=== PATIENT | female | born 1945 | race African-American/Black ===

== ENCOUNTER 2016-09-25 15:58 | Emergency (ER) | payer MEDICARE ==
[2016-09-25 16:13] VITALS: BP 133/66; PULSE 78; RESP 20; TEMP 98.1
[2016-09-25] MEDS: HYDROcodone/APAP 5-325MG 1 EACH TAB PO STA (16:22)
--- NOTE | 2016-09-25 16:22 | ED ---
Extremity Problem HPI - General Chief complaint: Extremity Problem,Nontraumatic Stated complaint: L Hip pain Time Seen by Provider: 09/25/16 16:15 Source: patient, RN notes reviewed Mode of arrival: wheelchair Limitations: no limitations - History of Present Illness Initial comments: 71-year-old female presents to the emergency 5 chief complaint of left hip pain. She has a history of seizures he had a typical normal seizure about 3 weeks ago. Patient states after that she does feel little bit of pain in the left hip. Patient states that since then she's noticed some increased tenderness along the lateral aspect worse to touch in certain movements. Patient states just keeps throbbing and aching. Patient states that nothing she seems to take seems to help the pain. Vision vision doesn't have any fever chills nausea vomiting this. Patient states that she is not currently having any other symptoms at this time. Patient states she was concerned due to the continued pain so she thought that she should be evaluated.Patient denies any recent fever, chills, shortness of breath, chest pain, back pain, abdominal pain , nausea vomiting, numbness or tingling, dysuria or hematuria, constipation or diarrhea, headaches or visual changes, or any other current symptoms. - Related Data Home Medications Medication Instructions Recorded Confirmed Phenytoin Sodium Extended 100 mg PO BID 02/04/14 02/01/15 [Dilantin] Atorvastatin Calcium [Lipitor] 10 mg PO DAILY 08/31/14 02/01/15 Citalopram Hydrobromide [CeleXA] 40 mg PO DAILY 08/31/14 02/01/15 Aspirin 81 mg PO DAILY 12/23/14 02/01/15 Phenytoin Sodium Extended 100 mg PO TID 01/27/15 02/01/15 [Dilantin] levETIRAcetam [Keppra Xr] 1,000 mg PO TID 01/27/15 02/01/15 Eye Lubricant Combination No.1 1 applic BOTH EYES 01/31/15 02/01/15 [Freshkote] Previous Rx's Medication Instructions Recorded Ibuprofen [Motrin] 600 mg PO Q6HR PRN #20 tab 09/25/16 Allergies Allergy/AdvReac Type Severity Reaction Status Date / Time Penicillins Allergy fever,rash Verified 09/25/16 16:13 Review of Systems ROS Statement: Those systems with pertinent positive or pertinent negative responses have been documented in the HPI. ROS Other: All systems not noted in ROS Statement are negative. Past Medical History Past Medical History: Hypertension, Seizure Disorder, Thyroid Disorder Additional Past Medical History / Comment(s): SEE DR JOLLEY'S H&P,CONSTIPATION, SENSITIVE SKIN,THYROID PROBLEMS A CHILD, LAST SEIZURE 7--15 History of Any Multi-Drug Resistant Organisms: None Reported Past Surgical History: Bariatric Surgery, Section, Joint Replacement Additional Past Surgical History / Comment(s): removed part of the stomach "years ago", jn knee replacement Past Anesthesia/Blood Transfusion Reactions: Motion Sickness Past Psychological History: Anxiety Additional Psychological History / Comment(s): nervous breakdown 5 yrs ago with hospitalization Smoking Status: Former smoker Past Alcohol Use History: None Reported Additional Past Alcohol Use History / Comment(s): QUIT SMOKING ,SMOKED APPROX 14 YRS Past Drug Use History: None Reported - Past Family History Father Family Medical History: Myocardial Infarction ([place]) Mother Family Medical History: Osteoarthritis (OA) General Exam - General Exam Comments Initial Comments: General: The patient is awake and alert, in no distress, and does not appear acutely ill. Neck: The neck is supple, there is no tenderness. Cardiovascular: There is a regular rate and rhythm. No murmur, rub or gallop is appreciated. Respiratory: Lungs are clear to auscultation, respirations are non-labored, breath sounds are equal. No wheezes, stridor, rales, or rhonchi. Musculoskeletal: Sensation intact with 2+ pulses. Left foot x-ray. Findings motion of left hip and left knee. Patient has some tenderness of his along the lateral aspect of the left hip. Patient has pain to abduction. No pain on adduction. Pelvic rock test is negative. Low-grade as well as does create pain. Neurological: CN II-XII intact, There are no obvious motor or sensory deficits. Coordination appears grossly intact. Speech is normal. Skin: Skin is warm and dry and no rashes or lesions are noted. Psychiatric: Normal mood and affect. Limitations: no limitations Course Vital Signs 09/25/16 16:11 Temperature 98.1 F Pulse Rate 78 Respiratory 20 Rate Blood Pressure 133/66 O2 Sat by Pulse 98 Oximetry Medical Decision Making - Medical Decision Making Patient presents for left hip pain. At this time patient's x-ray does not show any acute process. At this time with likely greater trochanter bursitis due to the point tenderness over the trochanter on exam. We discussed anti- inflammatories and we will set the patient was short course of NSAIDs. We discussed temporary hours and follow-up. Patient stated that he understood all questions were answered. They will be discharged home. - Radiology Data Radiology results: report reviewed, image reviewed Disposition Clinical Impression: Greater trochanteric bursitis of left hip Disposition: HOME SELF-CARE Condition: Stable Instructions: Hip Bursitis (ED) Additional Instructions: Please use medication as discussed. Please follow up with family doctor if symptoms have not improved over the next two days. Please return to the emergency room if your symptoms increase or worsen or for any other concerns. Prescriptions: Ibuprofen [Motrin] 600 mg PO Q6HR PRN #20 tab PRN Reason: Pain Referrals: Baljit Edmonds MD [Primary Care Provider] - 1-2 days Jonathan Pittman DO [Doctor of Osteopathic Medicine] - 1-2 days Time of Disposition: 16:49
--- NOTE | 2016-09-25 16:41 | XR ---
EXAMINATION TYPE: XR Hip Complete LT DATE OF EXAM: 09/25/2016 4:29 PM COMPARISON: NONE HISTORY: Pain x3 weeks TECHNIQUE: 2 view left hip FINDINGS: Femoral head articulates with the acetabulum. No acute fractures evident. IMPRESSION: 1. Normal left hip
== END 2016-09-25 16:55 | disposition home or self-care (01) ==
LOC: EC 15:58
DX: M70.62 Trochanteric bursitis, left hip (principal); G40.909 Epilepsy, unspecified, not intractable, without status epilepticus; F41.9 Anxiety disorder, unspecified; Z79.82 Long term (current) use of aspirin; Z79.899 Other long term (current) drug therapy; Z88.0 Allergy status to penicillin; Z87.891 Personal history of nicotine dependence
CPT/HCPCS: 73502; 99283

== ENCOUNTER → 2016-10-04 | Outpatient (CLI) | payer MEDICARE ==
--- NOTE | 2016-10-04 15:29 | MR ---
EXAMINATION TYPE: MR hip LT wo con DATE OF EXAM: 10/04/2016 2:09 PM COMPARISON: Radiographs 09/25/2016 HISTORY: 71-year-old female Left hip pain TECHNIQUE: Multiplanar, multisequence images of the left hip were obtained without IV contrast. FINDINGS: Extensive disc/endplate degenerative change seen within the visualized lower lumbar spine with some e dematous Modic type I endplate change at L4-L5. The sacrum appears intact as do the SI joints. Mild bilateral hip joint space narrowing. Small left hip joint effusion, slightly asymmetric to the c ontralateral side. No evidence for hip fracture or AVN. Some heterogeneous marrow signal without suspicious bone marrow replacement. The rectus femoris and hamstrings origins as well as the iliopsoas and gluteal insertions appear inta ct. There is loss of fat saturation in areas of the axial sequence. There is a semilunar cystic space that extends from posterior to the the ureteral orifice closer to t he lower vagina off to the left of the perineum measuring up to 3 cm long and 1 cm thick. No abnormal fluid collection otherwise seen within the pelvis. IMPRESSION: 1. Mild bilateral hip osteoporosis. No hip fracture or AVN. 2. Severe multilevel disc/endplate degenerative change within the visualized lower lumbar spine. Ther e is some edematous Modic type I endplate change noted at L4-L5. 3. Findings most suggestive of a 3 x 1 cm semilunar Bartholin gland cyst on the left. Clinically to elate.
== END | disposition home or self-care (01) ==
LOC: RADMRIMAIN 09:54
PROVIDERS: ATTEND Orthopaedic Surgery
DX: M81.0 Age-related osteoporosis without current pathological fracture (principal); M25.852 Other specified joint disorders, left hip; S76.012A Strain of muscle, fascia and tendon of left hip, initial encounter

== ENCOUNTER → 2016-10-10 | Outpatient (CLI) | payer MEDICARE | END | disposition home or self-care (01) | LOC: LABWHC1 12:36 | PROVIDERS: ATTEND Psychiatry & Neurology Neurology | DX: G40.909 Epilepsy, unspecified, not intractable, without status epilepticus (principal) | CPT/HCPCS: 36415; 80177; 80185 ==

== ENCOUNTER 2016-10-29 11:14 | Day surgery (SDC) | payer MEDICARE ==
[2016-10-24 12:22] VITALS: BMI 37.8
[~2016-10-29 11:14] MED LIST: CLINDAMYCIN 900 MG in DEXTROSE 5% IN WATER 50 ML IVPB ONE; SODIUM CHLORIDE 0.9% 1,000 ML IV SCH
[2016-10-29 11:31] VITALS: RESP 18
[2016-10-29] MEDS ORDERED: LIDOCAINE 2% INJ 20 MG/ML SQ ONE (13:31)
--- NOTE | 2016-10-29 13:46 | P.PCN ---
Preoperative Diagnosis: Loop explant under local anesthesia and monitoring Patient was brought to the EP lab in a fasting state. Written informed consent was obtained prior to the procedure. The subcutaneous device was successfully explanted under local anesthesia. Preoperative antibiotics were administered. The wound was closed in layers and dressed per protocol. Result: Successful loop monitor explantation. Patient was monitored for heart rate and blood pressure and pulse ox from 1330 to 1339 Anesthesia: local Disposition: same day
[2016-10-29 15:22] VITALS: BP 140/86; PULSE 86; TEMP 98
== END 2016-10-29 14:30 | disposition home or self-care (01) ==
LOC: CATHEP 11:14
PROVIDERS: ATTEND Internal Medicine Clinical Cardiac Electrophysiology
DX: R55 Syncope and collapse (principal); I25.10 Atherosclerotic heart disease of native coronary artery without angina pectoris; I44.30 Unspecified atrioventricular block; E66.01 Morbid (severe) obesity due to excess calories; Z68.38 Body mass index [BMI] 38.0-38.9, adult; G40.909 Epilepsy, unspecified, not intractable, without status epilepticus; Z79.82 Long term (current) use of aspirin; Z79.899 Other long term (current) drug therapy; Z88.0 Allergy status to penicillin; Z87.891 Personal history of nicotine dependence
CPT/HCPCS: 33284; J2001

== ENCOUNTER → 2017-01-15 | Outpatient (CLI) | payer MEDICARE ==
--- NOTE | 2017-01-15 11:20 | MM ---
Reason for exam: screening (asymptomatic). Last mammogram was performed 1 year and 5 months ago. History: Patient is postmenopausal. Excisional biopsy of the right breast, 1974. Physical Findings: A clinical breast exam by your physician is recommended on an annual basis and results should be correlated with mammographic findings. MG Screening Mammo w CAD Bilateral CC and MLO view(s) were taken. Prior study comparison: August 31, 2015, bilateral MG screening mammo w CAD. April 23, 2013, bilateral digital screening mammo w/CAD. The breast tissue is almost entirely fat. Previous ultrasound biopsy in the right breast. No significant changes when compared with prior studies. ASSESSMENT: Benign, BI-RAD 2 RECOMMENDATION: Routine screening mammogram of both breasts in 1 year.
== END | disposition home or self-care (01) ==
LOC: RADMAMWWP 08:09
PROVIDERS: ATTEND Family Medicine
DX: Z12.31 Encounter for screening mammogram for malignant neoplasm of breast (principal)

== ENCOUNTER 2017-03-14 15:46 | Emergency (ER) | payer MEDICARE ==
[2017-03-14] MEDS ORDERED: SODIUM CHLORIDE 0.9% 1,000 ML IV STA (15:53)
[2017-03-14] MEDS ORDERED: levETIRAcetam IV 1,000 MG in SALINE 1 100ML.BAG IVPB STA (15:54)
[2017-03-14 16:13] VITALS: TEMP 97.9
[2017-03-14 16:23] LABS: Basophils % (A) 1 %; CH 32.2; CHCM 33.2; Eosinophils # (A) 0.1 k/uL (0-0.7); Eosinophils % (A) 2 %; HCT 42.1 % (34.0-46.0); HDW 2.18; HGB 13.6 gm/dL (11.4-16.0); Luc # (Auto) 0.16; Luc % (Auto) 3; Lymphocytes # (A) 1.3 k/uL (1.0-4.8); Lymphocytes % (A) 22 %; MCH 31.3 pg (25.0-35.0); MCHC 32.2 g/dL (31.0-37.0); MCV 97.3 fL (80.0-100.0); Mean Platelet Volume 7.5; Monocytes # (A) 0.2 k/uL (0-1.0); Monocytes % (A) 4 %; Neutrophils # (A) 3.8 k/uL (1.3-7.7); Neutrophils % (A) 68 %; RBC 4.33 m/uL (3.80-5.40); RDW 13.7 % (11.5-15.5); WBC 5.6 k/uL (3.8-10.6)
[2017-03-14 16:36] LABS: ALT 34 U/L (9-52); AST 25 U/L (14-36); Alkaline Phosphatase 170 U/L (38-126); Anion Gap 6 mmol/L; Blood Urea Nitrogen 14 mg/dL (7-17); Calcium 8.4 mg/dL (8.4-10.2); Carbon Dioxide 23 mmol/L (22-30); Chloride 108 mmol/L (98-107); Glucose 120 mg/dL (74-99); Non-African American GFR(MDRD) >60 (>60 ml/min/1.73 sqM); Potassium 3.8 mmol/L (3.5-5.1); Sodium 137 mmol/L (137-145); Total Bilirubin 0.2 mg/dL (0.2-1.3); Total Protein 6.3 g/dL (6.3-8.2)
--- NOTE | 2017-03-14 16:45 | CT ---
EXAMINATION TYPE: CT brain cspine wo con DATE OF EXAM: 03/14/2017 COMPARISON: 02/04/2014 HISTORY: seizure today with posterior head injury CT DLP: 1738.9 mGycm. Automated Exposure Control for Dose Reduction was Utilized. TECHNIQUE: CT scan of the head and cervical spine are performed without contrast. FINDINGS: There is no acute intracranial hemorrhage or midline shift. There is subtle blurring of the quintanilla-white junction involving the right posterior temporal lobes and parietal lobes in the distri bution of the right middle cerebral artery. No hyperdense MCA is seen. The ventricles and sulci are w ithin normal limits in size. The globes are intact and the visualized sinuses are clear. Cervical spine is visualized in its entirety from C1 through upper thoracic levels and demonstrates s atisfactory alignment without evidence of acute fracture or dislocation. Prevertebral soft tissue ap pears within normal limits. Multilevel degenerative disc disease is seen of the cervical spine. Find ings are most pronounced at C3-C4 and C6-C7. The C1-C2 articulation is unremarkable. IMPRESSION: 1. Subtle blurring of the quintanilla-white junction in the distribution of the right MCA which could relate to early infarct or artifact. Correlation with MRI could be performed to exclude territorial infarct . Correlation with neurologic exam is recommended. 2. There is no acute fracture or dislocation evident in the cervical spine. 3. No acute intracranial hemorrhage. Findings were communicated to the ordering ER physician by Dr. Kidd at 1642 on 03/14/2017.
--- NOTE | 2017-03-14 17:10 | ED ---
General Adult HPI - General Chief complaint: Seizure Stated complaint: Seizure Time Seen by Provider: 03/14/17 15:51 Source: patient, EMS, RN notes reviewed, old records reviewed Mode of arrival: EMS - History of Present Illness Initial comments: This is a 72-year-old female the ER for evaluation. This patient is a for evaluation regarding seizure. Patient's postictal soluble give history and status post seizure at this time, but I patient has been taken off seizure medications as prescribed O shopping, had a seizure while standing fell to ground hit had with no loss of consciousness. She does have mild bleeding from the posterior occiput. No other injuries from seizure. - Related Data Home Medications Medication Instructions Recorded Confirmed Phenytoin Sodium Extended 100 mg PO TID 02/04/14 03/14/17 [Dilantin] Atorvastatin Calcium [Lipitor] 10 mg PO HS 08/31/14 03/14/17 Citalopram Hydrobromide [CeleXA] 40 mg PO DAILY 08/31/14 03/14/17 Phenytoin Sodium Extended 100 mg PO BID 01/27/15 03/14/17 [Dilantin] levETIRAcetam [Keppra Xr] 1,000 mg PO TID 01/27/15 03/14/17 Aspirin EC [Ecotrin Low Dose] 81 mg PO BID 03/14/17 03/14/17 Ergocalciferol (Vitamin D2) 50,000 unit PO Q28D 03/14/17 03/14/17 [Vitamin D2] Perampanel (Fycompa) 4 mg PO HS 03/14/17 03/14/17 Allergies Allergy/AdvReac Type Severity Reaction Status Date / Time TESS Inhibitors Allergy Itching Verified 03/14/17 15:56 Penicillins Allergy fever,rash Verified 03/14/17 15:56 Review of Systems ROS Statement: Those systems with pertinent positive or pertinent negative responses have been documented in the HPI. ROS Other: All systems not noted in ROS Statement are negative. Past Medical History Past Medical History: Hypertension, Seizure Disorder, Skin Disorder, Thyroid Disorder Additional Past Medical History / Comment(s): SEE DR JOLLEY'S H&P,EXCEMA, THYROID PROBLEMS A CHILD, LAST SEIZURE 10/20/16 History of Any Multi-Drug Resistant Organisms: None Reported Past Surgical History: Bariatric Surgery, Section, Joint Replacement Additional Past Surgical History / Comment(s): LOOP MONITOR IMPLANT, removed part of the stomach "years ago", jn knee replacement, LEFT CATARACT Past Anesthesia/Blood Transfusion Reactions: Motion Sickness Past Psychological History: Anxiety Smoking Status: Former smoker Past Alcohol Use History: None Reported Past Drug Use History: None Reported - Past Family History Father Family Medical History: Myocardial Infarction ([place]) Mother Family Medical History: Osteoarthritis (OA) General Exam Limitations: altered mental status (Postictal) General appearance: alert, in no apparent distress Head exam: Present: atraumatic, normocephalic, normal inspection Eye exam: Present: normal appearance, PERRL, EOMI. Absent: scleral icterus, conjunctival injection, periorbital swelling ENT exam: Present: normal exam, mucous membranes moist Neck exam: Present: normal inspection. Absent: tenderness, meningismus, lymphadenopathy Respiratory exam: Present: normal lung sounds bilaterally. Absent: respiratory distress, wheezes, rales, rhonchi, stridor Cardiovascular Exam: Present: regular rate, normal rhythm, normal heart sounds. Absent: systolic murmur, diastolic murmur, rubs, gallop, clicks GI/Abdominal exam: Present: soft, normal bowel sounds. Absent: distended, tenderness, guarding, rebound, rigid Extremities exam: Present: normal inspection, full ROM, normal capillary refill. Absent: tenderness, pedal edema, joint swelling, calf tenderness Back exam: Present: normal inspection Neurological exam: Present: alert, oriented X3, CN II-XII intact Psychiatric exam: Present: normal affect, normal mood Skin exam: Present: warm, dry, intact, normal color. Absent: rash Course Vital Signs 03/14/17 15:56 Temperature 97.9 F Pulse Rate 89 Respiratory 16 Rate Blood Pressure 197/102 - Reevaluation(s) Reevaluation #1: 03/14/17 17:08 Patient is completely back to baseline mental status, no seizure-like activity here in emergency room, patient states she's been taking all medications as prescribed Reevaluation #2: 03/14/17 17:08 Patient has no focal neurological deficit, able to ambulate without difficulty Procedures - Laceration Laceration #1 Consent Obtained: verbal consent Time Out Performed: Yes Indication: laceration Site: scalp Size (cm): 3 Description: linear Pre-repair: wound explored, irrigated extensively Size of Sutures: other (Sander) Technique: simple, interrupted Medical Decision Making - Medical Decision Making 72 female in the ER status post epileptic seizure, therapeutic Dilantin level, given Her here in ER, no seizure-like activity, CT brain and C-spine are negative. No focal neurological deficit, scalp laceration is repaired is repaired with sander and patient can be discharged - Lab Data Result diagrams: 03/14/17 16:05 03/14/17 16:10 Lab Results 03/14/17 03/14/17 Range/Units 16:05 16:10 WBC 5.6 (3.8-10.6) k/uL RBC 4.33 (3.80-5.40) m/uL Hgb 13.6 (11.4-16.0) gm/dL Hct 42.1 (34.0-46.0) % MCV 97.3 (80.0-100.0) fL MCH 31.3 (25.0-35.0) pg MCHC 32.2 (31.0-37.0) g/dL RDW 13.7 (11.5-15.5) % Plt Count 252 (150-450) k/uL Neutrophils % 68 % Lymphocytes % 22 % Monocytes % 4 % Eosinophils % 2 % Basophils % 1 % Neutrophils # 3.8 (1.3-7.7) k/uL Lymphocytes # 1.3 (1.0-4.8) k/uL Monocytes # 0.2 (0-1.0) k/uL Eosinophils # 0.1 (0-0.7) k/uL Basophils # 0.0 (0-0.2) k/uL Sodium 137 (137-145) mmol/L Potassium 3.8 (3.5-5.1) mmol/L Chloride 108 H (98-107) mmol/L Carbon Dioxide 23 (22-30) mmol/L Anion Gap 6 mmol/L BUN 14 (7-17) mg/dL Creatinine 0.50 L (0.52-1.04) mg/dL Est GFR (MDRD) Af Amer >60 (>60 ml/min/1.73 sqM) Est GFR (MDRD) Non-Af >60 (>60 ml/min/1.73 sqM) Glucose 120 H (74-99) mg/dL Calcium 8.4 (8.4-10.2) mg/dL Total Bilirubin 0.2 (0.2-1.3) mg/dL AST 25 (14-36) U/L ALT 34 (9-52) U/L Alkaline Phosphatase 170 H (38-126) U/L Total Protein 6.3 (6.3-8.2) g/dL Albumin 3.6 (3.5-5.0) g/dL Phenytoin 16.2 ug/mL - Radiology Data Radiology results: report reviewed (CT brain and C-spine negative for acute injury), image reviewed Disposition Clinical Impression: Epileptic seizure, Scalp laceration, Fall Disposition: HOME SELF-CARE Condition: Good Instructions: Recurrent Seizures in Adults (ED), Staple Care (ED) Referrals: Baljit Edmonds MD [Primary Care Provider] - 1-2 days
[2017-03-14 17:30] VITALS: BP 150/95; PULSE 90; RESP 20
== END 2017-03-14 17:30 | disposition home or self-care (01) ==
LOC: EC 15:46
DX: S01.01XA Laceration without foreign body of scalp, initial encounter (principal); R56.9 Unspecified convulsions; I10 Essential (primary) hypertension; E07.9 Disorder of thyroid, unspecified; F41.9 Anxiety disorder, unspecified; Z87.891 Personal history of nicotine dependence; Z79.82 Long term (current) use of aspirin; Z79.899 Other long term (current) drug therapy; Z88.0 Allergy status to penicillin; Z88.8 Allergy status to other drugs, medicaments and biological substances; W18.00XA Striking against unspecified object with subsequent fall, initial encounter
CPT/HCPCS: 36415; 80053; 80185; 85025; 72125; 70450; 99285; 96374; 96361; 12002; J1953

== ENCOUNTER → 2017-11-27 | Outpatient (CLI) | payer MEDICARE ==
--- NOTE | 2017-11-28 06:23 | MR ---
EXAMINATION TYPE: MR brain wo/w con DATE OF EXAM: 11/27/2017 COMPARISON: CT brain March 14, 2017. HISTORY: Generalized epilepsy, epileptic syndromes per order. Seizures per patient. TECHNIQUE: Multiplanar, multisequence images of the brain and brainstem is performed without and with IV contras t, utilizing 10 mL intravenous Gadavist . FINDINGS: Diffusion weighted images demonstrate no evidence of a recent infarct or other diffusion ab normality. There is no worrisome extra-axial fluid collection. The ventricular system and cisternal spaces are normal in size and appearance. The brain volume is age appropriate. There are few scatte red foci of T2 hyperintensity seen throughout the white matter bilaterally. Approximately 10 scattere d lesions are present. Lesions are nonspecific in appearance and distribution but most likely on basi s of product of chronic small vessel ischemic change in patient of this age. Midline structures demonstrate normal morphology. The craniocervical junction appears within normal limits. Post contrast images demonstrate no abnormal enhancement. The dural venous sinuses appear pa tent. The visualized sinuses are clear and the globes are intact. Artifact distortion at level of max illary sinuses and nasal bones is noted. Hyperostosis frontalis is redemonstrated. IMPRESSION: Mild chronic small vessel ischemic change. No suspicious enhancement is noted.
== END | disposition home or self-care (01) ==
LOC: RADMRIMAIN 19:13
PROVIDERS: ATTEND Psychiatry & Neurology Neurology
DX: I67.82 Cerebral ischemia (principal); Z13.89 Encounter for screening for other disorder
CPT/HCPCS: 82565; 70553; 36415; A9581

== ENCOUNTER → 2017-11-29 | Outpatient (CLI) | payer MEDICARE ==
[2017-11-29 11:16] LABS: Phenytoin (Dilantin) 9.3 ug/mL
== END | disposition home or self-care (01) ==
LOC: LABWHC1 10:27
PROVIDERS: ATTEND Psychiatry & Neurology Neurology
DX: G40.419 Other generalized epilepsy and epileptic syndromes, intractable, without status epilepticus (principal); Z13.89 Encounter for screening for other disorder
CPT/HCPCS: 36415; 80177; 80185; 82565

== ENCOUNTER → 2019-04-29 | Outpatient (CLI) | payer MEDICARE | END | disposition home or self-care (01) | LOC: LABWHC1 12:50 | PROVIDERS: ATTEND Psychiatry & Neurology Neurology | DX: G47.19 Other hypersomnia (principal) | CPT/HCPCS: 36415 ==

== ENCOUNTER → 2019-08-17 | Outpatient (CLI) | payer MEDICARE | END | disposition home or self-care (01) | LOC: LABWHC1 10:29 | PROVIDERS: ATTEND Psychiatry & Neurology Neurology | DX: G40.419 Other generalized epilepsy and epileptic syndromes, intractable, without status epilepticus (principal) | CPT/HCPCS: 36415; 80177; 80185 ==

== ENCOUNTER → 2020-01-13 | Outpatient (CLI) | payer MEDICARE | END | disposition home or self-care (01) | LOC: LABWHC1 08:27 | PROVIDERS: ATTEND Psychiatry & Neurology Neurology | DX: G40.419 Other generalized epilepsy and epileptic syndromes, intractable, without status epilepticus (principal) | CPT/HCPCS: 36415; 80177; 80185 ==

== ENCOUNTER 2020-01-29 03:43 | Emergency (ER) | payer MEDICARE ==
[2020-01-29] MEDS ORDERED: LORazepam 2 MG/ML INJ IV STA (04:11)
[2020-01-29] MEDS ORDERED: SODIUM CHLORIDE 0.9% 1,000 ML IV SCH (04:15)
[2020-01-29 04:37] LABS: Basophils % (A) 1 %; Eosinophils # (A) 0.2 k/uL (0-0.7); Eosinophils % (A) 2 %; HCT 44.1 % (34.0-46.0); HGB 14.8 gm/dL (11.4-16.0); Lymphocytes # (A) 2.3 k/uL (1.0-4.8); Lymphocytes % (A) 32 %; MCH 31.9 pg (25.0-35.0); MCHC 33.6 g/dL (31.0-37.0); Mean Platelet Volume 7.5; Monocytes # (A) 0.4 k/uL (0-1.0); Monocytes % (A) 6 %; Neutrophils % (A) 55 %; Platelet Count 247 k/uL (150-450); RBC 4.65 m/uL (3.80-5.40); RDW 12.8 % (11.5-15.5); WBC 7.3 k/uL (3.8-10.6)
[2020-01-29 04:38] LABS: ALT 21 U/L (4-34); AST 26 U/L (14-36); African American GFR (CKD) >90 (>60 ml/min/1.73 sqM); Albumin 4.1 g/dL (3.5-5.0); Alkaline Phosphatase 175 U/L (38-126); Anion Gap 13 mmol/L; Blood Urea Nitrogen 12 mg/dL (7-17); Carbon Dioxide 19 mmol/L (22-30); Chloride 101 mmol/L (98-107); Glucose 192 mg/dL (74-99); Non-African American GFR(CKD) >90 (>60 ml/min/1.73 sqM); Potassium 3.6 mmol/L (3.5-5.1); Sodium 133 mmol/L (137-145); Total Bilirubin 0.5 mg/dL (0.2-1.3)
[2020-01-29 05:07] LABS: MCV 94.9 fL (80.0-100.0)
--- NOTE | 2020-01-29 05:13 | ED ---
General Adult HPI - General Chief complaint: Shortness of Breath Stated complaint: SOB Time Seen by Provider: 01/29/20 04:10 Source: patient Mode of arrival: ambulatory Limitations: no limitations - History of Present Illness Initial comments: Patient is a 74-year-old female presents to the ER today for evaluation of shortness of breath. Patient reports she was in her usual state of health when she went about, approximately one hour prior to arrival she began feeling panicky like her heart was racing and she can catch her breath. She denies any wheezing cough recent fevers or chills. She states she has a history of anxiety and has had anxiety attacks that present like this. Patient also notes that she had a seizure yesterday, she does have chronic seizure disorder does have frequent seizures seizure yesterday lasted under 10 minutes. states sometimes they last longer than that. Patient does report that she recently started taking Fycompa she has taken previously and had discontinued due to having episodes of lightheadedness and syncope while taking it. Patient reports that despite not taking it she did have some syncope over a week ago she seen her primary care neurologist since then but hadn't discussed it with them. She hasn't had any recent chest pain. She states that her sink while episodes occur without provocation. She states she just falls out. This is been a chronic problem for her. - Related Data Home Medications Medication Instructions Recorded Confirmed Phenytoin Sodium Extended 100 mg PO TID 02/04/14 03/14/17 [Dilantin] Atorvastatin Calcium [Lipitor] 10 mg PO HS 08/31/14 03/14/17 Citalopram Hydrobromide [CeleXA] 40 mg PO DAILY 08/31/14 03/14/17 Phenytoin Sodium Extended 100 mg PO BID 01/27/15 03/14/17 [Dilantin] levETIRAcetam [Keppra Xr] 1,000 mg PO TID 01/27/15 03/14/17 Aspirin EC [Ecotrin Low Dose] 81 mg PO BID 03/14/17 03/14/17 Ergocalciferol (Vitamin D2) 50,000 unit PO Q28D 03/14/17 03/14/17 [Vitamin D2] Perampanel (Fycompa) 4 mg PO HS 03/14/17 03/14/17 Aspirin EC [Ecotrin Low Dose] 81 mg PO BID 08/08/18 08/08/18 Atorvastatin [Lipitor] 10 mg PO HS 08/08/18 08/08/18 Citalopram Hydrobromide 40 mg PO DAILY 08/08/18 08/08/18 [Citalopram HBr] Multivitamins, Thera [Multivitamin 1 tab PO DAILY 08/08/18 08/08/18 (formulary)] Perampanel [Fycompa] 10 mg PO HS 08/08/18 08/08/18 Phenytoin Sodium Extended 100 mg PO BID 08/08/18 08/08/18 [Dilantin] levETIRAcetam [levETIRAcetam ER] 1,000 mg PO BID 08/08/18 08/08/18 Allergies Allergy/AdvReac Type Severity Reaction Status Date / Time TESS Inhibitors Allergy Itching Verified 01/29/20 03:51 Penicillins Allergy fever,rash Verified 01/29/20 03:51 Review of Systems ROS Statement: Those systems with pertinent positive or pertinent negative responses have been documented in the HPI. ROS Other: All systems not noted in ROS Statement are negative. Past Medical History Past Medical History: Hypertension, Seizure Disorder, Skin Disorder, Thyroid Disorder Additional Past Medical History / Comment(s): SEE DR JOLLEY'S H&P,EXCEMA, THYROID PROBLEMS A CHILD, LAST SEIZURE 10/20/16 History of Any Multi-Drug Resistant Organisms: None Reported Past Surgical History: Bariatric Surgery, Section, Joint Replacement, No Surgical Hx Reported Additional Past Surgical History / Comment(s): LOOP MONITOR IMPLANT, removed part of the stomach "years ago", jn knee replacement, LEFT CATARACT Past Anesthesia/Blood Transfusion Reactions: Motion Sickness Past Psychological History: Anxiety, No Psychological Hx Reported Smoking Status: Never smoker Past Alcohol Use History: None Reported Past Drug Use History: None Reported - Past Family History Father Family Medical History: Myocardial Infarction ([place]) Mother Family Medical History: Osteoarthritis ([place]) General Exam - General Exam Comments Initial Comments: Physical Exam GENERAL: Patient is well-developed and well-nourished. Patient is nontoxic and well-hydrated and is in no distress. HENT: Normocephalic, Atraumatic. EYES: PERRL, EOMI PULMONARY: Unlabored respirations. CARDIOVASCULAR: RRR Warm and well perfused extremities ABDOMEN: Non-distended SKIN: No rashes or bruising : Deferred NEUROLOGIC: Alert and oriented Normal speech Normal gait MUSCULOSKELETAL: Moving all extremities with no apparent injury PSYCHIATRIC: No SI/HI Limitations: no limitations Course Vital Signs 01/29/20 01/29/20 01/29/20 03:44 04:40 06:40 Temperature 98.2 F Pulse Rate 123 H 108 H 90 Respiratory 18 22 18 Rate Blood Pressure 171/94 159/98 O2 Sat by Pulse 100 100 97 Oximetry EKG Findings - EKG Comments: EKG Findings:: EKG is obtained due to tachycardia and shortness of breath, EKG was obtained for us exam, rate is 110 rhythm sinus tachycardia normal axis, normal intervals, WA 156, QRS 78, QTC 479 there are no acute ST elevations or depressions no acute ischemia or infarction Medical Decision Making - Medical Decision Making Patient presented short of breath, no wheezing, tachycardic Labs and ativan ordered Patient HR improved with ativan, upon re-evaluation patient is feeling much better Labs with elevated D-dimer, CT scan with no evidence of PE, small nodule noted and discussed with patient, gallbladder sludge noted however patient with no symptoms therefore further imaging not acutely indicated Patient no longer tachycardic, resting comfortably, comfortable with plan for discharge home - Lab Data Result diagrams: 01/29/20 04:13 01/29/20 04:13 Lab Results 01/29/20 01/29/20 01/29/20 Range/Units 04:13 04:13 04:13 WBC 7.3 (3.8-10.6) k/uL RBC 4.65 (3.80-5.40) m/uL Hgb 14.8 (11.4-16.0) gm/dL Hct 44.1 (34.0-46.0) % MCV 94.9 D (80.0-100.0) fL MCH 31.9 (25.0-35.0) pg MCHC 33.6 (31.0-37.0) g/dL RDW 12.8 (11.5-15.5) % Plt Count 247 (150-450) k/uL Neutrophils % 55 % Lymphocytes % 32 % Monocytes % 6 % Eosinophils % 2 % Basophils % 1 % Neutrophils # 4.0 (1.3-7.7) k/uL Lymphocytes # 2.3 (1.0-4.8) k/uL Monocytes # 0.4 (0-1.0) k/uL Eosinophils # 0.2 (0-0.7) k/uL Basophils # 0.0 (0-0.2) k/uL D-Dimer 0.66 H (<0.60) mg/L FEU Sodium 133 L (137-145) mmol/L Potassium 3.6 (3.5-5.1) mmol/L Chloride 101 (98-107) mmol/L Carbon Dioxide 19 L (22-30) mmol/L Anion Gap 13 mmol/L BUN 12 (7-17) mg/dL Creatinine 0.53 (0.52-1.04) mg/dL Est GFR (CKD-EPI)AfAm >90 (>60 ml/min/1.73 sqM) Est GFR (CKD-EPI)NonAf >90 (>60 ml/min/1.73 sqM) Glucose 192 H (74-99) mg/dL Calcium 9.0 (8.4-10.2) mg/dL Magnesium 2.0 (1.6-2.3) mg/dL Total Bilirubin 0.5 (0.2-1.3) mg/dL AST 26 (14-36) U/L ALT 21 (4-34) U/L Alkaline Phosphatase 175 H (38-126) U/L Total Protein 7.0 (6.3-8.2) g/dL Albumin 4.1 (3.5-5.0) g/dL Disposition Clinical Impression: Palpitations, Abnormal CT lung screening Disposition: HOME SELF-CARE Condition: Stable Additional Instructions: Your CT showed a 3mm lesion in your left lung, follow up with your PCP for repeat imaging Is patient prescribed a controlled substance at d/c from ED?: No Referrals: Baljit Edmonds MD [Primary Care Provider] - 1-2 days
--- NOTE | 2020-01-29 06:59 | CT ---
EXAM: CT Angiography Chest With Intravenous Contrast CLINICAL HISTORY: ITS.REASON CT Reason: hypoxia TECHNIQUE: Axial computed tomographic angiography images of the chest with intravenous contrast. CTDI is 14 mGy and DLP is 545 mGy-cm. This CT exam was performed using one or more of the following dose reduction techniques: automated exposure control, adjustment of the mA and/or kV according to patient size, and/or use of iterative reconstruction technique. MIP reconstructed images were created and reviewed. COMPARISON: 08/31/2014 FINDINGS: Pulmonary arteries: Due to contrast timing, the distal pulmonary arteries are not well evaluated. Only the proximal/central pulmonary arteries are visualized, which is patent. Aorta: No thoracic aortic aneurysm. Lungs: No mass. No consolidation. 3 mm micronodule in the left lower lobe (series 401 image 76). Pleural space: No pneumothorax. No effusion. Heart: No cardiomegaly. No pericardial effusion. Bones/joints: No acute fracture or dislocation. Severe L1-2 degenerative discogenic changes. Soft tissues: 9 mm nodule in the right thyroid gland. Distended gallbladder with sludge layering near the neck. Lymph nodes: No enlarged lymph nodes. IMPRESSION: 1. Due to contrast timing, the distal pulmonary arteries are not well evaluated. Only the proximal/central pulmonary arteries are visualized, which is patent. No pulmonary infarct or right heart strain. 2. Distended gallbladder with sludge layering near the gallbladder neck. Recommend right upper quadrant ultrasound. 3. Subcentimeter right thyroid gland nodule. 4. 3 mm micronodule in the left lower lobe. Fleishner Society Guideline 2017: Solitary nodule size: <6 mm -low-risk patients: no follow-up needed -high-risk patients: optional CT at 12 months EXCLUSIONS: 1. Patients aged 35 years or younger 2. Patients with known malignancy 3. Immunocompromised patients 4. Lung cancer screening population Low-risk patients: a minimal or absent history of smoking and or other known risk factors High-risk patients: a history of smoking or of other known risk factors (e.g. first degree relative with lung cancer, or exposure to asbestos, radon, uranium).
[2020-01-29 10:36] VITALS: BP 150/96; PULSE 88; RESP 16; TEMP 98.2
== END 2020-01-29 07:55 | disposition home or self-care (01) ==
LOC: EC 03:43
DX: R00.2 Palpitations (principal); R06.02 Shortness of breath; R79.89 Other specified abnormal findings of blood chemistry; R91.8 Other nonspecific abnormal finding of lung field; K82.8 Other specified diseases of gallbladder; G40.909 Epilepsy, unspecified, not intractable, without status epilepticus; F41.9 Anxiety disorder, unspecified; Z79.899 Other long term (current) drug therapy; Z79.82 Long term (current) use of aspirin; Z88.8 Allergy status to other drugs, medicaments and biological substances; Z88.0 Allergy status to penicillin; Z96.653 Presence of artificial knee joint, bilateral
CPT/HCPCS: 36415; 85379; 80053; 83735; 85025; 71275; 99285; 96374; 96361 ×3; J2060; Q9967

== ENCOUNTER 2020-02-24 07:17 | Emergency (ER) | payer MEDICARE ==
[2020-02-24 07:22] VITALS: RESP 18
[2020-02-24] MEDS ORDERED: SODIUM CHLORIDE 0.9% 1,000 ML IV ONE ×2 (07:33→08:58)
[2020-02-24] MEDS ORDERED: ACETAMINOPHEN TAB 500 MG TAB PO STA (07:33)
--- NOTE | 2020-02-24 07:36 | ED ---
Recheck HPI - General Chief Complaint: Recheck/Abnormal Lab/Rx Stated Complaint: wants covid test, SOB Time Seen by Provider: 02/24/20 07:23 Source: patient, RN notes reviewed, old records reviewed Mode of arrival: ambulatory Limitations: no limitations - History of Present Illness Initial Comments: Patient's is 75-year-old female who presents emergency department today for evaluation for concerns for general fatigue, decreased appetite, leg cramping as well as low-grade fevers for the past 3 days. She is concerned that she may possible Covid 19 infection. She states that she has not had any recent Tylenol senna that temperature 99.6. Patient denies any significant chest pain or shortness of breath. Patient states that she's also had a history of seizure disorders and is had a seizure 2 days ago. She maintains her seizure disorder with Keppra and phenytoin. She states that she's been applying with her medications. Patient denies any significant headache at this time. She reports that her seizure was witnessed and she did not hit her head. - Related Data Home Medications Medication Instructions Recorded Confirmed Phenytoin Sodium Extended 100 mg PO TID 02/04/14 03/14/17 [Dilantin] Atorvastatin Calcium [Lipitor] 10 mg PO HS 08/31/14 03/14/17 Citalopram Hydrobromide [CeleXA] 40 mg PO DAILY 08/31/14 03/14/17 Phenytoin Sodium Extended 100 mg PO BID 01/27/15 03/14/17 [Dilantin] levETIRAcetam [Keppra Xr] 1,000 mg PO TID 01/27/15 03/14/17 Aspirin EC [Ecotrin Low Dose] 81 mg PO BID 03/14/17 03/14/17 Ergocalciferol (Vitamin D2) 50,000 unit PO Q28D 03/14/17 03/14/17 [Vitamin D2] Perampanel (Fycompa) 4 mg PO HS 03/14/17 03/14/17 Aspirin EC [Ecotrin Low Dose] 81 mg PO BID 08/08/18 08/08/18 Atorvastatin [Lipitor] 10 mg PO HS 08/08/18 08/08/18 Citalopram Hydrobromide 40 mg PO DAILY 08/08/18 08/08/18 [Citalopram HBr] Multivitamins, Thera [Multivitamin 1 tab PO DAILY 08/08/18 08/08/18 (formulary)] Perampanel [Fycompa] 10 mg PO HS 08/08/18 08/08/18 Phenytoin Sodium Extended 100 mg PO BID 08/08/18 08/08/18 [Dilantin] levETIRAcetam [levETIRAcetam ER] 1,000 mg PO BID 08/08/18 08/08/18 Allergies Allergy/AdvReac Type Severity Reaction Status Date / Time TESS Inhibitors Allergy Itching Verified 02/24/20 07:22 Penicillins Allergy fever,rash Verified 02/24/20 07:22 Review of Systems ROS Statement: Those systems with pertinent positive or pertinent negative responses have been documented in the HPI. ROS Other: All systems not noted in ROS Statement are negative. Past Medical History Past Medical History: Hypertension, Seizure Disorder, Skin Disorder, Thyroid Disorder Additional Past Medical History / Comment(s): EXCEMA, History of Any Multi-Drug Resistant Organisms: None Reported Past Surgical History: Bariatric Surgery, Section, Joint Replacement, No Surgical Hx Reported Additional Past Surgical History / Comment(s): LOOP MONITOR IMPLANT, removed part of the stomach "years ago", jn knee replacement, LEFT CATARACT Past Anesthesia/Blood Transfusion Reactions: Motion Sickness Past Psychological History: Anxiety, No Psychological Hx Reported Smoking Status: Never smoker Past Alcohol Use History: None Reported Past Drug Use History: None Reported - Past Family History Father Family Medical History: Myocardial Infarction ([place]) Mother Family Medical History: Osteoarthritis ([place]) General Exam - General Exam Comments Initial Comments: 75 -year-old female. Alert and oriented. No significant distress. Limitations: no limitations General appearance: alert, in no apparent distress Head exam: Present: atraumatic, normocephalic, normal inspection Eye exam: Present: normal appearance, PERRL, EOMI. Absent: scleral icterus, conjunctival injection, periorbital swelling ENT exam: Present: normal exam, mucous membranes moist Neck exam: Present: normal inspection. Absent: tenderness, meningismus, lymphadenopathy Respiratory exam: Present: normal lung sounds bilaterally. Absent: respiratory distress, wheezes, rales, rhonchi, stridor Cardiovascular Exam: Present: regular rate, normal rhythm, normal heart sounds. Absent: systolic murmur, diastolic murmur, rubs, gallop, clicks GI/Abdominal exam: Present: soft, normal bowel sounds. Absent: distended, tenderness, guarding, rebound, rigid Extremities exam: Present: normal inspection, full ROM, normal capillary refill. Absent: tenderness, pedal edema, joint swelling, calf tenderness Course Vital Signs 02/24/20 02/24/20 02/24/20 07:20 07:28 08:40 Temperature 99.6 F Pulse Rate 109 H 90 Respiratory 18 18 18 Rate Blood Pressure 170/94 157/100 O2 Sat by Pulse 98 96 Oximetry 02/24/20 02/24/20 09:03 09:21 Temperature 98 F Pulse Rate 91 82 Respiratory 18 18 Rate Blood Pressure 154/90 O2 Sat by Pulse 99 100 Oximetry Medical Decision Making - Medical Decision Making 75-year-old female who presents return to general fatigue, but states she is unable to sleep well, complains of leg cramps and low-grade temperatures for the past 3 days. She is concerned for possible Covid 19 infection. This time she has no chest pain or shortness of breath. Lungs are clear to auscultation. Abdomen stable and she developed a low-grade temperature 99.6. Is given Tylenol and IV fluids. Labs show elevated lactic acid was can be residual from pat ient's straight seizure. Her white blood cell count is normal. CRP is unremarkable. With a leg cramp she does have normal pulses in all extremities abdomen is soft and nontender. Patient has urinalysis is negative for significant infection as well. Discussed at this time Patient could likely a viral illness with general malaise and symptoms and advised her to await for follow-up for the Covid 19 test. I discussed Patient can take Tylenol or Motrin for fever and pain. She is mainly concerned with on ability to sleep at night. She does have underlying history of anxiety. Discussed using [id number] sleep aids such as melatonin or Benadryl if necessary. - Lab Data Result diagrams: 02/24/20 07:49 02/24/20 07:49 Lab Results 02/24/20 02/24/20 02/24/20 Range/Units 07:49 07:49 07:49 WBC 5.0 (3.8-10.6) k/uL RBC 4.87 (3.80-5.40) m/uL Hgb 14.6 (11.4-16.0) gm/dL Hct 46.1 H (34.0-46.0) % MCV 94.7 (80.0-100.0) fL MCH 30.0 (25.0-35.0) pg MCHC 31.7 (31.0-37.0) g/dL RDW 12.7 (11.5-15.5) % Plt Count 247 (150-450) k/uL Neutrophils % 58 % Lymphocytes % 25 % Monocytes % 9 % Eosinophils % 5 % Basophils % 1 % Neutrophils # 2.9 (1.3-7.7) k/uL Lymphocytes # 1.3 (1.0-4.8) k/uL Monocytes # 0.4 (0-1.0) k/uL Eosinophils # 0.2 (0-0.7) k/uL Basophils # 0.1 (0-0.2) k/uL PT 10.9 (9.0-12.0) sec INR 1.1 (<1.2) APTT 24.6 (22.0-30.0) sec Sodium 139 (137-145) mmol/L Potassium 3.8 (3.5-5.1) mmol/L Chloride 103 (98-107) mmol/L Carbon Dioxide 26 (22-30) mmol/L Anion Gap 10 mmol/L BUN 9 (7-17) mg/dL Creatinine 0.60 (0.52-1.04) mg/dL Est GFR (CKD-EPI)AfAm >90 (>60 ml/min/1.73 sqM) Est GFR (CKD-EPI)NonAf >90 (>60 ml/min/1.73 sqM) Glucose 152 H (74-99) mg/dL Plasma Lactic Acid Juan (0.7-2.0) mmol/L Calcium 9.1 (8.4-10.2) mg/dL Magnesium 2.0 (1.6-2.3) mg/dL Total Bilirubin 0.6 (0.2-1.3) mg/dL AST 28 (14-36) U/L ALT 19 (4-34) U/L Alkaline Phosphatase 129 H (38-126) U/L Lactate Dehydrogenase 454 (313-618) U/L Total Protein 7.0 (6.3-8.2) g/dL Albumin 4.2 (3.5-5.0) g/dL Urine Color Urine Appearance (Clear) Urine pH (5.0-8.0) Ur Specific [place] (1.001-1.035) Urine Protein (Negative) Urine Glucose (UA) (Negative) Urine Ketones (Negative) Urine Blood (Negative) Urine Nitrite (Negative) Urine Bilirubin (Negative) Urine Urobilinogen (<2.0) mg/dL Ur Leukocyte Esterase (Negative) Urine RBC (0-5) /hpf Urine WBC (0-5) /hpf Ur Squamous Epith Cells (0-4) /hpf Urine Bacteria (None) /hpf Urine Mucus (None) /hpf 02/24/20 02/24/20 Range/Units 07:49 09:05 WBC (3.8-10.6) k/uL RBC (3.80-5.40) m/uL Hgb (11.4-16.0) gm/dL Hct (34.0-46.0) % MCV (80.0-100.0) fL MCH (25.0-35.0) pg MCHC (31.0-37.0) g/dL RDW (11.5-15.5) % Plt Count (150-450) k/uL Neutrophils % % Lymphocytes % % Monocytes % % Eosinophils % % Basophils % % Neutrophils # (1.3-7.7) k/uL Lymphocytes # (1.0-4.8) k/uL Monocytes # (0-1.0) k/uL Eosinophils # (0-0.7) k/uL Basophils # (0-0.2) k/uL PT (9.0-12.0) sec INR (<1.2) APTT (22.0-30.0) sec Sodium (137-145) mmol/L Potassium (3.5-5.1) mmol/L Chloride (98-107) mmol/L Carbon Dioxide (22-30) mmol/L Anion Gap mmol/L BUN (7-17) mg/dL Creatinine (0.52-1.04) mg/dL Est GFR (CKD-EPI)AfAm (>60 ml/min/1.73 sqM) Est GFR (CKD-EPI)NonAf (>60 ml/min/1.73 sqM) Glucose (74-99) mg/dL Plasma Lactic Acid Juan 4.1 H* (0.7-2.0) mmol/L Calcium (8.4-10.2) mg/dL Magnesium (1.6-2.3) mg/dL Total Bilirubin (0.2-1.3) mg/dL AST (14-36) U/L ALT (4-34) U/L Alkaline Phosphatase (38-126) U/L Lactate Dehydrogenase (313-618) U/L Total Protein (6.3-8.2) g/dL Albumin (3.5-5.0) g/dL Urine Color Light Yellow Urine Appearance Cloudy H (Clear) Urine pH 6.5 (5.0-8.0) Ur Specific [place] 1.009 (1.001-1.035) Urine Protein Negative (Negative) Urine Glucose (UA) Negative (Negative) Urine Ketones Negative (Negative) Urine Blood Negative (Negative) Urine Nitrite Negative (Negative) Urine Bilirubin Negative (Negative) Urine Urobilinogen <2.0 (<2.0) mg/dL Ur Leukocyte Esterase Negative (Negative) Urine RBC <1 (0-5) /hpf Urine WBC 2 (0-5) /hpf Ur Squamous Epith Cells 18 H (0-4) /hpf Urine Bacteria Many H (None) /hpf Urine Mucus Occasional H (None) /hpf 02/24/20 08:07 EKG shows normal sinus rhythm inferior infarct age indeterminate. Abnormal EKG. Ventricular rate is 96 bpm. Normal 150 ms. QRS duration 74 ms. QT QTc is 352/444 ms. - Radiology Data Radiology results: report reviewed Chest x-ray shows chronic changes without new focal acute airspace opacity. Disposition Clinical Impression: Insomnia, Myalgia, Hx of seizure disorder, Lactic acidosis Disposition: HOME SELF-CARE Condition: Good Instructions (If sedation given, give patient instructions): Musculoskeletal Pain (ED), Insomnia (ED) Additional Instructions: Patient take [id number] melatonin or Benadryl to help with sleep at home. Increase fluid intake and take Tylenol or Motrin for pain. Patient should 14 until negative coated test within the next 1-2 days. Patient advised to close follow-up with primary care doctor symptoms continue persist or any other alarming signs or symptoms occur. Is patient prescribed a controlled substance at d/c from ED?: No Referrals: Baljit Edmonds MD [Primary Care Provider] - 1-2 days Time of Disposition: 09:37
[2020-02-24 08:13] LABS: Basophils # (A) 0.1 k/uL (0-0.2); Basophils % (A) 1 %; Eosinophils # (A) 0.2 k/uL (0-0.7); Eosinophils % (A) 5 %; HCT 46.1 % (34.0-46.0); HGB 14.6 gm/dL (11.4-16.0); Lymphocytes # (A) 1.3 k/uL (1.0-4.8); Lymphocytes % (A) 25 %; MCHC 31.7 g/dL (31.0-37.0); MCV 94.7 fL (80.0-100.0); Mean Platelet Volume 7.4; Monocytes # (A) 0.4 k/uL (0-1.0); Monocytes % (A) 9 %; Neutrophils # (A) 2.9 k/uL (1.3-7.7); Neutrophils % (A) 58 %; Platelet Count 247 k/uL (150-450); RBC 4.87 m/uL (3.80-5.40); RDW 12.7 % (11.5-15.5)
[2020-02-24 08:25] LABS: ALT 19 U/L (4-34); AST 28 U/L (14-36); African American GFR (CKD) >90 (>60 ml/min/1.73 sqM); Albumin 4.2 g/dL (3.5-5.0); Alkaline Phosphatase 129 U/L (38-126); Anion Gap 10 mmol/L; Blood Urea Nitrogen 9 mg/dL (7-17); Calcium 9.1 mg/dL (8.4-10.2); Carbon Dioxide 26 mmol/L (22-30); Chloride 103 mmol/L (98-107); Glucose 152 mg/dL (74-99); LDH 454 U/L (313-618); Non-African American GFR(CKD) >90 (>60 ml/min/1.73 sqM); Potassium 3.8 mmol/L (3.5-5.1); Sodium 139 mmol/L (137-145); Total Bilirubin 0.6 mg/dL (0.2-1.3)
--- NOTE | 2020-02-24 08:27 | XR ---
EXAMINATION TYPE: XR chest 1V portable DATE OF EXAM: 02/24/2020 COMPARISON: CTA chest January 29, 2020. Chest x-ray August 31, 2014. HISTORY: Fatigue and fever.Suspected COVID-19 pneumonia. TECHNIQUE: Single AP portable frontal upright view of the chest is obtained. FINDINGS: Redemonstration of eventrated right hemidiaphragm. Redemonstration of elevated left hemidi aphragm. Redemonstration of low lung volumes. There is no new suspicious focal air space opacity, ple ural effusion, or pneumothorax seen. The cardiac silhouette size remains within normal limits. The osseous structures are somewhat demineralized. IMPRESSION: Chronic changes without new focal acute airspace opacity.
[2020-02-24 08:31] LABS: INR 1.1 (<1.2); Partial Thromboplastin Time 24.6 sec (22.0-30.0); Prothrombin Time 10.9 sec (9.0-12.0)
[2020-02-24 09:27] LABS: Appearance,Urine Cloudy (Clear); Bacteria,Urine Many /hpf; Bilirubin,Urine Negative (Negative); Blood,Urine Negative (Negative); Color,Urine Light Yellow; Glucose,Urine (UA) Negative (Negative); Ketones,Urine Negative (Negative); Leukocyte Esterase,Urine Negative (Negative); Mucus,Urine Occasional /hpf; Nitrite,Urine Negative (Negative); PH, Urine 6.5 (5.0-8.0); Protein,Urine Negative (Negative); RBC,Urine <1 /hpf (0-5); Specific Gravity,Urine 1.009 (1.001-1.035); Squamous Epithelial Cell,Urine 18 /hpf (0-4); Urobilinogen,Urine <2.0 mg/dL (<2.0); WBC,Urine 2 /hpf (0-5)
[2020-02-24 09:47] LABS: C Reactive Protein 14.1 mg/L (<10.0)
[2020-02-24 10:27] VITALS: BP 140/87; PULSE 88; TEMP 98.1
[2020-02-24 16:20] LABS: Ferritin 48.3 ng/mL (10.0-291.0)
== END 2020-02-24 10:27 | disposition home or self-care (01) ==
LOC: EC 07:17
DX: E87.2 Acidosis (principal); M79.10 Myalgia, unspecified site; G47.00 Insomnia, unspecified; G40.909 Epilepsy, unspecified, not intractable, without status epilepticus; R53.83 Other fatigue; R25.2 Cramp and spasm; I10 Essential (primary) hypertension; E07.9 Disorder of thyroid, unspecified; F41.9 Anxiety disorder, unspecified; Z79.890 Hormone replacement therapy; Z79.82 Long term (current) use of aspirin; Z79.899 Other long term (current) drug therapy; Z20.828 Contact with and (suspected) exposure to other viral communicable diseases; Z88.8 Allergy status to other drugs, medicaments and biological substances; Z88.0 Allergy status to penicillin; Z96.653 Presence of artificial knee joint, bilateral
CPT/HCPCS: 99285; 96360; 96361; 36415; 93005; 80053; 80177; 82728; 80185; 83605; 83615; 83735; 85025; 85610; 85730; 86140; 81001; 87040; 84145; 71045; U0003

== ENCOUNTER 2020-11-05 09:25 | Emergency (ER) | payer MEDICARE ==
[2020-11-05 09:35] VITALS: RESP 18
[2020-11-05] MEDS ORDERED: SODIUM CHLORIDE 0.9% 500 ML 500 ML IV STA (09:49)
--- NOTE | 2020-11-05 09:58 | ED ---
General Adult HPI - General Chief complaint: Seizure Stated complaint: Seizures yesterday, R Foot injury Time Seen by Provider: 11/05/20 09:36 Source: patient, RN notes reviewed, old records reviewed Mode of arrival: ambulatory Limitations: no limitations - History of Present Illness Initial comments: 75-year-old female presenting with fall, right foot, right knee pain. And suspected head injury with seizure which occurred yesterday. Patient has elieser quent seizures, she is on multiple antiepileptic medications for which she has been compliant. She's had seizures since the age of 24 years old. She is accompanied by her who states that yesterday she had a seizure and fell striking her face. Patient denies facial pain or headache. No neck pain. No chest pain or abdominal pain. No nausea vomiting or diarrhea. - Related Data Home Medications Medication Instructions Recorded Confirmed Ergocalciferol (Vitamin D2) 50,000 unit PO Q30D 03/14/17 11/05/20 [Vitamin D2] Phenytoin Sodium Extended 100 mg PO BID 08/08/18 11/05/20 [Dilantin] Aspirin 81 mg PO DAILY 11/05/20 11/05/20 levETIRAcetam [Keppra Xr] 750 mg PO TID 11/05/20 11/05/20 Allergies Allergy/AdvReac Type Severity Reaction Status Date / Time TESS Inhibitors Allergy Itching/Sei Verified 11/05/20 11:49 zures Penicillins Allergy fever,rash Verified 11/05/20 11:49 Review of Systems ROS Statement: Those systems with pertinent positive or pertinent negative responses have been documented in the HPI. ROS Other: All systems not noted in ROS Statement are negative. Past Medical History Past Medical History: Hypertension, Seizure Disorder, Skin Disorder, Thyroid Disorder Additional Past Medical History / Comment(s): EXCEMA, History of Any Multi-Drug Resistant Organisms: None Reported Past Surgical History: Bariatric Surgery, Section, Joint Replacement Additional Past Surgical History / Comment(s): LOOP MONITOR IMPLANT, removed part of the stomach "years ago", jn knee replacement, LEFT CATARACT Past Anesthesia/Blood Transfusion Reactions: Motion Sickness Past Psychological History: Anxiety Smoking Status: Never smoker Past Alcohol Use History: None Reported Past Drug Use History: None Reported - Past Family History Father Family Medical History: Myocardial Infarction ([place]) Mother Family Medical History: Osteoarthritis (OA) General Exam Limitations: no limitations General appearance: alert, in no apparent distress Head exam: Present: atraumatic, normocephalic Eye exam: Present: normal appearance, PERRL ENT exam: Present: mucous membranes dry Neck exam: Present: normal inspection. Absent: tenderness, meningismus Respiratory exam: Present: normal lung sounds bilaterally. Absent: respiratory distress, wheezes Cardiovascular Exam: Present: regular rate, normal rhythm GI/Abdominal exam: Present: soft. Absent: distended, tenderness, guarding, rebound Extremities exam: Present: normal inspection, normal capillary refill, other (Minimal tenderness on the fourth and fifth digit right foot no external signs of trauma). Absent: pedal edema Neurological exam: Present: alert, oriented X3, CN II-XII intact. Absent: motor sensory deficit Psychiatric exam: Present: flat affect. Absent: suicidal ideation Skin exam: Present: warm, dry, intact. Absent: cyanosis, diaphoretic Course Vital Signs 11/05/20 11/05/20 11/05/20 09:31 11:55 12:53 Temperature 98.3 F 100.2 F H 99.9 F H Pulse Rate 109 H 105 H 106 H Respiratory 18 18 18 Rate Blood Pressure 173/102 189/103 173/102 O2 Sat by Pulse 98 98 97 Oximetry EKG Findings - EKG Comments: EKG Findings:: EKG: Sinus tachycardia, LVH, rate of 107, MI interval 164, QRS duration 68, QTC 429, no ST segment elevation. Medical Decision Making - Medical Decision Making 75 YO FEMALE presented for recurrent seizure and right lower extremity injury, and head injury. Patient had a head CT which is negative for intracranial hemorrhage, x-rays of the foot and knee negative for acute bony abnormality. I did perform additional workup on this patient she was somewhat tachycardic upon arrival. She has normal CBC, normal CMP. She had a CT angiography performed for mild dyspnea and tachycardia which was negative. Patient will continue to monitor symptoms at home. Return with worsening or changing symptoms. - Lab Data Result diagrams: 11/05/20 10:01 11/05/20 10:01 Lab Results 11/05/20 11/05/20 11/05/20 Range/Units 10:01 10:01 10:01 WBC 6.8 (3.8-10.6) k/uL RBC 5.00 (3.80-5.40) m/uL Hgb 15.2 (11.4-16.0) gm/dL Hct 47.8 H (34.0-46.0) % MCV 95.5 (80.0-100.0) fL MCH 30.5 (25.0-35.0) pg MCHC 31.9 (31.0-37.0) g/dL RDW 13.0 (11.5-15.5) % Plt Count 282 (150-450) k/uL MPV 7.1 Neutrophils % 72 % Lymphocytes % 19 % Monocytes % 5 % Eosinophils % 2 % Basophils % 0 % Neutrophils # 4.9 (1.3-7.7) k/uL Lymphocytes # 1.3 (1.0-4.8) k/uL Monocytes # 0.4 (0-1.0) k/uL Eosinophils # 0.1 (0-0.7) k/uL Basophils # 0.0 (0-0.2) k/uL Sodium 137 (137-145) mmol/L Potassium 3.9 (3.5-5.1) mmol/L Chloride 102 (98-107) mmol/L Carbon Dioxide 25 (22-30) mmol/L Anion Gap 10 mmol/L BUN 11 (7-17) mg/dL Creatinine 0.66 (0.52-1.04) mg/dL Est GFR (CKD-EPI)AfAm >90 (>60 ml/min/1.73 sqM) Est GFR (CKD-EPI)NonAf 88 (>60 ml/min/1.73 sqM) Glucose 136 H (74-99) mg/dL Calcium 9.5 (8.4-10.2) mg/dL Total Bilirubin 0.5 (0.2-1.3) mg/dL AST 27 (14-36) U/L ALT 17 (4-34) U/L Alkaline Phosphatase 146 H (38-126) U/L Troponin I <0.012 (0.000-0.034) ng/mL Total Protein 7.3 (6.3-8.2) g/dL Albumin 4.4 (3.5-5.0) g/dL Urine Color Urine Appearance (Clear) Urine pH (5.0-8.0) Ur Specific [place] (1.001-1.035) Urine Protein (Negative) Urine Glucose (UA) (Negative) Urine Ketones (Negative) Urine Blood (Negative) Urine Nitrite (Negative) Urine Bilirubin (Negative) Urine Urobilinogen (<2.0) mg/dL Ur Leukocyte Esterase (Negative) Coronavirus (PCR) (Not Detectd) 11/05/20 11/05/20 Range/Units 11:49 12:22 WBC (3.8-10.6) k/uL RBC (3.80-5.40) m/uL Hgb (11.4-16.0) gm/dL Hct (34.0-46.0) % MCV (80.0-100.0) fL MCH (25.0-35.0) pg MCHC (31.0-37.0) g/dL RDW (11.5-15.5) % Plt Count (150-450) k/uL MPV Neutrophils % % Lymphocytes % % Monocytes % % Eosinophils % % Basophils % % Neutrophils # (1.3-7.7) k/uL Lymphocytes # (1.0-4.8) k/uL Monocytes # (0-1.0) k/uL Eosinophils # (0-0.7) k/uL Basophils # (0-0.2) k/uL Sodium (137-145) mmol/L Potassium (3.5-5.1) mmol/L Chloride (98-107) mmol/L Carbon Dioxide (22-30) mmol/L Anion Gap mmol/L BUN (7-17) mg/dL Creatinine (0.52-1.04) mg/dL Est GFR (CKD-EPI)AfAm (>60 ml/min/1.73 sqM) Est GFR (CKD-EPI)NonAf (>60 ml/min/1.73 sqM) Glucose (74-99) mg/dL Calcium (8.4-10.2) mg/dL Total Bilirubin (0.2-1.3) mg/dL AST (14-36) U/L ALT (4-34) U/L Alkaline Phosphatase (38-126) U/L Troponin I (0.000-0.034) ng/mL Total Protein (6.3-8.2) g/dL Albumin (3.5-5.0) g/dL Urine Color Yellow Urine Appearance Clear (Clear) Urine pH 6.0 (5.0-8.0) Ur Specific [place] 1.008 (1.001-1.035) Urine Protein Negative (Negative) Urine Glucose (UA) Negative (Negative) Urine Ketones Negative (Negative) Urine Blood Negative (Negative) Urine Nitrite Negative (Negative) Urine Bilirubin Negative (Negative) Urine Urobilinogen <2.0 (<2.0) mg/dL Ur Leukocyte Esterase Negative (Negative) Coronavirus (PCR) Not Detected (Not Detectd) Disposition Clinical Impression: Generalized seizure Disposition: HOME SELF-CARE Condition: Fair Instructions (If sedation given, give patient instructions): Recurrent Seizures in Adults (ED) Is patient prescribed a controlled substance at d/c from ED?: No Referrals: Baljit Edmonds MD [Primary Care Provider] - 1-2 days Time of Disposition: 14:10
[2020-11-05 10:13] LABS: Basophils % (A) 0 %; Eosinophils # (A) 0.1 k/uL (0-0.7); Eosinophils % (A) 2 %; HCT 47.8 % (34.0-46.0); HGB 15.2 gm/dL (11.4-16.0); Lymphocytes # (A) 1.3 k/uL (1.0-4.8); Lymphocytes % (A) 19 %; MCH 30.5 pg (25.0-35.0); MCHC 31.9 g/dL (31.0-37.0); MCV 95.5 fL (80.0-100.0); Mean Platelet Volume 7.1; Monocytes # (A) 0.4 k/uL (0-1.0); Monocytes % (A) 5 %; Neutrophils # (A) 4.9 k/uL (1.3-7.7); Neutrophils % (A) 72 %; Platelet Count 282 k/uL (150-450); WBC 6.8 k/uL (3.8-10.6)
[2020-11-05 10:23] LABS: ALT 17 U/L (4-34); AST 27 U/L (14-36); African American GFR (CKD) >90 (>60 ml/min/1.73 sqM); Albumin 4.4 g/dL (3.5-5.0); Alkaline Phosphatase 146 U/L (38-126); Anion Gap 10 mmol/L; Blood Urea Nitrogen 11 mg/dL (7-17); Calcium 9.5 mg/dL (8.4-10.2); Carbon Dioxide 25 mmol/L (22-30); Chloride 102 mmol/L (98-107); Glucose 136 mg/dL (74-99); Non-African American GFR(CKD) 88 (>60 ml/min/1.73 sqM); Potassium 3.9 mmol/L (3.5-5.1); Sodium 137 mmol/L (137-145); Total Bilirubin 0.5 mg/dL (0.2-1.3); Total Protein 7.3 g/dL (6.3-8.2)
--- NOTE | 2020-11-05 10:46 | CT ---
EXAMINATION TYPE: CT brain wo con DATE OF EXAM: 11/05/2020 HISTORY: Seizures CT DLP: 1068.4 mGycm. Automated Exposure Control for Dose Reduction was Utilized. TECHNIQUE: CT scan of the head is performed without contrast. COMPARISON: CT brain March 14, 2017. FINDINGS: There is no acute intracranial hemorrhage or midline shift identified. There is mild diff use ventricular and sulcal prominence consistent with diffuse age-related cerebral atrophy. There is mild low-attenuation in the periventricular white matter consistent with chronic small vessel ischem ic change. The globes are intact and the visualized sinuses are clear. IMPRESSION: No acute intracranial hemorrhage or midline shift. There is mild diffuse age-related ce rebral atrophy and chronic small vessel ischemic change redemonstrated.
--- NOTE | 2020-11-05 10:58 | XR ---
EXAMINATION TYPE: XR foot limited RT DATE OF EXAM: 11/05/2020 CLINICAL HISTORY: Pain and swelling after falling injury today TECHNIQUE: Frontal and lateral images of the right foot are obtained. COMPARISON: None FINDINGS: Marked flexion in the toes makes evaluation at this level suboptimal There is no acute dis placed fracture evident in the right foot. Hallux valgus positioning first metatarsophalangeal joint. Small inferior calcaneal spur. Ayta-cp-kzrahtav subcutaneous edema. IMPRESSION: As above.
--- NOTE | 2020-11-05 10:59 | XR ---
EXAMINATION TYPE: XR knee complete bilateral DATE OF EXAM: 11/05/2020 CLINICAL HISTORY: Bilateral knee pain after fall injury. TECHNIQUE: Three views of the bilateral knees are obtained. COMPARISON: None. FINDINGS: Negative osseous structures are somewhat demineralized. No acute fracture or dislocation in either knee. Metallic artifact from bilateral arthroplasty is satisfactory in position. The overlyi ng soft tissue appears unremarkable bilaterally. IMPRESSION: There is no acute fracture or dislocation in either knee.
[2020-11-05 12:10] LABS: Appearance,Urine Clear (Clear); Bilirubin,Urine Negative (Negative); Blood,Urine Negative (Negative); Color,Urine Yellow; Glucose,Urine (UA) Negative (Negative); Ketones,Urine Negative (Negative); Leukocyte Esterase,Urine Negative (Negative); Nitrite,Urine Negative (Negative); Protein,Urine Negative (Negative); Specific Gravity,Urine 1.008 (1.001-1.035); Urobilinogen,Urine <2.0 mg/dL (<2.0)
[2020-11-05] MEDS ORDERED: SODIUM CHLORIDE 0.9% 500 ML 500 ML IV ONE (12:14)
[2020-11-05] MEDS ORDERED: ACETAMINOPHEN TAB 500 MG TAB PO STA (12:15)
[2020-11-05 12:54] VITALS: TEMP 99.9
--- NOTE | 2020-11-05 14:02 | CT ---
EXAMINATION TYPE: CT angio chest DATE OF EXAM: 11/05/2020 1:44 PM COMPARISON: CTA chest August 31, 2014. HISTORY: HOLLI/Tachy CT DLP: 384.6 mGycm Automated exposure control for dose reduction was used. CONTRAST: CTA scan of the thorax is performed with IV Contrast, patient injected with 100 ml mL of Isovue 370, pulmonary embolism protocol. MIP images are created and reviewed. FINDINGS: LUNGS: There are mild underlying chronic parenchymal changes without suspicious focal consolidation o r groundglass opacity. There is no concerning new parenchymal mass or nodule identified. There is n o pleural effusion or pneumothorax seen. The tracheobronchial tree is patent. Slightly elevated left hemidiaphragm redemonstrated. MEDIASTINUM: There is satisfactory enhancement of the pulmonary artery and its branches, there is no CT evidence for pulmonary embolism. Satisfactory enhancement of the thoracic aorta without aneurysm or dissection. There are no greater than 1 cm hilar or mediastinal lymph nodes. No cardiomegaly or pericardial effusion is seen. Coronary artery calcifications are redemonstrated. OTHER: Surgical changes epigastric region redemonstrated. Vdyu-km-bgsjxuje multilevel spurring and d isc space narrowing in the spine. IMPRESSION: No CT evidence for acute pulmonary embolism. No suspicious new acute pulmonary process.
[2020-11-05 14:25] VITALS: BP 173/104; PULSE 102
== END 2020-11-05 14:20 | disposition home or self-care (01) ==
LOC: EC 09:25
DX: G40.909 Epilepsy, unspecified, not intractable, without status epilepticus (principal); I10 Essential (primary) hypertension; E07.9 Disorder of thyroid, unspecified; Z96.653 Presence of artificial knee joint, bilateral; M79.631 Pain in right forearm; W18.00XA Striking against unspecified object with subsequent fall, initial encounter
CPT/HCPCS: 36415; 93005; 80053; 84484; 85025; 81003; 87635; 73562; 73620; 70450; 71275; 99284; 96360; 96361; Q9967

== ENCOUNTER → 2020-11-09 | Outpatient (CLI) | payer MEDICARE | END | disposition home or self-care (01) | LOC: LABWHC1 09:47 | PROVIDERS: ATTEND Psychiatry & Neurology Neurology | DX: G40.419 Other generalized epilepsy and epileptic syndromes, intractable, without status epilepticus (principal) | CPT/HCPCS: 36415; 80177; 80185; 80339 ==

== ENCOUNTER 2021-05-10 19:39 | Emergency (ER) | payer MEDICARE ==
[2021-05-10 20:20] VITALS: TEMP 99.5
[2021-05-10] MEDS ORDERED: SODIUM CHLORIDE 0.9% 1,000 ML IV STA (21:22)
[2021-05-10] MEDS ORDERED: LORazepam 2 MG/ML INJ IV STA (21:22)
[2021-05-10] MEDS ORDERED: levETIRAcetam IV 1,000 MG in SALINE 1 100ML.BAG IVPB STA (21:22)
--- NOTE | 2021-05-10 21:54 | ED ---
Seizure HPI - General Chief Complaint: Seizure Stated Complaint: Weakness Time Seen by Provider: 05/10/21 21:18 Source: patient, family, RN notes reviewed, old records reviewed Mode of arrival: wheelchair Limitations: no limitations - History of Present Illness Initial Comments: This is a 76-year-old female to the ER today. She presents today for evaluation regarding recurrent seizures with a number multiple seizures tonight. Patient has recently been switched to a new generic form of all medications that she's been on for years she states she's had seizures since age 4. Has had seizures every time she switches from a generic medication. At this time has no other complaints aside from weakness struck the day. No headaches fevers or nausea v omiting and diarrhea MD Complaint: seizure, other -: hour(s) Description of Episode: loss of consciousness, tonic-clonic movement -: second(s) Witnessed: yes - by bystander Trauma: No Seizure History: known seizure disorder Place: home Possible Precipitating Event: none Associated Symptoms: denies other symptoms Treatments Prior to Arrival: none - Related Data Home Medications Medication Instructions Recorded Confirmed Ergocalciferol (Vitamin D2) 50,000 unit PO Q30D 03/14/17 11/05/20 [Vitamin D2] Phenytoin Sodium Extended 100 mg PO BID 08/08/18 11/05/20 [Dilantin] Aspirin 81 mg PO DAILY 11/05/20 11/05/20 levETIRAcetam [Keppra Xr] 750 mg PO TID 11/05/20 11/05/20 Allergies Allergy/AdvReac Type Severity Reaction Status Date / Time TESS Inhibitors Allergy Itching/Sei Verified 11/05/20 11:49 zures Penicillins Allergy fever,rash Verified 11/05/20 11:49 Review of Systems ROS Statement: Those systems with pertinent positive or pertinent negative responses have been documented in the HPI. ROS Other: All systems not noted in ROS Statement are negative. Past Medical History Past Medical History: Hypertension, Seizure Disorder, Skin Disorder, Thyroid Disorder Additional Past Medical History / Comment(s): EXCEMA, History of Any Multi-Drug Resistant Organisms: None Reported Past Surgical History: Bariatric Surgery, Section, Joint Replacement Additional Past Surgical History / Comment(s): LOOP MONITOR IMPLANT, removed part of the stomach "years ago", jn knee replacement, LEFT CATARACT Past Anesthesia/Blood Transfusion Reactions: Motion Sickness Past Psychological History: Anxiety Smoking Status: Never smoker Past Alcohol Use History: None Reported Past Drug Use History: None Reported - Past Family History Father Family Medical History: Myocardial Infarction ([place]) Mother Family Medical History: Osteoarthritis (OA) General Exam Limitations: no limitations General appearance: alert, in no apparent distress, anxious Head exam: Present: atraumatic, normocephalic, normal inspection Eye exam: Present: normal appearance, PERRL, EOMI. Absent: scleral icterus, conjunctival injection, periorbital swelling ENT exam: Present: normal exam, mucous membranes dry Neck exam: Present: normal inspection. Absent: tenderness, meningismus, lymphadenopathy Respiratory exam: Present: normal lung sounds bilaterally. Absent: respiratory distress, wheezes, rales, rhonchi, stridor Cardiovascular Exam: Present: normal rhythm, tachycardia, normal heart sounds. Absent: systolic murmur, diastolic murmur, rubs, gallop, clicks GI/Abdominal exam: Present: soft, normal bowel sounds. Absent: distended, tenderness, guarding, rebound, rigid Extremities exam: Present: normal inspection, full ROM, normal capillary refill. Absent: tenderness, pedal edema, joint swelling, calf tenderness Back exam: Present: normal inspection Neurological exam: Present: alert, oriented X3, CN II-XII intact Psychiatric exam: Present: normal affect, normal mood Skin exam: Present: warm, dry, intact, normal color. Absent: rash Course Vital Signs 05/10/21 20:15 Temperature 99.5 F Pulse Rate 124 H Respiratory 19 Rate Blood Pressure 163/90 O2 Sat by Pulse 99 Oximetry - Reevaluation(s) Reevaluation #1: 05/10/21 22:54 Medical records reviewed Reevaluation #2: 05/10/21 22:54 No recurrent seizures here in the ER Reevaluation #3: 05/10/21 22:54 Spoke patient's family who feel comfortable with discharge home Medical Decision Making - Medical Decision Making 76 female to the emergency room with recurrent seizures multiple seizures today with weakness since this morning. Patient this point states she feels well without complaint. No recurrent seizure while in the ER for greater than 3 hours the patient can be discharged home - Lab Data Result diagrams: 05/10/21 21:39 05/10/21 21:39 Lab Results 05/10/21 05/10/21 05/10/21 Range/Units 21:39 21:39 21:39 WBC 8.1 (3.8-10.6) k/uL RBC 4.63 (3.80-5.40) m/uL Hgb 14.8 (11.4-16.0) gm/dL Hct 44.0 (34.0-46.0) % MCV 95.0 (80.0-100.0) fL MCH 31.9 (25.0-35.0) pg MCHC 33.6 (31.0-37.0) g/dL RDW 12.2 (11.5-15.5) % Plt Count 283 (150-450) k/uL MPV 7.5 Neutrophils % 72 % Lymphocytes % 18 % Monocytes % 7 % Eosinophils % 1 % Basophils % 1 % Neutrophils # 5.8 (1.3-7.7) k/uL Lymphocytes # 1.4 (1.0-4.8) k/uL Monocytes # 0.6 (0-1.0) k/uL Eosinophils # 0.1 (0-0.7) k/uL Basophils # 0.1 (0-0.2) k/uL Sodium 130 L (137-145) mmol/L Potassium 3.7 (3.5-5.1) mmol/L Chloride 94 L (98-107) mmol/L Carbon Dioxide 23 (22-30) mmol/L Anion Gap 13 mmol/L BUN 14 (7-17) mg/dL Creatinine 0.51 L (0.52-1.04) mg/dL Est GFR (CKD-EPI)AfAm >90 (>60 ml/min/1.73 sqM) Est GFR (CKD-EPI)NonAf >90 (>60 ml/min/1.73 sqM) Glucose 155 H (74-99) mg/dL Calcium 9.6 (8.4-10.2) mg/dL Total Bilirubin 0.5 (0.2-1.3) mg/dL AST 34 (14-36) U/L ALT 30 (4-34) U/L Alkaline Phosphatase 140 H (38-126) U/L Total Protein 7.3 (6.3-8.2) g/dL Albumin 4.3 (3.5-5.0) g/dL Urine Color Yellow Urine Appearance Clear (Clear) Urine pH 7.0 (5.0-8.0) Ur Specific [place] 1.010 (1.001-1.035) Urine Protein Negative (Negative) Urine Glucose (UA) Negative (Negative) Urine Ketones Negative (Negative) Urine Blood Negative (Negative) Urine Nitrite Negative (Negative) Urine Bilirubin Negative (Negative) Urine Urobilinogen <2.0 (<2.0) mg/dL Ur Leukocyte Esterase Negative (Negative) Salicylates <1.0 mg/dL Acetaminophen <10.0 ug/mL Phenytoin 3.2 ug/mL Valproic Acid <10.0 ug/mL Serum Alcohol <10 mg/dL - EKG Data -: EKG Interpreted by Me (EKG shows sinus tachycardia 118. 160 QRS 64 QTC 465) Disposition Clinical Impression: Epileptic seizure, generalized, Weakness Disposition: HOME SELF-CARE Instructions (If sedation given, give patient instructions): Seizure/Epilepsy Discharge Instructions & Follow-Up, Recurrent Seizures in Adults (ED) Is patient prescribed a controlled substance at d/c from ED?: No Referrals: Baljit Edmonds MD [Primary Care Provider] - 1-2 days
[2021-05-10 21:59] LABS: Basophils # (A) 0.1 k/uL (0-0.2); Basophils % (A) 1 %; Eosinophils # (A) 0.1 k/uL (0-0.7); Eosinophils % (A) 1 %; HGB 14.8 gm/dL (11.4-16.0); Lymphocytes # (A) 1.4 k/uL (1.0-4.8); Lymphocytes % (A) 18 %; MCH 31.9 pg (25.0-35.0); MCHC 33.6 g/dL (31.0-37.0); Mean Platelet Volume 7.5; Monocytes # (A) 0.6 k/uL (0-1.0); Monocytes % (A) 7 %; Neutrophils # (A) 5.8 k/uL (1.3-7.7); Neutrophils % (A) 72 %; Platelet Count 283 k/uL (150-450); RBC 4.63 m/uL (3.80-5.40); RDW 12.2 % (11.5-15.5); WBC 8.1 k/uL (3.8-10.6)
[2021-05-10 22:18] LABS: AST 34 U/L (14-36); Acetaminophen <10.0 ug/mL; African American GFR (CKD) >90 (>60 ml/min/1.73 sqM); Albumin 4.3 g/dL (3.5-5.0); Alcohol <10 mg/dL; Alkaline Phosphatase 140 U/L (38-126); Anion Gap 13 mmol/L; Blood Urea Nitrogen 14 mg/dL (7-17); Calcium 9.6 mg/dL (8.4-10.2); Carbon Dioxide 23 mmol/L (22-30); Chloride 94 mmol/L (98-107); Glucose 155 mg/dL (74-99); Non-African American GFR(CKD) >90 (>60 ml/min/1.73 sqM); Phenytoin (Dilantin) 3.2 ug/mL; Potassium 3.7 mmol/L (3.5-5.1); Salicylate <1.0 mg/dL; Sodium 130 mmol/L (137-145); Total Bilirubin 0.5 mg/dL (0.2-1.3); Total Protein 7.3 g/dL (6.3-8.2)
[2021-05-10 22:22] LABS: Valproic Acid (Depakene) <10.0 ug/mL
[2021-05-10 22:24] LABS: ALT 30 U/L (4-34)
[2021-05-10 22:27] LABS: Appearance,Urine Clear (Clear); Bilirubin,Urine Negative (Negative); Blood,Urine Negative (Negative); Color,Urine Yellow; Glucose,Urine (UA) Negative (Negative); Ketones,Urine Negative (Negative); Leukocyte Esterase,Urine Negative (Negative); Nitrite,Urine Negative (Negative); Protein,Urine Negative (Negative); Urobilinogen,Urine <2.0 mg/dL (<2.0)
[2021-05-10 22:46] LABS: Amphetamine Screen,Urine Not Detected (NotDetected); Barbiturate Screen,Urine Detected (NotDetected); Benzodiazepines Screen,Urine Not Detected (NotDetected); Cocaine Screen,Urine Not Detected (NotDetected); Methadone Screen, Urine Not Detected (NotDetected); Opiate Screen,Urine Not Detected (NotDetected); Oxycodone Screen, Urine Not Detected (NotDetected); Phencyclidine Screen,Urine Not Detected (NotDetected); Tricyclic Antidepressant,Urine Not Detected (NotDetected); Urn Cannabinoid Scrn Not Detected (NotDetected)
[2021-05-10 22:55] VITALS: BP 142/90; PULSE 94; RESP 18
== END 2021-05-10 23:08 | disposition home or self-care (01) ==
LOC: EC 19:39
DX: G40.909 Epilepsy, unspecified, not intractable, without status epilepticus (principal); I10 Essential (primary) hypertension; Z88.0 Allergy status to penicillin; Z88.8 Allergy status to other drugs, medicaments and biological substances; Z79.82 Long term (current) use of aspirin; Z79.899 Other long term (current) drug therapy
CPT/HCPCS: 36415; 93005; 80164; 80053; 80177; 80185; 85025; 81003; 80306; 80143; 80179; 99285; 96374; 96361; G0480; J2060; 80320

== ENCOUNTER → 2021-05-16 | Outpatient (CLI) | payer MEDICARE ==
[2021-05-16 16:06] LABS: Calcium 9.2 mg/dL (8.7-10.3); Magnesium 2.3 mg/dL (1.5-2.4)
[2021-05-16 22:48] LABS: Phenytoin (Dilantin) 9.1 ug/mL (10.0-20.0)
== END | disposition home or self-care (01) ==
LOC: LABWHC1 08:22
PROVIDERS: ATTEND Psychiatry & Neurology Neurology
DX: G40.419 Other generalized epilepsy and epileptic syndromes, intractable, without status epilepticus (principal); Z79.899 Other long term (current) drug therapy
CPT/HCPCS: 36415; 80177; 80185; 82306; 82310; 83735

== ENCOUNTER 2021-09-18 10:50 | Emergency (ER) | payer MEDICARE ==
[2021-09-18] MEDS ORDERED: HYDROmorphone 1 MG/ML 1 ML SYRINGE IM STA (11:14)
--- NOTE | 2021-09-18 11:45 | XR ---
EXAMINATION TYPE: XR tibia fibula RT DATE OF EXAM: 09/18/2021 COMPARISON: None HISTORY: Pain TECHNIQUE: Tibia and fibula are examined in 2 projections. FINDINGS: Vascular calcification noted. A knee prosthesis is present. There is a tiny cortical defect in the medial metaphyseal femur. Please see right knee dictation same date. IMPRESSION: 1. The tibia and fibula within the [id number] are intact. 2. Fracture of the distal metaphyseal femur.
--- NOTE | 2021-09-18 11:47 | XR ---
EXAMINATION TYPE: XR knee complete RT DATE OF EXAM: 09/18/2021 COMPARISON: Tibia and fibula same date HISTORY: Pain in the TECHNIQUE: Right knee is examined in 3 projections. FINDINGS: There is a comminuted fracture the distal metaphyseal femur adjacent to the prosthesis. Gildardo e angulation of the fracture fragments is evident. Small joint effusion is present. IMPRESSION: 1. Comminuted fracture distal metaphyseal femur.
--- NOTE | 2021-09-18 12:11 | ED ---
Lower Extremity Injury HPI - General Chief Complaint: Extremity Injury, Lower Stated Complaint: Fall/Rt Knee Pain Time Seen by Provider: 09/18/21 10:56 Source: patient, EMS, RN notes reviewed Mode of arrival: EMS Limitations: physical limitation - History of Present Illness Initial Comments: This a 76-year-old female presents emergency Department chief complaint of right knee, right leg pain. Patient states she has pain at the knee and below the knee. Patient states that she stepped on some ice and fell. She denies any significant head injury, neck or back pain. She states the pain is her right leg. Patient had prior knee replacement by Dr. Gonzalez years ago. - Related Data Home Medications Medication Instructions Recorded Confirmed Ergocalciferol (Vitamin D2) 50,000 unit PO Q30D 03/14/17 11/05/20 [Vitamin D2] Phenytoin Sodium Extended 100 mg PO BID 08/08/18 11/05/20 [Dilantin] Aspirin 81 mg PO DAILY 11/05/20 11/05/20 levETIRAcetam [Keppra Xr] 750 mg PO TID 11/05/20 11/05/20 Allergies Allergy/AdvReac Type Severity Reaction Status Date / Time TESS Inhibitors Allergy Itching/Sei Verified 09/18/21 10:55 zures Penicillins Allergy fever,rash Verified 09/18/21 10:55 Review of Systems ROS Statement: Those systems with pertinent positive or pertinent negative responses have been documented in the HPI. ROS Other: All systems not noted in ROS Statement are negative. Past Medical History Past Medical History: Hypertension, Seizure Disorder, Skin Disorder, Thyroid Disorder Additional Past Medical History / Comment(s): EXCEMA, History of Any Multi-Drug Resistant Organisms: None Reported Past Surgical History: Bariatric Surgery, Section, Joint Replacement Additional Past Surgical History / Comment(s): LOOP MONITOR IMPLANT, removed part of the stomach "years ago", jn knee replacement, LEFT CATARACT Past Anesthesia/Blood Transfusion Reactions: Motion Sickness Past Psychological History: Anxiety Smoking Status: Former smoker Past Alcohol Use History: None Reported Past Drug Use History: None Reported - Past Family History Father Family Medical History: Myocardial Infarction ([place]) Mother Family Medical History: Osteoarthritis ([place]) General Exam Limitations: physical limitation General appearance: alert, in no apparent distress Head exam: Present: atraumatic, normocephalic, normal inspection Neck exam: Present: normal inspection, full ROM. Absent: tenderness, meningismus, lymphadenopathy Respiratory exam: Present: normal lung sounds bilaterally. Absent: respiratory distress, wheezes, rales, rhonchi, stridor Cardiovascular Exam: Present: regular rate, normal rhythm, normal heart sounds. Absent: systolic murmur, diastolic murmur, rubs, gallop, clicks Extremities exam: Present: other (Right knee there is swelling, deformity at knee, times palpation, tenderness the proximal tib-fib region neurovascular inta ct with pedal pulses.) Neurological exam: Present: alert, oriented X3, CN II-XII intact, reflexes normal. Absent: motor sensory deficit Skin exam: Present: warm, dry, intact, normal color. Absent: rash Course Vital Signs 09/18/21 10:55 Temperature 98 F Pulse Rate 70 Respiratory 18 Rate Blood Pressure 185/99 O2 Sat by Pulse 99 Oximetry Medical Decision Making - Medical Decision Making X-ray shows evidence of distal femur fracture above prosthesis. Patient's case discussed with on-call physician Dr. Hooker recommends patient be transferred to trauma orthopedics at [facility]. I did discuss the case with on-call orthopedics [facility] who accepts transfer. Disposition Clinical Impression: Closed fracture of right distal femur Disposition: OTHER INSTITUTION NOT DEFINED Condition: Stable Referrals: Baljit Edmonds MD [Primary Care Provider] - 1-2 days Time of Disposition: 12:11 - Out of Hospital Transfer - Req. Specs Out of Hospital Transfer - Requested Specifics: Other Emergency Center ([facility])
[2021-09-18] MEDS ORDERED: HYDROmorphone 0.5 MG/0.5 ML SYRINGE IVP STA (12:25)
[2021-09-18] MEDS ORDERED: ONDANSETRON 4 MG/2 ML VIAL IVP STA (12:25)
[2021-09-18 13:56] VITALS: BP 168/78; PULSE 72; RESP 16; TEMP 98
== END 2021-09-18 13:40 | disposition other institution (70) ==
LOC: EC 10:50
DX: S72.401A Unspecified fracture of lower end of right femur, initial encounter for closed fracture (principal); I10 Essential (primary) hypertension; E07.9 Disorder of thyroid, unspecified; Z79.890 Hormone replacement therapy; Z87.891 Personal history of nicotine dependence; Z88.8 Allergy status to other drugs, medicaments and biological substances; Z88.0 Allergy status to penicillin; W19.XXXA Unspecified fall, initial encounter
CPT/HCPCS: 73590; 73562; 99283; 96374; 96375; 96372; L1830; J2405; J1170 ×2

== ENCOUNTER → 2023-04-18 | Outpatient (CLI) | payer MEDICARE ==
--- NOTE | 2023-04-25 08:11 | HM ---
HOLTER MONITOR REPORT STUDY PERFORMED: A 24-hour Holter. INDICATION: Syncope. FINDINGS: This 24-hour Holter showed sinus rhythm with episodes of paroxysmal SVT with a maximum heart rate of 200 beats per minute. CONCLUSION: This 24-hour Holter reveals sinus rhythm with episodes of paroxysmal SVT with a maximum heart rate of 200 beats per minute. It lasted for almost 6 minutes at 1 time. MMNIEVES / JACQUELIN: [id number] /
== END | disposition home or self-care (01) ==
LOC: RADECHMAIN 11:51
PROVIDERS: ATTEND Family Medicine
DX: R55 Syncope and collapse (principal); I47.9 Paroxysmal tachycardia, unspecified
CPT/HCPCS: 93225; 93226

== ENCOUNTER 2023-04-29 13:23 | Observation (INO) | payer MEDICARE ==
--- NOTE | 2023-04-29 14:15 | ED ---
Seizure HPI - General Source: patient, family, RN notes reviewed Mode of arrival: wheelchair Limitations: no limitations - History of Present Illness MD Complaint: seizure <Esme Farooq - Last Filed: 04/29/23 14:11> - General Source: patient, family, RN notes reviewed Mode of arrival: wheelchair Limitations: no limitations <Jez Roy - Last Filed: 04/29/23 20:24> - General Chief Complaint: Seizure Stated Complaint: seizure Time Seen by Provider: 04/29/23 14:11 - History of Present Illness Initial Comments: This is a 78 year old female who presents to the emergency department for a seizure and frequent falls. States that she fell 2 weeks ago in the parking lot and again last night. She hit her head last night and had loss of consciousness. She does not take blood thinners. Today while at her PCP's office, she had a seizure. She has a history of seizures. States that her PCP instructed her to come here for admission related to the seizures. Additionally, she did wear a Holter monitor a couple of weeks ago and was told that she had a weak heart. She was also told that her heart was beating too fast, however she was not diagnosed with a-fib. (Esme Farooq) Patient is a pleasant 78-year-old female presenting to the emergency department with seizure. Patient normally has seizures around once a month. Patient has had 3 seizures this past week. One of them lasted a half an hour. Patient did have seizure at time care physician office today the last around 15 minutes. Patient was instructed to come to the emergency department. Patient states she feels fine at this point other than a little bit of fatigue. Patient did fall and strike her head today. (Jez Roy) - Related Data Home Medications Medication Instructions Recorded Confirmed Ergocalciferol (Vitamin D2) 50,000 unit PO Q30D 03/14/17 11/05/20 [Vitamin D2] Phenytoin Sodium Extended 100 mg PO BID 08/08/18 11/05/20 [Dilantin] Aspirin 81 mg PO DAILY 11/05/20 11/05/20 levETIRAcetam [Keppra Xr] 750 mg PO TID 11/05/20 11/05/20 Previous Rx's Medication Instructions Recorded Nitrofurantoin Monohyd/M-Cryst 100 mg PO Q12HR #20 cap 03/26/23 [Macrobid] Allergies Allergy/AdvReac Type Severity Reaction Status Date / Time TESS Inhibitors Allergy Itching/Sei Verified 04/29/23 14:15 zures Penicillins Allergy fever,rash Verified 04/29/23 14:15 Review of Systems ROS Other: All systems not noted in ROS Statement are negative. <Esme Farooq - Last Filed: 04/29/23 14:11> ROS Other: All systems not noted in ROS Statement are negative. Constitutional: Denies: fever Eyes: Denies: eye pain ENT: Denies: ear pain Respiratory: Denies: cough Cardiovascular: Denies: chest pain Endocrine: Reports: fatigue Gastrointestinal: Denies: abdominal pain Genitourinary: Denies: dysuria Neurological: Reports: as per HPI <Jez Roy - Last Filed: 04/29/23 20:24> ROS Statement: Those systems with pertinent positive or pertinent negative responses have been documented in the HPI. Past Medical History Past Medical History: Hypertension, Seizure Disorder, Skin Disorder, Thyroid Disorder Additional Past Medical History / Comment(s): EXCEMA, History of Any Multi-Drug Resistant Organisms: None Reported Past Surgical History: Bariatric Surgery, Section, Joint Replacement Additional Past Surgical History / Comment(s): LOOP MONITOR IMPLANT, removed part of the stomach "years ago", jn knee replacement, LEFT CATARACT Past Anesthesia/Blood Transfusion Reactions: Motion Sickness Past Psychological History: Anxiety Smoking Status: Former smoker Past Alcohol Use History: None Reported Past Drug Use History: None Reported - Past Family History Father Family Medical History: Myocardial Infarction (SC) Mother Family Medical History: Osteoarthritis (OA) <Esme Farooq - Last Filed: 04/29/23 14:11> General Exam <Esme Farooq - Last Filed: 04/29/23 14:11> Limitations: no limitations General appearance: alert, in no apparent distress Head exam: Present: normocephalic Eye exam: Present: normal appearance, PERRL, EOMI ENT exam: Present: normal oropharynx Neck exam: Present: normal inspection. Absent: tenderness, meningismus Respiratory exam: Present: normal lung sounds bilaterally Cardiovascular Exam: Present: regular rate, normal rhythm GI/Abdominal exam: Present: soft. Absent: tenderness Extremities exam: Present: normal inspection. Absent: pedal edema, calf tenderness Neurological exam: Present: alert, oriented X3, CN II-XII intact. Absent: motor sensory deficit Expanded Neurological exam: Present: protecting the airway Speech: Present: fluid speech Motor strength exam: RUE: 5, LUE: 5, RLE: 5, LLE: 5 Eye Response: (4) open spontaneously Motor Response: (6) obeys commands Verbal Response: (5) oriented Psychiatric exam: Present: normal affect, normal mood Skin exam: Present: normal color <Jez Roy - Last Filed: 04/29/23 20:24> - General Exam Comments Initial Comments: Visual Physical Exam Vital signs reviewed General: Well-appearing, nontoxic, no acute distress. Head: Normocephalic, atraumatic Eyes: PERRLA, EOMI ENT: Airway patent Chest: Nonlabored breathing Skin: No visual rash, normal skin tone Neuro: Alert and oriented 3 Musculoskeletal: No gross abnormalities I performed the QuickNote portion of this chart. Signed Esme Farooq PA-C. (Esme Farooq) Course Vital Signs 04/29/23 14:10 Temperature 98.4 F Pulse Rate 81 Respiratory 18 Rate Blood Pressure 161/91 O2 Sat by Pulse 98 Oximetry Medical Decision Making - Lab Data Result diagrams: 04/29/23 14:36 04/29/23 14:36 <Jez Roy - Last Filed: 04/29/23 20:24> - Medical Decision Making EKG interpreted by myself shows sinus rhythm rate of 76. SC 178. QRS 74. QT 37. QTC 418. Normal axis. Normal QRS. No acute ST change Was pt. sent in by a medical professional or institution (LISA Rodriguez, SLITTER CUT OFF OPERATOR, urgent care, hospital, or long term...) When possible be specific @ -Patient was sent by Dr. Edmonds Did you speak to anyone other than the patient for history (EMS, parent, family, police, friend...)? What history was obtained from this source @ -Family helps provide history including details in length of seizures Did you review nursing and triage notes (agree or disagree)? Why? @ -I reviewed and agree with nursing and triage notes Were old charts reviewed (outside hosp., previous admission, EMS record, old EKG, old radiological studies, urgent care reports/EKG's, long term records)? Report findings @ -No old charts were reviewed Differential Diagnosis (chest pain, altered mental status, abdominal pain women, abdominal pain men, vaginal bleeding, weakness, fever, dyspnea, syncope, headache, dizziness, GI bleed, back pain, seizure, CVA, palpatations, mental health, musculoskeletal)? @ -Differential Seizure: Recurrent seizure disorder, febrile seizure, alcohol withdrawal, stimulants, meningitis, encephalitis, intercranial hemorrhage, intracranial tumor, stroke, eclampsia, thyrotoxicosis, hypocalcemia, hyponatremia, hypernatremia, hypomagnesemia, psychogenic, this is not meant to be an all-inclusive list. EKG interpreted by me (3pts min.). @ -As above X-rays interpreted by me (1pt min.). @ -None done CT interpreted by me (1pt min.). @ -CT brain without large mass or hemorrhage visualized. Computed tomography scan of cervical spine without obvious fracture. Mild degenerative changes. U/S interpreted by me (1pt. min.). @ -None done What testing was considered but not performed or refused? (CT, X-rays, U/S, labs)? Why? @ -None What meds were considered but not given or refused? Why? @ -None Did you discuss the management of the patient with other professionals (professionals i.e. , PA, SLITTER CUT OFF OPERATOR, lab, RT, psych nurse, social media campaign manager, photography instructor, teacher, chief science officer, outpatient case manager)? Give summary @ -Case was discussed with Dr. Edmonds who would like to admit his patient Was smoking cessation discussed for >3mins.? @ -No Was critical care preformed (if so, how long)? @ -No Were there social determinants of health that impacted care today? How? (Homelessness, low income, unemployed, alcoholism, drug addiction, transportation, low edu. Level, literacy, decrease access to med. care, long term, rehab)? @ -No Was there de-escalation of care discussed even if they declined (Discuss DNR or withdrawal of care, Hospice)? DNR status @ -No What co-morbidities impacted this encounter? (DM, HTN, Smoking, COPD, CAD, Cancer, CVA, ARF, Chemo, Hep., AIDS, mental health diagnosis, sleep apnea, morbid obesity)? @ -None Was patient admitted / discharged? Hospital course, mention meds given and route, prescriptions, significant lab abnormalities, going to OR and other pertinent info. @ -Patient and family are aware of plan. Patient will be admitted with neurology consult. Orders. Undiagnosed new problem with uncertain prognosis? @ -No Drug Therapy requiring intensive monitoring for toxicity (Heparin, Nitro, Insulin, Cardizem)? @ -No Were any procedures done? @ -No Diagnosis/symptom? @ -Status epilepticus Acute, or Chronic, or Acute on Chronic? @ -Acute on chronic Uncomplicated (without systemic symptoms) or Complicated (systemic symptoms)? @ -default Side effects of treatment? @ -No Exacerbation, Progression, or Severe Exacerbation? @ -No Poses a threat to life or bodily function? How? (Chest pain, USA, SC, pneumonia, PE, COPD, DKA, ARF, appy, cholecystitis, CVA, Diverticulitis, Homicidal, Suicidal, threat to staff... and all critical care pts) @ -No (Jez Roy) - Lab Data Lab Results 04/29/23 04/29/23 Range/Units 14:36 14:36 WBC 6.0 (3.8-10.6) k/uL RBC 4.74 (3.80-5.40) m/uL Hgb 15.0 (11.4-16.0) gm/dL Hct 45.0 (34.0-46.0) % MCV 94.9 (80.0-100.0) fL MCH 31.6 (25.0-35.0) pg MCHC 33.3 (31.0-37.0) g/dL RDW 12.8 (11.5-15.5) % Plt Count 266 (150-450) k/uL MPV 8.2 Neutrophils % 68 % Lymphocytes % 21 % Monocytes % 6 % Eosinophils % 1 % Basophils % 1 % Neutrophils # 4.1 (1.3-7.7) k/uL Lymphocytes # 1.3 (1.0-4.8) k/uL Monocytes # 0.4 (0-1.0) k/uL Eosinophils # 0.1 (0-0.7) k/uL Basophils # 0.0 (0-0.2) k/uL Sodium 136 L (137-145) mmol/L Potassium 4.3 (3.5-5.1) mmol/L Chloride 104 (98-107) mmol/L Carbon Dioxide 24 (22-30) mmol/L Anion Gap 8 mmol/L BUN 14 (7-17) mg/dL Creatinine 0.38 L (0.52-1.04) mg/dL Est GFR (CKD-EPI)AfAm >90 (>60 ml/min/1.73 sqM) Est GFR (CKD-EPI)NonAf >90 (>60 ml/min/1.73 sqM) Glucose 123 H (74-99) mg/dL Calcium 9.0 (8.4-10.2) mg/dL Magnesium 2.2 (1.6-2.3) mg/dL Total Bilirubin 0.4 (0.2-1.3) mg/dL AST 28 (14-36) U/L ALT 17 (4-34) U/L Alkaline Phosphatase 144 H (38-126) U/L Total Protein 6.9 (6.3-8.2) g/dL Albumin 3.9 (3.5-5.0) g/dL Disposition <Esme Farooq - Last Filed: 04/29/23 14:11> Is patient prescribed a controlled substance at d/c from ED?: No Time of Disposition: 20:24 <Jez Roy - Last Filed: 04/29/23 20:24> Clinical Impression: Status epilepticus, Generalized seizure Disposition: ADMITTED IP TO THIS [facility] Instructions (If sedation given, give patient instructions): Seizure/Epilepsy Discharge Instructions & Follow-Up Referrals: Baljit Edmonds MD [Primary Care Provider] - 1-2 days
[2023-04-29 14:55] LABS: Basophils % (A) 1 %; Eosinophils # (A) 0.1 k/uL (0-0.7); Eosinophils % (A) 1 %; Lymphocytes # (A) 1.3 k/uL (1.0-4.8); Lymphocytes % (A) 21 %; MCH 31.6 pg (25.0-35.0); MCHC 33.3 g/dL (31.0-37.0); MCV 94.9 fL (80.0-100.0); Mean Platelet Volume 8.2; Monocytes # (A) 0.4 k/uL (0-1.0); Monocytes % (A) 6 %; Neutrophils # (A) 4.1 k/uL (1.3-7.7); Neutrophils % (A) 68 %; Platelet Count 266 k/uL (150-450); RBC 4.74 m/uL (3.80-5.40); RDW 12.8 % (11.5-15.5)
--- NOTE | 2023-04-29 15:02 | CT ---
EXAMINATION TYPE: CT brain jemmaine wo con DATE OF EXAM: 04/29/2023 COMPARISON: 03/26/2023 HISTORY: seizure and fall CT DLP: 1424.7 mGycm Automated exposure control for dose reduction was used. TECHNIQUE: CT scan of the head and cervical spine are performed without contrast. FINDINGS: There is no acute intracranial hemorrhage, mass effect, or midline shift identified. The mild degenerative change. Hyperostosis of the calvarium.. The globes are intact and the visualized sinuses are clear. Calcifications in the basal ganglia. Multilevel degenerative disc disease with severe changes at C3-4 and C4-C5. Retrolisthesis at C4-C5. Multilevel mild facet arthropathy. Heterogeneous appearance of the right lobe thyroid suggest thyroid nodules. A posterior spondylosis with uncovertebral joint hypertrophy appears to result in canal dave nosis C4-C5. Multilevel foraminal IMPRESSION: 1. There is no acute fracture or dislocation evident in the cervical spine. Multilevel severe degener ative disc disease. 2. No acute intracranial hemorrhage, mass effect, or midline shift is seen. 3. Enlarged right thyroid lobe with thyroid nodules.
[2023-04-29 15:08] LABS: ALT 17 U/L (4-34); AST 28 U/L (14-36); African American GFR (CKD) >90 (>60 ml/min/1.73 sqM); Albumin 3.9 g/dL (3.5-5.0); Alkaline Phosphatase 144 U/L (38-126); Anion Gap 8 mmol/L; Blood Urea Nitrogen 14 mg/dL (7-17); Carbon Dioxide 24 mmol/L (22-30); Chloride 104 mmol/L (98-107); Glucose 123 mg/dL (74-99); Magnesium 2.2 mg/dL (1.6-2.3); Non-African American GFR(CKD) >90 (>60 ml/min/1.73 sqM); Potassium 4.3 mmol/L (3.5-5.1); Sodium 136 mmol/L (137-145); Total Bilirubin 0.4 mg/dL (0.2-1.3); Total Protein 6.9 g/dL (6.3-8.2)
[2023-04-29] MEDS ORDERED: levETIRAcetam IV 500 MG/5 ML VIAL IVP STA (20:21)
[2023-04-29] MEDS ORDERED: ACETAMINOPHEN TAB 325 MG TAB PO PRN (20:25)
[2023-04-29] MEDS ORDERED: NALOXONE 0.4 MG/ML 1 ML VIAL IV PRN (20:25)
[2023-04-29] MEDS ORDERED: LORazepam 2 MG/ML INJ IV PRN (20:26)
[2023-04-29] MEDS: SODIUM CHLORIDE 0.9% 1,000 ML IV SCH (21:07)
[2023-04-29] MEDS: PHENYTOIN SODIUM EXTENDED 100 MG CAP PO SCH (22:09)
--- NOTE | 2023-04-29 23:02 | HP ---
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 HISTORY OF PRESENT ILLNESS: This is another admission for this female, who has had uncontrolled seizure disorder for years. She has seen various neurologists and is currently being evaluated at [facility]. She came into the office having had several seizures during the day and had one in the office. Her is on dialysis and cannot manage her at home. Because of her seizure in the office and inability to ambulate with postictal depression, she is referred to the emergency room. REVIEW OF SYSTEMS: Cannot be obtained because she is slightly lethargic and confused. Past medical history, family history, and personal and social histories are all otherwise unremarkable and unchanged from her previous admissions in the hospital. PHYSICAL EXAMINATION: VITAL SIGNS: Blood pressure is 135/90 with a pulse of 93, respirations of 40, and she is afebrile. GENERAL: She appeared to be slightly lethargic and confused. HEAD, EARS, EYES, NOSE, MOUTH, AND THROAT: Normal. The gaze is conjugate. Pupils are equally round and reactive. NECK: Supple. CHEST: Clear. CARDIAC: Normal sinus rhythm. ABDOMEN: Protuberant, soft, and nontender. EXTREMITIES: Normal. NEUROLOGIC: She was somewhat lethargic and confused. DIAGNOSES: She is admitted to the hospital with diagnoses: 1. Postictal depression. 2. Uncontrolled seizure disorder. PLAN: 1. Bed rest. 2. IV fluids. 3. Seizure precautions. 4. Resume her usual medications. 5. Neurology consult. MMODL / IJN: [id number] /
[2023-04-30 00:41] LABS: Amorphous Sediment,Urine Occasional /hpf; Appearance,Urine Cloudy (Clear); Bacteria,Urine Many /hpf; Bilirubin,Urine Negative (Negative); Blood,Urine Negative (Negative); Color,Urine Colorless; Glucose,Urine (UA) Negative (Negative); Ketones,Urine Negative (Negative); Leukocyte Esterase,Urine Large (Negative); Mucus,Urine Occasional /hpf; Nitrite,Urine Negative (Negative); PH, Urine 6.5 (5.0-8.0); Protein,Urine Negative (Negative); RBC,Urine 3 /hpf (0-5); Specific Gravity,Urine 1.007 (1.001-1.035); Squamous Epithelial Cell,Urine 2 /hpf (0-4); Urobilinogen,Urine <2.0 mg/dL (<2.0); WBC,Urine 126 /hpf (0-5)
[2023-04-30] MEDS: LEVOTHYROXINE 25 MCG TAB PO SCH (05:51)
[2023-04-30] MEDS: ASPIRIN 81 MG PO SCH (07:37)
[2023-04-30] MEDS: FUROSEMIDE 20 MG TAB PO SCH (07:37)
[2023-04-30] MEDS: METOPROLOL SUCCINATE (ER) 25 MG TAB.ER.24H PO SCH (07:38)
[2023-04-30] MEDS: PHENYTOIN SODIUM EXTENDED 100 MG CAP PO SCH ×4 (07:38→20:08)
[2023-04-30] MEDS ORDERED: PHENYTOIN SODIUM INJ 1,000 MG in SODIUM CHLORIDE 0.9% 100 ML IVPB STA (11:39)
--- NOTE | 2023-04-30 12:32 | P.CNNES ---
History of Present Illness Consult date: 04/30/23 Requesting physician: Jez Roy Reason for Consult: seizures History of Present Illness: This is a 78-year-old woman with history of seizures since 4 years old who presented to the emergency department because of breakthrough seizure. Patient states that she's been having seizures since 4 years old and the she continues to have seizures and she is on Keppra and Dilantin. She stated that she is on Dilantin since 4 years old. While Keppra she's been on it the right month. Patient states that her seizures are frequent and happens 2-3 times a week and she feels her medication is causing her to have seizures. She stated that she follows up with Dr. Hammond for her seizures. She had also extensive workup at [facility] in the past for seizures in the past according to the patient. She states that the she was told that she needs to be on Keppra 750 mg 1 tablet 3 times a day by her neurologist but she is only taken twice a day and feels her medications cause her to have seizure is stated that earlier and even with a 3 times a day she did not feel her seizures were controlled. While Dilantin per the EMR and it states that she's 100 mg tablet 4 times a day but according to the patient's she is only taking it 3 times a day. She stated that she tried different medication for seizures and she tried the Vimpat, Depakote and were not effective. Also she does not remember other medication that she tried for seizures at. She stated that prior to the seizures she just passes out all of a sudden and falls and can pass out for a few hours and in the past she had tongue bites but no further tongue bites denies any urinary or bowel incontinence. Denies any auras prior to these episodes. Again she stated that she had EEGs in the past and was told that it did reveal seizures according to the patient's poor the ED notes mention the patient had a fall 2 weeks ago and the parking lots and again last night prior to presenting to the hospital and she her head last night loss consciousness according to the ED note. Some of the workup during his hospital visit consisted of: CBC with differential is unremarkable Chemistry panel sodium is 136, glucose is 123, calcium is 9.0, magnesium is 2.2, AST is 28 and ALT 17. Phenytoin level is less than 3.0. Urinalysis is a leukocyte esterase was large, cloudy, urine white blood cells 126, urine white blood cell clumps is few and urine bacteria is many. CT of the head is reported as no acute intracranial hemorrhage, mass effect or midline shift is seen. I personally reviewed the CT and agree with the report. CT cervical spine is reported as there is no acute fracture or dislocation evident in the cervical spine. Multilevel severe degenerative disc disease. Large right thyroid lobe thyroid nodules. Review of Systems The positive and negative as per HPI. Past Medical History Past Medical History: Hypertension, Seizure Disorder, Skin Disorder, Thyroid Disorder Additional Past Medical History / Comment(s): EXCEMA, History of Any Multi-Drug Resistant Organisms: None Reported Past Surgical History: Bariatric Surgery, Section, Joint Replacement Additional Past Surgical History / Comment(s): LOOP MONITOR IMPLANT, removed part of the stomach "years ago", jn knee replacement, LEFT CATARACT Past Anesthesia/Blood Transfusion Reactions: Motion Sickness Past Psychological History: Anxiety Additional Psychological History / Comment(s): . Smoking Status: Former smoker Past Alcohol Use History: None Reported Additional Past Alcohol Use History / Comment(s): QUIT SMOKING , SMOKED APPROX 14 YRS, 1/2 PPD Past Drug Use History: None Reported - Past Family History Father Family Medical History: Myocardial Infarction ([place]) Mother Family Medical History: Osteoarthritis (OA) Medications and Allergies Home Medications Medication Instructions Recorded Confirmed Type Phenytoin Sodium Extended 100 mg PO QID 08/08/18 04/29/23 History [Dilantin] Aspirin 81 mg PO DAILY 11/05/20 04/29/23 History Ergocalciferol (Vitamin D2) 1,250 mcg PO Q30D 04/29/23 04/29/23 History [Drisdol (50,000 Iu)] Furosemide [Lasix] 20 mg PO DAILY 04/29/23 04/29/23 History Levothyroxine Sodium [Synthroid] 25 mcg PO DAILY 04/29/23 04/29/23 History Metoprolol Succinate (ER) [Toprol 25 mg PO DAILY 04/29/23 04/29/23 History Xl] levETIRAcetam [Keppra] 750 mg PO TID 04/29/23 04/29/23 History Allergies Allergy/AdvReac Type Severity Reaction Status Date / Time TESS Inhibitors Allergy Itching/Sei Verified 04/29/23 20:59 zures Penicillins Allergy fever,rash Verified 04/29/23 20:59 Physical Examination - Vital Signs Vital Signs: Vital Signs Temp Pulse Pulse Resp BP BP BP 04/30/23 07:00 98.8 F 86 16 159/91 04/30/23 02:00 98.8 F 89 16 170/90 04/29/23 22:20 98.3 F 66 18 176/96 04/29/23 21:26 81 19 170/98 04/29/23 14:10 98.4 F 81 18 161/91 Pulse Ox 04/30/23 07:00 98 04/30/23 02:00 100 04/29/23 22:20 99 04/29/23 21:26 99 04/29/23 14:10 98 Intake and Output 04/29/23 04/30/23 04/30/23 22:59 06:59 14:59 Other: Voiding Method Toilet Toilet # Voids 1 1 Weight 86.636 kg GENERAL: The patient is lying in bed and is not in acute distress. NEUROLOGICAL: Higher mental function: The patient is awake, alert, oriented to self, place and time. Patient is following commands. No aphasia and no neglect. Cranial nerves: The pupils are round, equal and reactive to light and accommodation. Visual curtis are full to confrontation throughout. Extraocular movement is intact no nystagmus is noted. Facial sensation is normal to touch throughout. The facial strength is normal throughout. Hearing is moderately decreased bilaterally to hand rub. Tongue is midline and moved [id number] without any difficulty. No dysarthria is noted. Shoulder shrug is normal bilaterally. Motor: The strength is 5 over 5 throughout. Normal tone and bulk. Cerebellum: Normal finger to nose bilaterally. Sensation: Sensation is normal to touch throughout. Reflexes (right/left): 2+ throughout. Plantars are downgoing bilaterally. Results - Laboratory Findings CBC and BMP: 04/29/23 14:36 04/29/23 14:36 Abnormal Lab Findings: Abnormal Labs 04/29/23 04/29/23 14:36 19:49 Sodium 136 L Creatinine 0.38 L Glucose 123 H Alkaline Phosphatase 144 H Urine Appearance Cloudy H Ur Leukocyte Esterase Large H Urine WBC 126 H Urine WBC Clumps Few H Amorphous Sediment Occasional H Urine Bacteria Many H Urine Mucus Occasional H Assessment and Plan Assessment: This is a 78-year-old woman with history of seizures since 4 years old was having the continue seizure. She is on Keppra and Dilantin and is seems the patient is noncompliant with her medication. Her Dilantin level was less than 3 and she's supposed to be on 100 mg one tablet 4 times a day but according to her she's taken the 3 times a day and Keppra she is supposed to be on 750 mg 1 tablet 3 times a day but states she is only taking twice a day. He tried different antiepileptic drugs and she feels her past or current medication are provoking her seizures. Breakthrough seizures and seems due to noncompliance Dilantin was less than 3.0. Pending Keppra level. Probable acute UTI History of seizures since 4 years old Medication noncompliance Plan: In the ED the patient was given Keppra 500 mg once. I loaded the patient with Dilantin 1000 mg once I increased her regimen that she takes of Keppra from 750 in the twice a day to 1250 twice a day. She was supposed to be on 750 mg 3 times a day by a neurologist. She is on Dilantin 100 mg 1 tablet 4 times a day but it seems that she's only taken 3 times a day according to patient and I'll not even sure she is taken 3 times a day since the levels are less than 10. Ordered a routine EEG. Seizure precautions seizure pads Pending Keppra level We'll defer the rest of the medical management to primary team Per the [facility] because of her seizures, to avoid driving for 6 month until seizure-free, avoid heights, avoids swimming unassisted or using heavy mach inery. I highly recommend the patient to follow-up with her neurologist as an outpatient within 2 weeks. She follows up with Dr. Cheng. The plan discussed with the patient and her nurse Thank you for the consultation. Time with Patient: Greater than 30
--- NOTE | 2023-04-30 18:41 | EEG ---
ELECTROENCEPHALOGRAM REPORT CLINICAL HISTORY: This is a 78-year-old woman with history of seizures who presents because of breakthrough seizures. The video EEG is obtained to evaluate for seizure epileptiform activity. RELEVANT MEDICATIONS: Dilantin and Keppra. EEG TYPE: This is a routine 21-channel EEG with video using the 10/20 electrode placement system. DESCRIPTION: Wakefulness is only obtained. During awake state, the posterior-dominant rhythm consists of [id number] voltage of 9 to 9.5 hertz activity that is well modulated, well sustained. There is no physiological sleep architecture. There is no focal slowing. Interictal and ictal, there is sharply contoured activity over the left temporal. The patient has spike and slow waves over the left temporal region. No seizures noted. ACTIVATION PROCEDURE: Photic stimulation did not evoke a posterior driving response. There is no abnormality during the photic stimulation. Hyperventilation is not performed. CLINICAL INTERPRETATION: This is an abnormal routine EEG. Epileptiform discharges as stated above increases risk for focal seizure as well as the status epilepticus. Otherwise, the background is normal, no focal slowing or seizure noted during this study. Clinical correlation is recommended. MMODL / IJN: [id number] / HEENA
[2023-04-30] MEDS: levETIRAcetam 500 MG TAB PO SCH (20:08)
[2023-04-30] MEDS: levETIRAcetam 250 MG TAB PO SCH (20:08)
[2023-04-30] MEDS: SODIUM CHLORIDE 0.9% 1,000 ML IV SCH (20:09)
[2023-05-01] MEDS: LEVOTHYROXINE 25 MCG TAB PO SCH (05:30)
[2023-05-01] MEDS: FUROSEMIDE 20 MG TAB PO SCH (08:49)
[2023-05-01] MEDS: METOPROLOL SUCCINATE (ER) 25 MG TAB.ER.24H PO SCH (08:49)
[2023-05-01] MEDS: ASPIRIN 81 MG PO SCH (08:49)
[2023-05-01] MEDS: levETIRAcetam 500 MG TAB PO SCH ×2 (08:49→21:32)
[2023-05-01] MEDS: PHENYTOIN SODIUM EXTENDED 100 MG CAP PO SCH ×4 (08:49→21:33)
[2023-05-01] MEDS: levETIRAcetam 250 MG TAB PO SCH ×2 (08:49→21:32)
--- NOTE | 2023-05-01 14:05 | P.PN ---
Subjective Progress Note Date: 05/01/23 I followed up with the patient and no further seizure overnight. The patient feels she is doing well. No new neurological issues. Objective - Vital Signs Vital signs: Vital Signs Temp 98.2 F 05/01/23 13:43 Pulse 65 05/01/23 13:43 Resp 16 05/01/23 13:43 BP 108/70 05/01/23 13:43 Pulse Ox 98 05/01/23 13:43 FiO2 Intake & Output 04/30/23 05/01/23 05/01/23 18:59 06:59 18:59 Intake Total 118 Balance 118 Intake: Oral 118 Other: Voiding Method Toilet Toilet Toilet # Voids 2 1 - Exam GENERAL: The patient is lying in bed and is not in acute distress. NEUROLOGICAL: Higher mental function: The patient is awake, alert, oriented to self, place and time. Patient is following commands. No aphasia and no neglect. Cranial nerves: The pupils are round, equal and reactive to light. Visual curtis are full to confrontation throughout. Extraocular movement is intact no nystagmus is noted. Facial sensation is normal to touch throughout. The facial strength is normal throughout. Hearing is moderately decreased bilaterally to hand rub. Tongue is midline and moved ibli-ef-aniv without any difficulty. No dysarthria is noted. Shoulder shrug is normal bilaterally. Motor: The strength is 5 over 5 throughout. Normal tone and bulk. Some of the workup during his hospital visit consisted of: CBC with differential is unremarkable Chemistry panel sodium is 136, glucose is 123, calcium is 9.0, magnesium is 2.2, AST is 28 and ALT 17. Phenytoin level is less than 3.0. Keppra level is 10.1 which is therapeutic the range is supposed to be between 3- 60 Urinalysis is a leukocyte esterase was large, cloudy, urine white blood cells 126, urine white blood cell clumps is few and urine bacteria is many. CT of the head is reported as no acute intracranial hemorrhage, mass effect or midline shift is seen. I personally reviewed the CT and agree with the report. CT cervical spine is reported as there is no acute fracture or dislocation evident in the cervical spine. Multilevel severe degenerative disc disease. Large right thyroid lobe thyroid nodules. Routine EEG is abnormal. Epileptiform discharges as stated above increases risk for focal seizure and status epilepticus. Otherwise the background is normal an d there is no seizure noted during the study and there is no focal slowing. - Labs CBC & Chem 7: 04/29/23 14:36 04/29/23 14:36 Assessment and Plan Assessment: This is a 78-year-old woman with history of seizures since 4 years old was having the continue seizure. She is on Keppra and Dilantin and is seems the pat ient is noncompliant with her medication. Her Dilantin level was less than 3 and she's supposed to be on 100 mg one tablet 4 times a day but according to her she's taken the 3 times a day and Keppra she is supposed to be on 750 mg 1 tablet 3 times a day but states she is only taking twice a day. He tried different antiepileptic drugs and she feels her past or current medication are provoking her seizures. Breakthrough seizures and seems due to noncompliance Dilantin was less than 3.0. No further seizures during this hospital visit. Probable acute UTI History of seizures since 4 years old Medication noncompliance Plan: I increased her regimen that she takes of Keppra from 750 in the twice a day to 1250 twice a day. She was supposed to be on 750 mg 3 times a day by a neurologist. She is on Dilantin 100 mg 1 tablet 4 times a day but it seems that she's only taken 3 times a day according to patient and I'll not even sure she is taken 3 times a day since the levels are less than 10. Seizure precautions seizure pads We'll defer the rest of the medical management to primary team Per the [facility] because of her seizures, to avoid driving for 6 month until seizure-free, avoid heights, avoids swimming unassisted or using heavy machinery. I highly recommend the patient to follow-up with her neurologist as an outpatient within 2 weeks. She follows up with Dr. Cheng. The plan discussed with the patient and her nurse There is no further neurological workup. We'll sign off. Please reconsult as needed. Time with Patient: Less than 30
[2023-05-01] MEDS: SODIUM CHLORIDE 0.9% 1,000 ML IV SCH (21:33)
[2023-05-02] MEDS: LEVOTHYROXINE 25 MCG TAB PO SCH (06:27)
[2023-05-02 08:01] VITALS: BP 116/79; PULSE 60; RESP 16; TEMP 97.9
[2023-05-02] MEDS: levETIRAcetam 250 MG TAB PO SCH (08:53)
[2023-05-02] MEDS: PHENYTOIN SODIUM EXTENDED 100 MG CAP PO SCH (08:53)
[2023-05-02] MEDS: ASPIRIN 81 MG PO SCH (08:53)
[2023-05-02] MEDS: METOPROLOL SUCCINATE (ER) 25 MG TAB.ER.24H PO SCH (08:53)
[2023-05-02] MEDS: levETIRAcetam 500 MG TAB PO SCH (08:53)
[2023-05-02] MEDS: FUROSEMIDE 20 MG TAB PO SCH (08:53)
--- NOTE | 2023-05-03 03:11 | DS ---
DISCHARGE SUMMARY CHIEF COMPLAINT: Grand mal seizure and uncontrolled seizure disorder. HISTORY OF PRESENT ILLNESS AND PHYSICAL EXAMINATION: Details of this lady's history and physical can be found in the initial workup. LABORATORY STUDIES: While she is in the hospital, she had laboratory studies, details of which can be found in the laboratory section of her chart. COURSE IN THE HOSPITAL: After admission, she was placed on bedrest, started on intravenous fluids and seizure precautions. She was seen by Neurology. Dilantin level was quite low. It was felt that this may have been part of the reason that she had seizure. She is doing well and was stable and it was felt that she could go home. She will be seen in the office in several days. She will go home with a commitment to take her medicines appropriately. FINAL DIAGNOSIS: Grand mal seizure disorder. OPERATIONS: None. CONSULTATION: Neurology, she is improved. MMODL / YAON: [id number] /
--- NOTE | 2023-05-03 03:25 | PN ---
PROGRESS NOTE DATE OF SERVICE: 05/01/2023 CHIEF COMPLAINT: Seizure disorder. HISTORY OF PRESENT ILLNESS: This lady is now awake and alert. She has been seen by Neurology. Dilantin level is low and this will be corrected. PHYSICAL EXAMINATION: VITAL SIGNS: Normal. CHEST: Clear. HEENT: Head, ears, eyes, nose, mouth and throat are normal. NEUROLOGICAL: She is intact. IMPRESSION: Uncontrolled grand mal seizure disorder. PLAN: Increase activity and possibly home in the next day or 2. She is slightly nauseated at this time. MMODL / IJN: [id number] /
--- NOTE | 2023-05-03 03:43 | PN ---
PROGRESS NOTE DATE OF SERVICE: 04/30/2023 CHIEF COMPLAINT: Seizure disorder. HISTORY OF PRESENT ILLNESS: This lady is doing better. She is awake, alert, oriented. She has not had any seizures. PHYSICAL EXAMINATION: CHEST: Clear. CARDIAC: Normal. NEUROLOGICAL: She is intact. She is being seen by Neurology. IMPRESSION: Uncontrolled grand mal seizure disorder. PLAN: Seizure precautions and increase activity. We await for further recommendations from Neurology. MMODL / IJN: [id number] /
== END 2023-05-02 11:43 | disposition home health service (06) ==
LOC: EC 13:23 → 6NMEDSUR 20:25
PROVIDERS: ADMIT Family Medicine; ATTEND Family Medicine
DX: G40.401 Other generalized epilepsy and epileptic syndromes, not intractable, with status epilepticus (principal); I10 Essential (primary) hypertension; F41.9 Anxiety disorder, unspecified; F32.A Depression, unspecified; Z91.148 Patient's other noncompliance with medication regimen for other reason; Z87.891 Personal history of nicotine dependence; Z79.82 Long term (current) use of aspirin; Z79.890 Hormone replacement therapy; Z79.899 Other long term (current) drug therapy; Z88.0 Allergy status to penicillin
CPT/HCPCS: 96365; 96366; 96375; 99285; 36415; 95816; 93005; 80053; 80177; 80185; 83735; 85025; 81001; 72125; 70450; G0378 ×4; J1165; J1953

== ENCOUNTER 2023-05-11 11:48 | Observation (INO) | payer MEDICARE ==
[2023-05-11] MEDS ORDERED: SODIUM CHLORIDE 0.9% 1,000 ML IV STA (12:44)
--- NOTE | 2023-05-11 12:45 | ED ---
Seizure HPI - General Chief Complaint: Seizure Stated Complaint: Seizures Time Seen by Provider: 05/11/23 12:22 Source: patient, RN notes reviewed, old records reviewed Mode of arrival: ambulatory Limitations: no limitations - History of Present Illness Initial Comments: This is a 78-year-old female DF for evaluation. She is presented today for evaluation of seizure with recurrent seizure activity. Multiple recent hospital admissions for status epilepticus and seizure issues. Patient is on Dilantin Keppra for seizures but is having issue with Keppra at home. Patient was at her primary care's office today and sent ER for seizure-like activity both in the car as well as in the office MD Complaint: seizure, feel seizure coming on -: hour(s) Description of Episode: loss of consciousness, post-event confusion -: second(s) Witnessed: yes - by bystander Trauma: Yes Seizure History: known seizure disorder, history of non-compliance with treatment Place: home Possible Precipitating Event: none Associated Symptoms: denies other symptoms Treatments Prior to Arrival: none - Related Data Home Medications Medication Instructions Recorded Confirmed Phenytoin Sodium Extended 100 mg PO QID 08/08/18 05/11/23 [Dilantin] Aspirin 81 mg PO DAILY 11/05/20 05/11/23 Ergocalciferol (Vitamin D2) 1,250 mcg PO Q30D 04/29/23 05/11/23 [Drisdol (50,000 Iu)] Furosemide [Lasix] 20 mg PO DAILY 04/29/23 05/11/23 Levothyroxine Sodium [Synthroid] 25 mcg PO DAILY 04/29/23 05/11/23 Previous Rx's Medication Instructions Recorded levETIRAcetam [Keppra] 1,000 mg PO Q12HR #60 tab 05/02/23 levETIRAcetam [Keppra] 250 mg PO Q12HR #60 tab 05/02/23 Bisoprolol [Zebeta] 5 mg PO BID #20 tab 05/14/23 levETIRAcetam [Keppra] 500 mg PO Q12HR #20 tab 05/14/23 Allergies Allergy/AdvReac Type Severity Reaction Status Date / Time TESS Inhibitors Allergy Itching/Sei Verified 05/11/23 15:20 zures Penicillins Allergy fever,rash Verified 05/11/23 15:20 Review of Systems ROS Statement: Those systems with pertinent positive or pertinent negative responses have been documented in the HPI. ROS Other: All systems not noted in ROS Statement are negative. Past Medical History Past Medical History: Hypertension, Seizure Disorder, Skin Disorder, Thyroid Disorder Additional Past Medical History / Comment(s): EXCEMA, History of Any Multi-Drug Resistant Organisms: None Reported Past Surgical History: Bariatric Surgery, Section, Joint Replacement Additional Past Surgical History / Comment(s): LOOP MONITOR IMPLANT, removed part of the stomach "years ago", jn knee replacement, LEFT CATARACT Past Anesthesia/Blood Transfusion Reactions: Motion Sickness Past Psychological History: Anxiety Smoking Status: Former smoker Past Alcohol Use History: None Reported Past Drug Use History: None Reported - Past Family History Father Family Medical History: Myocardial Infarction (VT) Mother Family Medical History: Osteoarthritis (OA) General Exam Limitations: no limitations General appearance: alert, in no apparent distress Head exam: Present: atraumatic, normocephalic, normal inspection Eye exam: Present: normal appearance, PERRL, EOMI. Absent: scleral icterus, conjunctival injection, periorbital swelling ENT exam: Present: normal exam, mucous membranes moist Neck exam: Present: normal inspection. Absent: tenderness, meningismus, lymphadenopathy Respiratory exam: Present: normal lung sounds bilaterally. Absent: respiratory distress, wheezes, rales, rhonchi, stridor Cardiovascular Exam: Present: regular rate, normal rhythm, normal heart sounds. Absent: systolic murmur, diastolic murmur, rubs, gallop, clicks GI/Abdominal exam: Present: soft, normal bowel sounds. Absent: distended, tenderness, guarding, rebound, rigid Extremities exam: Present: normal inspection, full ROM, normal capillary refill. Absent: tenderness, pedal edema, joint swelling, calf tenderness Back exam: Present: normal inspection Neurological exam: Present: alert, oriented X3, CN II-XII intact Psychiatric exam: Present: normal affect, normal mood Skin exam: Present: warm, dry, intact, normal color. Absent: rash Course Vital Signs 05/11/23 05/11/23 05/11/23 11:49 13:00 15:08 Temperature 97.6 F Pulse Rate 89 78 78 Respiratory 18 18 16 Rate Blood Pressure 145/82 168/88 130/80 O2 Sat by Pulse 100 96 98 Oximetry - Reevaluation(s) Reevaluation #1: 05/11/23 13:14 Medical record is reviewed Reevaluation #2: 05/11/23 13:14 Patient has no recurrent seizure here in the ER Reevaluation #3: 05/11/23 13:14 Patient informed results questions answered Reevaluation #4: 05/11/23 13:03 Was pt. sent in by a medical professional or institution (, [employer], [employer]CHO[employer] ENGLISH TEACHER, urgent care, hospital, or senior care...) When possible be specific @ -no Did you speak to anyone other than the patient for history (EMS, parent, family, police, friend...)? What history was obtained from this source @ -no Did you review nursing and triage notes (agree or disagree)? Why? @ -agree Are old charts reviewed (outside hosp., previous admission, EMS record, old EKG, old radiological studies, urgent care reports/EKG's, senior care records)? Report findings @ -yes Differential Diagnosis (chest pain, altered mental status, abdominal pain women, abdominal pain men, vaginal bleeding, weakness, fever, dyspnea, syncope, hea dache, dizziness, GI bleed, back pain, seizure, CVA, palpatations, mental health, musculoskeletal)? @ -prior EKG interpreted by me (3pts min.). @ -yes X-rays interpreted by me (1pt min.). @ -no CT interpreted by me (1pt min.). @ -no U/S interpreted by me (1pt. min.). @ -no What testing was considered but not performed or refused? (CT, X-rays, U/S, labs)? Why? @ -none What meds were considered but not given or refused? Why? @ -none Did you discuss the management of the patient with other professionals (professionals i.e. , [facility], [employer] EN[employer]ISH TEACHER, lab, RT, psych nurse, high school social studies teacher, automatic lump making machine tender, teacher, guest services officer, hospice case manager)? Give summary @ -no Was smoking cessation discussed for >3mins.? @ -no Was critical care preformed (if so, how long)? @ -no Were there social determinants of health that impacted care today? How? (Homelessness, low income, unemployed, alcoholism, drug addiction, tra nsportation, low edu. Level, literacy, decrease access to med. care, senior care, rehab)? @ -none Was there de-escalation of care discussed even if they declined (Discuss DNR or withdrawal of care, Hospice)? DNR status @ -no What co-morbidities impacted this encounter? (DM, HTN, Smoking, COPD, CAD, Cance r, CVA, ARF, Chemo, Hep., AIDS, mental health diagnosis, sleep apnea, morbid obesity)? @ -none Was patient admitted / discharged? Hospital course, mention meds given and route, prescriptions, significant lab abnormalities, going to OR and other pertinent info. @ - 78 female to the emergency department with recurrent seizure. Patient is struggling with seizure medications at home, patient has history of recurrent seizures and thinks that she may be having issue with Her medication, family states at that the medication she Is Not Working working she is also on Dilantin. Patient be admitted for seizure evaluation and treatment Admitted Undiagnosed new problem with uncertain prognosis? @ -no Drug Therapy requiring intensive monitoring for toxicity (Heparin, Nitro, Insulin, Cardizem)? @ -no Were any procedures done? @ -no Diagnosis/symptom? @ -Recurrent seizure, noncompliant Acute, or Chronic, or Acute on Chronic? @ -Acute Uncomplicated (without systemic symptoms) or Complicated (systemic symptoms)? @ -Complicated Side effects of treatment? @ -no Exacerbation, Progression, or Severe Exacerbation? @ -exacerbation Poses a threat to life or bodily function? How? (Chest pain, USA, VT, pneumonia, PE, COPD, DKA, ARF, appy, cholecystitis, CVA, Diverticulitis, Homicidal, Suicidal, threat to staff... and all critical care pts) @ -yes recurrent seizures possible status epilepticus Reevaluation #5: 05/11/23 13:14 Differential Seizure: Recurrent seizure disorder, febrile seizure, alcohol withdrawal, stimulants, meningitis, encephalitis, intercranial hemorrhage, intracranial tumor, stroke, eclampsia, thyrotoxicosis, hypocalcemia, hyponatremia, hypernatremia, hypomagnesemia, psychogenic, this is not meant to be an all-inclusive list. - Consultations Consultation #1: Spoke with Dr. Edmonds who will admit this patient Medical Decision Making - Medical Decision Making 78 female to the emergency department with recurrent seizure. Patient is struggling with seizure medications at home, patient has history of recurrent se izures and thinks that she may be having issue with Her medication, family states at that the medication she Is Not Working working she is also on Dilantin. Patient be admitted for seizure evaluation and treatment - Lab Data Result diagrams: 05/12/23 07:07 05/12/23 07:07 Lab Results 05/11/23 05/11/23 05/11/23 Range/Units 12:44 12:44 12:44 WBC 7.3 (3.8-10.6) k/uL RBC 4.43 (3.80-5.40) m/uL Hgb 13.9 (11.4-16.0) gm/dL Hct 42.8 (34.0-46.0) % MCV 96.6 (80.0-100.0) fL MCH 31.5 (25.0-35.0) pg MCHC 32.6 (31.0-37.0) g/dL RDW 12.6 (11.5-15.5) % Plt Count 255 (150-450) k/uL MPV 7.7 Neutrophils % 80 % Lymphocytes % 12 % Monocytes % 5 % Eosinophils % 2 % Basophils % 0 % Neutrophils # 5.9 (1.3-7.7) k/uL Lymphocytes # 0.8 L (1.0-4.8) k/uL Monocytes # 0.4 (0-1.0) k/uL Eosinophils # 0.1 (0-0.7) k/uL Basophils # 0.0 (0-0.2) k/uL Sodium 138 (137-145) mmol/L Potassium 4.5 (3.5-5.1) mmol/L Chloride 106 (98-107) mmol/L Carbon Dioxide 22 (22-30) mmol/L Anion Gap 10 mmol/L BUN 17 (7-17) mg/dL Creatinine 0.49 L (0.52-1.04) mg/dL Est GFR (CKD-EPI)AfAm >90 (>60 ml/min/1.73 sqM) Est GFR (CKD-EPI)NonAf >90 (>60 ml/min/1.73 sqM) Glucose 138 H (74-99) mg/dL Calcium 8.7 (8.4-10.2) mg/dL Magnesium 1.9 (1.6-2.3) mg/dL Total Bilirubin 0.6 (0.2-1.3) mg/dL AST 32 (14-36) U/L ALT 20 (4-34) U/L Alkaline Phosphatase 119 (38-126) U/L Total Protein 6.8 (6.3-8.2) g/dL Albumin 3.7 (3.5-5.0) g/dL Urine Color Colorless Urine Appearance Cloudy H (Clear) Urine pH 5.0 (5.0-8.0) Ur Specific Baker 1.014 (1.001-1.035) Urine Protein Negative (Negative) Urine Glucose (UA) Negative (Negative) Urine Ketones Negative (Negative) Urine Blood Negative (Negative) Urine Nitrite Negative (Negative) Urine Bilirubin Negative (Negative) Urine Urobilinogen <2.0 (<2.0) mg/dL Ur Leukocyte Esterase Large H (Negative) Urine RBC 2 (0-5) /hpf Urine WBC 169 H (0-5) /hpf Ur Squamous Epith Cells 3 (0-4) /hpf Urine Bacteria Occasional H (None) /hpf Urine Mucus Rare H (None) /hpf Salicylates <1.0 mg/dL Urine Opiates Screen Not Detected (NotDetected) Ur Oxycodone Screen Not Detected (NotDetected) Urine Methadone Screen Not Detected (NotDetected) Ur Propoxyphene Screen Not Detected (NotDetected) Acetaminophen <10.0 ug/mL Ur Barbiturates Screen Detected H (NotDetected) Phenytoin 20.7 ug/mL Valproic Acid <10.0 ug/mL Carbamazepine <3.0 ug/mL U Tricyclic Antidepress Not Detected (NotDetected) Levetiracetam (3.0-60.0) ug/mL Ur Phencyclidine Scrn Not Detected (NotDetected) Ur Amphetamines Screen Not Detected (NotDetected) U Methamphetamines Scrn Not Detected (NotDetected) U Benzodiazepines Scrn Not Detected (NotDetected) Urine Cocaine Screen Not Detected (NotDetected) U Marijuana (THC) Screen Not Detected (NotDetected) Serum Alcohol <10 mg/dL 05/11/23 Range/Units 12:44 WBC (3.8-10.6) k/uL RBC (3.80-5.40) m/uL Hgb (11.4-16.0) gm/dL Hct (34.0-46.0) % MCV (80.0-100.0) fL MCH (25.0-35.0) pg MCHC (31.0-37.0) g/dL RDW (11.5-15.5) % Plt Count (150-450) k/uL MPV Neutrophils % % Lymphocytes % % Monocytes % % Eosinophils % % Basophils % % Neutrophils # (1.3-7.7) k/uL Lymphocytes # (1.0-4.8) k/uL Monocytes # (0-1.0) k/uL Eosinophils # (0-0.7) k/uL Basophils # (0-0.2) k/uL Sodium (137-145) mmol/L Potassium (3.5-5.1) mmol/L Chloride (98-107) mmol/L Carbon Dioxide (22-30) mmol/L Anion Gap mmol/L BUN (7-17) mg/dL Creatinine (0.52-1.04) mg/dL Est GFR (CKD-EPI)AfAm (>60 ml/min/1.73 sqM) Est GFR (CKD-EPI)NonAf (>60 ml/min/1.73 sqM) Glucose (74-99) mg/dL Calcium (8.4-10.2) mg/dL Magnesium (1.6-2.3) mg/dL Total Bilirubin (0.2-1.3) mg/dL AST (14-36) U/L ALT (4-34) U/L Alkaline Phosphatase (38-126) U/L Total Protein (6.3-8.2) g/dL Albumin (3.5-5.0) g/dL Urine Color Urine Appearance (Clear) Urine pH (5.0-8.0) Ur Specific Baker (1.001-1.035) Urine Protein (Negative) Urine Glucose (UA) (Negative) Urine Ketones (Negative) Urine Blood (Negative) Urine Nitrite (Negative) Urine Bilirubin (Negative) Urine Urobilinogen (<2.0) mg/dL Ur Leukocyte Esterase (Negative) Urine RBC (0-5) /hpf Urine WBC (0-5) /hpf Ur Squamous Epith Cells (0-4) /hpf Urine Bacteria (None) /hpf Urine Mucus (None) /hpf Salicylates mg/dL Urine Opiates Screen (NotDetected) Ur Oxycodone Screen (NotDetected) Urine Methadone Screen (NotDetected) Ur Propoxyphene Screen (NotDetected) Acetaminophen ug/mL Ur Barbiturates Screen (NotDetected) Phenytoin ug/mL Valproic Acid ug/mL Carbamazepine ug/mL U Tricyclic Antidepress (NotDetected) Levetiracetam 14.6 (3.0-60.0) ug/mL Ur Phencyclidine Scrn (NotDetected) Ur Amphetamines Screen (NotDetected) U Methamphetamines Scrn (NotDetected) U Benzodiazepines Scrn (NotDetected) Urine Cocaine Screen (NotDetected) U Marijuana (THC) Screen (NotDetected) Serum Alcohol mg/dL - EKG Data -: EKG Interpreted by Me (EKG sinus a 78 [place] 160 QRS 82 QTC 399) - Radiology Data Radiology results: report reviewed (CT brain is negative for acute disease), image reviewed Disposition Clinical Impression: Generalized seizure, Epileptic seizure, generalized Disposition: HOME SELF-CARE Condition: Good Is patient prescribed a controlled substance at d/c from ED?: No Time of Disposition: 13:40
[2023-05-11] MEDS ORDERED: NALOXONE 0.4 MG/ML 1 ML VIAL IV PRN (13:20)
[2023-05-11] MEDS ORDERED: ONDANSETRON 4 MG/2 ML VIAL IVP PRN (13:27)
[2023-05-11 13:34] LABS: Basophils % (A) 0 %; Eosinophils # (A) 0.1 k/uL (0-0.7); Eosinophils % (A) 2 %; HCT 42.8 % (34.0-46.0); HGB 13.9 gm/dL (11.4-16.0); Lymphocytes # (A) 0.8 k/uL (1.0-4.8); Lymphocytes % (A) 12 %; MCH 31.5 pg (25.0-35.0); MCHC 32.6 g/dL (31.0-37.0); MCV 96.6 fL (80.0-100.0); Mean Platelet Volume 7.7; Monocytes # (A) 0.4 k/uL (0-1.0); Monocytes % (A) 5 %; Neutrophils # (A) 5.9 k/uL (1.3-7.7); Neutrophils % (A) 80 %; Platelet Count 255 k/uL (150-450); RBC 4.43 m/uL (3.80-5.40); RDW 12.6 % (11.5-15.5); WBC 7.3 k/uL (3.8-10.6)
[2023-05-11] MEDS: SODIUM CHLORIDE 0.9% 1,000 ML IV SCH (13:39)
[2023-05-11 13:54] LABS: ALT 20 U/L (4-34); AST 32 U/L (14-36); Acetaminophen <10.0 ug/mL; African American GFR (CKD) >90 (>60 ml/min/1.73 sqM); Albumin 3.7 g/dL (3.5-5.0); Alcohol <10 mg/dL; Alkaline Phosphatase 119 U/L (38-126); Anion Gap 10 mmol/L; Blood Urea Nitrogen 17 mg/dL (7-17); Calcium 8.7 mg/dL (8.4-10.2); Carbon Dioxide 22 mmol/L (22-30); Chloride 106 mmol/L (98-107); Glucose 138 mg/dL (74-99); Magnesium 1.9 mg/dL (1.6-2.3); Non-African American GFR(CKD) >90 (>60 ml/min/1.73 sqM); Salicylate <1.0 mg/dL; Sodium 138 mmol/L (137-145); Total Bilirubin 0.6 mg/dL (0.2-1.3); Total Protein 6.8 g/dL (6.3-8.2)
[2023-05-11 14:01] LABS: Appearance,Urine Cloudy (Clear); Bacteria,Urine Occasional /hpf; Bilirubin,Urine Negative (Negative); Blood,Urine Negative (Negative); Color,Urine Colorless; Glucose,Urine (UA) Negative (Negative); Ketones,Urine Negative (Negative); Leukocyte Esterase,Urine Large (Negative); Mucus,Urine Rare /hpf; Nitrite,Urine Negative (Negative); Protein,Urine Negative (Negative); RBC,Urine 2 /hpf (0-5); Specific Gravity,Urine 1.014 (1.001-1.035); Squamous Epithelial Cell,Urine 3 /hpf (0-4); Urobilinogen,Urine <2.0 mg/dL (<2.0); WBC,Urine 169 /hpf (0-5)
[2023-05-11 14:02] LABS: Potassium 4.5 mmol/L (3.5-5.1)
[2023-05-11 14:06] LABS: Amphetamine Screen,Urine Not Detected (NotDetected); Barbiturate Screen,Urine Detected (NotDetected); Benzodiazepines Screen,Urine Not Detected (NotDetected); Cocaine Screen,Urine Not Detected (NotDetected); Methadone Screen, Urine Not Detected (NotDetected); Opiate Screen,Urine Not Detected (NotDetected); Oxycodone Screen, Urine Not Detected (NotDetected); Phencyclidine Screen,Urine Not Detected (NotDetected); Tricyclic Antidepressant,Urine Not Detected (NotDetected); Urn Cannabinoid Scrn Not Detected (NotDetected)
[2023-05-11 14:48] LABS: Carbamazepine (Tegretol) <3.0 ug/mL; Phenytoin (Dilantin) 20.7 ug/mL
[2023-05-11 14:51] LABS: Valproic Acid (Depakene) <10.0 ug/mL
[2023-05-11] MEDS: PHENYTOIN SODIUM EXTENDED 100 MG CAP PO SCH (21:30)
[2023-05-11] MEDS: levETIRAcetam 250 MG TAB PO SCH (21:30)
[2023-05-11] MEDS: levETIRAcetam 500 MG TAB PO SCH (21:30)
[2023-05-12] MEDS: SODIUM CHLORIDE 0.9% 1,000 ML IV SCH ×2 (00:46→14:22)
[2023-05-12] MEDS: LEVOTHYROXINE 25 MCG TAB PO SCH (06:18)
[2023-05-12] MEDS: PHENYTOIN SODIUM EXTENDED 100 MG CAP PO SCH ×4 (09:18→20:42)
[2023-05-12] MEDS: levETIRAcetam 250 MG TAB PO SCH ×2 (09:18→20:42)
[2023-05-12] MEDS: ASPIRIN 81 MG PO SCH (09:18)
[2023-05-12] MEDS: FUROSEMIDE 20 MG TAB PO SCH (09:18)
[2023-05-12] MEDS: levETIRAcetam 500 MG TAB PO SCH ×2 (09:19→20:42)
[2023-05-12] MEDS: METOPROLOL SUCCINATE (ER) 25 MG TAB.ER.24H PO SCH (09:54)
--- NOTE | 2023-05-12 13:12 | P.CNNES ---
History of Present Illness Consult date: 05/12/23 Requesting physician: Regis Kumar Reason for Consult: Recurrent seizures History of Present Illness: Patient is a 78-year-old female with history of temporal lobe epilepsy since age 4. It happened after patient suffered from chickenpox, measles and pneumonia and could not break the fever for 3 days. Patient was at first placed on Dilantin, then phenobarbital was added. Patient used to have generalized tonic- clonic seizure, but not anymore. She used to get an aura consisting of strange feeling, and a funny smell and she would sit down. This brief aura would last for a few seconds. And she would pass out. She is usually postictal for about 15-45 minutes. When she would wake up, she would feel as if her head would explode. She is not having anymore generalized tonic-clonic activity. No tongue bite, no loss of control of urine. For years, she has stopped having aura and she just falls and is out for about 15-45 minutes. Patient was seen by Dr. Hernandez in-hospital consultation on 04/30/2023. Patient was on Dilantin 100 mg 4 times a day, and Keppra 750 minute and 3 times a day. He changed the schedule of Keppra to 1250 mg twice a day. Dose of Dilantin was maintained. Patient's seizure frequency is about twice a month. Patient states that since Saturday night, 2 days ago, she is noticing some rash itching or rash involving the right upper arm. It involves either the right upper arm, or sometimes the body. Yesterday she was going to her doctor's office to discuss about the rash, when she had a seizure in the car. Patient states that this seizure was unusual, as she had an aura, which she stopped having for several years. She felt like she is going to have a seizure and she did. Per , there was no convulsion, but she was just moving restless, but did not have any convulsive activity. Patient's took her to the primary physician's office, but she was referred to the ER. Patient states that the most recent medication added was metoprolol for SVT noted on Holter monitoring. Vital signs on arrival blood pressure 145/82, pulse rate 89, temperature 97.6. Blood test shows normal CBC, CMP, UA shows large amount of leukocyte Estrace and 169 wbc, occasional bacteria. Urine drug screen positive for barbiturate. Dilantin level is 20.7. Blood alcohol level negative. Keppra is 14.6 (3-60) Patient states she has been on Keppra almost for a year. Initially it was 500 mg twice a day, then in 750 mg 3 times a day. More recently it was changed to 1250 mg twice a day on 04/30/2023 as per recommendation from Dr. Hernandez. Patient says that she has previously tried Tegretol, Vimpat, Lamictal as well as Fycompa. Patient has previously tried phenobarbital as well. Patient does not remember why all those medications were discontinued. She is not sure if she ever tried Depakote or Trileptal. Patient has been to [facility] at epilepsy monitoring unit about 8 years ago. She was diagnosed with temporal lobe seizures with bilateral epileptiform activity. Not considered a Surgical candidate. Patient had an EEG on 04/30/2023, which was reported by Dr. Hernandez and showed spike and wave discharges over the left temporal region. Patient had an MRI of the brain with and without contrast on 11/27/2017, which showed mild chronic small vessel ischemic change. No suspicious enhancement. Her last CT head was on 05/09/2023, which revealed no acute intracranial findings. No indication to repeat CT head this admission. CT of the cervical spine showed no fracture or dislocation. Patient denies any tobacco or alcohol use. She does have hypertension but no diabetes. Patient says that she has an appointment with epilepsy monitoring unit at [facility] on 07/04/2023. Patient says that for last 2 months, she has been feeding weakness in the legs. She has started using a cane. Her legs also swell up. Patient states that just yesterday, she was able to walk without any assistive device and feels better. She denies any neck or low back pain. Review of Systems Constitutional: Denies chills, Denies fever Eyes: denies blurred vision, denies diplopia, denies pain Ears: deny: decreased hearing, ear discharge Ears, nose, mouth and throat: Reports headache, Denies sore throat Cardiovascular: Denies chest pain, Denies shortness of breath Respiratory: Reports excessive sputum, Denies cough Gastrointestinal: Denies abdominal pain, Denies diarrhea, Denies nausea, Denies vomiting Genitourinary: Denies dysuria, Denies hematuria, Denies urge incontinence, Denies urgency Musculoskeletal: Denies low back pain, Denies neck pain Integumentary: Reports rash, Denies pruritus Neurological: Reports as per HPI, Denies aphasia Psychiatric: Denies anxiety, Denies depression Endocrine: Reports fatigue, Denies weight change Past Medical History Past Medical History: Hypertension, Seizure Disorder, Skin Disorder, Thyroid Disorder Additional Past Medical History / Comment(s): ECZEMA, History of Any Multi-Drug Resistant Organisms: None Reported Past Surgical History: Bariatric Surgery, Section, Joint Replacement Additional Past Surgical History / Comment(s): LOOP MONITOR IMPLANT, removed part of the stomach "years ago", jn knee replacement, LEFT CATARACT Past Anesthesia/Blood Transfusion Reactions: Motion Sickness Past Psychological History: Anxiety Additional Psychological History / Comment(s): . Smoking Status: Former smoker Past Alcohol Use History: None Reported Additional Past Alcohol Use History / Comment(s): QUIT SMOKING , SMOKED APPROX 14 YRS, 1/2 PPD Past Drug Use History: None Reported - Past Family History Father Family Medical History: Myocardial Infarction ([place]) Mother Family Medical History: Osteoarthritis (OA) Medications and Allergies Home Medications Medication Instructions Recorded Confirmed Type Phenytoin Sodium Extended 100 mg PO QID 08/08/18 05/11/23 History [Dilantin] Aspirin 81 mg PO DAILY 11/05/20 05/11/23 History Ergocalciferol (Vitamin D2) 1,250 mcg PO Q30D 04/29/23 05/11/23 History [Drisdol (50,000 Iu)] Furosemide [Lasix] 20 mg PO DAILY 04/29/23 05/11/23 History Levothyroxine Sodium [Synthroid] 25 mcg PO DAILY 04/29/23 05/11/23 History Metoprolol Succinate (ER) [Toprol 25 mg PO DAILY 04/29/23 05/11/23 History XL] levETIRAcetam [Keppra] 1,000 mg PO Q12HR #60 tab 05/02/23 05/11/23 Rx levETIRAcetam [Keppra] 250 mg PO Q12HR #60 tab 05/02/23 05/11/23 Rx Allergies Allergy/AdvReac Type Severity Reaction Status Date / Time TESS Inhibitors Allergy Itching/Sei Verified 05/11/23 15:20 zures Penicillins Allergy fever,rash Verified 05/11/23 15:20 Physical Examination - Vital Signs Vital Signs: Vital Signs Temp Pulse Pulse Resp BP BP Pulse Ox 05/12/23 08:58 98 05/12/23 07:32 98.1 F 73 17 144/82 100 05/12/23 02:03 97.1 F L 88 19 152/73 100 05/11/23 21:38 97.4 F L 86 19 159/95 100 05/11/23 15:54 98.3 F 82 18 154/80 97 05/11/23 15:08 78 16 130/80 98 05/11/23 13:00 78 18 168/88 96 05/11/23 11:49 97.6 F 89 18 145/82 100 Intake and Output 05/11/23 05/12/23 05/12/23 22:59 06:59 14:59 Other: # Voids 2 7 Patient is an elderly female, very pleasant in no acute distress. Patient is alert awake oriented to time place and person. Speech and language functions are normal. Patient can name and repeat very well. No aphasia or dysarthria. Attention, concentration and fund of knowledge is adequate. On cranial nerve examination, pupils are equal, round and reacting to light, visual curtis are full on confrontation, with no neglect on double simultaneous stimulation. Extraocular muscles are intact with no nystagmus. Face is symmetric, tongue protrudes to the midline. Palatal elevation and sensation normal, hearing and shoulder shrug normal, facial sensation normal. On muscle strength testing, there is no pronator drift and the strength is normal in arms and legs distally and proximally including hip flexion, knees and ankles. Deep tendon reflexes are symmetric 2 at the biceps, 1 brachioradialis, trace at the knees and plantars downgoing bilaterally. Sensory to touch is equal with no neglect on double simultaneous stimulation. Cerebellar function showed no ataxia for calcll-hj-qfxk testing. No dysdiadochokinesia. No ataxia for ceah-zs-tqpo testing on either side. Tone and bulk of muscles normal. Gait deferred.. On general examination, there is no carotid bruit or murmur, S1-S2 audible. Chest is clear on consultation. Abdomen is soft nontender. No organomegaly, bowel sounds present. Peripheral pulses are present. No peripheral edema. Patient does have some maculopapular rash only noticeable in the right upper arm laterally. It does not hurt, only itches. Results - Laboratory Findings CBC and BMP: 05/12/23 07:07 05/12/23 07:07 Abnormal Lab Findings: Abnormal Labs 05/11/23 05/11/23 05/11/23 12:44 12:44 12:44 Lymphocytes # 0.8 L Creatinine 0.49 L Glucose 138 H Urine Appearance Cloudy H Ur Leukocyte Esterase Large H Urine WBC 169 H Urine Bacteria Occasional H Urine Mucus Rare H Ur Barbiturates Screen Detected H Assessment and Plan Assessment: * Breakthrough seizure. Patient has medically intractable temporal lobe epilepsy. * Rash proximal right upper arm for last 2 days, unclear cause. The last medication added was metoprolol about 2 weeks ago. Patient has been on Keppra for a year, and Dilantin for 74 years, therefore doubt we will be related to these medications. * History of SVT noted on Holter 04/18/2023. * Subjective lower extremity weakness, unclear cause. Examination is normal, with very normal strength in the lower limbs. * Hypertension * Thyroid disorder Plan: * We will consult cardiology because of the rash that started after taking metoprolol. Consider taking another medication if possible. * Patient is currently on Dilantin 100 mg 4 times a day, and her levels are therapeutic 20.7. She is on Keppra 1250 mg twice a day. Patient's states that when she previously took Keppra 750 mg 4 times a day, she was sleeping all the time. I think now that she is gradually increase the dose, she may be able to tolerate Keppra 1500 mg twice a day. * Patient does have an appointment with epilepsy department at [facility] on 07/04/2023. * Patient complains of subjective weakness in the legs. Her examination is normal. Muscle strength is normal in the lower limbs. Patient's B12 was > 3600 on 02/12/2023. Hemoglobin A1c normal 5.4. Patient does have abnormal thyroid functions, with TSH normal 0.446, but free T4 is decreased 0.66 (from 02/12/2023). IM to address. Patient states that her balance is much improved since yesterday. We will observe. If continues to have issue, may need MRI. * PT OT. * Dr. Dio Hernandez Will resume neurology service the morning. Thank you for the consult. Time with Patient: Greater than 30
[2023-05-12 13:28] LABS: Basophils # (A) 0.04 X 10*3/uL (0.00-0.10); Basophils % (A) 0.7 %; Eosinophils # (A) 0.36 X 10*3/uL (0.04-0.35); Eosinophils % (A) 5.9 %; HCT 41.7 % (37.2-46.3); HGB 13.4 d/dL (12.0-15.0); Lymphocytes # (A) 2.16 X 10*3/uL (0.90-5.00); Lymphocytes % (A) 35.5 %; MCH 30.9 pg (27.0-32.0); MCHC 32.1 d/dL (32.0-37.0); MCV 96.3 FL (80.0-97.0); Mean Platelet Volume 9.9 FL (9.5-12.2); Monocytes % (A) 8.2 %; NRBC Per 100 WBC 0 X 10*3/uL (0.00-0.01); Neutrophils % (A) 49.4 %; Platelet Count 262 X 10*3/uL (140-440); RBC 4.33 X 10*6/uL (4.10-5.20); RDW 12.9 % (11.5-14.5); WBC 6.08 X 10*3/uL (4.50-10.00)
[2023-05-12 13:30] LABS: ALT 12 U/L (8-44); AST 16 U/L (13-35); Albumin 3.6 d/dL (3.8-4.9); Albumin/Globulin Ratio 1.64 Ratio (1.60-3.17); Alkaline Phosphatase 137 U/L (41-126); BUN/Creat Ratio 16.17 Ratio (12.00-20.00); Blood Urea Nitrogen 9.7 mg/dL (9.0-27.0); Calcium 8.7 mg/dL (8.7-10.3); Carbon Dioxide 25.9 mmol/L (21.6-31.8); Chloride 105 mmol/L (96-109); Globulin 2.2 d/dL (1.6-3.3); Glucose 95 mg/dL (70-110); Magnesium 2.1 mg/dL (1.5-2.4); Phosphorus 3.6 mg/dL (2.4-5.1); Potassium 4.3 mmol/L (3.5-5.5); Sodium 142 mmol/L (135-145); Total Bilirubin 0.3 mg/dL (0.3-1.2); Total Protein 5.8 d/dL (6.2-8.2)
[2023-05-12] MEDS: LORATADINE 10 MG TAB PO SCH (14:20)
--- NOTE | 2023-05-13 01:41 | PN ---
PROGRESS NOTE DATE OF SERVICE: 05/12/2023 CHIEF COMPLAINT: Uncontrolled seizure disorder. HISTORY OF PRESENT ILLNESS: This lady is doing well and stable. She has had no seizures in the last 24 hours. Neurology has plan to change her medications. PHYSICAL EXAMINATION: CHEST: Clear. CARDIAC: Normal. NEUROLOGIC: She is intact. She is awake and alert. IMPRESSION: Uncontrolled seizure disorder. PLAN: Await for further recommendations regarding medication changes from Neurology. MMODL / IJN: [id number] /
--- NOTE | 2023-05-13 01:50 | PN ---
PROGRESS NOTE DATE OF SERVICE: 05/11/2023 CHIEF COMPLAINT: Uncontrolled grand mal seizure disorder. HISTORY OF PRESENT ILLNESS: This 78-year-old -[place] female, who has had lifelong seizures. She has had a lot of trouble with control management over the last several years and has seen numerous neurologist. She has been on just about every medication for seizures. She has been on Dilantin for life. She was recently in the hospital. Her Dilantin level is still low. She has been home on adequate course of Keppra and Dilantin, but apparently had another seizure and came back to the emergency room. She is also complaining of new onset of generalized pruritus without a rash. She does have a complicated home life with a certain amount of stress and anxiety. REVIEW OF SYSTEMS: At the present time, she is awake and alert without any focal neurologic deficits, incontinence, etc. Past medical history, family history, personal and social histories are all otherwise unchanged from her recent admitting discharge summaries. PHYSICAL EXAMINATION: VITAL SIGNS: Normal. HEAD, EARS, EYES, NOSE, MOUTH AND THROAT: Normal. CHEST: Clear. CARDIAC: Normal. ABDOMEN: Soft, nontender. EXTREMITIES: Normal. NEUROLOGICAL: She is alert. Cranial nerves were intact from II through XII. Sensorimotor exam is normal. Toes are downgoing. IMPRESSION: 1. Uncontrolled seizure disorder. 2. Generalized pruritus, etiology unknown. PLAN: 1. Bed rest. 2. Seizure precautions. 3. Neurology consult. MMNIEVES / JACQUELIN: [id number] /
[2023-05-13] MEDS: LEVOTHYROXINE 25 MCG TAB PO SCH (05:48)
[2023-05-13] MEDS: SODIUM CHLORIDE 0.9% 1,000 ML IV SCH ×2 (05:49→20:20)
[2023-05-13] MEDS: levETIRAcetam 250 MG TAB PO SCH (10:15)
[2023-05-13] MEDS: levETIRAcetam 500 MG TAB PO SCH ×3 (10:15→20:22)
[2023-05-13] MEDS: FUROSEMIDE 20 MG TAB PO SCH (10:15)
[2023-05-13] MEDS: ASPIRIN 81 MG PO SCH (10:15)
[2023-05-13] MEDS: LORATADINE 10 MG TAB PO SCH (10:15)
[2023-05-13] MEDS: METOPROLOL SUCCINATE (ER) 25 MG TAB.ER.24H PO SCH (10:16)
[2023-05-13] MEDS: PHENYTOIN SODIUM EXTENDED 100 MG CAP PO SCH ×4 (10:16→20:22)
--- NOTE | 2023-05-13 12:14 | P.CRDCN ---
History of Present Illness History of present illness: HISTORY OF PRESENT ILLNESS: This is a 78-year-old female with a past medical history significant for SVT, seizure disorder, and hypothyroidism. Patient follows in the office with Dr. Saldana. We have been asked to see the patient in consultation for rash with recent addition of metoprolol. Patient examined at the bedside. Patient reports she noticed a rash to her right arm on Saturday that then spread throughout her body. She was prescribed Metoprolol on April 25, 2023 in the office. Patient states she started taking Metoprolol about a week ago. The patient does report improvement in her rash at this time. She denies any chest pain or pressure. Denies any shortness of breath. Vital signs are stable. * EKG reveals sinus mechanism with no signs of acute ischemia * Laboratory data: WBC 6.08. Hemoglobin 13.4. Platelet count 262. Sodium 142. Potassium 4.3. BUN 9.7. Creatinine 0.6. * Current home cardiac medications include Lasix 20 mg daily, aspirin 81 mg daily, metoprolol succinate 25 mg daily * Patient underwent 24 hour Holter monitor in March 2023 revealing episodes of paroxysmal SVT with a maximum heart rate of 200 bpm. The longest episode lasting for 6 minutes. * Most recent echocardiogram obtained in December 2014 revealing ejection fraction 55%, mild MR, mild TR * Patient underwent Lexiscan stress test in December 2014 which was negative for i schemia * Cardiac catheterization history: February 2010 revealing 40% stenosis mid LAD, normal EF, no gradient across the aortic valve REVIEW OF SYSTEMS: At the time of my exam: CONSTITUTIONAL: Denies fever or chills. HEENT: Denies blurred vision, vision changes, or eye pain. Denies hemoptysis CARDIOVASCULAR: Denies chest pain. Denies orthopnea. Denies PND. Denies palpitations RESPIRATORY: Denies shortness of breath. GASTROINTESTINAL: Denies abdominal pain. Denies nausea or vomiting. HEMATOLOGIC: Denies bleeding disorders. GENITOURINARY: Denies any blood in urine. SKIN: Reports pruitis. Reports rash. PHYSICAL EXAM: VITAL SIGNS: Reviewed. GENERAL: Well-developed in no acute distress. HEENT: Head is normocephalic. Pupils are equal, round. Sclerae anicteric. Mucous membranes of the mouth are moist. Neck supple. No JVD or thyromegaly LUNGS: Respirations even and unlabored. Lungs essentially clear to auscultation bilaterally. HEART: Regular rate and rhythm. S1 and S2 heard. ABDOMEN: Soft. Nondistended. Nontender. EXTREMITIES: Normal range of motion. No clubbing or cyanosis. Peripheral pulses intact. No lower extremity edema. Mild rash noted to right upper extremity. NEUROLOGIC: Awake and alert. Oriented x 3. ASSESSMENT: Seizure Rash, unclear if due to metoprolol Paroxysmal SVT History of seizure disorder, since the age of 4 per patient Hypothyroidism PLAN: Will discontinue metoprolol and begin Bisoprolol Monitor for worsening rash and notify cardiology of any changes Further recommendations pending patient course Nurse practitioner note has been reviewed by physician. Signing provider agrees with the documented findings, assessment, and plan of care. Past Medical History Past Medical History: Hypertension, Seizure Disorder, Skin Disorder, Thyroid Disorder Additional Past Medical History / Comment(s): ECZEMA, History of Any Multi-Drug Resistant Organisms: None Reported Past Surgical History: Bariatric Surgery, Section, Joint Replacement Additional Past Surgical History / Comment(s): LOOP MONITOR IMPLANT, removed part of the stomach "years ago", jn knee replacement, LEFT CATARACT Past Anesthesia/Blood Transfusion Reactions: Motion Sickness Past Psychological History: Anxiety Additional Psychological History / Comment(s): . Smoking Status: Former smoker Past Alcohol Use History: None Reported Additional Past Alcohol Use History / Comment(s): QUIT SMOKING , SMOKED APPROX 14 YRS, 1/2 PPD Past Drug Use History: None Reported - Past Family History Father Family Medical History: Myocardial Infarction ([place]) Mother Family Medical History: Osteoarthritis (OA) Medications and Allergies Home Medications Medication Instructions Recorded Confirmed Type Phenytoin Sodium Extended 100 mg PO QID 08/08/18 05/11/23 History [Dilantin] Aspirin 81 mg PO DAILY 11/05/20 05/11/23 History Ergocalciferol (Vitamin D2) 1,250 mcg PO Q30D 04/29/23 05/11/23 History [Drisdol (50,000 Iu)] Furosemide [Lasix] 20 mg PO DAILY 04/29/23 05/11/23 History Levothyroxine Sodium [Synthroid] 25 mcg PO DAILY 04/29/23 05/11/23 History Metoprolol Succinate (ER) [Toprol 25 mg PO DAILY 04/29/23 05/11/23 History XL] levETIRAcetam [Keppra] 1,000 mg PO Q12HR #60 tab 05/02/23 05/11/23 Rx levETIRAcetam [Keppra] 250 mg PO Q12HR #60 tab 05/02/23 05/11/23 Rx Allergies Allergy/AdvReac Type Severity Reaction Status Date / Time TESS Inhibitors Allergy Itching/Sei Verified 05/11/23 15:20 zures Penicillins Allergy fever,rash Verified 05/11/23 15:20 Physical Exam Vitals: Vital Signs Temp Pulse Resp BP Pulse Ox 05/13/23 01:02 97.7 F 75 14 132/84 100 05/12/23 20:30 98.3 F 71 16 168/83 100 05/12/23 14:00 98.0 F 64 19 148/64 96 05/12/23 08:58 98 05/12/23 07:32 98.1 F 73 17 144/82 100 Intake and Output 05/12/23 05/13/23 05/13/23 22:59 06:59 14:59 Other: # Voids 2 2 Results 05/12/23 07:07 05/12/23 07:07 Cardiac Enzymes 05/12/23 Range/Units 07:07 AST 16 (13-35) U/L CBC 05/12/23 Range/Units 07:07 WBC 6.08 (4.50-10.00) X 10*3/uL RBC 4.33 (4.10-5.20) X 10*6/uL Hgb 13.4 (12.0-15.0) d/dL Hct 41.7 (37.2-46.3) % Plt Count 262 (140-440) X 10*3/uL Comprehensive Metabolic Panel 05/12/23 Range/Units 07:07 Sodium 142 (135-145) mmol/L Potassium 4.3 (3.5-5.5) mmol/L Chloride 105 (96-109) mmol/L Carbon Dioxide 25.9 (21.6-31.8) mmol/L BUN 9.7 (9.0-27.0) mg/dL Creatinine 0.6 (0.6-1.5) mg/dL Glucose 95 (70-110) mg/dL Calcium 8.7 (8.7-10.3) mg/dL AST 16 (13-35) U/L ALT 12 (8-44) U/L Alkaline Phosphatase 137 H (41-126) U/L Total Protein 5.8 L (6.2-8.2) d/dL Albumin 3.6 L (3.8-4.9) d/dL Current Medications Generic Name Dose Route Start Last Admin Trade Name Freq PRN Reason Stop Dose Admin Aspirin 81 mg 05/12/23 09:00 05/12/23 09:18 Aspirin 81 Mg PO 81 mg DAILY OLAYINKA Administration Furosemide 20 mg 05/12/23 09:00 05/12/23 09:18 Furosemide 20 Mg Tab PO 20 mg DAILY OLAYINKA Administration Sodium Chloride 1,000 mls @ 75 mls/hr 05/11/23 13:30 05/13/23 05:49 Saline 0.9% IV Not Given .[id number] OLAYINKA Levetiracetam 250 mg 05/11/23 21:00 05/12/23 20:42 Levetiracetam 250 Mg Tab PO 250 mg Q12HR OLAYINKA Administration Levetiracetam 1,000 mg 05/11/23 21:00 05/12/23 20:42 Levetiracetam 500 Mg Tab PO 1,000 mg Q12HR OLAYINKA Administration Levothyroxine Sodium 25 mcg 05/12/23 06:30 05/13/23 05:48 Levothyroxine 25 Mcg Tab PO 25 mcg 0630 OLAYINKA Administration Loratadine 5 mg 05/12/23 13:00 05/12/23 14:20 Loratadine 10 Mg Tab PO 5 mg DAILY OLAYINKA Administration Metoprolol Succinate 25 mg 05/12/23 09:00 05/12/23 09:54 Metoprolol Succinate (Er) 25 Mg Tab.Er.24h PO Not Given DAILY OLAYINKA Naloxone HCl 0.2 mg 05/11/23 13:20 Naloxone 0.4 Mg/Ml 1 Ml Vial IV Q2M PRN Opioid Reversal Ondansetron HCl 4 mg 05/11/23 13:27 Ondansetron 4 Mg/2 Ml Vial IVP Q8HR PRN Nausea And Vomiting Phenytoin Sodium 100 mg 05/11/23 22:00 05/12/23 20:42 Phenytoin Sodium Extended 100 Mg Cap PO 100 mg QID OLAYINKA Administration Intake and Output 05/12/23 05/13/23 05/13/23 22:59 06:59 14:59 Other: # Voids 2 2 05/12/23 07:07 05/12/23 07:07
[2023-05-13] MEDS: BISOPROLOL 5 MG TAB PO SCH ×2 (14:31→20:22)
--- NOTE | 2023-05-13 16:42 | P.PN ---
Subjective Progress Note Date: 05/13/23 On seeing the patient for the first time during this admission. Was referred to Dr. Acosta's note for further details. It seems the patient presented with breakthrough seizure and she has medically intractable temporal lobe epilepsy. Today the patient feels she is doing well and no further seizures. Objective - Vital Signs Vital signs: Vital Signs Temp 98.3 F 05/13/23 14:00 Pulse 71 05/13/23 14:00 Resp 15 05/13/23 14:00 BP 128/79 05/13/23 14:00 Pulse Ox 96 05/13/23 14:00 FiO2 Intake & Output 05/12/23 05/13/23 05/13/23 18:59 06:59 18:59 Other: # Voids 2 2 - Exam GENERAL: The patient is lying in bed and is not in acute distress. NEUROLOGICAL: Higher mental function: The patient is awake, alert, oriented to self, place and time. Patient is following commands. No aphasia and no neglect. Cranial nerves: The pupils are round, equal and reactive to light. Visual curtis are full to confrontation throughout. Extraocular movement is intact no nystagmus is noted. The facial strength is normal throughout. Tongue is midline and moved [id number] without any difficulty. No dysarthria is noted. Motor: The strength is 5 over 5 throughout uppers. While lower she's able to move above gravity symmetrically.. Cerebellum: Normal finger to nose bilaterally. Sensation: Sensation is normal to touch throughout. - Labs CBC & Chem 7: 05/12/23 07:07 05/12/23 07:07 Assessment and Plan Assessment: * Breakthrough seizure. Patient has medically intractable temporal lobe epilepsy. * Rash proximal right upper arm for last 2 days, unclear cause. The last medication added was metoprolol about 2 weeks ago. Patient has been on Keppra for a year, and Dilantin for 74 years, therefore doubt we will be related to these medications. * History of SVT noted on Holter 04/18/2023. * Subjective lower extremity weakness, unclear cause. Examination is normal, with very normal strength in the lower limbs. * Hypertension * Thyroid disorder Plan: * Cardiology because of the rash that started after taking metoprolol. They discontinued the medication and started the patient on Bisoprolol. * Patient is currently on Dilantin 100 mg 4 times a day, and her levels are therapeutic 20.7. She is on Keppra 1250 mg twice a day. Her level is 14.6 which is considered therapeutic Patient's states that when she previously took Keppra 750 mg 4 times a day, she was sleeping all the time. She is currently taking Keppra 1250 mg twice a day. I agree with Dr. Acosta to gradually increase the dose to 1500 mg twice a day of Keppra. So will start increase to 1500mg bid starting night dose. * Patient does have an appointment with epilepsy department at [facility] on 07/04/2023. * Patient complains of subjective weakness in the legs. Her examination is normal. Muscle strength is normal in the lower limbs. Patient's B12 was > 3600 on 02/12/2023. Hemoglobin A1c normal 5.4. Patient does have abnormal thyroid functions, with TSH normal 0.446, but free T4 is decreased 0.66 (from 02/12/2023). IM to address. Patient states that her balance is much improved since yesterday. * PT OT. Currently the patient is stable. Will continue to follow. Time with Patient: Less than 30
[2023-05-13] MEDS ORDERED: DIPHENOX-ATROP 2.5-0.025 MG 1 EACH TAB PO PRN (21:11)
[2023-05-13 21:27] VITALS: RESP 17
[2023-05-14] MEDS: LEVOTHYROXINE 25 MCG TAB PO SCH (06:15)
[2023-05-14 08:17] VITALS: BP 124/76; PULSE 66; TEMP 98.2
[2023-05-14] MEDS: BISOPROLOL 5 MG TAB PO SCH (08:23)
[2023-05-14] MEDS: LORATADINE 10 MG TAB PO SCH (08:23)
[2023-05-14] MEDS: levETIRAcetam 500 MG TAB PO SCH ×2 (08:23)
[2023-05-14] MEDS: FUROSEMIDE 20 MG TAB PO SCH (08:23)
[2023-05-14] MEDS: ASPIRIN 81 MG PO SCH (08:23)
[2023-05-14] MEDS: PHENYTOIN SODIUM EXTENDED 100 MG CAP PO SCH (08:24)
[2023-05-14] MEDS: SODIUM CHLORIDE 0.9% 1,000 ML IV SCH (09:58)
--- NOTE | 2023-05-16 06:35 | PN ---
PROGRESS NOTE DATE OF SERVICE: 05/13/2023 CHIEF COMPLAINT: Seizure disorder. HISTORY OF PRESENT ILLNESS: This lady is doing fairly well. She is not in any seizures. PHYSICAL EXAMINATION: CHEST: Clear. CARDIAC: Normal. ABDOMEN: Soft, nontender. VITAL SIGNS: Normal. NEUROLOGIC: She seemed to be intact. She is IMPRESSION: Lifelong uncontrolled grand mal seizure disorder. PLAN: Neurology is still working on different approaches to her medication in hopes of achieving better control. MMODL / IJN: [id number] /
--- NOTE | 2023-05-16 08:35 | DS ---
DISCHARGE SUMMARY CHIEF COMPLAINT: Uncontrolled seizure disorder. HISTORY OF PRESENT ILLNESS AND PHYSICAL EXAMINATION: Details of this lady's history and physical can be found in the initial workup. LABORATORY STUDIES: While she is in the hospital, she had laboratory studies, details of which can be found in the laboratory section of her chart. COURSE IN THE HOSPITAL: After admission, she was placed on bedrest, started on intravenous fluids and seizure precautions. She was seen and followed by Neurology. She had no seizures in the hospital. She was stable and it was felt she could be discharged on the , and will follow up in the office. FINAL DIAGNOSES: 1. 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 2. Postictal depression. OPERATIONS: None. CONSULTATION: Neurology, she is improved. MMODL / IJN: [id number] /
== END 2023-05-14 12:10 | disposition home or self-care (01) ==
LOC: EC 11:48 → 4SSUR 13:20
PROVIDERS: ADMIT Family Medicine; ATTEND Family Medicine
DX: G40.409 Other generalized epilepsy and epileptic syndromes, not intractable, without status epilepticus (principal); L29.9 Pruritus, unspecified; R53.1 Weakness; I10 Essential (primary) hypertension; F41.9 Anxiety disorder, unspecified; E03.9 Hypothyroidism, unspecified; I47.19 Other supraventricular tachycardia; F32.A Depression, unspecified; Z87.891 Personal history of nicotine dependence; Z79.82 Long term (current) use of aspirin; Z79.899 Other long term (current) drug therapy; Z79.890 Hormone replacement therapy; Z88.0 Allergy status to penicillin
CPT/HCPCS: 96361 ×3; 96360; 99285; 36415; 94760; 93005; 80156; 80164; 80053 ×2; 80177; 80185; 83735 ×2; 84100; 85025 ×2; 81001; 80306; 80143; 80179; G0378 ×4; G0480; 80320

== ENCOUNTER 2023-07-06 10:18 | Emergency (ER) | payer MEDICARE ==
[2023-07-06 10:54] VITALS: TEMP 98.2
--- NOTE | 2023-07-06 12:10 | ED ---
GI Bleed HPI - General Chief complaint: GI Bleed Stated complaint: Black stool Time Seen by Provider: 07/06/23 11:50 Source: patient, RN notes reviewed Mode of arrival: ambulatory Limitations: no limitations - History of Present Illness Initial comments: Patient is a 78 old female presented ER with chief complaint of black stool and dizziness. Patient states this has been going on for about a month. Patient reports that she has noticed black stool for the last month. Patient is not on a blood thinner. Patient does report GERD for which she takes Pepto-Bismol with relief. Patient does report mild epigastric and suprapubic pain. Patient had a colonoscopy many years ago and states that it was normal. Patient also reports recent dizziness. Patient does have a past medical history of epilepsy but believes when she feels dizzy like she is about to black out it is due to her heart. She has seen a investigations manager who is working up the dizziness. Patient denies any fevers, chills, night sweats, headaches, double or blurry vision, chest pain, shortness of breath, dysuria or increase in frequency. - Related Data Home Medications Medication Instructions Recorded Confirmed Phenytoin Sodium Extended 100 mg PO QID 08/08/18 05/11/23 [Dilantin] Aspirin 81 mg PO DAILY 11/05/20 05/11/23 Ergocalciferol (Vitamin D2) 1,250 mcg PO Q30D 04/29/23 05/11/23 [Drisdol (50,000 Iu)] Furosemide [Lasix] 20 mg PO DAILY 04/29/23 05/11/23 Levothyroxine Sodium [Synthroid] 25 mcg PO DAILY 04/29/23 05/11/23 Previous Rx's Medication Instructions Recorded levETIRAcetam [Keppra] 1,000 mg PO Q12HR #60 tab 05/02/23 levETIRAcetam [Keppra] 250 mg PO Q12HR #60 tab 05/02/23 Bisoprolol [Zebeta] 5 mg PO BID #20 tab 05/14/23 levETIRAcetam [Keppra] 500 mg PO Q12HR #20 tab 05/14/23 Nitrofurantoin Monohyd/M-Cryst 100 mg PO Q12HR #14 cap 07/06/23 [Macrobid] Allergies Allergy/AdvReac Type Severity Reaction Status Date / Time TESS Inhibitors Allergy Itching/Sei Verified 07/06/23 10:34 zures Penicillins Allergy fever,rash Verified 07/06/23 10:34 Review of Systems ROS Statement: Those systems with pertinent positive or pertinent negative responses have been documented in the HPI. ROS Other: All systems not noted in ROS Statement are negative. Past Medical History Past Medical History: Hypertension, Seizure Disorder, Skin Disorder, Thyroid Disorder Additional Past Medical History / Comment(s): EXCEMA, History of Any Multi-Drug Resistant Organisms: None Reported Past Surgical History: Bariatric Surgery, Section, Joint Replacement Additional Past Surgical History / Comment(s): LOOP MONITOR IMPLANT, removed part of the stomach "years ago", jn knee replacement, LEFT CATARACT Past Anesthesia/Blood Transfusion Reactions: Motion Sickness Past Psychological History: Anxiety Smoking Status: Former smoker Past Alcohol Use History: None Reported Past Drug Use History: None Reported - Past Family History Father Family Medical History: Myocardial Infarction ([place]) Mother Family Medical History: Osteoarthritis (OA) General Exam Limitations: no limitations General appearance: alert, in no apparent distress Head exam: Present: atraumatic, normocephalic, normal inspection Eye exam: Present: normal appearance, PERRL, EOMI. Absent: scleral icterus, conjunctival injection, periorbital swelling Pupils: Present: normal accommodation ENT exam: Present: normal exam, normal oropharynx, TM's normal bilaterally Neck exam: Present: normal inspection. Absent: tenderness, meningismus, lymphadenopathy Respiratory exam: Present: normal lung sounds bilaterally. Absent: respiratory distress, wheezes, rales, rhonchi, stridor Cardiovascular Exam: Present: regular rate, normal rhythm, normal heart sounds. Absent: systolic murmur, diastolic murmur, rubs, gallop, clicks GI/Abdominal exam: Present: soft, tenderness (mild suprapubic), normal bowel sounds. Absent: distended, guarding, rebound, rigid Rectal exam: Present: normal inspection, normal rectal tone Extremities exam: Present: normal inspection, full ROM, normal capillary refill. Absent: tenderness, pedal edema, joint swelling, calf tenderness Neurological exam: Present: alert, oriented X3, CN II-XII intact Psychiatric exam: Present: normal affect, normal mood Skin exam: Present: warm, dry, intact, normal color. Absent: rash Course Vital Signs 07/06/23 10:32 Temperature 98.2 F Pulse Rate 103 H Respiratory 20 Rate Blood Pressure 129/86 O2 Sat by Pulse 99 Oximetry Medical Decision Making - Medical Decision Making Was pt. sent in by a medical professional or institution (, PA, SALES PROJECT COORDINATOR, urgent care, hospital, or senior care...) When possible be specific @ -No Did you speak to anyone other than the patient for history (EMS, parent, family, police, friend...)? What history was obtained from this source @ -No Did you review nursing and triage notes (agree or disagree)? Why? @ -I reviewed and agree with nursing and triage notes Were old charts reviewed (outside hosp., previous admission, EMS record, old EKG, old radiological studies, urgent care reports/EKG's, senior care records)? Report findings @ -No old charts were reviewed Differential Diagnosis (chest pain, altered mental status, abdominal pain women, abdominal pain men, vaginal bleeding, weakness, fever, dyspnea, syncope, headache, dizziness, GI bleed, back pain, seizure, CVA, palpatations, mental health, musculoskeletal)? @ -Differential GI Bleed:Esophageal varices, aortoenteric fistula, April- Dueñas, gastritis, peptic ulcer disease, diverticulosis, inflammatory bowel disease, hemorrhoids, fissure, colitis, malignancy, Meckels diverticulum, this is not meant to be an all-inclusive list. EKG interpreted by me (3pts min.). @ -As above X-rays interpreted by me (1pt min.). @ -None done CT interpreted by me (1pt min.). @ -None done U/S interpreted by me (1pt. min.). @ -None done What testing was considered but not performed or refused? (CT, X-rays, U/S, labs)? Why? @ -None What meds were considered but not given or refused? Why? @ -None Did you discuss the management of the patient with other professionals (professionals i.e. , LISA, SALES PROJECT COORDINATOR, lab, RT, psych nurse, drug abuse social worker, lead pourer, teacher, grants officer, case packer)? Give summary @ -No Was smoking cessation discussed for >3mins.? @ -No Was critical care preformed (if so, how long)? @ -No Were there social determinants of health that impacted care today? How? (Homelessness, low income, unemployed, alcoholism, drug addiction, transportation, low edu. Level, literacy, decrease access to med. care, half-way, rehab)? @ -No Was there de-escalation of care discussed even if they declined (Discuss DNR or withdrawal of care, Hospice)? DNR status @ -No What co-morbidities impacted this encounter? (DM, HTN, Smoking, COPD, CAD, Cancer, CVA, ARF, Chemo, Hep., AIDS, mental health diagnosis, sleep apnea, morbid obesity)? @ -None Was patient admitted / discharged? Hospital course, mention meds given and route, prescriptions, significant lab abnormalities, going to OR and other pertinent info. @ -Discharged. Patient is a 78-year-old female presenting to the ER with chief complaint of black stool. Upon examination, patient's vital signs are stable. Physical exam was significant for mild suprapubic tenderness. Rectal exam performed was within normal limits. Labs obtained in the ER were unremarkable. UA was significant for large leukocyte esterases and positive nitrites. Stool occult blood was negative. Hemoglobin was stable at 13.7. EKG showed sinus bradycardia with inverted T waves in lead III. There were no other acute ST segment or T-wave abnormalities present. I discussed with patient the laboratory findings. Patient will be prescribed Macrobid for UTI. I educated patient on importance of completing full antibiotic course. I advised patient that I believe Pepto-Bismol is causing her black stools. I suggested she follow up with a GI specialist, Dr. Saldana, if symptoms persist. I encouraged patient to continue following up with her PCP and investigations manager for dizziness. Patient will be discharged in stable condition with follow-up to PCP. Return parameters were discussed. Patient expressed understanding and agreement with care plan. Undiagnosed new problem with uncertain prognosis? @ -No Drug Therapy requiring intensive monitoring for toxicity (Heparin, Nitro, Insulin, Cardizem)? @ -No Were any procedures done? @ -No Diagnosis/symptom? @ -Cystitis Acute, or Chronic, or Acute on Chronic? @ -Acute Uncomplicated (without systemic symptoms) or Complicated (systemic symptoms)? @ -Uncomplicated Side effects of treatment? @ -No Exacerbation, Progression, or Severe Exacerbation? @ -No Poses a threat to life or bodily function? How? (Chest pain, [place], [place], pneumonia, PE, COPD, DKA, ARF, appy, cholecystitis, CVA, Diverticulitis, Homicidal, Carol cidal, threat to staff... and all critical care pts) @ -No - Lab Data Result diagrams: 07/06/23 12:20 07/06/23 12:20 Lab Results 07/06/23 07/06/23 07/06/23 Range/Units 12:20 12:20 12:20 WBC 4.4 (3.8-10.6) k/uL RBC 4.30 (3.80-5.40) m/uL Hgb 13.7 (11.4-16.0) gm/dL Hct 41.7 (34.0-46.0) % MCV 97.0 (80.0-100.0) fL MCH 31.8 (25.0-35.0) pg MCHC 32.7 (31.0-37.0) g/dL RDW 12.8 (11.5-15.5) % Plt Count 212 (150-450) k/uL MPV 8.1 Neutrophils % 49 % Lymphocytes % 35 % Monocytes % 5 % Eosinophils % 8 % Basophils % 1 % Neutrophils # 2.1 (1.3-7.7) k/uL Lymphocytes # 1.5 (1.0-4.8) k/uL Monocytes # 0.2 (0-1.0) k/uL Eosinophils # 0.4 (0-0.7) k/uL Basophils # 0.0 (0-0.2) k/uL PT 11.1 (10.0-12.5) sec INR 1.0 (<1.2) APTT 27.0 (22.0-30.0) sec Sodium 138 (137-145) mmol/L Potassium 4.8 (3.5-5.1) mmol/L Chloride 105 (98-107) mmol/L Carbon Dioxide 28 (22-30) mmol/L Anion Gap 5 mmol/L BUN 22 H (7-17) mg/dL Creatinine 0.56 (0.52-1.04) mg/dL Est GFR (CKD-EPI)AfAm >90 (>60 ml/min/1.73 sqM) Est GFR (CKD-EPI)NonAf >90 (>60 ml/min/1.73 sqM) Glucose 89 (74-99) mg/dL Plasma Lactic Acid Juan (0.7-2.0) mmol/L Calcium 8.6 (8.4-10.2) mg/dL Total Bilirubin 0.4 (0.2-1.3) mg/dL AST 26 (14-36) U/L ALT 19 (4-34) U/L Alkaline Phosphatase 118 (38-126) U/L Total Protein 6.5 (6.3-8.2) g/dL Albumin 3.6 (3.5-5.0) g/dL Amylase 91 (30-110) U/L Lipase 107 (23-300) U/L Urine Color Urine Appearance (Clear) Urine pH (5.0-8.0) Ur Specific [place] (1.001-1.035) Urine Protein (Negative) Urine Glucose (UA) (Negative) Urine Ketones (Negative) Urine Blood (Negative) Urine Nitrite (Negative) Urine Bilirubin (Negative) Urine Urobilinogen (<2.0) mg/dL Ur Leukocyte Esterase (Negative) Urine RBC (0-5) /hpf Urine WBC (0-5) /hpf Urine WBC Clumps (None) /hpf Ur Squamous Epith Cells (0-4) /hpf Urine Bacteria (None) /hpf Urine Mucus (None) /hpf Stool Occult Blood (Negative) Blood Type Blood Type Confirm Blood Type Recheck Bld Type Recheck Status Antibody Screen Spec Expiration Date 07/06/23 07/06/23 07/06/23 Range/Units 12:20 12:20 12:23 WBC (3.8-10.6) k/uL RBC (3.80-5.40) m/uL Hgb (11.4-16.0) gm/dL Hct (34.0-46.0) % MCV (80.0-100.0) fL MCH (25.0-35.0) pg MCHC (31.0-37.0) g/dL RDW (11.5-15.5) % Plt Count (150-450) k/uL MPV Neutrophils % % Lymphocytes % % Monocytes % % Eosinophils % % Basophils % % Neutrophils # (1.3-7.7) k/uL Lymphocytes # (1.0-4.8) k/uL Monocytes # (0-1.0) k/uL Eosinophils # (0-0.7) k/uL Basophils # (0-0.2) k/uL PT (10.0-12.5) sec INR (<1.2) APTT (22.0-30.0) sec Sodium (137-145) mmol/L Potassium (3.5-5.1) mmol/L Chloride (98-107) mmol/L Carbon Dioxide (22-30) mmol/L Anion Gap mmol/L BUN (7-17) mg/dL Creatinine (0.52-1.04) mg/dL Est GFR (CKD-EPI)AfAm (>60 ml/min/1.73 sqM) Est GFR (CKD-EPI)NonAf (>60 ml/min/1.73 sqM) Glucose (74-99) mg/dL Plasma Lactic Acid Juan 1.8 (0.7-2.0) mmol/L Calcium (8.4-10.2) mg/dL Total Bilirubin (0.2-1.3) mg/dL AST (14-36) U/L ALT (4-34) U/L Alkaline Phosphatase (38-126) U/L Total Protein (6.3-8.2) g/dL Albumin (3.5-5.0) g/dL Amylase (30-110) U/L Lipase (23-300) U/L Urine Color Yellow Urine Appearance Turbid H (Clear) Urine pH 6.0 (5.0-8.0) Ur Specific [place] 1.024 (1.001-1.035) Urine Protein Trace H (Negative) Urine Glucose (UA) Negative (Negative) Urine Ketones Negative (Negative) Urine Blood Trace H (Negative) Urine Nitrite Positive H (Negative) Urine Bilirubin Negative (Negative) Urine Urobilinogen 2.0 (<2.0) mg/dL Ur Leukocyte Esterase Large H (Negative) Urine RBC 12 H (0-5) /hpf Urine WBC >182 H (0-5) /hpf Urine WBC Clumps Many H (None) /hpf Ur Squamous Epith Cells 6 H (0-4) /hpf Urine Bacteria Many H (None) /hpf Urine Mucus Occasional H (None) /hpf Stool Occult Blood (Negative) Blood Type Blood Type Confirm O Positive Blood Type Recheck Bld Type Recheck Status Antibody Screen Spec Expiration Date 07/06/23 07/06/23 Range/Units 12:28 12:57 WBC (3.8-10.6) k/uL RBC (3.80-5.40) m/uL Hgb (11.4-16.0) gm/dL Hct (34.0-46.0) % MCV (80.0-100.0) fL MCH (25.0-35.0) pg MCHC (31.0-37.0) g/dL RDW (11.5-15.5) % Plt Count (150-450) k/uL MPV Neutrophils % % Lymphocytes % % Monocytes % % Eosinophils % % Basophils % % Neutrophils # (1.3-7.7) k/uL Lymphocytes # (1.0-4.8) k/uL Monocytes # (0-1.0) k/uL Eosinophils # (0-0.7) k/uL Basophils # (0-0.2) k/uL PT (10.0-12.5) sec INR (<1.2) APTT (22.0-30.0) sec Sodium (137-145) mmol/L Potassium (3.5-5.1) mmol/L Chloride (98-107) mmol/L Carbon Dioxide (22-30) mmol/L Anion Gap mmol/L BUN (7-17) mg/dL Creatinine (0.52-1.04) mg/dL Est GFR (CKD-EPI)AfAm (>60 ml/min/1.73 sqM) Est GFR (CKD-EPI)NonAf (>60 ml/min/1.73 sqM) Glucose (74-99) mg/dL Plasma Lactic Acid Juan (0.7-2.0) mmol/L Calcium (8.4-10.2) mg/dL Total Bilirubin (0.2-1.3) mg/dL AST (14-36) U/L ALT (4-34) U/L Alkaline Phosphatase (38-126) U/L Total Protein (6.3-8.2) g/dL Albumin (3.5-5.0) g/dL Amylase (30-110) U/L Lipase (23-300) U/L Urine Color Urine Appearance (Clear) Urine pH (5.0-8.0) Ur Specific [place] (1.001-1.035) Urine Protein (Negative) Urine Glucose (UA) (Negative) Urine Ketones (Negative) Urine Blood (Negative) Urine Nitrite (Negative) Urine Bilirubin (Negative) Urine Urobilinogen (<2.0) mg/dL Ur Leukocyte Esterase (Negative) Urine RBC (0-5) /hpf Urine WBC (0-5) /hpf Urine WBC Clumps (None) /hpf Ur Squamous Epith Cells (0-4) /hpf Urine Bacteria (None) /hpf Urine Mucus (None) /hpf Stool Occult Blood Negative (Negative) Blood Type O Positive Blood Type Confirm Blood Type Recheck No Previous Record Bld Type Recheck Status CABO Indicated Antibody Screen NEGATIVE Spec Expiration Date 07/09/20232327 - EKG Data -: EKG Interpreted by Me EKG Comments: EKG taken at 12:28 shows sinus bradycardia with inverted T waves in lead III, no other acute ST segment or T waves abnormalities present. Ventricular rate 55, VT interval 203, QRS duration 74, QT/QTC 426/415 Disposition Clinical Impression: UTI (urinary tract infection), Black stool Disposition: HOME SELF-CARE Condition: Stable Additional Instructions: Please return to the Emergency Department if symptoms worsen or any other concerns. Please follow-up with GI specialist if symptoms persist. Please complete full course of Macrobid. Prescriptions: Nitrofurantoin Monohyd/M-Cryst [Macrobid] 100 mg PO Q12HR #14 cap Is patient prescribed a controlled substance at d/c from ED?: No Referrals: Baljit Edmonds MD [Primary Care Provider] - 1-2 days Steph Saldana MD [STAFF PHYSICIAN] - 1-2 days Time of Disposition: 14:14
[2023-07-06 12:38] LABS: Basophils % (A) 1 %; Eosinophils # (A) 0.4 k/uL (0-0.7); Eosinophils % (A) 8 %; HCT 41.7 % (34.0-46.0); HGB 13.7 gm/dL (11.4-16.0); Lymphocytes # (A) 1.5 k/uL (1.0-4.8); Lymphocytes % (A) 35 %; MCH 31.8 pg (25.0-35.0); MCHC 32.7 g/dL (31.0-37.0); Mean Platelet Volume 8.1; Monocytes # (A) 0.2 k/uL (0-1.0); Monocytes % (A) 5 %; Neutrophils # (A) 2.1 k/uL (1.3-7.7); Neutrophils % (A) 49 %; Platelet Count 212 k/uL (150-450); RDW 12.8 % (11.5-15.5); WBC 4.4 k/uL (3.8-10.6)
[2023-07-06 12:48] LABS: ALT 19 U/L (4-34); AST 26 U/L (14-36); African American GFR (CKD) >90 (>60 ml/min/1.73 sqM); Albumin 3.6 g/dL (3.5-5.0); Alkaline Phosphatase 118 U/L (38-126); Amylase 91 U/L (30-110); Anion Gap 5 mmol/L; Blood Urea Nitrogen 22 mg/dL (7-17); Calcium 8.6 mg/dL (8.4-10.2); Carbon Dioxide 28 mmol/L (22-30); Chloride 105 mmol/L (98-107); Glucose 89 mg/dL (74-99); Lipase 107 U/L (23-300); Non-African American GFR(CKD) >90 (>60 ml/min/1.73 sqM); Potassium 4.8 mmol/L (3.5-5.1); Prothrombin Time 11.1 sec (10.0-12.5); Sodium 138 mmol/L (137-145); Total Bilirubin 0.4 mg/dL (0.2-1.3); Total Protein 6.5 g/dL (6.3-8.2)
[2023-07-06 13:20] LABS: Appearance,Urine Turbid (Clear); Bacteria,Urine Many /hpf; Bilirubin,Urine Negative (Negative); Blood,Urine Trace (Negative); Color,Urine Yellow; Glucose,Urine (UA) Negative (Negative); Ketones,Urine Negative (Negative); Leukocyte Esterase,Urine Large (Negative); Mucus,Urine Occasional /hpf; Nitrite,Urine Positive (Negative); Protein,Urine Trace (Negative); RBC,Urine 12 /hpf (0-5); Specific Gravity,Urine 1.024 (1.001-1.035); Squamous Epithelial Cell,Urine 6 /hpf (0-4); WBC,Urine >182 /hpf (0-5)
[2023-07-06 14:37] VITALS: BP 141/88; PULSE 72; RESP 14
== END 2023-07-06 14:35 | disposition home or self-care (01) ==
LOC: EC 10:18
DX: N39.0 Urinary tract infection, site not specified (principal); B97.0 Adenovirus as the cause of diseases classified elsewhere; K92.1 Melena; I10 Essential (primary) hypertension; E07.9 Disorder of thyroid, unspecified; F41.9 Anxiety disorder, unspecified; Z79.890 Hormone replacement therapy; Z79.899 Other long term (current) drug therapy; Z79.82 Long term (current) use of aspirin; Z87.891 Personal history of nicotine dependence; Z88.0 Allergy status to penicillin; Z88.8 Allergy status to other drugs, medicaments and biological substances
CPT/HCPCS: 36415; 80053; 81001; 82150; 82272; 83605; 83690; 85025; 85610; 85730; 86850; 86900; 86901; 87086; 93005; 99285

== ENCOUNTER 2023-07-19 17:15 | Emergency (ER) | payer MEDICARE ==
[2023-07-19 17:50] VITALS: RESP 16
--- NOTE | 2023-07-19 19:13 | ED ---
General Adult HPI - General Chief complaint: Upper Respiratory Infection Stated complaint: cough Time Seen by Provider: 07/19/23 18:56 Source: patient, family, RN notes reviewed Mode of arrival: wheelchair Limitations: no limitations - History of Present Illness Initial comments: 76 month female presents emergency department for evaluation of productive cough, congestion 2 days. Patient states that she has had some tightness in her chest with this. She reports that she has been taking Tylenol for the discomfort. She also admits to mild generalized headache. Denies fever, chills. - Related Data Home Medications Medication Instructions Recorded Confirmed Phenytoin Sodium Extended 100 mg PO QID 08/08/18 05/11/23 [Dilantin] Aspirin 81 mg PO DAILY 11/05/20 05/11/23 Ergocalciferol (Vitamin D2) 1,250 mcg PO Q30D 04/29/23 05/11/23 [Drisdol (50,000 Iu)] Furosemide [Lasix] 20 mg PO DAILY 04/29/23 05/11/23 Levothyroxine Sodium [Synthroid] 25 mcg PO DAILY 04/29/23 05/11/23 Previous Rx's Medication Instructions Recorded levETIRAcetam [Keppra] 1,000 mg PO Q12HR #60 tab 05/02/23 levETIRAcetam [Keppra] 250 mg PO Q12HR #60 tab 05/02/23 Bisoprolol [Zebeta] 5 mg PO BID #20 tab 05/14/23 levETIRAcetam [Keppra] 500 mg PO Q12HR #20 tab 05/14/23 Nitrofurantoin Monohyd/M-Cryst 100 mg PO Q12HR #14 cap 07/06/23 [Macrobid] Oseltamivir [Tamiflu] 75 mg PO Q12HR #10 cap 07/19/23 Allergies Allergy/AdvReac Type Severity Reaction Status Date / Time TESS Inhibitors Allergy Itching/Sei Verified 07/06/23 10:34 zures Penicillins Allergy fever,rash Verified 07/06/23 10:34 Review of Systems ROS Statement: Those systems with pertinent positive or pertinent negative responses have been documented in the HPI. ROS Other: All systems not noted in ROS Statement are negative. Past Medical History Past Medical History: Hypertension, Seizure Disorder, Skin Disorder, Thyroid Disorder Additional Past Medical History / Comment(s): EXCEMA, History of Any Multi-Drug Resistant Organisms: None Reported Past Surgical History: Bariatric Surgery, Section, Joint Replacement Additional Past Surgical History / Comment(s): LOOP MONITOR IMPLANT, removed part of the stomach "years ago", jn knee replacement, LEFT CATARACT Past Anesthesia/Blood Transfusion Reactions: Motion Sickness Past Psychological History: Anxiety Smoking Status: Former smoker Past Alcohol Use History: None Reported Past Drug Use History: None Reported - Past Family History Father Family Medical History: Myocardial Infarction ([place]) Mother Family Medical History: Osteoarthritis (OA) General Exam Limitations: no limitations General appearance: alert, in no apparent distress Head exam: Present: atraumatic, normocephalic, normal inspection Eye exam: Present: normal appearance, PERRL, EOMI. Absent: scleral icterus, conjunctival injection, periorbital swelling ENT exam: Present: normal exam, mucous membranes moist, TM's normal bilaterally, normal external ear exam Neck exam: Present: normal inspection. Absent: tenderness, meningismus, lymphadenopathy Respiratory exam: Present: normal lung sounds bilaterally. Absent: respiratory distress, wheezes, rales, rhonchi, stridor Cardiovascular Exam: Present: regular rate, normal rhythm, normal heart sounds. Absent: systolic murmur, diastolic murmur, rubs, gallop, clicks Extremities exam: Present: normal inspection Back exam: Present: normal inspection Neurological exam: Present: alert, oriented X3 Psychiatric exam: Present: normal affect, normal mood Skin exam: Present: warm, dry, intact, normal color. Absent: rash Course Vital Signs 07/19/23 07/19/23 07/19/23 17:29 19:24 19:25 Temperature 98 F Pulse Rate 61 67 Respiratory 16 22 16 Rate Blood Pressure 123/72 139/78 O2 Sat by Pulse 97 Oximetry 07/19/23 07/19/23 07/19/23 19:30 20:00 20:30 Temperature Pulse Rate 69 65 68 Respiratory 22 12 16 Rate Blood Pressure 139/78 139/78 154/81 O2 Sat by Pulse Oximetry 07/19/23 07/19/23 07/19/23 21:00 21:30 22:00 Temperature Pulse Rate 68 75 73 Respiratory 18 16 16 Rate Blood Pressure 154/81 147/82 147/82 O2 Sat by Pulse Oximetry 07/19/23 23:17 Temperature 100.5 F H Pulse Rate 70 Respiratory 16 Rate Blood Pressure 147/92 O2 Sat by Pulse 97 Oximetry Medical Decision Making - Medical Decision Making Was pt. sent in by a medical professional or institution (LISA Rodriguez, MISSILE FACILITIES REPAIRER, urgent care, hospital, or intermediate...) When possible be specific @ -No Did you speak to anyone other than the patient for history (EMS, parent, family, police, friend...)? What history was obtained from this source @ -No Did you review nursing and triage notes (agree or disagree)? Why? @ -I reviewed and agree with nursing and triage notes Were old charts reviewed (outside hosp., previous admission, EMS record, old EKG, old radiological studies, urgent care reports/EKG's, intermediate records)? Report findings @ -No old charts were reviewed Differential Diagnosis (chest pain, altered mental status, abdominal pain women, abdominal pain men, vaginal bleeding, weakness, fever, dyspnea, syncope, headache, dizziness, GI bleed, back pain, seizure, CVA, palpatations, mental health, musculoskeletal)? @ -Influenza, RSV, Covid, pneumonia, this list is not all-inclusive EKG interpreted by me (3pts min.). @ -EKG at 1959 shows sinus rhythm rate 67, UT 181, QRS 85, QTQTc [id number] X-rays interpreted by me (1pt min.). @ -XR chest shows low lung volumes possible atelectasis CT interpreted by me (1pt min.). @ -None done U/S interpreted by me (1pt. min.). @ -None done What testing was considered but not performed or refused? (CT, X-rays, U/S, labs)? Why? @ -None What meds were considered but not given or refused? Why? @ -None Did you discuss the management of the patient with other professionals (professionals i.e. LISA Rodriguez, MISSILE FACILITIES REPAIRER, lab, RT, psych nurse, criminal justice social worker, knife cutter, teacher, natural resource officer, onsite case manager)? Give summary @ -No Was smoking cessation discussed for >3mins.? @ -No Was critical care preformed (if so, how long)? @ -No Were there social determinants of health that impacted care today? How? (Homelessness, low income, unemployed, alcoholism, drug addiction, bello sportation, low edu. Level, literacy, decrease access to med. care, senior care, rehab)? @ -No Was there de-escalation of care discussed even if they declined (Discuss DNR or withdrawal of care, Hospice)? DNR status @ -No What co-morbidities impacted this encounter? (DM, HTN, Smoking, COPD, CAD, Cancer, CVA, ARF, Chemo, Hep., AIDS, mental health diagnosis, sleep apnea, morbid obesity)? @ -None Was patient admitted / discharged? Hospital course, mention meds given and route, prescriptions, significant lab abnormalities, going to OR and other pertinent info. @ -Starched. Patient presents emergency department for evaluation of cough, congestion, body aches, headache 1 day. EKG obtained shows sinus rhythm. Laboratory studies are essentially unremarkable. Patient has a positive for influenza A. Patient will be discharged home. Prescription sent to the patient 's pharmacy for Tamiflu. She was given a dose of Tylenol in the emergency department. Patient febrile at discharge and is going to take ibuprofen when she gets home. Patient understanding and agreeable with discharge plan. Patient stable at time of discharge. Case discussed with Dr. Bradshaw. Undiagnosed new problem with uncertain prognosis? @ -No Drug Therapy requiring intensive monitoring for toxicity (Heparin, Nitro, Insulin, Cardizem)? @ -No Were any procedures done? @ -No Diagnosis/symptom? @ -Influenza A Acute, or Chronic, or Acute on Chronic? @ -Acute Uncomplicated (without systemic symptoms) or Complicated (systemic symptoms)? @ -Complicated Side effects of treatment? @ -No Exacerbation, Progression, or Severe Exacerbation? @ -No Poses a threat to life or bodily function? How? (Chest pain, USA, [place], pneumonia, PE, COPD, DKA, ARF, appy, cholecystitis, CVA, Diverticulitis, Homicidal, Suicidal, threat to staff... and all critical care pts) @ -No - Lab Data Result diagrams: 07/19/23 19:24 07/19/23 22:00 Lab Results 07/19/23 07/19/23 07/19/23 Range/Units 19:17 19:24 19:24 WBC 4.5 (3.8-10.6) k/uL RBC 4.56 (3.80-5.40) m/uL Hgb 14.2 (11.4-16.0) gm/dL Hct 44.1 (34.0-46.0) % MCV 96.6 (80.0-100.0) fL MCH 31.2 (25.0-35.0) pg MCHC 32.3 (31.0-37.0) g/dL RDW 13.0 (11.5-15.5) % Plt Count 199 (150-450) k/uL MPV 8.2 Neutrophils % 60 % Lymphocytes % 21 % Monocytes % 12 % Eosinophils % 3 % Basophils % 1 % Neutrophils # 2.7 (1.3-7.7) k/uL Lymphocytes # 1.0 (1.0-4.8) k/uL Monocytes # 0.5 (0-1.0) k/uL Eosinophils # 0.1 (0-0.7) k/uL Basophils # 0.0 (0-0.2) k/uL PT 11.5 (10.0-12.5) sec INR 1.1 (<1.2) APTT 28.8 (22.0-30.0) sec Sodium (137-145) mmol/L Potassium (3.5-5.1) mmol/L Chloride (98-107) mmol/L Carbon Dioxide (22-30) mmol/L Anion Gap mmol/L BUN (7-17) mg/dL Creatinine (0.52-1.04) mg/dL Est GFR (CKD-EPI)AfAm (>60 ml/min/1.73 sqM) Est GFR (CKD-EPI)NonAf (>60 ml/min/1.73 sqM) Glucose (74-99) mg/dL Calcium (8.4-10.2) mg/dL Magnesium (1.6-2.3) mg/dL Total Bilirubin (0.2-1.3) mg/dL AST (14-36) U/L ALT (4-34) U/L Alkaline Phosphatase (38-126) U/L Troponin I (0.000-0.034) ng/mL Total Protein (6.3-8.2) g/dL Albumin (3.5-5.0) g/dL Influenza Type A (PCR) Detected A (Not Detectd) Influenza Type B (PCR) Not Detected (Not Detectd) RSV (PCR) Not Detected (Not Detectd) SARS-CoV-2 (PCR) Not Detected (Not Detectd) 07/19/23 07/19/23 Range/Units 19:24 22:00 WBC (3.8-10.6) k/uL RBC (3.80-5.40) m/uL Hgb (11.4-16.0) gm/dL Hct (34.0-46.0) % MCV (80.0-100.0) fL MCH (25.0-35.0) pg MCHC (31.0-37.0) g/dL RDW (11.5-15.5) % Plt Count (150-450) k/uL MPV Neutrophils % % Lymphocytes % % Monocytes % % Eosinophils % % Basophils % % Neutrophils # (1.3-7.7) k/uL Lymphocytes # (1.0-4.8) k/uL Monocytes # (0-1.0) k/uL Eosinophils # (0-0.7) k/uL Basophils # (0-0.2) k/uL PT (10.0-12.5) sec INR (<1.2) APTT (22.0-30.0) sec Sodium 136 L (137-145) mmol/L Potassium 4.1 (3.5-5.1) mmol/L Chloride 99 (98-107) mmol/L Carbon Dioxide 27 (22-30) mmol/L Anion Gap 10 mmol/L BUN 12 (7-17) mg/dL Creatinine 0.50 L (0.52-1.04) mg/dL Est GFR (CKD-EPI)AfAm >90 (>60 ml/min/1.73 sqM) Est GFR (CKD-EPI)NonAf >90 (>60 ml/min/1.73 sqM) Glucose 94 (74-99) mg/dL Calcium 8.6 (8.4-10.2) mg/dL Magnesium 2.0 (1.6-2.3) mg/dL Total Bilirubin 0.4 (0.2-1.3) mg/dL AST 29 (14-36) U/L ALT 21 (4-34) U/L Alkaline Phosphatase 160 H (38-126) U/L Troponin I <0.012 (0.000-0.034) ng/mL Total Protein 6.7 (6.3-8.2) g/dL Albumin 3.8 (3.5-5.0) g/dL Influenza Type A (PCR) (Not Detectd) Influenza Type B (PCR) (Not Detectd) RSV (PCR) (Not Detectd) SARS-CoV-2 (PCR) (Not Detectd) Disposition Clinical Impression: Influenza A Disposition: HOME SELF-CARE Condition: Stable Instructions (If sedation given, give patient instructions): Influenza (ED) Additional Instructions: Please follow up with your primary care provider. Return to the emergency dep artment for new or worsening symptoms. Prescriptions: Oseltamivir [Tamiflu] 75 mg PO Q12HR #10 cap Is patient prescribed a controlled substance at d/c from ED?: No Referrals: Baljit Edmonds MD [Primary Care Provider] - 1-2 days
--- NOTE | 2023-07-19 20:16 | XR ---
EXAMINATION TYPE: XR chest 2V DATE OF EXAM: 07/19/2023 7:51 PM CLINICAL INDICATION:Female, 78 years old with history of cough; [facility] COMPARISON: Chest radiographs from 03/26/2023. TECHNIQUE: XR chest 2V Frontal and lateral views of the chest. FINDINGS: Lungs/Pleura: There is no evidence of pleural effusion, focal consolidation, or pneumothorax. Pulmonary vascularity: Unremarkable. Heart/mediastinum: Cardiomediastinal silhouette is unremarkable. Musculoskeletal: No acute osseous pathology. Other findings: None IMPRESSION: Low lung volumes with a generalized hazy appearance which could represent atelectasis.
[2023-07-19 20:24] LABS: Basophils % (A) 1 %; Eosinophils # (A) 0.1 k/uL (0-0.7); Eosinophils % (A) 3 %; HCT 44.1 % (34.0-46.0); HGB 14.2 gm/dL (11.4-16.0); Lymphocytes % (A) 21 %; MCH 31.2 pg (25.0-35.0); MCHC 32.3 g/dL (31.0-37.0); MCV 96.6 fL (80.0-100.0); Mean Platelet Volume 8.2; Monocytes # (A) 0.5 k/uL (0-1.0); Monocytes % (A) 12 %; Neutrophils # (A) 2.7 k/uL (1.3-7.7); Neutrophils % (A) 60 %; Platelet Count 199 k/uL (150-450); RBC 4.56 m/uL (3.80-5.40); WBC 4.5 k/uL (3.8-10.6)
[2023-07-19] MEDS ORDERED: ACETAMINOPHEN TAB 500 MG TAB PO STA (20:53)
[2023-07-19 21:10] LABS: INR 1.1 (<1.2); Partial Thromboplastin Time 28.8 sec (22.0-30.0); Prothrombin Time 11.5 sec (10.0-12.5)
[2023-07-19 22:32] LABS: ALT 21 U/L (4-34); AST 29 U/L (14-36); African American GFR (CKD) >90 (>60 ml/min/1.73 sqM); Albumin 3.8 g/dL (3.5-5.0); Alkaline Phosphatase 160 U/L (38-126); Anion Gap 10 mmol/L; Blood Urea Nitrogen 12 mg/dL (7-17); Calcium 8.6 mg/dL (8.4-10.2); Carbon Dioxide 27 mmol/L (22-30); Chloride 99 mmol/L (98-107); Glucose 94 mg/dL (74-99); Non-African American GFR(CKD) >90 (>60 ml/min/1.73 sqM); Potassium 4.1 mmol/L (3.5-5.1); Sodium 136 mmol/L (137-145); Total Bilirubin 0.4 mg/dL (0.2-1.3); Total Protein 6.7 g/dL (6.3-8.2)
[2023-07-19 23:31] VITALS: BP 147/92; PULSE 70; TEMP 100.5
== END 2023-07-19 23:19 | disposition home or self-care (01) ==
LOC: EC 17:15
DX: J10.1 Influenza due to other identified influenza virus with other respiratory manifestations (principal); I10 Essential (primary) hypertension; G40.909 Epilepsy, unspecified, not intractable, without status epilepticus; E07.9 Disorder of thyroid, unspecified; Z20.822 Contact with and (suspected) exposure to COVID-19; Z79.82 Long term (current) use of aspirin; Z79.890 Hormone replacement therapy; Z79.899 Other long term (current) drug therapy; Z88.0 Allergy status to penicillin; Z88.8 Allergy status to other drugs, medicaments and biological substances; Z87.891 Personal history of nicotine dependence
CPT/HCPCS: 36415; 71046; 80053; 83735; 84484; 85025; 85610; 85730; 87636; 93005; 99284

== ENCOUNTER 2023-08-29 19:09 | Observation (INO) | payer MEDICARE ==
[2023-08-29 22:02] LABS: Basophils % (A) 1 %; Eosinophils # (A) 0.3 k/uL (0-0.7); Eosinophils % (A) 6 %; HCT 42.2 % (34.0-46.0); HGB 13.8 gm/dL (11.4-16.0); Lymphocytes # (A) 1.5 k/uL (1.0-4.8); Lymphocytes % (A) 37 %; MCH 31.3 pg (25.0-35.0); MCHC 32.8 g/dL (31.0-37.0); MCV 95.6 fL (80.0-100.0); Mean Platelet Volume 7.6; Monocytes # (A) 0.3 k/uL (0-1.0); Monocytes % (A) 8 %; Neutrophils # (A) 1.9 k/uL (1.3-7.7); Neutrophils % (A) 47 %; Platelet Count 255 k/uL (150-450); RBC 4.42 m/uL (3.80-5.40); RDW 12.8 % (11.5-15.5); WBC 4.2 k/uL (3.8-10.6)
[2023-08-29] MEDS: SODIUM CHLORIDE 0.9% 500 ML 500 ML IV STA (22:05)
[2023-08-29 22:15] LABS: ALT 19 U/L (4-34); AST 27 U/L (14-36); African American GFR (CKD) >90 (>60 ml/min/1.73 sqM); Albumin 3.7 g/dL (3.5-5.0); Alkaline Phosphatase 139 U/L (38-126); Anion Gap 4 mmol/L; Blood Urea Nitrogen 15 mg/dL (7-17); Calcium 8.7 mg/dL (8.4-10.2); Carbon Dioxide 25 mmol/L (22-30); Chloride 109 mmol/L (98-107); Glucose 123 mg/dL (74-99); Non-African American GFR(CKD) 89 (>60 ml/min/1.73 sqM); Potassium 4.2 mmol/L (3.5-5.1); Sodium 138 mmol/L (137-145); Total Bilirubin 0.4 mg/dL (0.2-1.3); Total Protein 6.5 g/dL (6.3-8.2)
[2023-08-29 22:20] LABS: Valproic Acid (Depakene) <10.0 ug/mL
--- NOTE | 2023-08-29 22:54 | ED ---
Dizziness HPI - General Chief Complaint: Dizziness Stated Complaint: loss of balance, multiple falls Time Seen by Provider: 08/29/23 21:13 Source: patient Mode of arrival: wheelchair Limitations: no limitations - History of Present Illness Initial Comments: 78-year-old female past medical history of seizure disorder presents emergency department reporting ataxia. States for the past 2 weeks she has been feeling off balance when she ambulates. The sensation is getting worse to the point where she had 2 falls today. She denies any injuries from the falls. No head injury. Denies any neck or back pain. Does admit to weakness bilaterally in her lower extremities. No upper extremity weakness. Denies headache. Does admit to some blurred vision. No hearing changes. She denies room spinning sensation. No chest pain or difficulty breathing. No history of stroke. Recently her dilantin was increased to 4 times a day. No other alleviating, precipitating or modifying factors - Related Data Home Medications Medication Instructions Recorded Confirmed Aspirin 81 mg PO DAILY 11/05/20 08/30/23 Ergocalciferol (Vitamin D2) 1,250 mcg PO Q28D 04/29/23 08/30/23 [Drisdol (50,000 Iu)] Furosemide [Lasix] 20 mg PO DAILY 04/29/23 08/30/23 Levothyroxine Sodium [Synthroid] 25 mcg PO DAILY 04/29/23 08/30/23 Metoprolol Succinate (ER) [Toprol 50 mg PO DAILY 08/30/23 08/30/23 XL] levETIRAcetam [Keppra] 750 mg PO BID 08/30/23 08/30/23 Previous Rx's Medication Instructions Recorded Bisoprolol [Zebeta] 5 mg PO BID #20 tab 05/14/23 Phenytoin Sodium Extended 100 mg PO TID #90 cap 09/02/23 [Dilantin] Allergies Allergy/AdvReac Type Severity Reaction Status Date / Time TESS Inhibitors Allergy Itching/Sei Verified 08/29/23 20:16 zures Penicillins Allergy fever,rash Verified 08/29/23 20:16 Review of Systems ROS Statement: Those systems with pertinent positive or pertinent negative responses have been documented in the HPI. ROS Other: All systems not noted in ROS Statement are negative. Past Medical History Past Medical History: Hypertension, Seizure Disorder, Skin Disorder, Thyroid Disorder Additional Past Medical History / Comment(s): EXCEMA, History of Any Multi-Drug Resistant Organisms: None Reported Past Surgical History: Bariatric Surgery, Section, Joint Replacement Additional Past Surgical History / Comment(s): LOOP MONITOR IMPLANT, removed part of the stomach "years ago", jn knee replacement, LEFT CATARACT Past Anesthesia/Blood Transfusion Reactions: Motion Sickness Past Psychological History: Anxiety Smoking Status: Former smoker Past Alcohol Use History: None Reported Past Drug Use History: None Reported - Past Family History Father Family Medical History: Myocardial Infarction ([place]) Mother Family Medical History: Osteoarthritis (OA) General Exam Limitations: no limitations General appearance: alert, in no apparent distress Head exam: Present: atraumatic, normocephalic, normal inspection Eye exam: Present: normal appearance, PERRL, EOMI. Absent: scleral icterus, conjunctival injection, periorbital swelling ENT exam: Present: normal exam, mucous membranes moist Neck exam: Present: normal inspection. Absent: tenderness, meningismus, lymphadenopathy Respiratory exam: Present: normal lung sounds bilaterally. Absent: respiratory distress, wheezes, rales, rhonchi, stridor Cardiovascular Exam: Present: regular rate, normal rhythm, normal heart sounds. Absent: systolic murmur, diastolic murmur, rubs, gallop, clicks GI/Abdominal exam: Present: soft, normal bowel sounds. Absent: distended, tenderness, guarding, rebound, rigid Extremities exam: Present: normal inspection, full ROM, normal capillary refill. Absent: tenderness, pedal edema, joint swelling, calf tenderness Back exam: Present: normal inspection Neurological exam: Present: alert, oriented X3, CN II-XII intact Psychiatric exam: Present: normal affect, normal mood Skin exam: Present: warm, dry, intact, normal color. Absent: rash Course Vital Signs 08/29/23 08/29/23 08/30/23 20:15 22:03 00:00 Temperature 97.9 F Pulse Rate 73 61 60 Respiratory 18 18 16 Rate Blood Pressure 146/81 150/74 150/83 O2 Sat by Pulse 100 100 100 Oximetry 08/30/23 08/30/23 08/30/23 02:00 04:00 06:00 Temperature Pulse Rate 67 64 66 Respiratory 18 16 16 Rate Blood Pressure 130/78 121/88 135/75 O2 Sat by Pulse 98 98 97 Oximetry Medical Decision Making - Medical Decision Making Was pt. sent in by a medical professional or institution (LISA Rodriguez, LASTING MACHINE OPERATOR, urgent care, hospital, or shelter...) When possible be specific @ -No Did you speak to anyone other than the patient for history (EMS, parent, family, police, friend...)? What history was obtained from this source @ -No Did you review nursing and triage notes (agree or disagree)? Why? @ -I reviewed and agree with nursing and triage notes Were old charts reviewed (outside hosp., previous admission, EMS record, old EKG, old radiological studies, urgent care reports/EKG's, shelter records)? Report findings @ -No old charts were reviewed Differential Diagnosis (chest pain, altered mental status, abdominal pain women, abdominal pain men, vaginal bleeding, weakness, fever, dyspnea, syncope, headache, dizziness, GI bleed, back pain, seizure, CVA, palpatations, mental health, musculoskeletal)? @ -Differential Dizziness: Benign paroxysmal positional Vertigo, Menieres disease, otitis media, acoustic neuroma, vertebrobasilar insufficiency, cerebellar stroke, encephalitis, hypovolemic, arrhythmia, coronary artery syndrome, anemia, this is not meant to be an all-inclusive list EKG interpreted by me (3pts min.). @ -Yes and demonstrates sinus rhythm with a rate of 72. CA interval 171. QRS 85. QTc of 409. No acute ST segment elevations or depressions X-rays interpreted by me (1pt min.). @ -None done CT interpreted by me (1pt min.). @ -Yes and demonstrates no acute process U/S interpreted by me (1pt. min.). @ -None done What testing was considered but not performed or refused? (CT, X-rays, U/S, labs)? Why? @ -None What meds were considered but not given or refused? Why? @ -None Did you discuss the management of the patient with other professionals (professionals i.e. LISA Rodriguez, LASTING MACHINE OPERATOR, lab, RT, psych nurse, social worker masters, cat swamper, teacher, correctional officer lieutenant, outpatient case manager)? Give summary @ -I spoke with poison control to discuss toxic level. They have no recommendations for management other than supportive care. I also spoke with Dr. Edmonds for the admission Was smoking cessation discussed for >3mins.? @ -No Was critical care preformed (if so, how long)? @ -No Were there social determinants of health that impacted care today? How? (Homelessness, low income, unemployed, alcoholism, drug addiction, transportation, low edu. Level, literacy, decrease access to med. care, skilled nursing, rehab)? @ -No Was there de-escalation of care discussed even if they declined (Discuss DNR or withdrawal of care, Hospice)? DNR status @ -No What co-morbidities impacted this encounter? (DM, HTN, Smoking, COPD, CAD, Cancer, CVA, ARF, Chemo, Hep., AIDS, mental health diagnosis, sleep apnea, morbid obesity)? @ -Seizure disorder Was patient admitted / discharged? Hospital course, mention meds given and route, prescriptions, significant lab abnormalities, going to OR and other pertinent info. @ -Admitted. Upon arrival patient was placed into room 8. Thorough history and physical exam was performed. Laboratory studies are conducted. CT of the brain was performed. Patient's Dilantin level does come back as a toxic level. Called and spoke with poison control. They have no recommendations in regards to management at this time. They just recommend supportive care. We will hold the patient's Dilantin at this time. I recommended admission. Called and spoke with Dr. Edmonds who agreed to admit the patient Undiagnosed new problem with uncertain prognosis? @ -No Drug Therapy requiring intensive monitoring for toxicity (Heparin, Nitro, Insulin, Cardizem)? @ -No Were any procedures done? @ -No Diagnosis/symptom? @ -Acute ataxia, supratherapeutic Dilantin level Acute, or Chronic, or Acute on Chronic? @ -Acute Uncomplicated (without systemic symptoms) or Complicated (systemic symptoms)? @ -Complicated Side effects of treatment? @ -No Exacerbation, Progression, or Severe Exacerbation? @ -No Poses a threat to life or bodily function? How? (Chest pain, [place], [place], pneumonia, PE, COPD, DKA, ARF, appy, cholecystitis, CVA, Diverticulitis, Homicidal, Suicidal, threat to staff... and all critical care pts) @ -No - Lab Data Result diagrams: 08/31/23 05:54 08/31/23 05:54 Lab Results 08/29/23 08/29/23 08/29/23 Range/Units 21:50 21:50 21:50 WBC 4.2 (3.8-10.6) k/uL RBC 4.42 (3.80-5.40) m/uL Hgb 13.8 (11.4-16.0) gm/dL Hct 42.2 (34.0-46.0) % MCV 95.6 (80.0-100.0) fL MCH 31.3 (25.0-35.0) pg MCHC 32.8 (31.0-37.0) g/dL RDW 12.8 (11.5-15.5) % Plt Count 255 (150-450) k/uL MPV 7.6 Neutrophils % 47 % Lymphocytes % 37 % Monocytes % 8 % Eosinophils % 6 % Basophils % 1 % Neutrophils # 1.9 (1.3-7.7) k/uL Lymphocytes # 1.5 (1.0-4.8) k/uL Monocytes # 0.3 (0-1.0) k/uL Eosinophils # 0.3 (0-0.7) k/uL Basophils # 0.0 (0-0.2) k/uL Sodium 138 (137-145) mmol/L Potassium 4.2 (3.5-5.1) mmol/L Chloride 109 H (98-107) mmol/L Carbon Dioxide 25 (22-30) mmol/L Anion Gap 4 mmol/L BUN 15 (7-17) mg/dL Creatinine 0.59 (0.52-1.04) mg/dL Est GFR (CKD-EPI)AfAm >90 (>60 ml/min/1.73 sqM) Est GFR (CKD-EPI)NonAf 89 (>60 ml/min/1.73 sqM) Glucose 123 H (74-99) mg/dL Calcium 8.7 (8.4-10.2) mg/dL Total Bilirubin 0.4 (0.2-1.3) mg/dL AST 27 (14-36) U/L ALT 19 (4-34) U/L Alkaline Phosphatase 139 H (38-126) U/L Troponin I (0.000-0.034) ng/mL Total Protein 6.5 (6.3-8.2) g/dL Albumin 3.7 (3.5-5.0) g/dL TSH 0.200 L (0.465-4.680) mIU/L Free T4 0.84 (0.78-2.19) ng/dL Urine Color Colorless Urine Appearance Clear (Clear) Urine pH 5.5 (5.0-8.0) Ur Specific Norris 1.013 (1.001-1.035) Urine Protein Negative (Negative) Urine Glucose (UA) 2+ H (Negative) Urine Ketones Negative (Negative) Urine Blood Negative (Negative) Urine Nitrite Negative (Negative) Urine Bilirubin Negative (Negative) Urine Urobilinogen <2.0 (<2.0) mg/dL Ur Leukocyte Esterase Negative (Negative) Phenytoin ug/mL Valproic Acid <10.0 ug/mL 08/29/23 08/29/23 Range/Units 21:50 23:26 WBC (3.8-10.6) k/uL RBC (3.80-5.40) m/uL Hgb (11.4-16.0) gm/dL Hct (34.0-46.0) % MCV (80.0-100.0) fL MCH (25.0-35.0) pg MCHC (31.0-37.0) g/dL RDW (11.5-15.5) % Plt Count (150-450) k/uL MPV Neutrophils % % Lymphocytes % % Monocytes % % Eosinophils % % Basophils % % Neutrophils # (1.3-7.7) k/uL Lymphocytes # (1.0-4.8) k/uL Monocytes # (0-1.0) k/uL Eosinophils # (0-0.7) k/uL Basophils # (0-0.2) k/uL Sodium (137-145) mmol/L Potassium (3.5-5.1) mmol/L Chloride (98-107) mmol/L Carbon Dioxide (22-30) mmol/L Anion Gap mmol/L BUN (7-17) mg/dL Creatinine (0.52-1.04) mg/dL Est GFR (CKD-EPI)AfAm (>60 ml/min/1.73 sqM) Est GFR (CKD-EPI)NonAf (>60 ml/min/1.73 sqM) Glucose (74-99) mg/dL Calcium (8.4-10.2) mg/dL Total Bilirubin (0.2-1.3) mg/dL AST (14-36) U/L ALT (4-34) U/L Alkaline Phosphatase (38-126) U/L Troponin I 0.013 (0.000-0.034) ng/mL Total Protein (6.3-8.2) g/dL Albumin (3.5-5.0) g/dL TSH (0.465-4.680) mIU/L Free T4 (0.78-2.19) ng/dL Urine Color Urine Appearance (Clear) Urine pH (5.0-8.0) Ur Specific Norris (1.001-1.035) Urine Protein (Negative) Urine Glucose (UA) (Negative) Urine Ketones (Negative) Urine Blood (Negative) Urine Nitrite (Negative) Urine Bilirubin (Negative) Urine Urobilinogen (<2.0) mg/dL Ur Leukocyte Esterase (Negative) Phenytoin 30.4 H* ug/mL Valproic Acid ug/mL Disposition Clinical Impression: Ataxia, Dilantin toxicity Disposition: ADMITTED IP TO THIS [facility] Condition: Stable Is patient prescribed a controlled substance at d/c from ED?: No Time of Disposition: 00:02 Decision to Admit Reason: Admit from EC Decision Date: 08/30/23 Decision Time: 00:02
[2023-08-29 22:55] LABS: Appearance,Urine Clear (Clear); Bilirubin,Urine Negative (Negative); Blood,Urine Negative (Negative); Color,Urine Colorless; Glucose,Urine (UA) 2+ (Negative); Ketones,Urine Negative (Negative); Leukocyte Esterase,Urine Negative (Negative); Nitrite,Urine Negative (Negative); PH, Urine 5.5 (5.0-8.0); Protein,Urine Negative (Negative); Specific Gravity,Urine 1.013 (1.001-1.035); Urobilinogen,Urine <2.0 mg/dL (<2.0)
--- NOTE | 2023-08-29 23:00 | CT ---
EXAM: CT Head Without Intravenous Contrast CLINICAL HISTORY: ITS.REASON CT Reason: ataxia TECHNIQUE: Axial computed tomography images of the head/brain without intravenous contrast. CTDI is 45.2 mGy and DLP is 1534.6 mGy-cm. This CT exam was performed using one or more of the following dose reduction techniques: automated exposure control, adjustment of the mA and/or kV according to patient size, and/or use of iterative reconstruction technique. COMPARISON: No relevant prior studies available. FINDINGS: Brain: Unremarkable. No hemorrhage. No significant white matter disease. No edema. Ventricles: Unremarkable. No ventriculomegaly. Bones/joints: Hyperostosis frontalis interna. 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 No acute fracture. Soft tissues: Bilateral lens replacements. Sinuses: Chronic left ethmoid sinusitis. No acute sinusitis. Mastoid air cells: Unremarkable as visualized. No mastoid effusion. IMPRESSION: No evidence of acute intracranial pathology. EXAM: CT Cervical Spine Without Intravenous Contrast CLINICAL HISTORY: ITS.REASON CT Reason: ataxia TECHNIQUE: Axial computed tomography images of the cervical spine without intravenous contrast. CTDI is 15.9 mGy and DLP is 1534.6 mGy-cm. This CT exam was performed using one or more of the following dose reduction techniques: automated exposure control, adjustment of the mA and/or kV according to patient size, and/or use of iterative reconstruction technique. COMPARISON: No relevant prior studies available. FINDINGS: Vertebrae: Unremarkable. No acute fracture. Discs/spinal canal/neural foramina: No acute findings. Severe spinal canal stenosis at C1, C3-4 and C4-5 Soft tissues: Multiple thyroid nodules. Bronchitis with pneumonitis, which may be of infectious or inflammatory etiologies. IMPRESSION: No evidence of acute cervical spine pathology.
[2023-08-29 23:18] LABS: T4, Free (Free Thyroxine) 0.84 ng/dL (0.78-2.19)
[2023-08-30] MEDS ORDERED: NALOXONE 0.4 MG/ML 1 ML VIAL IV PRN (00:02)
[2023-08-30] MEDS: diphenhydrAMINE 50 MG/ML 1 ML VIAL IVP STA (20:18)
[2023-08-30] MEDS: ONDANSETRON 4 MG/2 ML VIAL IVP PRN (20:18)
[2023-08-30] MEDS: BISOPROLOL 5 MG TAB PO SCH (20:19)
[2023-08-31] MEDS: LEVOTHYROXINE 25 MCG TAB PO SCH (05:39)
[2023-08-31 06:56] LABS: African American GFR (CKD) >90 (>60 ml/min/1.73 sqM); Anion Gap 5 mmol/L; Blood Urea Nitrogen 13 mg/dL (7-17); Calcium 8.7 mg/dL (8.4-10.2); Carbon Dioxide 26 mmol/L (22-30); Chloride 108 mmol/L (98-107); Glucose 79 mg/dL (74-99); Non-African American GFR(CKD) 87 (>60 ml/min/1.73 sqM); Potassium 4.5 mmol/L (3.5-5.1); Sodium 139 mmol/L (137-145)
[2023-08-31 07:52] LABS: Phenytoin (Dilantin) 27.3 ug/mL
[2023-08-31] MEDS: ASPIRIN 81 MG PO SCH (09:23)
[2023-08-31] MEDS: METOPROLOL SUCCINATE (ER) 50 MG TAB.ER.24H PO SCH (09:23)
[2023-08-31] MEDS: FUROSEMIDE 20 MG TAB PO SCH (09:23)
[2023-08-31 11:44] LABS: Basophils # (A) 0.05 X 10*3/uL (0.00-0.10); Basophils % (A) 1.2 %; Eosinophils # (A) 0.38 X 10*3/uL (0.04-0.35); Eosinophils % (A) 9.4 %; HCT 39.4 % (37.2-46.3); HGB 12.8 g/dL (12.0-15.0); Lymphocytes # (A) 1.67 X 10*3/uL (0.90-5.00); Lymphocytes % (A) 41.4 %; MCH 31.2 pg (27.0-32.0); MCHC 32.5 g/dL (32.0-37.0); MCV 96.1 FL (80.0-97.0); Mean Platelet Volume 9.6 FL (9.5-12.2); Monocytes # (A) 0.42 X 10*3/uL (0.20-1.00); Monocytes % (A) 10.4 %; NRBC Per 100 WBC 0 X 10*3/uL (0.00-0.01); Neutrophils % (A) 37.4 %; Platelet Count 251 X 10*3/uL (140-440); WBC 4.03 X 10*3/uL (4.50-10.00)
--- NOTE | 2023-09-02 01:01 | PN ---
PROGRESS NOTE DATE OF SERVICE: 08/31/2023 CHIEF COMPLAINT: Digitalis toxicity. HISTORY OF PRESENT ILLNESS: This lady is doing fairly well and she is not having any dizziness or nausea. Dilantin level is approaching 20. PHYSICAL EXAMINATION: VITAL SIGNS: Normal. CHEST: Clear. CARDIAC: Normal. ABDOMEN: Soft, nontender. IMPRESSION: Digitalis toxicity. PLAN: Home once level drops into the therapeutic range. MMODL / IJN: [id number] /
--- NOTE | 2023-09-02 01:40 | PN ---
PROGRESS NOTE DATE OF SERVICE: 09/01/2023 CHIEF COMPLAINT: Digitalis toxicity. HISTORY OF PRESENT ILLNESS: This lady is doing well and Dilantin level is coming down. She probably will be able to go home tomorrow. PHYSICAL EXAMINATION: CHEST: Clear. CARDIAC: Normal. ABDOMEN: Soft and nontender. IMPRESSION: 1. Digitalis toxicity. 2. Seizure disorder. PLAN: Repeat labs today and probably home tomorrow. MMODL / IJN: [id number] /
--- NOTE | 2023-09-02 01:45 | HP ---
HISTORY AND PHYSICAL CHIEF COMPLAINT: Ataxia. HISTORY OF PRESENT ILLNESS: Another admission for this 78-year-old female who has had a longstanding history of grand mal seizure disorder with poor control. She has been on numerous medications and has been treated by various neurologists locally and [facility]. She presented to the emergency room with dizziness and ataxia and was found to have a Dilantin level of 34.2. She denied any recent seizures, confusion, syncope, focal neurologic deficits, change in vision, hearing, etc. She is admitted for observation and management until her Dilantin comes down into the normal range. REVIEW OF SYSTEMS: She has had no other complaints other than the unsteadiness. She has had no diplopia, chest pain, abdominal pain, etc. PAST MEDICAL HISTORY: Otherwise unremarkable and unchanged from her admissions in the past. FAMILY HISTORY: Otherwise unremarkable and unchanged from her admissions in the past. PERSONAL AND SOCIAL HISTORIES: Otherwise unremarkable and unchanged from her admissions in the past. She does have hypertension. PHYSICAL EXAMINATION: VITAL SIGNS: Her vital signs are normal. HEAD, EARS, EYES, NOSE, MOUTH AND THROAT: Normal. There is no nystagmus. CHEST: Clear. CARDIAC: Demonstrated regular rate and rhythm and no murmurs or extra sounds. ABDOMEN: Slightly protuberant, soft and nontender. EXTREMITIES: Normal. NEUROLOGIC: She is intact. She is admitted to the hospital. DIAGNOSES: 1. Digitalis toxicity. 2. Seizure disorder. PLAN: 1. Bedrest. 2. Follow guidelines from Poison Control. MMODL / IJN: [id number] /
[2023-09-02 08:03] VITALS: BP 148/78; PULSE 61; RESP 18; TEMP 97.4
[2023-09-02] MEDS ORDERED: PHENYTOIN SODIUM EXTENDED 100 MG CAP PO SCH (16:00)
--- NOTE | 2023-09-02 20:10 | DS ---
DISCHARGE SUMMARY CHIEF COMPLAINT: Dizziness and ataxia. HISTORY OF PRESENT ILLNESS AND PHYSICAL EXAMINATION: Details of this lady's history and physical can be found in the initial workup. LABORATORY STUDIES: While she was in the hospital, she had laboratory studies, details of which can be found in the laboratory section of her chart. COURSE IN THE HOSPITAL: After admission, she was placed on bedrest, started on intravenous fluids and found to be digitoxic. This was withheld and she was given activated charcoal as recommended by Poison Control. Her level came down over the next several days and it was felt that she could be discharged on the . She will go home on 3 doses a day instead of 4. She will follow up in the office in several days. FINAL DIAGNOSES: 1. Digitalis toxicity. 2. Poorly controlled grand mal seizures. OPERATIONS: None. CONSULTATIONS: None. She is improved. TEE / YAON: [id number] /
== END 2023-09-02 10:55 | disposition home or self-care (01) ==
LOC: EC 19:09 → 6NMEDSUR 08-30 00:03
PROVIDERS: ADMIT Family Medicine; ATTEND Family Medicine
DX: R27.0 Ataxia, unspecified (principal); T46.0X5A Adverse effect of cardiac-stimulant glycosides and drugs of similar action, initial encounter; G40.409 Other generalized epilepsy and epileptic syndromes, not intractable, without status epilepticus; I10 Essential (primary) hypertension; F41.9 Anxiety disorder, unspecified; Z87.891 Personal history of nicotine dependence; Z79.82 Long term (current) use of aspirin; Z79.890 Hormone replacement therapy; Z79.899 Other long term (current) drug therapy; Z88.0 Allergy status to penicillin
CPT/HCPCS: 96374; 96375; 99285; 36415; 93005; 84439; 80164; 80053; 80048; 84443; 80185 ×4; 84484; 85025 ×2; 81003; 72125; 70450; G0378 ×4; J1200; J2405

== ENCOUNTER 2023-10-10 14:37 | Emergency (ER) | payer MEDICARE ==
--- NOTE | 2023-10-10 15:22 | ED ---
General Adult HPI - General Chief complaint: Extremity Injury, Upper Stated complaint: Fall/ R elbow pain Time Seen by Provider: 10/10/23 15:00 Source: patient, family, RN notes reviewed, old records reviewed Mode of arrival: ambulatory Limitations: no limitations - History of Present Illness Initial comments: This is a 78-year-old female who presents to the emergency department complaining of right elbow pain. Patient states she tripped on the carpet because her cane caught the carpet. Patient states she landed on her elbow and it is causing some pain in the posterior aspect. Patient has full range of motion of the elbow. Patient denies any shoulder pain or clavicle pain. Patient has any wrist or hand pain. There is no open wound - Related Data Home Medications Medication Instructions Recorded Confirmed Aspirin 81 mg PO DAILY 11/05/20 08/30/23 Ergocalciferol (Vitamin D2) 1,250 mcg PO Q28D 04/29/23 08/30/23 [Drisdol (50,000 Iu)] Furosemide [Lasix] 20 mg PO DAILY 04/29/23 08/30/23 Levothyroxine Sodium [Synthroid] 25 mcg PO DAILY 04/29/23 08/30/23 Metoprolol Succinate (ER) [Toprol 50 mg PO DAILY 08/30/23 08/30/23 XL] levETIRAcetam [Keppra] 750 mg PO BID 08/30/23 08/30/23 Previous Rx's Medication Instructions Recorded Bisoprolol [Zebeta] 5 mg PO BID #20 tab 05/14/23 Phenytoin Sodium Extended 100 mg PO TID #90 cap 09/02/23 [Dilantin] Allergies Allergy/AdvReac Type Severity Reaction Status Date / Time TESS Inhibitors Allergy Itching/Sei Verified 08/29/23 20:16 zures Penicillins Allergy fever,rash Verified 08/29/23 20:16 Review of Systems ROS Statement: Those systems with pertinent positive or pertinent negative responses have been documented in the HPI. ROS Other: All systems not noted in ROS Statement are negative. Past Medical History Past Medical History: Hypertension, Seizure Disorder, Skin Disorder, Thyroid Disorder Additional Past Medical History / Comment(s): EXCEMA, History of Any Multi-Drug Resistant Organisms: None Reported Past Surgical History: Bariatric Surgery, Section, Joint Replacement Additional Past Surgical History / Comment(s): LOOP MONITOR IMPLANT, removed part of the stomach "years ago", jn knee replacement, LEFT CATARACT Past Anesthesia/Blood Transfusion Reactions: Motion Sickness Past Psychological History: Anxiety Smoking Status: Former smoker Past Alcohol Use History: None Reported Past Drug Use History: None Reported - Past Family History Father Family Medical History: Myocardial Infarction (ND) Mother Family Medical History: Osteoarthritis (OA) General Exam - General Exam Comments Initial Comments: GENERAL Patient is well-developed and well-nourished. Patient is in mild distress. EYES Patient's pupils are equal and round. Extraocular motion is intact SKIN Unremarkable NEURO The patient is alert and oriented -3 PYSCH Patient has normal interpersonal interactions. MUSCULOSKELETAL Elbow has full range of motion there is no swelling it is tender in the posterior region. Limitations: no limitations Course Vital Signs 10/10/23 14:51 Temperature 98.5 F Pulse Rate 74 Respiratory 16 Rate Blood Pressure 122/79 O2 Sat by Pulse 98 Oximetry Medical Decision Making - Medical Decision Making Was pt. sent in by a medical professional or institution (, PA, [employer], urgent care, hospital, or [place] [facility] [place] facility...) When possible be specific @ -No Did you speak to anyone other than the patient for history (EMS, parent, family, police, friend...)? What history was obtained from this source @ -No Did you review nursing and triage notes (agree or disagree)? Why? @ -I reviewed and agree with nursing and triage notes Were old charts reviewed (outside hosp., previous admission, EMS record, old EKG, old radiological studies, urgent care reports/EKG's, [place] health care facility records)? Report findings @ -No old charts were reviewed Differential Diagnosis (chest pain, altered mental status, abdominal pain women, abdominal pain men, vaginal bleeding, weakness, fever, dyspnea, syncope, headache, dizziness, GI bleed, back pain, seizure, CVA, palpatations, mental health, musculoskeletal)? @ -Differential Musculoskeletal Muscular strain, contusion, ligament sprain, fracture, arthritis, septic arthritis, bursitis, cellulitis, muscle spasm, nerve compression, DVT, arterial occlusion, herpes zoster, electrolyte abnormality, tumor.... This is not meant to be in all inclusive list EKG interpreted by me (3pts min.). @ -As above X-rays interpreted by me (1pt min.). @ -X-ray of the elbow wrist and hand showed no acute abnormality CT interpreted by me (1pt min.). @ -None done U/S interpreted by me (1pt. min.). @ -None done What testing was considered but not performed or refused? (CT, X-rays, U/S, labs)? Why? @ -None What meds were considered but not given or refused? Why? @ -None Did you discuss the management of the patient with other professionals (professionals i.e. , PA, [employer], lab, RT, psych nurse, elementary school social worker, family lawyer, teacher, budget officer, case managers)? Give summary @ -No Was smoking cessation discussed for >3mins.? @ -No Was critical care preformed (if so, how long)? @ -No Were there social determinants of health that impacted care today? How? (Homelessness, low income, unemployed, alcoholism, drug addiction, transportation, low edu. Level, literacy, decrease access to med. care, [facility], rehab)? @ -No Was there de-escalation of care discussed even if they declined (Discuss DNR or withdrawal of care, Hospice)? DNR status @ -No What co-morbidities impacted this encounter? (DM, HTN, Smoking, COPD, CAD, Cancer, CVA, ARF, Chemo, Hep., AIDS, mental health diagnosis, sleep apnea, mo rbid obesity)? @ -None Was patient admitted / discharged? Hospital course, mention meds given and route, prescriptions, significant lab abnormalities, going to OR and other pertinent info. @ -Patient received shot of Toradol in the emergency department. Undiagnosed new problem with uncertain prognosis? @ -No Drug Therapy requiring intensive monitoring for toxicity (Heparin, Nitro, Insulin, Cardizem)? @ -No Were any procedures done? @ -No Diagnosis/symptom? @ -Elbow contusion Acute, or Chronic, or Acute on Chronic? @ -Acute Uncomplicated (without systemic symptoms) or Complicated (systemic symptoms)? @ -Uncomplicated Side effects of treatment? @ -No Exacerbation, Progression, or Severe Exacerbation? @ -No Poses a threat to life or bodily function? How? (Chest pain, [place], [place], pneumonia, PE, COPD, DKA, ARF, appy, cholecystitis, CVA, Diverticulitis, Homicidal, Suicidal, threat to staff... and all critical care pts) @ -No Disposition Clinical Impression: Elbow contusion Disposition: HOME SELF-CARE Condition: Good Instructions (If sedation given, give patient instructions): Contusion in Adults (ED) Additional Instructions: Patient should take Motrin and Tylenol as needed for pain. Patient should ice the elbow for the first 48 hours. Patient stated put ice on for 20 minutes and then remove and then repeat after another 20 minutes. Is patient prescribed a controlled substance at d/c from ED?: No Referrals: Baljit Edmonds MD [Primary Care Provider] - 1-2 days Time of Disposition: 16:20
[2023-10-10] MEDS: KETOROLAC 15 MG/ML 1 ML VIAL IVP STA (15:27)
--- NOTE | 2023-10-10 16:07 | XR ---
EXAMINATION TYPE: XR wrist complete RT, XR elbow complete RT DATE OF EXAM: 10/10/2023 3:54 PM CLINICAL INDICATION:Female, 78 years old with history of Trauma; [facility] COMPARISON: None TECHNIQUE: XR wrist complete RT, XR elbow complete RT; wrist examined in the Frontal, navicular, lat eral, and oblique. , Elbow evaluated in frontal lateral and oblique views, FINDINGS: No acute osseous pathology, joint dislocation, or joint effusion. No evidence of any soft tissue swelling is seen. Severe degeneration changes throughout the joints of the wrist worse at the first digit carpometacarpal joint. IMPRESSION: 1. No evidence for fracture of the wrist or elbow. 2. 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
--- NOTE | 2023-10-10 16:08 | XR ---
EXAMINATION TYPE: XR hand complete LT DATE OF EXAM: 10/10/2023 3:54 PM CLINICAL INDICATION:Female, 78 years old with history of Pain-fall; COMPARISON: None TECHNIQUE: XR hand complete LT Frontal, lateral and oblique views were obtained. FINDINGS: Normal alignment of the visualized joints. No acute osseous pathology is identified. No e vidence of soft tissue swelling. Multifocal degeneration changes throughout the joints of the hand wo rse at the second third metacarpophalangeal joints with and also at the carpometacarpal joint of the first digit. IMPRESSION: 1. No acute osseous pathology. 2. 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
[2023-10-10 16:52] VITALS: BP 118/76; PULSE 68; RESP 18; TEMP 98.4
== END 2023-10-10 16:30 | disposition home or self-care (01) ==
LOC: EC 14:37
DX: S50.01XA Contusion of right elbow, initial encounter (principal); Z87.891 Personal history of nicotine dependence; Z88.0 Allergy status to penicillin; Z88.8 Allergy status to other drugs, medicaments and biological substances; W19.XXXA Unspecified fall, initial encounter
CPT/HCPCS: 73080; 73110; 73130; 99283; 96374; J1885

== ENCOUNTER 2024-01-15 12:21 | Inpatient (IN) | payer MEDICARE ==
--- NOTE | 2024-01-15 13:02 | ED ---
General Adult HPI - General Chief complaint: Weakness Stated complaint: Weakness,AMS Time Seen by Provider: 01/15/24 12:41 Source: patient Mode of arrival: wheelchair Limitations: no limitations - History of Present Illness Initial comments: Dictation was produced using [employer] dictation software. please excuse any grammatical, word or spelling errors. Chief Complaint: 78-year-old female presents with syncope History of Present Illness: Patient 78-year-old female she has past medical history of seizure disorder since the age of 4. Patient takes Dilantin and Keppra as dual therapy to treat her seizures. states that she had 3 episodes of passing out today. States that she would become completely unresponsive for approximately 10 to 15 minutes. He did not notice any shaking during these unresponsive episodes. Patient states that "everybody looks weird." When asked specifically what she means she says "they just look weird." Patient denies any complaints at the bedside. The ROS documented in this emergency department record has been reviewed and confirmed by me. Those systems with pertinent positive or negative responses h ave been documented in the HPI. All other systems are other negative and/or noncontributory. - Related Data Home Medications Medication Instructions Recorded Confirmed Aspirin 81 mg PO DAILY 11/05/20 08/30/23 Ergocalciferol (Vitamin D2) 1,250 mcg PO Q28D 04/29/23 08/30/23 [Drisdol (50,000 Iu)] Furosemide [Lasix] 20 mg PO DAILY 04/29/23 08/30/23 Levothyroxine Sodium [Synthroid] 25 mcg PO DAILY 04/29/23 08/30/23 Metoprolol Succinate (ER) [Toprol 50 mg PO DAILY 08/30/23 08/30/23 XL] levETIRAcetam [Keppra] 750 mg PO BID 08/30/23 08/30/23 Previous Rx's Medication Instructions Recorded Bisoprolol [Zebeta] 5 mg PO BID #20 tab 05/14/23 Phenytoin Sodium Extended 100 mg PO TID #90 cap 09/02/23 [Dilantin] Allergies Allergy/AdvReac Type Severity Reaction Status Date / Time TESS Inhibitors Allergy Itching/Sei Verified 01/15/24 12:39 zures Penicillins Allergy fever,rash Verified 01/15/24 12:39 Review of Systems ROS Statement: Those systems with pertinent positive or pertinent negative responses have been documented in the HPI. ROS Other: All systems not noted in ROS Statement are negative. Past Medical History Past Medical History: Hypertension, Seizure Disorder, Skin Disorder, Thyroid Disorder Additional Past Medical History / Comment(s): EXCEMA, History of Any Multi-Drug Resistant Organisms: None Reported Past Surgical History: Bariatric Surgery, Section, Joint Replacement Additional Past Surgical History / Comment(s): LOOP MONITOR IMPLANT, removed part of the stomach "years ago", jn knee replacement, LEFT CATARACT Past Anesthesia/Blood Transfusion Reactions: Motion Sickness Past Psychological History: Anxiety Smoking Status: Former smoker Past Alcohol Use History: None Reported Past Drug Use History: None Reported - Past Family History Father Family Medical History: Myocardial Infarction ([place]) Mother Family Medical History: Osteoarthritis ([place]) General Exam - General Exam Comments Initial Comments: PHYSICAL EXAM: General Impression: Alert and oriented x3, not in acute distress HEENT: Normocephalic atraumatic, extra-ocular movements intact, pupils equal and reactive to light bilaterally, mucous membranes moist. Cardiovascular: Heart regular rate and rhythm Chest: Able to complete full sentences, no retractions, no tachypnea Abdomen: abdomen soft, non-tender, non-distended, no organomegaly Musculoskeletal: Pulses present and equal in all extremities, no peripheral edema Motor: no focal deficits noted Neurological: CN II-XII grossly intact, no focal motor or sensory deficits noted Skin: Intact with no visualized rashes Psych: Normal affect and mood Limitations: no limitations Course Vital Signs 01/15/24 12:37 Temperature 98.6 F Pulse Rate 87 Respiratory 18 Rate Blood Pressure 154/83 O2 Sat by Pulse 98 Oximetry EKG Findings - EKG Comments: EKG Findings:: My EKG interpretation: Ventricular rate 85, sinus rhythm,. 173, cures 77, QTc 410. No DC prolongation, no QTC prolongation, no ST or T-wave changes noted. Overall, this EKG is unremarkable Medical Decision Making - Medical Decision Making Was pt. sent in by a medical professional or institution (, PA, PLANNING AND ANALYSIS MANAGER, urgent care, hospital, or longterm...) When possible be specific @ -No Did you speak to anyone other than the patient for history (EMS, parent, family, police, friend...)? What history was obtained from this source @ -No Did you review nursing and triage notes (agree or disagree)? Why? @ -I reviewed and agree with nursing and triage notes Were old charts reviewed (outside hosp., previous admission, EMS record, old E KG, old radiological studies, urgent care reports/EKG's, longterm records)? Report findings @ -No old charts were reviewed Differential Diagnosis (chest pain, altered mental status, abdominal pain women, abdominal pain men, vaginal bleeding, musculoskeletal, weakness, fever, dyspnea, syncope, headache, dizziness, GI bleed, back pain, seizure, CVA, palpatations, mental health)? @ -Differential Syncope: Valvular disease, hypertrophic cardiomyopathy, pulmonary embolism, tamponade, tachycardia, bradycardia, PA, hypovolemia, hemorrhage, dissection, anemia, intracranial hemorrhage, seizure, hypoglycemia, carbon monoxide poisoning, this is not meant to be an all-inclusive list. EKG interpreted by me (3pts min.). @ -See above X-rays interpreted by me (1pt min.). @ -Chest x-ray is nonacute CT interpreted by me (1pt min.). @ -None done U/S interpreted by me (1pt. min.). @ -None done What testing was considered but not performed or refused? (CT, X-rays, U/S, labs)? Why? @ -None What meds were considered but not given or refused? Why? @ -None Was smoking cessation discussed for >3mins.? @ -No Were there social determinants of health that impacted care today? How? (Homelessness, low income, unemployed, alcoholism, drug addiction, transportation, low edu. Level, literacy, decrease access to med. care, usp, rehab)? @ -No Was there de-escalation of care discussed even if they declined (Discuss DNR or withdrawal of care, Hospice)? DNR status @ -No What co-morbidities impacted this encounter? (DM, HTN, Smoking, COPD, CAD, Cancer, CVA, ARF, Chemo, Hep., AIDS, mental health diagnosis, sleep apnea, morbid obesity)? @ -None Was patient admitted / discharged? Hospital course, mention meds given and route, prescriptions, significant lab abnormalities, going to OR and other pertinent info. @ -78-year-old female presents the emergency department for multiple syncopal episodes today. Patient has a history of seizure. Takes multiple seizure medications. Vital signs upon arrival are within acceptable limits. Patient does appear to be mildly confused however she is not having any focal neurologic deficits. states that this is her normal mentation. Patient states that everything looks weird. Pressure denies hallucinations. states that patient has not been having hallucinations or paranoia at home. Laboratory evaluation obtained. CBC, coag panel metabolic panel is unremarkable. Troponin is negative. Dilantin level is therapeutic at 15.2. Patient symptoms not classic for phenytoin toxicity. Nonetheless given patient's age and comorbidities she will be admitted for syncope. Case discussed with hospitalist for admission Did you discuss the management of the patient with other professionals (professionals i.e. , PA, PLANNING AND ANALYSIS MANAGER, lab, RT, psych nurse, psych social worker, director of acquisitions, teacher, digital marketing officer, medical case manager)? Give summary @ -See above Was critical care preformed (if so, how long)? @ -No Undiagnosed new problem with uncertain prognosis? @ -No Drug Therapy requiring intensive monitoring for toxicity (Heparin, Nitro, Insulin, Cardizem)? @ -No Were any procedures done? @ -No Diagnosis/symptom? Acute, or Chronic, or Acute on Chronic? Uncomplicated (without systemic symptoms) or Complicated (systemic symptoms)? @ -Syncope Side effects of treatment? @ -No Exacerbation, Progression, or Severe Exacerbation? @ -No Poses a threat to life or bodily function? How? (Chest pain, USA, PA, pneumonia, PE, COPD, DKA, ARF, appy, cholecystitis, CVA, Diverticulitis, Homicidal, Suicidal, threat to staff... and all critical care pts) @ yes - Lab Data Result diagrams: 01/15/24 13:06 01/15/24 13:06 Lab Results 01/15/24 01/15/24 01/15/24 Range/Units 13:06 13:06 13:06 WBC 6.3 (3.8-10.6) k/uL RBC 4.75 (3.80-5.40) m/uL Hgb 14.4 (11.4-16.0) gm/dL Hct 46.2 H (34.0-46.0) % MCV 97.3 (80.0-100.0) fL MCH 30.4 (25.0-35.0) pg MCHC 31.3 (31.0-37.0) g/dL RDW 12.9 (11.5-15.5) % Plt Count 236 (150-450) k/uL MPV 8.0 Neutrophils % 68 % Lymphocytes % 21 % Monocytes % 7 % Eosinophils % 1 % Basophils % 1 % Neutrophils # 4.3 (1.3-7.7) k/uL Lymphocytes # 1.3 (1.0-4.8) k/uL Monocytes # 0.4 (0-1.0) k/uL Eosinophils # 0.1 (0-0.7) k/uL Basophils # 0.0 (0-0.2) k/uL PT 11.4 (10.0-12.5) sec INR 1.1 (<1.2) APTT 25.2 (22.0-30.0) sec Sodium 135 L (137-145) mmol/L Potassium 3.9 (3.5-5.1) mmol/L Chloride 104 (98-107) mmol/L Carbon Dioxide 24 (22-30) mmol/L Anion Gap 7 mmol/L BUN 16 (7-17) mg/dL Creatinine 0.55 (0.52-1.04) mg/dL Est GFR (CKD-EPI)AfAm >90 (>60 ml/min/1.73 sqM) Est GFR (CKD-EPI)NonAf >90 (>60 ml/min/1.73 sqM) Glucose 138 H (74-99) mg/dL Calcium 9.0 (8.4-10.2) mg/dL Magnesium 2.1 (1.6-2.3) mg/dL Total Bilirubin 0.6 (0.2-1.3) mg/dL AST 25 (14-36) U/L ALT 17 (4-34) U/L Alkaline Phosphatase 160 H (38-126) U/L Troponin I (0.000-0.034) ng/mL Total Protein 7.1 (6.3-8.2) g/dL Albumin 4.4 (3.5-5.0) g/dL Phenytoin 15.2 ug/mL 01/15/24 Range/Units 13:06 WBC (3.8-10.6) k/uL RBC (3.80-5.40) m/uL Hgb (11.4-16.0) gm/dL Hct (34.0-46.0) % MCV (80.0-100.0) fL MCH (25.0-35.0) pg MCHC (31.0-37.0) g/dL RDW (11.5-15.5) % Plt Count (150-450) k/uL MPV Neutrophils % % Lymphocytes % % Monocytes % % Eosinophils % % Basophils % % Neutrophils # (1.3-7.7) k/uL Lymphocytes # (1.0-4.8) k/uL Monocytes # (0-1.0) k/uL Eosinophils # (0-0.7) k/uL Basophils # (0-0.2) k/uL PT (10.0-12.5) sec INR (<1.2) APTT (22.0-30.0) sec Sodium (137-145) mmol/L Potassium (3.5-5.1) mmol/L Chloride (98-107) mmol/L Carbon Dioxide (22-30) mmol/L Anion Gap mmol/L BUN (7-17) mg/dL Creatinine (0.52-1.04) mg/dL Est GFR (CKD-EPI)AfAm (>60 ml/min/1.73 sqM) Est GFR (CKD-EPI)NonAf (>60 ml/min/1.73 sqM) Glucose (74-99) mg/dL Calcium (8.4-10.2) mg/dL Magnesium (1.6-2.3) mg/dL Total Bilirubin (0.2-1.3) mg/dL AST (14-36) U/L ALT (4-34) U/L Alkaline Phosphatase (38-126) U/L Troponin I <0.012 (0.000-0.034) ng/mL Total Protein (6.3-8.2) g/dL Albumin (3.5-5.0) g/dL Phenytoin ug/mL Disposition Clinical Impression: Syncope Disposition: ADMITTED IP TO THIS HOSP Condition: Fair Referrals: Baljit Edmonds MD [Primary Care Provider] - 1-2 days Decision Time: 14:07
--- NOTE | 2024-01-15 13:17 | XR ---
EXAMINATION TYPE: XR chest 2V DATE OF EXAM: 01/15/2024 COMPARISON: 07/19/2023 HISTORY: Shortness of breath TECHNIQUE: Frontal and lateral views of the chest are obtained. FINDINGS: Scattered senescent parenchymal changes noted. Hyperinflation compatible with COPD. No evidence for infiltrate. No evidence for atelectasis. Heart size is stable. Mediastinal structures are stable and grossly unremarkable. No evidence for hilar prominence. Degenerative changes dorsal spine. IMPRESSION: 1. No evidence for acute pulmonary disease.
[2024-01-15 13:24] LABS: INR 1.1 (<1.2); Partial Thromboplastin Time 25.2 sec (22.0-30.0); Prothrombin Time 11.4 sec (10.0-12.5)
[2024-01-15 13:27] LABS: Basophils % (A) 1 %; Eosinophils # (A) 0.1 k/uL (0-0.7); Eosinophils % (A) 1 %; HCT 46.2 % (34.0-46.0); HGB 14.4 gm/dL (11.4-16.0); Lymphocytes # (A) 1.3 k/uL (1.0-4.8); Lymphocytes % (A) 21 %; MCH 30.4 pg (25.0-35.0); MCHC 31.3 g/dL (31.0-37.0); MCV 97.3 fL (80.0-100.0); Monocytes # (A) 0.4 k/uL (0-1.0); Monocytes % (A) 7 %; Neutrophils # (A) 4.3 k/uL (1.3-7.7); Neutrophils % (A) 68 %; Platelet Count 236 k/uL (150-450); RBC 4.75 m/uL (3.80-5.40); RDW 12.9 % (11.5-15.5); WBC 6.3 k/uL (3.8-10.6)
[2024-01-15 13:28] LABS: ALT 17 U/L (4-34); AST 25 U/L (14-36); African American GFR (CKD) >90 (>60 ml/min/1.73 sqM); Albumin 4.4 g/dL (3.5-5.0); Alkaline Phosphatase 160 U/L (38-126); Anion Gap 7 mmol/L; Blood Urea Nitrogen 16 mg/dL (7-17); Carbon Dioxide 24 mmol/L (22-30); Chloride 104 mmol/L (98-107); Glucose 138 mg/dL (74-99); Magnesium 2.1 mg/dL (1.6-2.3); Non-African American GFR(CKD) >90 (>60 ml/min/1.73 sqM); Phenytoin (Dilantin) 15.2 ug/mL; Potassium 3.9 mmol/L (3.5-5.1); Sodium 135 mmol/L (137-145); Total Bilirubin 0.6 mg/dL (0.2-1.3); Total Protein 7.1 g/dL (6.3-8.2)
[2024-01-15] MEDS ORDERED: NALOXONE 0.4 MG/ML 1 ML VIAL IV PRN (14:07)
[2024-01-15] MEDS: SODIUM CHLORIDE 0.9% 1,000 ML IV SCH (14:29)
--- NOTE | 2024-01-15 21:19 | HP ---
HISTORY AND PHYSICAL CHIEF COMPLAINT: Syncope. HISTORY OF PRESENT ILLNESS: This is another admission for this 78-year-old female with uncontrolled seizure disorder. She has been on numerous medications and various medications and combinations over the years, and has seen numerous neurologists including going to [facility]. She continues to have episodes where she occasionally passes out. It is not all clear that these were seizures. She came through the emergency room after she had an event. REVIEW OF SYSTEMS: She denies any headaches, focal neurologic deficits, change in the vision or hearing, chest pain, palpitations, etc. She did not have incontinence. Past medical history, family history, personal and social histories are otherwise unremarkable. PHYSICAL EXAMINATION: VITAL SIGNS: Normal. HEAD, EARS, EYES, NOSE, MOUTH, AND THROAT: Normal. CHEST: Clear. CARDIAC: Normal. No murmurs. Carotids are normal. ABDOMEN: Soft, nontender. EXTREMITIES: Normal. NEUROLOGIC: She is intact. DIAGNOSES: She is admitted to the hospital with diagnoses: 1. Episode of syncope. 2. Longstanding history of seizure disorder. PLAN: 1. Bedrest. 2. IV fluids. 3. Seizure precautions. 4. Frequent monitoring of her neurologic status and vital signs. 5. Blood levels. MMODL / IJN: [id number] /
[2024-01-16] MEDS: METOPROLOL SUCCINATE (ER) 50 MG TAB.ER.24H PO SCH (09:19)
[2024-01-16] MEDS: FUROSEMIDE 20 MG TAB PO SCH (09:19)
[2024-01-16] MEDS: ASPIRIN 81 MG PO SCH (09:20)
[2024-01-16] MEDS: PHENYTOIN SODIUM EXTENDED 100 MG CAP PO SCH ×2 (10:09→21:14)
[2024-01-16] MEDS: levETIRAcetam 500 MG TAB PO SCH (10:09)
[2024-01-16] MEDS: BISOPROLOL 5 MG TAB PO SCH (11:13)
[2024-01-16 12:46] VITALS: BMI 34.5
--- NOTE | 2024-01-16 13:39 | P.CRDCN ---
History of Present Illness Consult date: 01/16/24 Reason for Consult (text): Syncope History of present illness: This is a 78-year-old female patient of Dr. 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 We have been asked to evaluate the patient for syncope. Patient states that she 2 days ago she fell at home. She states she was sitting on the sofa and petting the dog and her found her. She seemed to think it was due to her epilepsy and absence seizures. Patient states she has drop attacks and her last 1 was on Saturday. Orthostatic vital signs have been negative. Blood pressure 149/90, heart rate 87, pulse ox 99% on room air. EKG: Sinus rhythm with no acute changes Chest x-ray: No acute process Laboratory studies: WBC 6.3, hemoglobin 14.4. Sodium 135, potassium 3.9, creatinine 0.55. Troponin negative x 1. Alkaline phosphatase 160. Phenytoin 15.2. Home cardiac medications: Aspirin 81 mg daily, bisoprolol 5 mg twice daily, Lasix 20 mg daily, metoprolol succinate 50 mg daily. Note that patient is on 2 beta-blockers. According to office records, patient should only be on Toprol-XL 50 mg daily as her only beta-lyly. Cardiac catheterization in 2009 revealed aortic pressure 130/90, LVEDP 16, no gradient across the aortic valve, 40% stenosis in the mid LAD, EF normal. Echocardiogram performed in the office on 07/02/2023 revealed EF of 55%, mild left ventricular hypertrophy. Aortic valve is calcified. Trace mitral regurgitation. Mild tricuspid regurgitation. PASP 36 mmHg. Estefania scan Cardiolite stress test performed in the office on 06/18/2023 was a negative stress test by EKG criteria. Normal myocardial perfusion and function. 24-hour Holter monitor 04/18/2023 revealed sinus rhythm with episodes of paroxysmal SVT with maximum heart rate of 200 bpm lasting 6 minutes at 1 time. Review Of Systems: At the time of my exam: CONSTITUTIONAL: Denies fever or chills. HEENT: Denies blurred vision, vision changes, or eye pain. Denies hemoptysis CARDIOVASCULAR: Denies chest pain. Denies orthopnea. Denies PND. Denies palpitations RESPIRATORY: Denies shortness of breath. GASTROINTESTINAL: Denies abdominal pain. Denies nausea or vomiting. HEMATOLOGIC: Denies bleeding disorders. GENITOURINARY: Denies any blood in urine. SKIN: Denies puritis. Denies rash. Physical examination: Gen: This is a 78-year-old female in no acute distress VS: reviewed HEENT: Head is atraumatic, normocephalic. Pupils equal, round. Sclerae is anict anastasiia. NECK: Supple. No JVD. LUNGS: Clear to auscultation. No wheezes or rhonchi. No intercostal r etractions. HEART: Regular rate and rhythm. No murmur. ABDOMEN: Soft No tenderness. EXTREMITIES: No pedal edema. No calf tenderness. NEUROLOGICAL: Patient is awake, alert and oriented x3. Assessment: Syncopal episode most likely related to absence seizure and less likely cardiac etiology including structural heart disease or arrhythmia. Patient had recent normal workup in the office. Paroxysmal SVT Mild coronary artery disease Plan: Resume patient's home cardiac medications Resume patient on only Toprol XL as this is patient's home beta-lyly. Patient should not be on 2 beta-blockers. Add consult for neurology Further recommendations to follow based upon clinical course Thank you kindly for this consultation. Nurse practitioner note has been reviewed, I agree with documented findings and plan of care. Patient was seen and examined. Past Medical History Past Medical History: Hypertension, Seizure Disorder, Skin Disorder, Thyroid Disorder Additional Past Medical History / Comment(s): EXCEMA, History of Any Multi-Drug Resistant Organisms: None Reported Past Surgical History: Bariatric Surgery, Section, Joint Replacement Additional Past Surgical History / Comment(s): LOOP MONITOR IMPLANT, removed part of the stomach "years ago", jn knee replacement, LEFT CATARACT Past Anesthesia/Blood Transfusion Reactions: Motion Sickness Past Psychological History: Anxiety Additional Psychological History / Comment(s): . Smoking Status: Former smoker Past Alcohol Use History: None Reported Additional Past Alcohol Use History / Comment(s): QUIT SMOKING , SMOKED APPROX 14 YRS, 1/2 PPD Past Drug Use History: None Reported - Past Family History Father Family Medical History: Myocardial Infarction ([place]) Mother Family Medical History: Osteoarthritis (OA) Medications and Allergies Home Medications Medication Instructions Recorded Confirmed Type Aspirin 81 mg PO DAILY 11/05/20 01/15/24 History Furosemide [Lasix] 20 mg PO DAILY 04/29/23 01/15/24 History Bisoprolol [Zebeta] 5 mg PO BID #20 tab 05/14/23 01/15/24 Rx Metoprolol Succinate (ER) [Toprol 50 mg PO DAILY 08/30/23 01/15/24 History XL] Fitspresso 1 cap PO DAILY 01/15/24 01/15/24 History Phenytoin Sodium Extended 100 mg PO QID 01/15/24 01/15/24 History [Dilantin] Allergies Allergy/AdvReac Type Severity Reaction Status Date / Time TESS Inhibitors Allergy Itching/Sei Verified 01/15/24 14:24 zures Penicillins Allergy fever,rash Verified 01/15/24 14:24 Physical Exam Vitals: Vital Signs Temp Pulse Pulse Resp BP BP BP 01/16/24 02:00 87 01/16/24 00:27 99.0 F 87 18 01/16/24 00:03 90 18 160/90 01/15/24 22:18 90 18 145/90 01/15/24 21:42 86 12 176/98 01/15/24 17:50 97 18 160/90 01/15/24 16:49 88 18 150/88 01/15/24 14:49 158/87 154/99 01/15/24 14:30 82 18 164/90 01/15/24 12:37 98.6 F 87 18 154/83 BP Pulse Ox 01/16/24 02:00 01/16/24 00:27 149/90 99 01/16/24 00:03 97 01/15/24 22:18 98 01/15/24 21:42 98 01/15/24 17:50 01/15/24 16:49 01/15/24 14:49 153/92 01/15/24 14:30 97 01/15/24 12:37 98 Intake and Output 01/15/24 01/16/24 01/16/24 22:59 06:59 14:59 Other: Voiding Method Toilet # Voids 1 Weight 85.729 kg Results 01/15/24 13:06 01/15/24 13:06 Cardiac Enzymes 01/15/24 01/15/24 Range/Units 13:06 13:06 AST 25 (14-36) U/L Troponin I <0.012 (0.000-0.034) ng/mL Coagulation 01/15/24 Range/Units 13:06 PT 11.4 (10.0-12.5) sec APTT 25.2 (22.0-30.0) sec CBC 01/15/24 Range/Units 13:06 WBC 6.3 (3.8-10.6) k/uL RBC 4.75 (3.80-5.40) m/uL Hgb 14.4 (11.4-16.0) gm/dL Hct 46.2 H (34.0-46.0) % Plt Count 236 (150-450) k/uL Comprehensive Metabolic Panel 01/15/24 Range/Units 13:06 Sodium 135 L (137-145) mmol/L Potassium 3.9 (3.5-5.1) mmol/L Chloride 104 (98-107) mmol/L Carbon Dioxide 24 (22-30) mmol/L BUN 16 (7-17) mg/dL Creatinine 0.55 (0.52-1.04) mg/dL Glucose 138 H (74-99) mg/dL Calcium 9.0 (8.4-10.2) mg/dL AST 25 (14-36) U/L ALT 17 (4-34) U/L Alkaline Phosphatase 160 H (38-126) U/L Total Protein 7.1 (6.3-8.2) g/dL Albumin 4.4 (3.5-5.0) g/dL Current Medications Generic Name Dose Route Start Last Admin Trade Name Freq PRN Reason Stop Dose Admin Sodium Chloride 1,000 mls @ 20 mls/hr 01/15/24 14:15 01/15/24 14:29 Saline 0.9% IV 20 mls/hr .Q24H [id number] Administration Naloxone HCl 0.2 mg 01/15/24 14:07 Naloxone 0.4 Mg/Ml 1 Ml Vial IV Q2M PRN Opioid Reversal Intake and Output 01/15/24 01/16/24 01/16/24 22:59 06:59 14:59 Other: Voiding Method Toilet # Voids 1 Weight 85.729 kg 01/15/24 13:06 01/15/24 13:06
--- NOTE | 2024-01-16 15:47 | P.CNNES ---
History of Present Illness Consult date: 01/16/24 Requesting physician: Avani Rod Reason for Consult: Seizure disorder History of Present Illness: Patient is a 78-year-old female with history of seizure disorder, came to the hospital yesterday at 12:21 PM for syncopal spells. Patient has history of temporal lobe epilepsy since age 4. It happened after patient suffered from chickenpox, measles and pneumonia and could not break the fever for 3 days. Patient was at first placed on Dilantin, then phenobarbital was added. Patient used to have generalized tonic-clonic seizure, but not anymore. She used to get an aura consisting of strange feeling, and a funny smell and she would sit down. This brief aura would last for a few seconds. And she would pass out. She is usually postictal for about 15-45 minutes. When she would wake up, she would feel as if her head would explode. She is not having anymore generalized tonic-clonic activity. No tongue bite, no loss of control of urine. For years, she has stopped having aura and she just falls and is out for about 15-45 minutes. Patient had Holter monitoring performed, which revealed SVT. Metoprolol was added. Patient is not a very good historian. She does not remember her seizures. I called patient's , who is also not a good historian. Patient's mentions that patient's seizures consist of patient shakes, is dazed but not passes out. The seizure lasted for 5 minutes and then she is back to normal. She gets her seizures sporadically, no fixed pattern. Her states that she may skip a month or 2 and then may have couple seizures. He also mentions that patient has different type of spells, in which she passes out without any convulsion. Usually her eyes rolled back and she drops, and passes out. With her seizures, she does not pass out but with these spells, she does. She is out for about "15 to 20 minutes. Patient's last seizure was about a month ago. She had passing out spell last night. She has been having these passing out spells for last over a year. These passing out spells also may occur once a month or she may miss a month. She had this "passing out spell" on Saturday, 2 days ago. Yesterday on Saturday her legs were feeling very weak, therefore he brought her to the hospital. Patient's home medications list about Dilantin 100 mg 4 times daily. Patient states she takes Dilantin 100 mg 3 times daily. Patient used to take Keppra 750 mg twice daily, but couple months ago her neurologist increased the dose of Keppra to 1000 mg twice daily. I spent extended amount of time to figure out her seizure medications, as information mentioned by the patient, her and the home medications were all conflicting. Patient says that she has previously tried Tegretol, Vimpat, Lamictal as well as Fycompa. Patient has previously tried phenobarbital as well. Patient does not remember why all those medications were discontinued. She is not sure if she ever tried Depakote or Trileptal. Patient has been to [facility] at epilepsy monitoring unit about 9 years ago. She was diagnosed with temporal lobe seizures with bilateral epileptiform activity. Not considered a Surgical candidate. Patient had an EEG on 04/30/2023, which was reported by Dr. Hernandez and showed spike and wave discharges over the left temporal region. Patient had an MRI of the brain with and without contrast on 11/27/2017, which showed mild chronic small vessel ischemic change. No suspicious enhancement. Patient denies any tobacco or alcohol use. She does have hypertension but no diabetes. Vital signs on arrival blood pressure 150/83, pulse 87 temperature 98.6. Orthostatics were checked, and were negative, with supine blood pressure 153/92, sitting was 158/87 and standing 154/99. Repeat orthostatics again negative. Blood test shows normal CBC PT PTT, normal electrolytes with sodium borderline 135. Renal functions are normal, hepatic panel normal. Troponin negative. Dilantin level 15.2. EKG showed sinus rhythm, chest x-ray showed no evidence for acute pulmonary disease. Patient has history of temporal lobe epilepsy since age 4. Patient had an EEG performed 04/30/2023, in which there was evidence of sharply contoured activity over the left temporal. The patient has spike and slow waves over the left temporal region. No seizures noted. Review of Systems Constitutional: Denies chills, Denies fever Eyes: denies blurred vision, denies diplopia, denies pain Ears: deny: decreased hearing, ear discharge Ears, nose, mouth and throat: Denies headache, Denies sore throat, Denies vertigo Cardiovascular: Reports lightheadedness (When stands up), Denies chest pain, Denies shortness of breath Respiratory: Denies cough, Denies excessive sputum Gastrointestinal: Denies abdominal pain, Denies diarrhea, Denies nausea, Denies vomiting Genitourinary: Denies dysuria, Denies mixed incontinence Musculoskeletal: Reports morning stiffness, Denies low back pain, Denies neck pain, Denies neck stiffness Integumentary: Denies pruritus, Denies rash Neurological: Reports as per HPI Psychiatric: Reports anxiety, Denies depression Past Medical History Past Medical History: Hypertension, Seizure Disorder, Skin Disorder, Thyroid Disorder Additional Past Medical History / Comment(s): EXCEMA, History of Any Multi-Drug Resistant Organisms: None Reported Past Surgical History: Bariatric Surgery, Section, Joint Replacement Additional Past Surgical History / Comment(s): LOOP MONITOR IMPLANT, removed part of the stomach "years ago", jn knee replacement, LEFT CATARACT Past Anesthesia/Blood Transfusion Reactions: Motion Sickness Past Psychological History: Anxiety Additional Psychological History / Comment(s): . Smoking Status: Former smoker Past Alcohol Use History: None Reported Additional Past Alcohol Use History / Comment(s): QUIT SMOKING , SMOKED APPROX 14 YRS, 1/2 PPD Past Drug Use History: None Reported - Past Family History Father Family Medical History: Myocardial Infarction (SD) Mother Family Medical History: Osteoarthritis (OA) Medications and Allergies Home Medications Medication Instructions Recorded Confirmed Type Aspirin 81 mg PO DAILY 11/05/20 01/15/24 History Furosemide [Lasix] 20 mg PO DAILY 04/29/23 01/15/24 History Bisoprolol [Zebeta] 5 mg PO BID #20 tab 05/14/23 01/15/24 Rx Metoprolol Succinate (ER) [Toprol 50 mg PO DAILY 08/30/23 01/15/24 History XL] Fitspresso 1 cap PO DAILY 01/15/24 01/15/24 History Phenytoin Sodium Extended 100 mg PO QID 01/15/24 01/15/24 History [Dilantin] Allergies Allergy/AdvReac Type Severity Reaction Status Date / Time TESS Inhibitors Allergy Itching/Sei Verified 01/15/24 14:24 zures Penicillins Allergy fever,rash Verified 01/15/24 14:24 Physical Examination - Vital Signs Vital Signs: Vital Signs Temp Pulse Pulse Resp BP BP BP 01/16/24 08:52 93 178/99 165/97 01/16/24 07:00 97.3 F L 81 16 01/16/24 02:00 87 01/16/24 00:27 99.0 F 87 18 01/16/24 00:03 90 18 160/90 01/15/24 22:18 90 18 145/90 01/15/24 21:42 86 12 176/98 01/15/24 17:50 97 18 160/90 01/15/24 16:49 88 18 150/88 01/15/24 14:49 158/87 154/99 01/15/24 14:30 82 18 164/90 01/15/24 12:37 98.6 F 87 18 154/83 BP Pulse Ox 01/16/24 08:52 171/85 98 01/16/24 07:00 96 01/16/24 02:00 01/16/24 00:27 149/90 99 01/16/24 00:03 97 01/15/24 22:18 98 01/15/24 21:42 98 01/15/24 17:50 01/15/24 16:49 01/15/24 14:49 153/92 01/15/24 14:30 97 01/15/24 12:37 98 Intake and Output 01/15/24 01/16/24 01/16/24 22:59 06:59 14:59 Intake Total 118 Balance 118 Intake: Oral 118 Other: Voiding Method Toilet # Voids 1 Weight 85.729 kg Patient is an elderly female, very pleasant in no acute distress. Patient is alert awake oriented to time place and person. Patient knows it is December and the year is 2023 and that she is in [facility] in [place] and name of the current president Mr. Chew. Speech and language functions are normal. Patient can name and repeat very well. No aphasia or dysarthria. Attention, concentration is intact and fund of knowledge is slightly limited. Detailed cognitive function testing deferred. On cranial nerve examination, pupils are equal, round and reacting to light, visual curtis are full on confrontation, with no neglect on double simultaneous stimulation. Extraocular muscles are intact with no nystagmus. Face is symmetric, tongue protrudes to the midline. Palatal elevation and sensation normal, hearing and shoulder shrug normal, facial sensation normal. On muscle strength testing, there is mild right pronation but no drift. Her muscle strength is normal in arms and legs distally and proximally including hip flexion, knees and ankles. Deep tendon reflexes are symmetric 2 at the biceps, 1 brachioradialis, trace at the knees and plantars downgoing bilaterally. Sensory to touch is equal with no neglect on double simultaneous stimulation. Cerebellar function showed no ataxia for [id number] testing. No dysdiadochokinesia. No ataxia for [id number] testing on either side. Tone and bulk of muscles normal. Gait deferred.. On general examination, there is no carotid bruit or murmur, S1-S2 audible. Chest is clear on consultation. Abdomen is soft nontender. No organomegaly, bowel sounds present. Peripheral pulses are present. No peripheral edema. Results - Laboratory Findings CBC and BMP: 01/15/24 13:06 01/15/24 13:06 Abnormal Lab Findings: Abnormal Labs 01/15/24 01/15/24 13:06 13:06 Hct 46.2 H Sodium 135 L Glucose 138 H Alkaline Phosphatase 160 H Assessment and Plan Assessment: * Breakthrough seizure versus syncope. Patient apparently has 2 type of events. She describes seizures as shaking, feeling dazed without passing out. Then she has other spells in which she passes out without warning, without any convulsive activity and she is out for about 15 to 20 minutes. Uncertain if both of these events are seizures, or only 1 and the other is syncope. * Medically intractable temporal lobe epilepsy. * History of SVT noted on Holter 04/18/2023. * Hypertension * Thyroid disorder Plan: * Repeat EEG, evaluate for significant epileptiform activity. * Cardiology on board. Patient had abnormal Holter monitoring in 2022. I would recommend 30-day event monitor to rule out arrhythmia. * I spent extensive amount of time to identify the dose of seizure medications. Patient has previous history of multiple admissions for Dilantin toxicity. Patient states that she is taking Dilantin 100 mg 3 times daily, although the medical record states she is on Dilantin 100 mg 4 times daily. Her Dilantin level is already therapeutic 15.2. Any increase in the dose can make her toxic very easily. Based upon patient's information, we will keep her on Dilantin 100 mg 3 times daily. We will keep her on higher dose of Keppra 1000 mg twice daily, as was recommended by her neurologist couple months ago. * Patient's B12 was > 3600 on 02/12/2023. Hemoglobin A1c normal 5.4. * Thank you for the consult. Time with Patient: Greater than 30
--- NOTE | 2024-01-16 23:28 | EEG ---
ELECTROENCEPHALOGRAM REPORT PREAMBLE: This is a 78-year-old female with longstanding history of epilepsy came with syncopal spell versus seizure. CURRENT MEDICATIONS: 1. Keppra. 2. Dilantin. EEG FINDINGS: This is a 21-channel digital EEG recorded with video component, utilizing 10/20 international system with referential and bipolar montages. Background consists of well developed, well regulated moderate voltage activity in 9 hertz alpha. Background is posterior dominant and is reactive to eye opening and closing. Photic driving response was not seen. There is near constant focal slowing in polymorphic delta and some theta range seen in the left anterior temporal region. Frequent left temporal sharp waves were seen sporadically during the study. No electrographic seizure was recorded. Different stages of sleep were not seen. EKG channel showed no obvious arrhythmia. IMPRESSION: 1. Abnormal EEG due to presence of near constant focal slowing in dysrhythmic delta and some theta range involving the left temporal lobe, suggestive of focal cortical neuronal dysfunction and may suggest underlying structural abnormality. 2. Frequent epileptiform discharges over the left temporal region, suggest underlying cortical irritability and tendency for focal onset seizures. No electrographic seizure was recorded. MMODL / IJN: [id number] / [facility] SYSTEMKathryn
[2024-01-17 01:55] LABS: Glucose,Whole Blood 116 mg/dL (70-110)
[2024-01-17] MEDS: LORazepam 2 MG/ML INJ IV STA (02:10)
[2024-01-17] MEDS ORDERED: [UNRECOGNIZED DRUG - OTHER] PO SCH (09:00)
[2024-01-17] MEDS: LORazepam 2 MG/ML INJ IV PRN (10:18)
[2024-01-17 10:20] LABS: Glucose,Whole Blood 123 mg/dL (70-110)
--- NOTE | 2024-01-17 21:41 | P.PN ---
Subjective This is a 78-year-old female patient of Dr. 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 We have been asked to evaluate the patient for syncope. Patient states that she 2 days ago she fell at home. She states she was sitting on the sofa and petting the dog and her found her. She seemed to think it was due to her epilepsy and absence seizures. Patient states she has drop attacks and her last 1 was on Saturday. Orthostatic vital signs have been negative. Blood pressure 149/90, heart rate 87, pulse ox 99% on room air. EKG: Sinus rhythm with no acute changes Chest x-ray: No acute process Laboratory studies: WBC 6.3, hemoglobin 14.4. Sodium 135, potassium 3.9, creatinine 0.55. Troponin negative x 1. Alkaline phosphatase 160. Phenytoin 15.2. Home cardiac medications: Aspirin 81 mg daily, bisoprolol 5 mg twice daily, Lasix 20 mg daily, metoprolol succinate 50 mg daily. Note that patient is on 2 beta-blockers. According to office records, patient should only be on Toprol-XL 50 mg daily as her only beta-lyly. Cardiac catheterization in 2009 revealed aortic pressure 130/90, LVEDP 16, no gradient across the aortic valve, 40% stenosis in the mid LAD, EF normal. Echocardiogram performed in the office on 07/02/2023 revealed EF of 55%, mild left ventricular hypertrophy. Aortic valve is calcified. Trace mitral regurgitation. Mild tricuspid regurgitation. PASP 36 mmHg. Estefania scan Cardiolite stress test performed in the office on 06/18/2023 was a negative stress test by EKG criteria. Normal myocardial perfusion and function. 24-hour Holter monitor 04/18/2023 revealed sinus rhythm with episodes of paroxysmal SVT with maximum heart rate of 200 bpm lasting 6 minutes at 1 time. 01/16 patient seen and examined. Patient states she feels back to her normal self. Neurology evaluated patient with possible 2 different etiologies of syncope one more concerning for seizures and one more concerning for possible cardiogenic source. Therefore recommending 30 day event monitor. Physical examination: Gen: This is a 78-year-old female in no acute distress VS: reviewed HEENT: Head is atraumatic, normocephalic. Pupils equal, round. Sclerae is anicteric. NECK: Supple. No JVD. LUNGS: Clear to auscultation. No wheezes or rhonchi. No intercostal retractions. HEART: Regular rate and rhythm. No murmur. ABDOMEN: Soft No tenderness. EXTREMITIES: No pedal edema. No calf tenderness. NEUROLOGICAL: Patient is awake, alert and oriented x3. Assessment: Syncopal episode most likely related to seizure and less likely cardiac etiology including structural heart disease or arrhythmia. Patient had recent normal workup in the office. Paroxysmal SVT Mild coronary artery disease Plan: neurology recommendations appreciated. 30 day event monitor and discuss possible loop recorder if continues to have episodes somewhat concerning for cardiac syncope. This may be placed as an outpatient however. Appears stable for discharge home from a cardiology standpoint. Further recommendations to follow based upon clinical course Objective - Vital Signs Vital signs: Vital Signs Temp 98.3 F 01/17/24 15:13 Pulse 84 01/17/24 15:13 Resp 16 01/17/24 15:13 BP 137/88 01/17/24 15:13 Pulse Ox 100 01/17/24 15:13 FiO2 Intake & Output 01/17/24 01/17/24 01/18/24 06:59 18:59 06:59 Intake Total 540 378 Output Total 100 Balance 440 378 Intake: IV 20 Invasive Line 1 20 Oral 540 358 Output: Urine 100 Other: Voiding Method Bedside Commode External Catheter # Voids 1 2 # Bowel Movements 1 - Labs CBC & Chem 7: 01/15/24 13:06 01/15/24 13:06 Labs: Abnormal Lab Results - Last 24 Hours (Table) 01/17/24 01/17/24 Range/Units 01:53 10:18 POC Glucose (mg/dL) 116 H 123 H (70-110) mg/dL
--- NOTE | 2024-01-18 10:41 | P.PN ---
Subjective Progress Note Date: 01/17/24 Patient was seen for a follow-up. Family members were not present today. Patient apparently had an event last night at 1:54 AM when A-team was called. As per nurse report: "Pt started having what appeared to be a seizure at 0149 right after she used her call light to get help in her room. Vitals and CBG were obtained. A-team was called. Dr Craft(Neuro) was contacted and order was obtained for Ativan IVP 1mg Q30 min from him. Sound physicians were paged, and Dr Nieves came and ordered Ativan 2mg to be given stat. Seizure was witnessed with minimal twitching to right thumb and eye movements. Pt's pupils were reactive to light. But pt was not verbally responsive. Seizure activity seemed to subside around 0220. listed in the pt chart was called at [phone] and the phone immediately went to voicemail and said that the mailbox was full. Dr Edmonds was messaged via [facility] at [phone] and no response has been obtained yet. Per protocol for the frequency of ordered ativan, pt is being transferred to [facility] at this time." Nurse reported that at 10:15 AM patient had a witnessed seizure. As per her report: "RN was getting pt up to the commode and pt got real weak and RN put pt back in chair. Pt started to star off and not responding, which is what her seizures consist of according to previous RN. A-team called for help to get pt back in the bed. RN was able to get pt back in bed and 2mg of ativan was given for seizure. Pt neuro checks were b/l weakness. Dr. Acosta notified and he ordered stat dilantin and keppra levels." Patient was confused, postictal after each of this event, but slowly regained awareness and was fairly well oriented. At present patient is somewhat somnolent. Objective - Vital Signs Vital signs: Vital Signs Temp 98.2 F 01/17/24 11:22 Pulse 100 01/17/24 11:22 Resp 16 01/17/24 11:22 BP 134/91 01/17/24 11:22 Pulse Ox 100 01/17/24 11:22 FiO2 Intake & Output 01/16/24 01/17/24 01/17/24 18:59 06:59 18:59 Intake Total 236 540 250 Output Total 100 Balance 236 440 250 Weight 85.729 kg Intake: IV 10 Invasive Line 1 10 Oral 236 540 240 Output: Urine 100 Other: Voiding Method Toilet Bedside Commode Bedside Commode # Voids 2 1 - Exam Patient is slightly somnolent. She does wake up, and answers appropriately. Examination is nonfocal. - Labs CBC & Chem 7: 01/15/24 13:06 01/15/24 13:06 Labs: Abnormal Lab Results - Last 24 Hours (Table) 01/17/24 01/17/24 Range/Units 01:53 10:18 POC Glucose (mg/dL) 116 H 123 H (70-110) mg/dL Assessment and Plan Assessment: * Breakthrough seizures in patient with medically intractable epilepsy. Patient apparently has 2 type of events. She describes seizures as shaking, feeling d azed without passing out. Then she has other spells in which she passes out without warning, without any convulsive activity and she is out for about 15 to 20 minutes. Suspect both of these events are seizures. * Medically intractable temporal lobe epilepsy. * History of SVT noted on Holter 04/18/2023. * Hypertension * Thyroid disorder Plan: * EEG was performed 01/16/2024. It was abnormal EEG due to presence of near constant focal slowing and dysrhythmic delta and some theta range involving the left temporal lobe, suggesting of focal cortical neuronal dysfunction and may suggest underlying structural abnormality. Frequent epileptiform discharges over the left temporal region suggesting underlying cortical irritability and tendency for focal onset seizures. No electrographic seizure was recorded. * Suspect her syncopal spells are also probable seizures. Patient had 2 seizures in the hospital. * Stat Dilantin level checked today was 13 which is therapeutic. Keppra level pending. * Patient will receive Ativan 1 mg every 30 minutes when necessary seizure. * Cardiology on board. Patient had abnormal Holter monitoring in 2022. Patient to undergo 30-day event monitor to rule out arrhythmia. This can be placed at the time of discharge. Cardiology on board. * I spent extensive amount of time to identify the dose of seizure medications. Patient has previous history of multiple admissions for Dilantin toxicity. Patient states that she is taking Dilantin 100 mg 3 times daily, although the medical record states she is on Dilantin 100 mg 4 times daily. Her Dilantin level is already therapeutic 15.2. Any increase in the dose can make her toxic very easily. Based upon patient's information, we will keep her on Dilantin 100 mg 3 times daily. We will keep her on higher dose of Keppra 1000 mg twice daily, as was recommended by her neurologist couple months ago. * Patient's B12 was > 3600 on 02/12/2023. Hemoglobin A1c normal 5.4. * We will discuss with family members about the medications that have been tried, and what we can add at this point. Patient probably should follow-up with epileptic neurologist at a tertiary care center. * With recurrent seizures, I will try to contact patient's family to discuss about further management of her seizure disorder. Family not present at this time.
--- NOTE | 2024-01-18 12:16 | P.PN ---
Progress Note - Text Progress Note Date: 01/18/24 I spoke to patient's on the phone. He mentions that patient is under a lot of stress because patient's mother recently suffered from a stroke, and was hospitalized at [facility], now in a rehab facility. Patient's grandson is also in the hospital in the some concern about child abuse and cps are involved in that case. Patient's believes that her seizures could be related to excessive stressors. Patient's Dilantin levels are therapeutic, therefore would not like to make any changes in the Dilantin. Patient is on Keppra 1000 mg twice a day. I recommended to go up on Keppra to 1250 minute twice a day, but patient's declined, as he states that whenever she takes her medication, she just sleeps all the time. He does not want to increase the dose of these medications. On talking to patient's , it appears patient has previously failed Tr ileptal, Topamax, Lamictal, Vimpat, Fycompa. Either the medications did not work or she has some drug ALLERGIES. Patient's does not remember as to which medication she was ALLERGIC to. Patient has never tried Onfi. Patient could also be a candidate for vagal nerve stimulator. I recommended patient's to have patient follow up with her neurologist within a week to discuss about these options Onfi and/or VNS. Unfortunately Onfi is not available in the hospital formulary, therefore I cannot start it.
--- NOTE | 2024-01-18 12:27 | P.PN ---
Subjective Progress Note Date: 01/18/24 This is a 78-year-old female patient of Dr. 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 We have been asked to evaluate the patient for syncope. Patient states that she 2 days ago she fell at home. She states she was sitting on the sofa and petting the dog and her found her. She seemed to think it was due to her epilepsy and absence seizures. Patient states she has drop attacks and her last 1 was on Saturday. Orthostatic vital signs have been negative. Blood pressure 149/90, heart rate 87, pulse ox 99% on room air. EKG: Sinus rhythm with no acute changes Chest x-ray: No acute process Laboratory studies: WBC 6.3, hemoglobin 14.4. Sodium 135, potassium 3.9, crea tinine 0.55. Troponin negative x 1. Alkaline phosphatase 160. Phenytoin 15.2. Home cardiac medications: Aspirin 81 mg daily, bisoprolol 5 mg twice daily, Lasix 20 mg daily, metoprolol succinate 50 mg daily. Note that patient is on 2 beta-blockers. According to office records, patient should only be on Toprol-XL 50 mg daily as her only beta-lyly. Cardiac catheterization in 2009 revealed aortic pressure 130/90, LVEDP 16, no gradient across the aortic valve, 40% stenosis in the mid LAD, EF normal. Echocardiogram performed in the office on 07/02/2023 revealed EF of 55%, mild left ventricular hypertrophy. Aortic valve is calcified. Trace mitral regurgitation. Mild tricuspid regurgitation. PASP 36 mmHg. Estefania scan Cardiolite stress test performed in the office on 06/18/2023 was a negative stress test by EKG criteria. Normal myocardial perfusion and function. 24-hour Holter monitor 04/18/2023 revealed sinus rhythm with episodes of paroxysmal SVT with maximum heart rate of 200 bpm lasting 6 minutes at 1 time. 01/16 patient seen and examined. Patient states she feels back to her normal self. Neurology evaluated patient with possible 2 different etiologies of syncope one more concerning for seizures and one more concerning for possible cardiogenic source. Therefore recommending 30 day event monitor. 01/17 Patient is seen and examined. She states she does not have any chest pain or pressure and no shortness of breath, no fever or chills. No abdominal pain. No pain in her jaw or arms. She states she does not have any appetite she feels fatigued. Reviewed medications and no new medications could be causing this. Lab work ordered. Blood pressure 126/81, heart rate 87, pulse ox 95% on room air. Physical examination: Gen: This is a 78-year-old female in no acute distress VS: reviewed HEENT: Head is atraumatic, normocephalic. Pupils equal, round. Sclerae is anict anastasiia. NECK: Supple. No JVD. LUNGS: Clear to auscultation. No wheezes or rhonchi. No intercostal r etractions. HEART: Regular rate and rhythm. No murmur. ABDOMEN: Soft No tenderness. EXTREMITIES: No pedal edema. No calf tenderness. NEUROLOGICAL: Patient is awake, alert and oriented x3. Assessment: Syncopal episode most likely related to seizure and less likely cardiac etiology including structural heart disease or arrhythmia. Patient had recent normal workup in the office. Paroxysmal SVT Mild coronary artery disease Generalized fatigue of unclear etiology Plan: neurology recommendations appreciated. 30 day event monitor and discuss possible loop recorder if continues to have episodes somewhat concerning for cardiac syncope. This may be placed as an outpatient however. Appears stable for discharge home from a cardiology standpoint. CBC CMP ordered Further recommendations to follow based upon clinical course Nurse practitioner note has been reviewed, I agree with documented findings and plan of care. Patient was seen and examined. Objective - Vital Signs Vital signs: Vital Signs Temp 98.2 F 01/18/24 08:41 Pulse 87 01/18/24 11:45 Resp 18 01/18/24 11:45 BP 126/81 01/18/24 11:45 Pulse Ox 95 01/18/24 11:45 FiO2 Intake & Output 01/17/24 01/18/24 01/18/24 18:59 06:59 18:59 Intake Total 378 20 10 Output Total 0 Balance 378 20 10 Intake: IV 20 20 10 Invasive Line 1 20 20 10 Oral 358 Output: Urine 0 Other: Voiding Method External Catheter External Catheter External Catheter # Voids 2 1 # Bowel Movements 1 0 - Labs CBC & Chem 7: 01/15/24 13:06 01/15/24 13:06
[2024-01-18 15:11] LABS: HCT 44.6 % (34.0-46.0); HGB 14.3 gm/dL (11.4-16.0); MCH 31.2 pg (25.0-35.0); MCHC 32.1 g/dL (31.0-37.0); MCV 97.1 fL (80.0-100.0); Mean Platelet Volume 7.8; Platelet Count 247 k/uL (150-450); RBC 4.59 m/uL (3.80-5.40); RDW 12.9 % (11.5-15.5); WBC 5.5 k/uL (3.8-10.6)
[2024-01-18 15:23] LABS: ALT 17 U/L (4-34); AST 24 U/L (14-36); African American GFR (CKD) 87 (>60 ml/min/1.73 sqM); Albumin 3.8 g/dL (3.5-5.0); Alkaline Phosphatase 133 U/L (38-126); Anion Gap 7 mmol/L; Blood Urea Nitrogen 15 mg/dL (7-17); Calcium 8.7 mg/dL (8.4-10.2); Carbon Dioxide 25 mmol/L (22-30); Chloride 106 mmol/L (98-107); Glucose 96 mg/dL (74-99); Non-African American GFR(CKD) 75 (>60 ml/min/1.73 sqM); Potassium 3.9 mmol/L (3.5-5.1); Sodium 138 mmol/L (137-145); Total Bilirubin 0.4 mg/dL (0.2-1.3); Total Protein 6.4 g/dL (6.3-8.2)
--- NOTE | 2024-01-19 02:33 | PN ---
PROGRESS NOTE DATE OF SERVICE: 01/16/2024 CHIEF COMPLAINT: Syncopal episode and probable seizure. HISTORY OF PRESENT ILLNESS: This lady is having some difficulty. She seems to be having trouble talking from time- to-time and they think she has had at least 2 seizures in the last 24 hours. EEG is compatible with a seizure disorder. She is being seen by Neurology. PHYSICAL EXAMINATION: CHEST: Clear. CARDIAC: Normal. ABDOMEN: Soft, nontender. VITAL SIGNS: Blood pressure is elevated at 178/99. NEUROLOGIC: She seems a little bit slow cognitively. IMPRESSION: 1. Uncontrolled seizure disorder. 2. Postictal depression. 3. Major depression. 4. Hypertension. 5. Encephalopathy? PLAN: Continue to monitor her vital signs and neurologic status and await any further recommendations from Neurology regarding seizures. MMODL / IJN: [id number] /
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
--- NOTE | 2024-01-19 02:52 | PN ---
PROGRESS NOTE DATE OF SERVICE: 01/17/2024 CHIEF COMPLAINT: 1. 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 2. Postictal depression. 3. Major depression. HISTORY OF PRESENT ILLNESS: This lady is a little bit more alert. Vital signs have been better. She has not had any further seizure activity. PHYSICAL EXAMINATION: NEUROLOGIC: Neurologically, she is intact. CHEST: Clear. CARDIAC: Normal. IMPRESSION: 1. Uncontrolled seizure disorder. 2. Depression. PLAN: Increase activity and await for psychiatric evaluation. MMODL / IJN: [id number] /
[2024-01-19] MEDS: ONDANSETRON 4 MG/2 ML VIAL IVP PRN (08:36)
--- NOTE | 2024-01-19 11:11 | P.PN ---
Subjective Progress Note Date: 01/19/24 This is a 78-year-old female patient of Dr. 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 We have been asked to evaluate the patient for syncope. Patient states that she 2 days ago she fell at home. She states she was sitting on the sofa and petting the dog and her found her. She seemed to think it was due to her epilepsy and absence seizures. Patient states she has drop attacks and her last 1 was on Saturday. Orthostatic vital signs have been negative. Blood pressure 149/90, heart rate 87, pulse ox 99% on room air. EKG: Sinus rhythm with no acute changes Chest x-ray: No acute process Laboratory studies: WBC 6.3, hemoglobin 14.4. Sodium 135, potassium 3.9, crea tinine 0.55. Troponin negative x 1. Alkaline phosphatase 160. Phenytoin 15.2. Home cardiac medications: Aspirin 81 mg daily, bisoprolol 5 mg twice daily, Lasix 20 mg daily, metoprolol succinate 50 mg daily. Note that patient is on 2 beta-blockers. According to office records, patient should only be on Toprol-XL 50 mg daily as her only beta-lyly. Cardiac catheterization in 2009 revealed aortic pressure 130/90, LVEDP 16, no gradient across the aortic valve, 40% stenosis in the mid LAD, EF normal. Echocardiogram performed in the office on 07/02/2023 revealed EF of 55%, mild left ventricular hypertrophy. Aortic valve is calcified. Trace mitral regurgitation. Mild tricuspid regurgitation. PASP 36 mmHg. Estefania scan Cardiolite stress test performed in the office on 06/18/2023 was a negative stress test by EKG criteria. Normal myocardial perfusion and function. 24-hour Holter monitor 04/18/2023 revealed sinus rhythm with episodes of paroxysmal SVT with maximum heart rate of 200 bpm lasting 6 minutes at 1 time. 01/16 patient seen and examined. Patient states she feels back to her normal self. Neurology evaluated patient with possible 2 different etiologies of syncope one more concerning for seizures and one more concerning for possible cardiogenic source. Therefore recommending 30 day event monitor. 01/17 Patient is seen and examined. She states she does not have any chest pain or pressure and no shortness of breath, no fever or chills. No abdominal pain. No pain in her jaw or arms. She states she does not have any appetite she feels fatigued. Reviewed medications and no new medications could be causing this. Lab work ordered. Blood pressure 126/81, heart rate 87, pulse ox 95% on room air. 01/18 Patient states she is not feeling well and now has vomiting. everything she eats comes back up. She denies feeling constipated. She denies any chest pain. Blood pressure 120/72. Physical examination: Gen: This is a 78-year-old female in no acute distress VS: reviewed HEENT: Head is atraumatic, normocephalic. Pupils equal, round. Sclerae is anicteric. NECK: Supple. No JVD. LUNGS: Clear to auscultation. No wheezes or rhonchi. No intercostal retractions. HEART: Regular rate and rhythm. No murmur. ABDOMEN: Soft No tenderness. EXTREMITIES: No pedal edema. No calf tenderness. NEUROLOGICAL: Patient is awake, alert and oriented x3. Assessment: Syncopal episode most likely related to seizure and less likely cardiac etiology including structural heart disease or arrhythmia. Patient had recent normal workup in the office. Paroxysmal SVT Mild coronary artery disease Generalized fatigue of unclear etiology Plan: neurology recommendations appreciated. 30 day event monitor and discuss possible loop recorder if continues to have episodes somewhat concerning for cardiac syncope. This may be placed as an outpatient however. Appears stable for discharge home from a cardiology standpoint. Cardiology will sign off this case and follow on an as-needed basis. Please reconsult for any new concerns. Patient may follow-up in the office in one to 2 weeks. Nurse practitioner note has been reviewed, I agree with documented findings and plan of care. Patient was seen and examined. Objective - Vital Signs Vital signs: Vital Signs Temp 97.8 F 01/19/24 04:00 Pulse 77 01/19/24 04:00 Resp 16 01/19/24 04:00 BP 120/72 01/19/24 04:00 Pulse Ox 96 01/19/24 04:00 FiO2 Intake & Output 01/18/24 01/19/24 01/19/24 18:59 06:59 18:59 Intake Total 1558 20 118 Output Total 1000 500 25 Balance 558 -480 93 Intake: IV 20 20 Invasive Line 1 20 20 Oral 1538 118 Output: Urine 1000 500 Emesis 25 Other: Voiding Method External Catheter External Catheter - Labs CBC & Chem 7: 01/18/24 14:57 01/18/24 14:57 Labs: Abnormal Lab Results - Last 24 Hours (Table) 01/18/24 Range/Units 14:57 Alkaline Phosphatase 133 H (38-126) U/L
[2024-01-19] MEDS ORDERED: PHENYTOIN SODIUM INJ 50 MG/ML 2 ML VIAL IVP STA (12:39)
[2024-01-19] MEDS: SODIUM CHLORIDE 0.9% IVPB STA (14:16)
[2024-01-19] MEDS: PHENYTOIN SODIUM IVPB STA (14:16)
--- NOTE | 2024-01-20 01:27 | P.PN ---
Subjective Progress Note Date: 01/19/24 01/19/2024: Patient was seen for a follow-up. Patient's was also present. Patient has not had any more seizures since night before the last. Please refer to my note from yesterday. 01/17/2024: Patient was seen for a follow-up. Family members were not present today. Patient apparently had an event last night at 1:54 AM when A-team was called. As per nurse report: "Pt started having what appeared to be a seizure at 0149 right after she used her call light to get help in her room. Vitals and CBG were obtained. A-team was called. Dr Craft(Neuro) was contacted and order was obtained for Ativan IVP 1mg Q30 min from him. [facility] physicians were paged, and Dr Nieves came and ordered Ativan 2mg to be given stat. Seizure was witnessed with minimal twitching to right thumb and eye movements. Pt's pupils were reactive to light. But pt was not verbally responsive. Seizure activity seemed to subside around 0220. listed in the pt chart was called at 0220 and the phone immediately went to voicemail and said that the mailbox was full. Dr Edmonds was messaged via [employer] at 0229 and no response has been obtained yet. Per protocol for the frequency of ordered ativan, pt is being transferred to [facility] at this time." Nurse reported that at 10:15 AM patient had a witnessed seizure. As per her report: "RN was getting pt up to the commode and pt got real weak and RN put pt back in chair. Pt started to star off and not responding, which is what her seizures consist of according to previous RN. A-team called for help to get pt back in the bed. RN was able to get pt back in bed and 2mg of ativan was given for seizure. Pt neuro checks were b/l weakness. Dr. Acosta notified and he ordered stat dilantin and keppra levels." Patient was confused, postictal after each of this event, but slowly regained awareness and was fairly well oriented. At present patient is somewhat somnolent. Objective - Vital Signs Vital signs: Vital Signs Temp 97.8 F 01/19/24 04:00 Pulse 77 01/19/24 04:00 Resp 16 01/19/24 04:00 BP 120/72 01/19/24 04:00 Pulse Ox 96 01/19/24 04:00 FiO2 Intake & Output 01/18/24 01/19/24 01/19/24 18:59 06:59 18:59 Intake Total 1558 20 118 Output Total 1000 500 725 Balance 126 -059 -527 Intake: IV 20 20 Invasive Line 1 20 20 Oral 1538 118 Output: Urine 1000 500 700 Emesis 25 Other: Voiding Method External Catheter External Catheter - Exam Patient is slightly somnolent. She does wake up, and answers appropriately. Examination is nonfocal. - Labs CBC & Chem 7: 01/18/24 14:57 01/18/24 14:57 Labs: Abnormal Lab Results - Last 24 Hours (Table) 01/18/24 Range/Units 14:57 Alkaline Phosphatase 133 H (38-126) U/L Assessment and Plan Assessment: * Breakthrough seizures in patient with medically intractable epilepsy. Patient apparently has 2 type of events. She describes seizures as shaking, feeling dazed without passing out. Then she has other spells in which she passes out without warning, without any convulsive activity and she is out for about 15 to 20 minutes. Suspect both of these events are seizures. * Medically intractable temporal lobe epilepsy. * History of SVT noted on Holter 04/18/2023. * Hypertension * Thyroid disorder Plan: * EEG was performed 01/16/2024. It was abnormal EEG due to presence of near constant focal slowing and dysrhythmic delta and some theta range involving the left temporal lobe, suggesting of focal cortical neuronal dysfunction and may suggest underlying structural abnormality. Frequent epileptiform discharges over the left temporal region suggesting underlying cortical irritability and tendency for focal onset seizures. No electrographic seizure was recorded. * Suspect her syncopal spells are also probable seizures. Patient had 2 seizures in the hospital. * Repeat Dilantin level this morning was subtherapeutic 9.6. Patient to receive an extra bolus of Dilantin 250 mg IV 1 dose. Patient will maintained on same dose of Dilantin 100 mg 3 times a day. Check Dilantin level in the morning. Keppra level is therapeutic 17.2 (3-60). Patient's does not want dose of Keppra to be increased because it makes her excessive somnolent. * Patient will receive Ativan 1 mg every 30 minutes when necessary seizure. * Cardiology on board. Patient had abnormal Holter monitoring in 2022. Patient to undergo 30-day event monitor to rule out arrhythmia. This can be placed at the time of discharge. Cardiology on board. * I spent extensive amount of time to identify the dose of seizure medications. Patient has previous history of multiple admissions for Dilantin toxicity. Patient states that she is taking Dilantin 100 mg 3 times daily, although the medical record states she is on Dilantin 100 mg 4 times daily. Her Dilantin level is already therapeutic 15.2. Any increase in the dose can make her toxic very easily. Based upon patient's information, we will keep her on Dilantin 100 mg 3 times daily. We will keep her on higher dose of Keppra 1000 mg twice daily, as was recommended by her neurologist couple months ago. * Patient's B12 was > 3600 on 02/12/2023. Hemoglobin A1c normal 5.4. * On talking to patient's , it appears patient has previously failed Trileptal, Topamax, Lamictal, Vimpat, Fycompa. Either the medications did not work or she has some drug ALLERGIES. Patient's does not remember as to which medication she was ALLERGIC to. Patient has never tried Onfi. Patient could also be a candidate for vagal nerve stimulator. * I recommended patient's to have patient follow up with her neurologist within a week to discuss about these options Onfi and/or VNS. Unfortunately Onfi is not available in the hospital formulary, therefore I cannot start it. * If she remains seizure free overnight, and clinically stable, then we will be clear for discharge in the morning. * Dr. Dio Hernandez Will resume neurology service in the morning.
[2024-01-20 09:36] VITALS: RESP 17
[2024-01-20 11:56] VITALS: TEMP 98.2
[2024-01-20 16:06] VITALS: BP 118/82; PULSE 83
--- NOTE | 2024-01-21 00:52 | DS ---
DISCHARGE SUMMARY CHIEF COMPLAINT: Syncopal episode and postictal depression with mental status changes. HISTORY OF PRESENT ILLNESS AND PHYSICAL EXAMINATION: Details of this lady's history and physical can be found in the initial workup. LABORATORY STUDIES: While she is in the hospital, she had laboratory studies, details of which can be found in the laboratory section of her chart. COURSE IN THE HOSPITAL: After admission, she was placed on bedrest, started on seizure precautions and she probably did have another 1 or 2 seizures. She remained more lethargic than usual, suggesting that she was postictal. It was also learned that she was under quite a bit of stress with some family issues and was very depressed. She was referred to Psychiatry. She was doing well and felt that she was stable enough to be discharged home on the , and she will go home on the new medication and will be seen in the office in several days. FINAL DIAGNOSES: 1. Syncopal episode. 2. Uncontrolled seizure disorder. 3. Postictal depression. 4. Mental status changes. 5. Depression. OPERATIONS: None. CONSULTATIONS: Neurology and psychiatry, she is improved. MMODL / IJN: [id number] /
--- NOTE | 2024-01-21 01:42 | PN ---
PROGRESS NOTE DATE OF SERVICE: 01/19/2024 CHIEF COMPLAINT: Syncope, seizure and postictal depression. HISTORY OF PRESENT ILLNESS: This lady is still somewhat lethargic and not her usual appropriate self. She has been nauseated and vomited once or twice. She has had no headache, chest pain, etc. PHYSICAL EXAMINATION: CHEST: Clear. CARDIAC: Normal. ABDOMEN: Soft, nontender. IMPRESSION: 1. Syncopal episode. 2. 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 3. Postictal depression. 4. Depression. PLAN: She is being evaluated by Psychiatry before she was discharged. MMODL / IJN: [id number] /
== END 2024-01-20 16:00 | disposition home or self-care (01) | DRG 101 ==
LOC: EC 12:21 → 6NMEDSUR 14:07 → 3SCARD 01-17 02:56 → OBSVTOIN 01-17 11:45
PROVIDERS: ADMIT Family Medicine; ATTEND Family Medicine
DX: G40.119 Localization-related (focal) (partial) symptomatic epilepsy and epileptic syndromes with simple partial seizures, intractable, without status epilepticus (principal); I47.19 Other supraventricular tachycardia; G40.A19 Absence epileptic syndrome, intractable, without status epilepticus; G40.419 Other generalized epilepsy and epileptic syndromes, intractable, without status epilepticus; F32.9 Major depressive disorder, single episode, unspecified; I10 Essential (primary) hypertension; Z66 Do not resuscitate; F41.9 Anxiety disorder, unspecified; E07.9 Disorder of thyroid, unspecified; I25.10 Atherosclerotic heart disease of native coronary artery without angina pectoris; Z79.82 Long term (current) use of aspirin; Z79.899 Other long term (current) drug therapy; Z96.653 Presence of artificial knee joint, bilateral; Z87.891 Personal history of nicotine dependence; Z98.84 Bariatric surgery status; W19.XXXA Unspecified fall, initial encounter; Y92.009 Unspecified place in unspecified non-institutional (private) residence as the place of occurrence of the external cause; Z88.0 Allergy status to penicillin; Z88.8 Allergy status to other drugs, medicaments and biological substances
CPT/HCPCS: 36415; 71046; 80053; 80177; 80185; 83735; 84484; 85025; 85027; 85610; 85730; 93005; 93270; 94760; 95816; 99285

== ENCOUNTER → 2024-03-03 | Outpatient (CLI) | payer MEDICARE ==
--- NOTE | 2024-03-31 12:08 | MR ---
Site ID [facility] Arnold Paul ID [id number] Order # Procedure MRI brain/iac wo/w con EXAMINATION TYPE: MR brain and iac w con DATE OF EXAM: 03/05/2024 9:42 AM CLINICAL INDICATION: H90.A21 Sensorineural Hearing loss unilateral right ear with restricted hearing on contralateral side Tech notes: Saw possible Enhancement COMPARISON: THIS EXAM WAS READ DURING PACS DOWNTIME, NO PRIORS AVAILABLE. TECHNIQUE: Multi planar, multi sequence imaging was performed through the brain. Specialized thin s equences were obtained through the internal auditory canals. Pre-and post gadolinium sequences were obtained. MR contrast: IV Contrast: 8.5 cc Gadavist FINDINGS: The quintanilla-white junctions, ventricular system, and cisterns appear unremarkable. Scattered foci of hi gh T2 signal intensity are seen within the periventricular white matter. Midline structures show no a bnormality. Diffusion-weighted imaging shows no evidence of restricted diffusion. The susceptibility weighted images do not reveal any evidence for micro-hemorrhage. The bone marrow signal is within normal limits. Paranasal sinuses and mastoid air cells: Mild scattered paranasal sinus disease. Visualized orbits: Orbital contents are intact. After administration of gadolinium, no abnormal enhancement is seen. The internal auditory canal sequences demonstrate no significant irregularity. The 7th cranial nerve s, 8 cranial nerves, and cerebellar pontine angles appear unremarkable. After the administration indira olinium, no abnormal enhancement is seen within the internal auditory canals. Vascular loop: None. Some enhancement within the osseous structures near the internal auditory canal ostium noted bilmelonie lllashon, best appreciated on small [id number] imaging and coronal imaging IMPRESSION: 1. No evidence of intracranial mass nor acute/subacute CVA. 2. No evidence of internal auditory canal abnormality. 3. Nonspecific white matter changes, likely secondary to small vessel ischemic disease.
== END | disposition home or self-care (01) ==
LOC: RADMRIMAIN 14:20
PROVIDERS: ATTEND Otolaryngology
DX: H90.A21 Sensorineural hearing loss, unilateral, right ear, with restricted hearing on the contralateral side (principal); I67.82 Cerebral ischemia
CPT/HCPCS: 70553; A9585

== ENCOUNTER 2024-05-23 14:09 | Emergency (ER) | payer MEDICARE ==
[2024-05-23 15:19] LABS: Basophils % (A) 1 %; Eosinophils # (A) 0.2 k/uL (0-0.7); Eosinophils % (A) 5 %; HCT 40.2 % (34.0-46.0); Lymphocytes # (A) 1.4 k/uL (1.0-4.8); Lymphocytes % (A) 33 %; MCH 30.7 pg (25.0-35.0); MCHC 32.3 g/dL (31.0-37.0); MCV 94.9 fL (80.0-100.0); Mean Platelet Volume 7.8; Monocytes # (A) 0.3 k/uL (0-1.0); Monocytes % (A) 7 %; Neutrophils # (A) 2.3 k/uL (1.3-7.7); Neutrophils % (A) 53 %; Platelet Count 279 k/uL (150-450); RBC 4.23 m/uL (3.80-5.40); RDW 13.4 % (11.5-15.5); WBC 4.4 k/uL (3.8-10.6)
[2024-05-23 15:29] LABS: ALT 19 U/L (4-34); African American GFR (CKD) >90 (>60 ml/min/1.73 sqM); Anion Gap 4 mmol/L; Blood Urea Nitrogen 15 mg/dL (7-17); Calcium 8.6 mg/dL (8.4-10.2); Carbon Dioxide 28 mmol/L (22-30); Chloride 106 mmol/L (98-107); Glucose 89 mg/dL (74-99); Non-African American GFR(CKD) >90 (>60 ml/min/1.73 sqM); Sodium 138 mmol/L (137-145); Total Bilirubin 0.5 mg/dL (0.2-1.3)
[2024-05-23 15:31] LABS: Potassium 4.7 mmol/L (3.5-5.1); Total Protein 6.5 g/dL (6.3-8.2)
[2024-05-23 15:32] LABS: AST 36 U/L (14-36); Albumin 3.7 g/dL (3.5-5.0); Alkaline Phosphatase 121 U/L (38-126); Magnesium 2.1 mg/dL (1.6-2.3)
[2024-05-23 15:50] LABS: Appearance,Urine Cloudy (Clear); Bacteria,Urine Many /hpf; Bilirubin,Urine Negative (Negative); Blood,Urine Negative (Negative); Color,Urine Colorless; Glucose,Urine (UA) Negative (Negative); Ketones,Urine Negative (Negative); Leukocyte Esterase,Urine Negative (Negative); Mucus,Urine Occasional /hpf; Nitrite,Urine Negative (Negative); PH, Urine 5.5 (5.0-8.0); Protein,Urine Negative (Negative); RBC,Urine <1 /hpf (0-5); Specific Gravity,Urine 1.014 (1.001-1.035); Squamous Epithelial Cell,Urine 9 /hpf (0-4); Urobilinogen,Urine <2.0 mg/dL (<2.0); WBC,Urine <1 /hpf (0-5)
[2024-05-23] MEDS: SODIUM CHLORIDE 0.9% 1,000 ML IV ONE (15:51)
--- NOTE | 2024-05-23 16:18 | ED ---
General Adult HPI - General Chief complaint: GI Bleed Stated complaint: Blood in stool Time Seen by Provider: 05/23/24 14:34 Source: patient, RN notes reviewed, old records reviewed Mode of arrival: wheelchair Limitations: no limitations - History of Present Illness Initial comments: 79-year-old female presenting for evaluation of diarrhea and concern for dark stool. Patient has had nausea and associated diarrhea over the past 1 week which her grandchild and had similar gastrointestinal illness. No anticoagulation. Patient does feel somewhat fatigued from this condition but overall well. Developed black stool today and was concerned this could be blood. She did admit to taking Pepto-Bismol yesterday. - Related Data Home Medications Medication Instructions Recorded Confirmed Aspirin 81 mg PO DAILY 11/05/20 01/15/24 Furosemide [Lasix] 20 mg PO DAILY 04/29/23 01/15/24 Metoprolol Succinate (ER) [Toprol 50 mg PO DAILY 08/30/23 01/15/24 XL] Fitspresso 1 cap PO DAILY 01/15/24 01/15/24 Phenytoin Sodium Extended 100 mg PO QID 01/15/24 01/15/24 [Dilantin] Previous Rx's Medication Instructions Recorded levETIRAcetam [Keppra] 1,000 mg PO Q12HR #60 tab 01/20/24 Allergies Allergy/AdvReac Type Severity Reaction Status Date / Time TESS Inhibitors Allergy Itching/Sei Verified 05/23/24 14:19 zures Penicillins Allergy fever,rash Verified 05/23/24 14:19 Review of Systems ROS Statement: Those systems with pertinent positive or pertinent negative responses have been documented in the HPI. ROS Other: All systems not noted in ROS Statement are negative. Past Medical History Past Medical History: Hypertension, Seizure Disorder, Skin Disorder, Thyroid Disorder Additional Past Medical History / Comment(s): EXCEMA, History of Any Multi-Drug Resistant Organisms: None Reported Past Surgical History: Bariatric Surgery, Section, Joint Replacement Additional Past Surgical History / Comment(s): LOOP MONITOR IMPLANT, removed part of the stomach "years ago", jn knee replacement, LEFT CATARACT Past Anesthesia/Blood Transfusion Reactions: Motion Sickness Past Psychological History: Anxiety Smoking Status: Former smoker Past Alcohol Use History: None Reported Past Drug Use History: None Reported - Past Family History Father Family Medical History: Myocardial Infarction ([place]) Mother Family Medical History: Osteoarthritis (OA) General Exam Limitations: no limitations General appearance: alert, in no apparent distress Head exam: Present: atraumatic, normocephalic Eye exam: Present: normal appearance, PERRL ENT exam: Present: normal exam, mucous membranes moist Neck exam: Present: normal inspection. Absent: tenderness Respiratory exam: Present: normal lung sounds bilaterally. Absent: respiratory distress, wheezes Cardiovascular Exam: Present: regular rate, normal rhythm GI/Abdominal exam: Present: soft. Absent: distended, tenderness, guarding, rebound Rectal exam: Present: heme (-) stool, black stool. Absent: bloody stool Extremities exam: Present: normal inspection, normal capillary refill Course Vital Signs 05/23/24 05/23/24 14:13 15:53 Temperature 98.5 F Pulse Rate 68 61 Respiratory 16 17 Rate Blood Pressure 136/76 144/91 O2 Sat by Pulse 99 97 Oximetry Medical Decision Making - Medical Decision Making Was pt. sent in by a medical professional or institution (, PA, CORE JAVA SOFTWARE ENGINEER, urgent care, hospital, or senior care...) When possible be specific @ -No Did you speak to anyone other than the patient for history (EMS, parent, family, police, friend...)? What history was obtained from this source @ -No Did you review nursing and triage notes (agree or disagree)? Why? @ -I reviewed and agree with nursing and triage notes Were old charts reviewed (outside hosp., previous admission, EMS record, old EKG, old radiological studies, urgent care reports/EKG's, senior care records)? Report findings @ -No old charts were reviewed Differential GI Bleed: Esophageal varices, aortoenteric fistula, April-Dueñas, gastritis, peptic ulcer disease, diverticulosis, inflammatory bowel disease, hemorrhoids, fissure, colitis, malignancy, Meckel's diverticulum, this is not meant to be an all- inclusive list. EKG interpreted by me (3pts min.). @ -As above X-rays interpreted by me (1pt min.). @ -None done CT interpreted by me (1pt min.). @ -None done U/S interpreted by me (1pt. min.). @ -None done What testing was considered but not performed or refused? (CT, X-rays, U/S, labs)? Why? @ -None What meds were considered but not given or refused? Why? @ -None Did you discuss the management of the patient with other professionals (professionals i.e. , PA, CORE JAVA SOFTWARE ENGINEER, lab, RT, psych nurse, social services specialist, guide plant, teacher, strike warfare/missile systems officer, case folder)? Give summary @ -No Was smoking cessation discussed for >3mins.? @ -No Was critical care preformed (if so, how long)? @ -No Were there social determinants of health that impacted care today? How? (Homelessness, low income, unemployed, alcoholism, drug addiction, transportation, low edu. Level, literacy, decrease access to med. care, group home, rehab)? @ -No Was there de-escalation of care discussed even if they declined (Discuss DNR or withdrawal of care, Hospice)? DNR status @ -No What co-morbidities impacted this encounter? (DM, HTN, Smoking, COPD, CAD, Cancer, CVA, ARF, Chemo, Hep., AIDS, mental health diagnosis, sleep apnea, morbid obesity)? @ -None Was patient admitted / discharged? Hospital course, mention meds given and route, prescriptions, significant lab abnormalities, going to OR and other pertinent info. @ -79-year-old female with gastrointestinal illness, diarrhea and concern for dark stool. Patient's laboratory testing is unremarkable including CBC, CMP, urinalysis and negative Hemoccult. I suspect the dark stool was from Pepto- Bismol. Patient will monitor symptoms and follow-up with her primary care provider. Return parameters discussed. Undiagnosed new problem with uncertain prognosis? @ -No Drug Therapy requiring intensive monitoring for toxicity (Heparin, Nitro, Insulin, Cardizem)? @ -No Were any procedures done? @ -No Diagnosis/symptom? @Diarrhea Acute, or Chronic, or Acute on Chronic? @Acute Uncomplicated (without systemic symptoms) or Complicated (systemic symptoms)? @ -Default Side effects of treatment? @ -No Exacerbation, Progression, or Severe Exacerbation? @ -No Poses a threat to life or bodily function? How? (Chest pain, [place], [place], pneumonia, PE, COPD, DKA, ARF, appy, cholecystitis, CVA, Diverticulitis, Homicidal, Carol cidal, threat to staff... and all critical care pts) @ -No - Lab Data Result diagrams: 05/23/24 14:56 05/23/24 14:56 Lab Results 05/23/24 05/23/24 05/23/24 Range/Units 14:56 14:56 14:56 WBC 4.4 (3.8-10.6) k/uL RBC 4.23 (3.80-5.40) m/uL Hgb 13.0 (11.4-16.0) gm/dL Hct 40.2 (34.0-46.0) % MCV 94.9 (80.0-100.0) fL MCH 30.7 (25.0-35.0) pg MCHC 32.3 (31.0-37.0) g/dL RDW 13.4 (11.5-15.5) % Plt Count 279 (150-450) k/uL MPV 7.8 Neutrophils % 53 % Lymphocytes % 33 % Monocytes % 7 % Eosinophils % 5 % Basophils % 1 % Neutrophils # 2.3 (1.3-7.7) k/uL Lymphocytes # 1.4 (1.0-4.8) k/uL Monocytes # 0.3 (0-1.0) k/uL Eosinophils # 0.2 (0-0.7) k/uL Basophils # 0.0 (0-0.2) k/uL Sodium 138 (137-145) mmol/L Potassium 4.7 (3.5-5.1) mmol/L Chloride 106 (98-107) mmol/L Carbon Dioxide 28 (22-30) mmol/L Anion Gap 4 mmol/L BUN 15 (7-17) mg/dL Creatinine 0.51 L (0.52-1.04) mg/dL Est GFR (CKD-EPI)AfAm >90 (>60 ml/min/1.73 sqM) Est GFR (CKD-EPI)NonAf >90 (>60 ml/min/1.73 sqM) Glucose 89 (74-99) mg/dL Plasma Lactic Acid Juan (0.7-2.0) mmol/L Calcium 8.6 (8.4-10.2) mg/dL Magnesium 2.1 (1.6-2.3) mg/dL Total Bilirubin 0.5 (0.2-1.3) mg/dL AST 36 (14-36) U/L ALT 19 (4-34) U/L Alkaline Phosphatase 121 (38-126) U/L Total Protein 6.5 (6.3-8.2) g/dL Albumin 3.7 (3.5-5.0) g/dL Urine Color Colorless Urine Appearance Cloudy H (Clear) Urine pH 5.5 (5.0-8.0) Ur Specific [place] 1.014 (1.001-1.035) Urine Protein Negative (Negative) Urine Glucose (UA) Negative (Negative) Urine Ketones Negative (Negative) Urine Blood Negative (Negative) Urine Nitrite Negative (Negative) Urine Bilirubin Negative (Negative) Urine Urobilinogen <2.0 (<2.0) mg/dL Ur Leukocyte Esterase Negative (Negative) Urine RBC <1 (0-5) /hpf Urine WBC <1 (0-5) /hpf Ur Squamous Epith Cells 9 H (0-4) /hpf Urine Bacteria Many H (None) /hpf Urine Mucus Occasional H (None) /hpf Stool Occult Blood (Negative) 05/23/24 05/23/24 Range/Units 14:56 15:50 WBC (3.8-10.6) k/uL RBC (3.80-5.40) m/uL Hgb (11.4-16.0) gm/dL Hct (34.0-46.0) % MCV (80.0-100.0) fL MCH (25.0-35.0) pg MCHC (31.0-37.0) g/dL RDW (11.5-15.5) % Plt Count (150-450) k/uL MPV Neutrophils % % Lymphocytes % % Monocytes % % Eosinophils % % Basophils % % Neutrophils # (1.3-7.7) k/uL Lymphocytes # (1.0-4.8) k/uL Monocytes # (0-1.0) k/uL Eosinophils # (0-0.7) k/uL Basophils # (0-0.2) k/uL Sodium (137-145) mmol/L Potassium (3.5-5.1) mmol/L Chloride (98-107) mmol/L Carbon Dioxide (22-30) mmol/L Anion Gap mmol/L BUN (7-17) mg/dL Creatinine (0.52-1.04) mg/dL Est GFR (CKD-EPI)AfAm (>60 ml/min/1.73 sqM) Est GFR (CKD-EPI)NonAf (>60 ml/min/1.73 sqM) Glucose (74-99) mg/dL Plasma Lactic Acid Juan 1.3 (0.7-2.0) mmol/L Calcium (8.4-10.2) mg/dL Magnesium (1.6-2.3) mg/dL Total Bilirubin (0.2-1.3) mg/dL AST (14-36) U/L ALT (4-34) U/L Alkaline Phosphatase (38-126) U/L Total Protein (6.3-8.2) g/dL Albumin (3.5-5.0) g/dL Urine Color Urine Appearance (Clear) Urine pH (5.0-8.0) Ur Specific [place] (1.001-1.035) Urine Protein (Negative) Urine Glucose (UA) (Negative) Urine Ketones (Negative) Urine Blood (Negative) Urine Nitrite (Negative) Urine Bilirubin (Negative) Urine Urobilinogen (<2.0) mg/dL Ur Leukocyte Esterase (Negative) Urine RBC (0-5) /hpf Urine WBC (0-5) /hpf Ur Squamous Epith Cells (0-4) /hpf Urine Bacteria (None) /hpf Urine Mucus (None) /hpf Stool Occult Blood Negative (Negative) Disposition Clinical Impression: Diarrhea Disposition: HOME SELF-CARE Condition: Fair Instructions (If sedation given, give patient instructions): Acute Diarrhea (ED) Is patient prescribed a controlled substance at d/c from ED?: No Referrals: Baljit Edmonds MD [Primary Care Provider] - 1-2 days Time of Disposition: 16:17
[2024-05-23 16:27] VITALS: BP 150/81; PULSE 68; RESP 146; TEMP 98.2
== END 2024-05-23 16:30 | disposition home or self-care (01) ==
LOC: EC 14:09
DX: R19.7 Diarrhea, unspecified (principal); Z87.891 Personal history of nicotine dependence; Z88.0 Allergy status to penicillin; Z91.048 Other nonmedicinal substance allergy status
CPT/HCPCS: 36415; 80053; 81001; 82272; 83605; 83735; 85025; 96360; 99284

== ENCOUNTER 2024-06-04 18:17 | Observation (INO) | payer MEDICARE ==
--- NOTE | 2024-06-04 19:03 | ED ---
General Adult HPI - General Chief complaint: Seizure Stated complaint: seizure Time Seen by Provider: 06/04/24 18:41 Source: patient, family, RN notes reviewed Mode of arrival: wheelchair Limitations: no limitations - History of Present Illness Initial comments: Patient is a 79-year-old female present to the emergency department with concerns with seizure. Patient does have history of chronic seizures. Patient was changed from Dilantin to Keppra around a month ago. is worried that seizures seem to have increased since that time. Patient had a seizure yesterday unwitnessed. Patient had another 1 upon arrival today. Patient seizures she just becomes less responsive. Episode today lasted less than 10 minutes. Yesterday patient did fall on her knees and her thumb however discomfort is only mild. - Related Data Home Medications Medication Instructions Recorded Confirmed Furosemide [Lasix] 20 mg PO DAILY 04/29/23 06/04/24 Metoprolol Succinate (ER) [Toprol 50 mg PO DAILY 08/30/23 06/04/24 XL] Diphenoxylate HCl/Atropine 1 - 2 tab PO QID PRN 06/04/24 06/04/24 [Lomotil 2.5-0.025 mg Tablet] Levothyroxine Sodium [Synthroid] 25 mcg PO DAILY 06/04/24 06/04/24 levETIRAcetam [Keppra] 1,000 mg PO Q12HR 06/04/24 06/04/24 Allergies Allergy/AdvReac Type Severity Reaction Status Date / Time TESS Inhibitors Allergy Itching/Sei Verified 06/04/24 20:26 zures Penicillins Allergy fever,rash Verified 06/04/24 20:26 Review of Systems ROS Statement: Those systems with pertinent positive or pertinent negative responses have been documented in the HPI. ROS Other: All systems not noted in ROS Statement are negative. Constitutional: Denies: fever Eyes: Denies: eye pain ENT: Denies: ear pain Respiratory: Denies: cough, dyspnea Cardiovascular: Denies: chest pain Gastrointestinal: Denies: abdominal pain Neurological: Reports: as per HPI, confusion. Denies: headache, weakness Past Medical History Past Medical History: Hypertension, Seizure Disorder, Skin Disorder, Thyroid Disorder Additional Past Medical History / Comment(s): EXCEMA, History of Any Multi-Drug Resistant Organisms: None Reported Past Surgical History: Bariatric Surgery, Section, Joint Replacement Additional Past Surgical History / Comment(s): LOOP MONITOR IMPLANT, removed part of the stomach "years ago", jn knee replacement, LEFT CATARACT Past Anesthesia/Blood Transfusion Reactions: Motion Sickness Past Psychological History: Anxiety Smoking Status: Former smoker Past Alcohol Use History: None Reported Past Drug Use History: None Reported - Past Family History Father Family Medical History: Myocardial Infarction ([place]) Mother Family Medical History: Osteoarthritis (OA) General Exam Limitations: no limitations General appearance: alert, in no apparent distress Head exam: Present: normocephalic Eye exam: Present: normal appearance, PERRL, EOMI, nystagmus (Horizontal) ENT exam: Present: normal oropharynx Neck exam: Present: normal inspection. Absent: tenderness, meningismus Respiratory exam: Present: normal lung sounds bilaterally Cardiovascular Exam: Present: regular rate, normal rhythm GI/Abdominal exam: Present: soft. Absent: distended, tenderness Extremities exam: Present: normal inspection, full ROM. Absent: tenderness Neurological exam: Present: alert, CN II-XII intact Expanded Neurological exam: Present: protecting the airway Patient oriented to: Present: person, place. Absent: time Cranial nerves: EOM's Intact: Normal Motor strength exam: RUE: 5, LUE: 5, RLE: 4, LLE: 4 Eye Response: (4) open spontaneously Motor Response: (6) obeys commands Verbal Response: (4) confused conversation Psychiatric exam: Present: normal affect, normal mood Skin exam: Present: normal color Course Vital Signs 06/04/24 06/04/24 18:46 20:15 Temperature 98.4 F Pulse Rate 90 82 Respiratory 18 18 Rate Blood Pressure 179/97 148/98 O2 Sat by Pulse 100 100 Oximetry EKG Findings - EKG Results: EKG: interpreted by ERMD, sinus rhythm, normal axis, normal QRS, normal ST/T Medical Decision Making - Medical Decision Making MDM back was pt. sent in by a medical professional or institution (, PA, WEIGHT TRAINING INSTRUCTOR, urgent care, hospital, or jail...) When possible be specific @ -No Did you speak to anyone other than the patient for history (EMS, parent, family, police, friend...)? What history was obtained from this source @ -Patient's is present helps provide majority of history as patient feels a little bit confused when she arrived Did you review nursing and triage notes (agree or disagree)? Why? @ -I reviewed and agree with nursing and triage notes Were old charts reviewed (outside hosp., previous admission, EMS record, old EKG, old radiological studies, urgent care reports/EKG's, jail records)? Report findings @ -No old charts were reviewed Differential Diagnosis (chest pain, altered mental status, abdominal pain women, abdominal pain men, vaginal bleeding, weakness, fever, dyspnea, syncope, headache, dizziness, GI bleed, back pain, seizure, CVA, palpatations, mental health, musculoskeletal)? @ -Differential seizure differential Seizure: Recurrent seizure disorder, febrile seizure, alcohol withdrawal, stimulants, meningitis, encephalitis, intercranial hemorrhage, intracranial tumor, stroke, eclampsia, thyrotoxicosis, hypocalcemia, hyponatremia, hypernatremia, hypomagnesemia, psychogenic, this is not meant to be an all-inclusive list. EKG interpreted by me (3pts min.). @ -As above X-rays interpreted by me (1pt min.). @ -Lateral knee x-rays do not reveal acute abnormality. Bilateral prosthesis CT interpreted by me (1pt min.). @ -None done U/S interpreted by me (1pt. min.). @ -None done What testing was considered but not performed or refused? (CT, X-rays, U/S, labs)? Why? @ -Considered imaging however patient has history of chronic seizures with previous imaging What meds were considered but not given or refused? Why? @ -None Did you discuss the management of the patient with other professionals (professionals i.e. , PA, WEIGHT TRAINING INSTRUCTOR, lab, RT, psych nurse, mental health social worker, customer account manager, teacher, air control/anti air warfare officer, pillowcase sewer)? Give summary @ -Dr. Edmonds pagekapil for admission Was smoking cessation discussed for >3mins.? @ -No Was critical care preformed (if so, how long)? @ -No Were there social determinants of health that impacted care today? How? (Homelessness, low income, unemployed, alcoholism, drug addiction, transportation, low edu. Level, literacy, decrease access to med. care, retirement, r ehab)? @ -No Was there de-escalation of care discussed even if they declined (Discuss DNR or withdrawal of care, Hospice)? DNR status @ -No What co-morbidities impacted this encounter? (DM, HTN, Smoking, COPD, CAD, Cancer, CVA, ARF, Chemo, Hep., AIDS, mental health diagnosis, sleep apnea, morbid obesity)? @ -History of seizure disorder with recent medication change Was patient admitted / discharged? Hospital course, mention meds given and route, prescriptions, significant lab abnormalities, going to OR and other pertinent info. @ -Patient presents with worsening seizures including today. Patient to be admitted with neuro consult. [place] orders written. Undiagnosed new problem with uncertain prognosis? @ -No Drug Therapy requiring intensive monitoring for toxicity (Heparin, Nitro, I nsulin, Cardizem)? @ -No Were any procedures done? @ -No Diagnosis/symptom? @ -Seizure Acute, or Chronic, or Acute on Chronic? @ -Acute on chronic Uncomplicated (without systemic symptoms) or Complicated (systemic symptoms)? @ -Default Side effects of treatment? @ -No Exacerbation, Progression, or Severe Exacerbation? @ -No Poses a threat to life or bodily function? How? (Chest pain, [place], [place], pneumonia, PE, COPD, DKA, ARF, appy, cholecystitis, CVA, Diverticulitis, Homicidal, Suicidal, threat to staff... and all critical care pts) @ -To neurological function - Lab Data Result diagrams: 06/04/24 19:46 06/04/24 19:46 Lab Results 06/04/24 06/04/24 Range/Units 19:46 19:46 WBC 6.3 (3.8-10.6) k/uL RBC 4.74 (3.80-5.40) m/uL Hgb 14.9 (11.4-16.0) gm/dL Hct 46.2 H (34.0-46.0) % MCV 97.4 (80.0-100.0) fL MCH 31.5 (25.0-35.0) pg MCHC 32.3 (31.0-37.0) g/dL RDW 13.2 (11.5-15.5) % Plt Count 205 (150-450) k/uL MPV 8.0 Neutrophils % 57 % Lymphocytes % 29 % Monocytes % 8 % Eosinophils % 2 % Basophils % 1 % Neutrophils # 3.6 (1.3-7.7) k/uL Lymphocytes # 1.8 (1.0-4.8) k/uL Monocytes # 0.5 (0-1.0) k/uL Eosinophils # 0.1 (0-0.7) k/uL Basophils # 0.0 (0-0.2) k/uL Sodium 137 (137-145) mmol/L Potassium 3.6 (3.5-5.1) mmol/L Chloride 103 (98-107) mmol/L Carbon Dioxide 20 L (22-30) mmol/L Anion Gap 14 mmol/L BUN 11 (7-17) mg/dL Creatinine 0.54 (0.52-1.04) mg/dL Est GFR (CKD-EPI)AfAm >90 (>60 ml/min/1.73 sqM) Est GFR (CKD-EPI)NonAf >90 (>60 ml/min/1.73 sqM) Glucose 122 H (74-99) mg/dL Calcium 9.1 (8.4-10.2) mg/dL Magnesium 2.0 (1.6-2.3) mg/dL Total Bilirubin 0.9 (0.2-1.3) mg/dL AST 41 H (14-36) U/L ALT 25 (4-34) U/L Alkaline Phosphatase 161 H (38-126) U/L Total Protein 7.1 (6.3-8.2) g/dL Albumin 4.4 (3.5-5.0) g/dL Disposition Clinical Impression: Recurrent seizures Disposition: ADMITTED IP TO THIS HOSP Is patient prescribed a controlled substance at d/c from ED?: No Referrals: Baljit Edmonds MD [Primary Care Provider] - 1-2 days Time of Disposition: 20:54
[2024-06-04] MEDS: LORazepam 2 MG/ML INJ IV STA (19:46)
[2024-06-04 20:29] LABS: ALT 25 U/L (4-34); AST 41 U/L (14-36); African American GFR (CKD) >90 (>60 ml/min/1.73 sqM); Albumin 4.4 g/dL (3.5-5.0); Alkaline Phosphatase 161 U/L (38-126); Anion Gap 14 mmol/L; Basophils % (A) 1 %; Blood Urea Nitrogen 11 mg/dL (7-17); Calcium 9.1 mg/dL (8.4-10.2); Carbon Dioxide 20 mmol/L (22-30); Chloride 103 mmol/L (98-107); Eosinophils # (A) 0.1 k/uL (0-0.7); Eosinophils % (A) 2 %; Glucose 122 mg/dL (74-99); HCT 46.2 % (34.0-46.0); HGB 14.9 gm/dL (11.4-16.0); Lymphocytes # (A) 1.8 k/uL (1.0-4.8); Lymphocytes % (A) 29 %; MCH 31.5 pg (25.0-35.0); MCHC 32.3 g/dL (31.0-37.0); MCV 97.4 fL (80.0-100.0); Monocytes # (A) 0.5 k/uL (0-1.0); Monocytes % (A) 8 %; Neutrophils # (A) 3.6 k/uL (1.3-7.7); Neutrophils % (A) 57 %; Non-African American GFR(CKD) >90 (>60 ml/min/1.73 sqM); Platelet Count 205 k/uL (150-450); Potassium 3.6 mmol/L (3.5-5.1); RBC 4.74 m/uL (3.80-5.40); RDW 13.2 % (11.5-15.5); Sodium 137 mmol/L (137-145); Total Bilirubin 0.9 mg/dL (0.2-1.3); Total Protein 7.1 g/dL (6.3-8.2); WBC 6.3 k/uL (3.8-10.6)
--- NOTE | 2024-06-04 20:39 | XR ---
EXAMINATION TYPE: XR knee complete bilateral DATE OF EXAM: 06/04/2024 8:22 PM COMPARISON: None. CLINICAL INDICATION: Female, 79 years old with history of fall, TECHNIQUE: 3 views bilateral knees each view(s) obtained. FINDINGS: Right knee: There is a right knee prosthesis. Plate and screws are within the distal femur. No joint effusion is evident. No acute fractures or dislocations evident. Vascular calcifications noted Left knee: There is a left knee prosthesis. No joint effusion evident. No acute fractures or dislocations evident. Vascular calcifications noted IMPRESSION: 1. Bilateral knee prostheses. 2. No suspicious osseous abnormality evident bilateral knees. [facility], , 06/04/2024 8:36 PM
[2024-06-04] MEDS ORDERED: NALOXONE 0.4 MG/ML 1 ML VIAL IV PRN (20:54)
[2024-06-04] MEDS: levETIRAcetam 500 MG TAB PO SCH (21:06)
[2024-06-05] MEDS: LEVOTHYROXINE 25 MCG TAB PO SCH (08:01)
[2024-06-05] MEDS: METOPROLOL SUCCINATE (ER) 50 MG TAB.ER.24H PO SCH (08:01)
[2024-06-05] MEDS: FUROSEMIDE 20 MG TAB PO SCH (08:01)
[2024-06-05] MEDS: ACETAMINOPHEN TAB 325 MG TAB PO PRN (23:42)
--- NOTE | 2024-06-06 01:35 | P.CNNES ---
History of Present Illness Consult date: 06/05/24 Requesting physician: Jez Roy Reason for Consult: Seizures History of Present Illness: Patient is a 79-year-old right-handed, with longstanding history of seizure disorder, female came to the hospital yesterday at 6:17 PM for breakthrough seizures. Patient is not a good historian, not able to provide detailed history. I tried to contact patient's numerous times, and he did not brick picker the phone. Even I had patient call through her cell phone and patient's did not brick picker the phone. Patient came to the hospital with breakthrough seizures. Patient used to be on Keppra and Dilantin, but apparently Dilantin has been tapered off, and patient is only on single agent, Keppra 1000 mg twice daily. Vital signs on arrival blood pressure 179/97, pulse rate 90, temperature 98.4. EKG showed sinus rhythm. Knee x-ray showed bilateral knee prosthesis. No fracture. CBC is normal, CMP is normal with mildly elevated AST 41. Patient had an EEG on 01/16/2024, which was abnormal EEG due to presence of near constant focal slowing in dysrhythmic delta and some theta range involving the left temporal lobe, suggestive of focal cortical neuronal dysfunction and may suggest underlying structural abnormality. Frequent epileptiform discharges over the left temporal region, suggesting underlying cortical irritability and tendency for focal onset seizures. No electrographic seizures were recorded. Patient has history of temporal lobe epilepsy since age 4. It happened after patient suffered from chickenpox, measles and pneumonia and could not break the fever for 3 days. Patient was at first placed on Dilantin, then phenobarbital was added. Patient used to have generalized tonic-clonic seizure, but not anymore. She used to get an aura consisting of strange feeling, and a funny smell and she would sit down. This brief aura would last for a few seconds. And she would pass out. She is usually postictal for about 15-45 minutes. When she would wake up, she would feel as if her head would explode. She is not having anymore generalized tonic-clonic activity. No tongue bite, no loss of control of urine. For years, she has stopped having aura and she just falls and is out for about 15-45 minutes. Patient had Holter monitoring performed, which revealed SVT. Metoprolol was added. Patient says that she has previously tried Tegretol, Vimpat, Lamictal as well as Fycompa. Patient has previously tried phenobarbital as well. Most recently patient was on Dilantin, but apparently not at this time. Patient does not remember why all those medications were discontinued. She is not sure if she ever tried Depakote or Trileptal. Patient has been to [facility] at epilepsy monitoring unit about 9 years ago. She was diagnosed with temporal lobe seizures with bilateral epileptiform activity. Not considered a Surgical candidate. Patient had an EEG on 04/30/2023, which was reported by Dr. Hernandez and showed spike and wave discharges over the left temporal region. Patient had an MRI of the brain with and without contrast on 11/27/2017, which showed mild chronic small vessel ischemic change. No suspicious enhancement. Patient denies any tobacco or alcohol use. She does have hypertension but no diabetes. Review of Systems All pertinent positive and negative review of systems mentioned in the HPI, otherwise unremarkable. Past Medical History Past Medical History: Hypertension, Seizure Disorder, Skin Disorder, Thyroid Disorder Additional Past Medical History / Comment(s): ECZEMA, History of Any Multi-Drug Resistant Organisms: None Reported Past Surgical History: Bariatric Surgery, Section, Joint Replacement Additional Past Surgical History / Comment(s): LOOP MONITOR IMPLANT, removed part of the stomach "years ago", jn knee replacement, LEFT CATARACT Past Anesthesia/Blood Transfusion Reactions: Motion Sickness Past Psychological History: Anxiety Additional Psychological History / Comment(s): . Smoking Status: Former smoker Past Alcohol Use History: None Reported Additional Past Alcohol Use History / Comment(s): QUIT SMOKING , SMOKED APPROX 14 YRS, 1/2 PPD Past Drug Use History: None Reported - Past Family History Father Family Medical History: Myocardial Infarction ([place]) Mother Family Medical History: Osteoarthritis ([place]) Medications and Allergies Home Medications Medication Instructions Recorded Confirmed Type Furosemide [Lasix] 20 mg PO DAILY 04/29/23 06/04/24 History Metoprolol Succinate (ER) [Toprol 50 mg PO DAILY 08/30/23 06/04/24 History XL] Diphenoxylate HCl/Atropine 1 - 2 tab PO QID PRN 06/04/24 06/04/24 History [Lomotil 2.5-0.025 mg Tablet] Levothyroxine Sodium [Synthroid] 25 mcg PO DAILY 06/04/24 06/04/24 History levETIRAcetam [Keppra] 1,000 mg PO Q12HR 06/04/24 06/04/24 History Allergies Allergy/AdvReac Type Severity Reaction Status Date / Time TESS Inhibitors Allergy Itching/Sei Verified 06/04/24 20:26 zures Penicillins Allergy fever,rash Verified 06/04/24 20:26 Physical Examination - Vital Signs Vital Signs: Vital Signs Temp Pulse Pulse Resp BP BP BP 06/05/24 14:00 98.6 F 83 16 149/77 06/05/24 07:17 98.4 F 73 16 127/77 06/05/24 01:40 98.6 F 62 16 136/85 06/04/24 22:04 98.5 F 86 16 175/107 06/04/24 21:16 98.2 F 81 18 170/94 06/04/24 20:15 82 18 148/98 06/04/24 18:46 98.4 F 90 18 179/97 Pulse Ox 06/05/24 14:00 99 06/05/24 07:17 100 06/05/24 01:40 95 06/04/24 22:04 99 06/04/24 21:16 96 06/04/24 20:15 100 06/04/24 18:46 100 Intake and Output 06/04/24 06/05/24 06/05/24 22:59 06:59 14:59 Intake Total 240 Balance 240 Intake: Oral 240 Other: # Voids 2 Weight 92.533 kg Patient is an elderly female, very pleasant in no acute distress. Patient is alert awake oriented to time place and person. Patient knows it May 2024 and that she is in [facility] and name of the current president Mr. Chew. Speech and language functions are normal. Patient can name and repeat very well. No aphasia or dysarthria. Attention, concentration is intact and fund of knowledge is slightly limited. Detailed cognitive function testing deferred. On cranial nerve examination, pupils are equal, round and reacting to light, visual curtis are full on confrontation, with no neglect on double simultaneous stimulation. Extraocular muscles are intact with no nystagmus. Face is symmetric, tongue protrudes to the midline. Palatal elevation and sensation normal, hearing and shoulder shrug normal, facial sensation normal. On muscle strength testing, there is mild right pronation but no drift. Her muscle strength is normal in arms and legs distally and proximally including hip flexion, knees and ankles. Deep tendon reflexes are symmetric 2 at the biceps, 1 brachioradialis, trace at the knees and plantars downgoing bilaterally. Sensory to touch is equal with no neglect on double simultaneous stimulation. Cerebellar function showed no ataxia for hpeeyi-ea-xxyf testing. No dysdiadochokinesia. No ataxia for vzmo-dd-ukvf testing on either side. Tone and bulk of muscles normal. Gait deferred.. On general examination, there is no carotid bruit or murmur, S1-S2 audible. Chest is clear on consultation. Abdomen is soft nontender. No organomegaly, bowel sounds present. Peripheral pulses are present. No peripheral edema. Results - Laboratory Findings CBC and BMP: 06/04/24 19:46 06/04/24 19:46 Abnormal Lab Findings: Abnormal Labs 06/04/24 06/04/24 19:46 19:46 Hct 46.2 H Carbon Dioxide 20 L Glucose 122 H AST 41 H Alkaline Phosphatase 161 H Assessment and Plan Assessment: * Breakthrough seizure. * Medically intractable temporal lobe epilepsy. * History of SVT noted on Holter 04/18/2023. * Hypertension * Thyroid disorder Plan: Patient is a not a good historian, does not remember details. I tried to contact patient's numerous times, but not able to get hold of him. Patient used to be on Keppra and Dilantin, but now only taking Keppra 1000 mg twice daily. She does have medically intractable epilepsy. We will increase Keppra to 1250 mg twice daily. On my previous conversation with patient's with the last admission, he has mentioned that patient has previously failed Trileptal, Topamax, Lamictal, Vimpat, Fycompa. Either the medications did not work or she has some drug ALLERGIES. Patient's does not remember as to which medication she was ALLERGIC to. Patient has never tried Onfi. Patient could also be a candidate for vagal nerve stimulator. We will try to contact patient's in the morning to discuss further management, as he is more involved in patient's care rather than patient herself. Dr. Lindsay will cover neurology service over the weekend. Thank you for the consult.
--- NOTE | 2024-06-06 02:59 | HP ---
HISTORY AND PHYSICAL CHIEF COMPLAINT: Uncontrolled seizures. HISTORY OF PRESENT ILLNESS: Another admission for this 79-year-old female, who has had longstanding history of seizure issues. She has seen every neurologist in [facility] and has been treated in [facility] and possibly other hospitals as well. It is thought that some of her activity is pseudo or factitious. She does have significant problem with depression. She came into the emergency room with seizures and had another witnessed one in the emergency room. REVIEW OF SYSTEMS: At the present time, she feels fine. She is awake and alert, without any headache or injury to the tongue or lips. She was not incontinent of urine. Remainder of her history is unremarkable. MEDICATIONS: Her medications for seizure are very depending on whom she is seeing. PHYSICAL EXAMINATION: VITAL SIGNS: Normal. HEAD, EARS, EYES, NOSE, MOUTH, AND THROAT: Normal. CHEST: Clear. CARDIAC: Normal. ABDOMEN: Soft, nontender. EXTREMITIES: Normal. IMPRESSION: 1. Acute grand mal seizure. 2. History of grand mal seizures. 3. Depression. PLAN: 1. Bedrest. 2. IV fluids. 3. Seizure precautions. 4. Consult with Neurology once again. MMODL / IJN: [id number] /
[2024-06-06] MEDS: levETIRAcetam 250 MG TAB PO SCH (08:42)
[2024-06-06] MEDS: levETIRAcetam 500 MG TAB PO SCH (08:44)
[2024-06-06] MEDS ORDERED: levETIRAcetam 500 MG TAB PO SCH (09:00)
--- NOTE | 2024-06-06 10:06 | PN ---
PROGRESS NOTE DATE OF SERVICE: 06/05/2024 CHIEF COMPLAINT: Seizure disorder. HISTORY OF PRESENT ILLNESS: This lady is doing fine today. She seems awake and alert, oriented. She denies any myalgias, oral injuries, etc. Blood pressure is better than when she came in. PHYSICAL EXAMINATION: HEAD, EARS, EYES, NOSE, MOUTH, AND THROAT: Normal. CHEST: Clear. CARDIAC: Normal. IMPRESSION: Grand mal seizure disorder, uncontrolled. PLAN: 1. Continue with her anticonvulsants. 2. Neurology consult. MMODL / IJN: [id number] /
--- NOTE | 2024-06-06 15:09 | P.PN ---
Subjective Progress Note Date: 06/06/24 The patient is a 79-year-old -[place] female who was seen in neurologic follow-up on June 06, 2024, in collaboration with Livier Pham, via teleneurology. The patient reports coming into the emergency department because of breakthrough seizure. She says that her brought her in. She says that in addition to having a seizure at home, she had a seizure in the emergency department. She denies having any seizures this morning. The patient reports that she has been having seizures since age 4. She says when she was 4 years old she came down with "chickenpox, pneumonia and measles all at the same time". She said that she was very sick. She says the doctor spent several nights at her bedside. She says that approximately 6 months later, she began to have seizures. The seizures were reportedly under control, at some point during her childhood. As she has gotten older, the seizures have been reportedly become more difficult to control. According to the patient, most recently she is seeing Dr. Mai, who is an epileptologist out of [facility]. She reports that he recently discontinued her Dilantin. She has reportedly been taking Keppra 1000 mg twice daily at home. The patient denies tongue biting as well as loss of bowel and bladder control, associated with her seizures. The patient denies headache. She states that when she was young, she would get a warning that she was going to have a seizure. Now, she does not get an aura. Objective - Vital Signs Vital signs: Vital Signs Temp 98.7 F 06/06/24 13:37 Pulse 74 06/06/24 13:37 Resp 16 06/06/24 13:37 BP 144/88 06/06/24 13:37 Pulse Ox 99 06/06/24 13:37 FiO2 Intake & Output 06/05/24 06/06/24 06/06/24 18:59 06:59 18:59 Intake Total 2458 Balance 2458 Intake: Oral 2458 Other: Voiding Method Toilet # Voids 4 3 - Exam General: The patient is well-nourished, well-developed and in no acute distress. HEENT: Head is atraumatic, normocephalic. Fundus not visualized. There is no scleral icterus. Mucous membranes are moist Neurological examination Mental status: The patient is awake, alert and oriented x 3. Her speech is clear. There is no dysarthria or aphasia. Cranial nerves: Pupils are equal, round and reactive to light. Visual curtis are full to confrontation. Extraocular movements are intact. Facial sensation is intact. There is no facial asymmetry. Hearing is grossly intact. Uvula and palate are midline. Shoulder shrug is symmetric. Tongue protrudes midline, without bruising or laceration. Motor: Upper extremity strength is 5/5. Bilateral hip flexors 4/5. Ankle plantar and dorsiflexors 5/5. Deep tendon reflexes: 2+/4+ in the bilateral upper extremities. Lower extremity reflexes are absent. - Labs CBC & Chem 7: 06/04/24 19:46 06/04/24 19:46 Assessment and Plan Assessment: * Breakthrough seizure. * Medically intractable temporal lobe epilepsy. * History of SVT noted on Holter 04/18/2023. * Hypertension * Thyroid disorder Plan: 1. EEG has been ordered 2. Keppra dosing has been increased to 1250 mg twice daily 3. If the patient truly is seeing an epileptologist, would recommend video monitoring for at least 24-72-hour ambulatory EEG Time with Patient: Greater than 30 (38 minutes were spent caring for this patient today including, obtaining a history, reviewing imaging, chart documentation, labs, placing orders and creating this note)
[2024-06-06] MEDS: SIMETHICONE 80 MG CHEWABLE PO PRN (18:35)
[2024-06-07] MEDS: ONDANSETRON 4 MG TAB PO PRN (11:48)
--- NOTE | 2024-06-07 14:29 | P.PN ---
Subjective Progress Note Date: 06/07/24 The patient is a 79-year-old -[place] female who was seen in neurologic follow-up on June 07, 2024, in collaboration with Livier Pham, via teleneurology. The patient's was present at the bedside at the time of the evaluation today. When asked if you could describe the patient's seizures he states that most of the time her seizures involve shaking of both arms and legs. More r ecently, since dosing of the medication has changed, specifically discontinuation of Dilantin and increased dosing of Keppra, the patient has episodes where she is "talking out of her head". The describes that the patient is talking and not making any sense. She is looking for things or ru mmaging through her purse. These episodes will last for approximately 15 minutes. Eventually, the patient will begin to respond to her and answer questions appropriately. The reports that these episodes are occurring more frequently. This is the episode that occurred, resulting in admission to the hospital. The patient has been following with a neurologist. She has recently been referred to an epileptologist. The patient will be seen by the epileptologist on July 09, 2024. June 06, 2024 The patient reports coming into the emergency department because of breakthrough seizure. She says that her brought her in. She says that in addition to having a seizure at home, she had a seizure in the emergency department. She denies having any seizures this morning. The patient reports that she has been having seizures since age 4. She says when she was 4 years old she came down with "chickenpox, pneumonia and measles all at the same time". She said that she was very sick. She says the doctor spent several nights at her bedside. She says that approximately 6 months later, she began to have seizures. The seizures were reportedly under control, at some point during her childhood. As she has gotten older, the seizures have been reportedly become more difficult to control. Objective - Vital Signs Vital signs: Vital Signs Temp 98.4 F 06/07/24 07:22 Pulse 74 06/07/24 07:22 Resp 16 06/07/24 07:22 BP 151/92 06/07/24 07:22 Pulse Ox 99 06/07/24 07:22 FiO2 Intake & Output 06/06/24 06/07/24 06/07/24 18:59 06:59 18:59 Intake Total 1198 Balance 1198 Intake: Oral 1198 Other: Voiding Method Toilet # Voids 3 3 - Exam General: The patient is well-nourished, well-developed and in no acute distress. HEENT: Head is atraumatic, normocephalic. Fundus not visualized. There is no scleral icterus. Mucous membranes are moist Neurological examination Mental status: The patient is awake, alert and oriented x 3. Her speech is clear. There is no dysarthria or aphasia. Cranial nerves: Pupils are equal, round and reactive to light. Visual curtis are full to confrontation. Extraocular movements are intact. Facial sensation is intact. There is no facial asymmetry. Hearing is grossly intact. Uvula and palate are midline. Shoulder shrug is symmetric. Tongue protrudes midline, without bruising or laceration. - Labs CBC & Chem 7: 06/04/24 19:46 06/04/24 19:46 Assessment and Plan Assessment: * Breakthrough seizure. * Medically intractable temporal lobe epilepsy. * History of SVT noted on Holter 04/18/2023. * Hypertension * Thyroid disorder Plan: 1. EEG has been ordered and will be completed on Saturday 2. Keppra dosing has been increased to 1250 mg twice daily 3. The patient and her were strongly advised to keep the scheduled appointment with the epileptologist Dr. Dio Hernandez will assume neurologic coverage of this patient as of May Time with Patient: Greater than 30 (35 minutes were spent caring for this patient today including, obtaining a history, examining the patient, reviewing chart documentation, labs and creating this note)
[2024-06-08 12:35] VITALS: BP 126/77; PULSE 77; RESP 17; TEMP 98.3
--- NOTE | 2024-06-08 16:49 | P.PN ---
Subjective Progress Note Date: 06/08/24 Seeing the patient for the first time during this hospital visit. Please refer to Dr. Lindsay's note for further details. Patient is accompanied with her granddaughter. According to the patient she has been having a history of seizures since the age of 4 and she is following up with a neurologist and he discontinued her Dilantin and placed her on Keppra and as a result she had a seizure. Since her Keppra was increased during this hospital visit she stated that she has not had any further seizure and she feels back to baseline. Objective - Vital Signs Vital signs: Vital Signs Temp 98.3 F 06/08/24 12:34 Pulse 77 06/08/24 12:34 Resp 17 06/08/24 12:34 BP 126/77 06/08/24 12:34 Pulse Ox 97 06/08/24 12:34 FiO2 Intake & Output 06/07/24 06/08/24 06/08/24 18:59 06:59 18:59 Intake Total 1620 480 598 Balance 1620 480 598 Intake: Oral 1620 480 598 Other: Voiding Method Toilet Toilet # Voids 5 - Exam General: Lying in bed and is not in acute distress. Neuro: Awake alert oriented to self place and time. Is following simple commands. No aphasia. The pupils are round equal to light. Visual curtis are full to confrontation. No facial weakness. No dysarthria. Hearing is moderate to severe decreased bilaterally to handgrip. Motor the strength is 5 out of 5 throughout Sensation is normal to touch. - Labs CBC & Chem 7: 06/04/24 19:46 06/04/24 19:46 Assessment and Plan Assessment: * Breakthrough seizure---no further seizure since hospital visit * Medically intractable temporal lobe epilepsy. * History of SVT noted on Holter 04/18/2023. * Hypertension * Thyroid disorder Plan: 1. EEG: Preliminary showed left temporal discharge but no seizure. 2. Keppra dosing has been increased to 1250 mg twice daily during this hospital visit. 3. The patient advised to keep the scheduled appointment with the epileptologist 4. Per the [place] DMV because of seizure, to avoid driving for 6 months until seizure-free from her last episode, avoid heights, avoid swimming unassisted or using heavy machinery. There is no further neurological work-up. Will sign off. Please reconsult if needed. Time with Patient: Less than 30
--- NOTE | 2024-06-09 02:47 | EEG ---
ELECTROENCEPHALOGRAM REPORT CLINICAL HISTORY: This is a 79-year-old woman with a history of epilepsy, who presented to the emergency department because of breakthrough seizures. The video EEG is obtained to evaluate for seizure epileptiform activity. RELEVANT MEDICATION: Keppra. EEG TYPE: This is a routine 21-channel EEG with video using the 10/20 electrode placement system. DESCRIPTION: Wakefulness is obtained. During awake state, the posterior-dominant rhythm consists of [id number]-[id number] voltage of 10.5 to 11 hertz activity that is well modulated and well sustained. There is no physiological stage 2 sleep architecture. There is left temporal slowing. Interictal and ictal is, there is sharply contoured activity over the left temporal that seems stemming over the T5 more than T3 lead. There is no seizure noted during the study. ACTIVATION PROCEDURE: Photic stimulation did not evoke a posterior driving response. There is no abnormality during the photic stimulation. Hyperventilation is not performed. CLINICAL INTERPRETATION: This is an abnormal routine EEG. The background is normal. The left temporal slowing is suggestive of cerebral dysfunction in the involved region. The epileptiform discharges over the left temporal increases risk for focal seizure and status epilepticus. No seizures noted during the study. Clinical correlation is recommended. MMODL / IJN: [id number] / HEENA
--- NOTE | 2024-06-11 02:34 | HP ---
HISTORY AND PHYSICAL CHIEF COMPLAINT: Grand mal seizure. HISTORY OF PRESENT ILLNESS: This is another of many admissions for this 79-year-old female who has uncontrolled seizure disorder. Her seizures are varying in type. She has had them on and off for years. She has seen several neurologists in town and she has been to [facility] as well as [facility], I believe. She apparently had a seizure at home, was brought to the emergency room, where she had another one that was witnessed. She has a lot of trouble with depression also. She does have hypertension. REVIEW OF SYSTEMS: She denies incontinence, oral injuries, etc. She is awake and alert. Review of systems is otherwise unremarkable. Past medical history, family history, and personal and social histories are all unremarkable and unchanged. Her medications have been changed lately and she has largely been relying on Keppra. PHYSICAL EXAMINATION: VITAL SIGNS: Normal. HEAD, EARS, EYES, NOSE, MOUTH AND THROAT: Normal. NECK: Neck veins are not distended. CHEST: Clear. CARDIAC: Normal. ABDOMEN: Soft and nontender. EXTREMITIES: Normal. NEUROLOGIC: She is awake and alert at this time and neurologically intact. IMPRESSION: 1. 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 2. History of depression. PLAN: 1. Bed rest. 2. IV fluids. 3. Seizure precautions. 4. Neurology consult. MMODL / IJN: [id number] /
--- NOTE | 2024-06-13 03:50 | DS ---
DISCHARGE SUMMARY CHIEF COMPLAINT: Seizure disorder. HISTORY OF PRESENT ILLNESS AND PHYSICAL EXAM: Details of this lady's history and physical can be found in the initial workup. LABORATORY STUDIES: While she was in the hospital, she had laboratory studies, details of which can be found in the laboratory section of her chart. COURSE IN THE HOSPITAL: After admission, she was placed on bedrest, started on intravenous fluids and seizure precautions. She had no further seizures. She was seen by Neurology and her Keppra dose was increased. While in the hospital, she did well. She did complain of a little bit of left upper quadrant pain and some nausea, but this resolved. It was felt she could be discharged on the and she will be followed up in the office. FINAL DIAGNOSES: 1. 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 2. Weakness. 3. History of hypertension. 4. Left upper quadrant abdominal pain. 5. Depression. OPERATIONS: None. CONSULTATION: Neurology. She is improved. MMODL / IJN: [id number] /
--- NOTE | 2024-06-13 04:37 | PN ---
PROGRESS NOTE DATE OF SERVICE: 06/05/2024 CHIEF COMPLAINT: Grand mal seizure. HISTORY OF PRESENT ILLNESS: This lady is doing well and she has not had any further seizures. She is complaining of generalized weakness. PHYSICAL EXAMINATION: CHEST: Clear. CARDIAC: Normal sinus rhythm. NEUROLOGIC: She is intact. She is awake and alert. She is not postictal. IMPRESSION: 1. Status post grand mal seizure. 2. Uncontrolled seizure disorder. 3. Generalized weakness. PLAN: Progress activity and her Keppra has been increased by Neurology. MMODL / IJN: [id number] /
--- NOTE | 2024-06-13 04:38 | PN ---
PROGRESS NOTE DATE OF SERVICE: 06/06/2024 CHIEF COMPLAINT: Seizure disorder. HISTORY OF PRESENT ILLNESS: This lady is doing well. She has had no seizures. Keppra has been increased. PHYSICAL EXAMINATION: VITAL SIGNS: Blood pressure is normal. CHEST: Clear. CARDIAC: Normal. IMPRESSION: 1. Grand mal seizure disorder. 2. Hypertension. 3. Depression. 4. Weakness. PLAN: Increase activity and probably home tomorrow. MMODL / IJN: [id number] /
--- NOTE | 2024-06-13 04:53 | PN ---
PROGRESS NOTE DATE OF SERVICE: 06/07/2024 CHIEF COMPLAINT: Grand mal seizure and generalized weakness. HISTORY OF PRESENT ILLNESS: This lady is having some trouble with nausea. She has had no seizure activity. Blood pressure is elevated and she has no headache or chest pain. PHYSICAL EXAMINATION: VITAL SIGNS: Blood pressure is 151/92. HEAD, EARS, EYES, NOSE, MOUTH AND THROAT: Normal. CHEST: Clear. ABDOMEN: Soft, nontender. IMPRESSION: 1. Uncontrolled seizures. 2. Hypertension. 3. Nausea. PLAN: Try to increase activity. If her nausea continues, this will have to be addressed. She may be able to go home soon. MMODL / IJN: [id number] /
== END 2024-06-08 17:43 | disposition home or self-care (01) ==
LOC: EC 18:17 → 5NMEDONC 20:56
PROVIDERS: ADMIT Family Medicine; ATTEND Family Medicine
DX: G40.409 Other generalized epilepsy and epileptic syndromes, not intractable, without status epilepticus (principal); G40.109 Localization-related (focal) (partial) symptomatic epilepsy and epileptic syndromes with simple partial seizures, not intractable, without status epilepticus; I47.10 Supraventricular tachycardia, unspecified; R10.12 Left upper quadrant pain; E07.9 Disorder of thyroid, unspecified; I10 Essential (primary) hypertension; F41.9 Anxiety disorder, unspecified; F32.A Depression, unspecified; W18.30XA Fall on same level, unspecified, initial encounter; R74.01 Elevation of levels of liver transaminase levels; Z79.899 Other long term (current) drug therapy; Z79.890 Hormone replacement therapy; Z87.891 Personal history of nicotine dependence; Z87.01 Personal history of pneumonia (recurrent); Z86.19 Personal history of other infectious and parasitic diseases; Z88.0 Allergy status to penicillin; Z91.81 History of falling; Z88.8 Allergy status to other drugs, medicaments and biological substances; Z96.653 Presence of artificial knee joint, bilateral
CPT/HCPCS: 96374; 99285; 36415; 94760; 95816; 93005; 97530; 97162; 80053; 80177; 83735; 85025; 73562; G0378 ×5; J2060

== ENCOUNTER 2024-07-29 02:18 | Emergency (ER) | payer MEDICARE ==
[2024-07-29 02:26] VITALS: RESP 18; TEMP 98.2
--- NOTE | 2024-07-29 02:39 | ED ---
General Adult HPI - General Chief complaint: Seizure Stated complaint: Seizure Time Seen by Provider: 07/29/24 02:35 Source: patient Mode of arrival: wheelchair - History of Present Illness Initial comments: Is a 79-year-old female with a history of seizure disorder. Patient was recently taken off her phenobarbital and dilantin she remains on her Keppra and will be starting a new antiepileptic medication tonight after her picks it up from the pharmacy. Patient had a breakthrough seizure at home. She is returned to baseline but asked her to bring her to the hospital to be evaluated. states that he has to be out of town for the day so he wanted to make sure that she would be safe to leave with her elderly mother. Upon my evaluation patient is back at her baseline mental status she has no acute complaints aside from having had the seizure. Patient and and says she has been compliant with her medications until she was taken off the p henobarbital and Dilantin recently due to frequent falling. - Related Data Home Medications Medication Instructions Recorded Confirmed Furosemide [Lasix] 20 mg PO DAILY 04/29/23 06/04/24 Metoprolol Succinate (ER) [Toprol 50 mg PO DAILY 08/30/23 06/04/24 XL] Diphenoxylate HCl/Atropine 1 - 2 tab PO QID PRN 06/04/24 06/04/24 [Lomotil 2.5-0.025 mg Tablet] Levothyroxine Sodium [Synthroid] 25 mcg PO DAILY 06/04/24 06/04/24 levETIRAcetam [Keppra] 1,000 mg PO Q12HR 06/04/24 06/04/24 Previous Rx's Medication Instructions Recorded levETIRAcetam [Keppra] 250 mg PO Q12HR #60 tab 06/08/24 Allergies Allergy/AdvReac Type Severity Reaction Status Date / Time TESS Inhibitors Allergy Itching/Sei Verified 07/29/24 02:26 zures Penicillins Allergy fever,rash Verified 07/29/24 02:26 Review of Systems ROS Statement: Those systems with pertinent positive or pertinent negative responses have been documented in the HPI. ROS Other: All systems not noted in ROS Statement are negative. Past Medical History Past Medical History: Hypertension, Seizure Disorder, Skin Disorder, Thyroid Disorder Additional Past Medical History / Comment(s): ECZEMA, History of Any Multi-Drug Resistant Organisms: None Reported Past Surgical History: Bariatric Surgery, Section, Joint Replacement Additional Past Surgical History / Comment(s): LOOP MONITOR IMPLANT, removed part of the stomach "years ago", jn knee replacement, LEFT CATARACT Past Anesthesia/Blood Transfusion Reactions: Motion Sickness Past Psychological History: Anxiety Smoking Status: Former smoker Past Alcohol Use History: None Reported Past Drug Use History: None Reported - Past Family History Father Family Medical History: Myocardial Infarction (DE) Mother Family Medical History: Osteoarthritis (OA) General Exam - General Exam Comments Initial Comments: Physical Exam GENERAL: Patient is well-developed and well-nourished. Patient is nontoxic and well-hydrated and is in no distress. HENT: Normocephalic, Atraumatic. EYES: PERRL, EOMI PULMONARY: Unlabored respirations. CARDIOVASCULAR: RRR Warm and well perfused extremities ABDOMEN: Non-distended SKIN: No rashes or bruising : Deferred NEUROLOGIC: Alert and oriented Normal speech Normal gait MUSCULOSKELETAL: Moving all extremities with no apparent injury PSYCHIATRIC: No SI/HI Course Vital Signs 07/29/24 07/29/24 02:22 03:54 Temperature 98.2 F Pulse Rate 91 76 Respiratory 18 18 Rate Blood Pressure 199/95 152/80 O2 Sat by Pulse 100 97 Oximetry EKG Findings - EKG Comments: EKG Findings:: Interpreted by me, EKG obtained due to seizure EKG at 2:38 AM rate is 78 rhythm is sinus normal axis normal intervals, CO 180 QRS 78 QTc 417 there are no acute ST elevations no evidence of acute ischemia infarction or pathologic arrhythmia. Medical Decision Making - Medical Decision Making Was pt. sent in by a medical professional or institution (, PA, TURBINE ROOM ATTENDANT, urgent care, hospital, or fci...) When possible be specific @ -No Did you speak to anyone other than the patient for history (EMS, parent, family, police, friend...)? What history was obtained from this source @ -No Did you review nursing and triage notes (agree or disagree)? Why? @ -I reviewed and agree with nursing and triage notes Were old charts reviewed (outside hosp., previous admission, EMS record, old EKG, old radiological studies, urgent care reports/EKG's, fci records)? Report findings @ -No old charts were reviewed Differential Diagnosis (chest pain, altered mental status, abdominal pain women, abdominal pain men, vaginal bleeding, weakness, fever, dyspnea, syncope, headache, dizziness, GI bleed, back pain, seizure, CVA, palpatations, mental health)? @ -Differential Seizure: Recurrent seizure disorder, febrile seizure, alcohol withdrawal, stimulants, meningitis, encephalitis, intercranial hemorrhage, intracranial tumor, stroke, eclampsia, thyrotoxicosis, hypocalcemia, hyponatremia, hypernatremia, hypomagnesemia, psychogenic, this is not meant to be an all-inclusive list. EKG interpreted by me (3pts min.). @ -As above X-rays interpreted by me (1pt min.). @ -None done CT interpreted by me (1pt min.). @ -None done U/S interpreted by me (1pt. min.). @ -None done What testing was considered but not performed or refused? (CT, X-rays, U/S, labs)? Why? @ -None What meds were considered but not given or refused? Why? @ -None Did you discuss the management of the patient with other professionals (professionals i.e. , PA, TURBINE ROOM ATTENDANT, lab, RT, psych nurse, director of social work, electrician underground, teacher, debt recovery officer, nurse case manager)? Give summary @ -No Was smoking cessation discussed for >3mins.? @ -No Was critical care preformed (if so, how long)? @ -No Were there social determinants of health that impacted care today? How? (Homelessness, low income, unemployed, alcoholism, drug addiction, transportation, low edu. Level, literacy, decrease access to med. care, group home, rehab)? @ -No Was there de-escalation of care discussed even if they declined (Discuss DNR or withdrawal of care, Hospice)? DNR status @ -No What co-morbidities impacted this encounter? (DM, HTN, Smoking, COPD, CAD, Cancer, CVA, ARF, Chemo, Hep., AIDS, mental health diagnosis, sleep apnea, morbid obesity)? @ -None Was patient admitted / discharged? Hospital course, mention meds given and route, prescriptions, significant lab abnormalities, going to OR and other pertinent info. @ -Discharged Was seen and evaluated, history is obtained from patient . Patient has had increased frequency of breakthrough seizures. Had a breakthrough seizure today. She is given an IV dose of Keppra she had no seizure activity here she was labs were unremarkable and patient has more comfortable plan for discharge home with new medication to start tonight as planned. Undiagnosed new problem with uncertain prognosis? @ -No Drug Therapy requiring intensive monitoring for toxicity (Heparin, Nitro, Insulin, Cardizem)? @ -No Were any procedures done? @ -No Diagnosis/symptom? @ -Seizure Acute, or Chronic, or Acute on Chronic? @ -Default Uncomplicated (without systemic symptoms) or Complicated (systemic symptoms)? @ -Default Side effects of treatment? @ -No Exacerbation, Progression, or Severe Exacerbation? @ -No Poses a threat to life or bodily function? How? (Chest pain, [place], [place], pneumonia, PE, COPD, DKA, ARF, appy, cholecystitis, CVA, Diverticulitis, Homicidal, Suicidal, threat to staff... and all critical care pts) @ -No - Lab Data Result diagrams: 07/29/24 02:44 07/29/24 02:44 Lab Results 07/29/24 07/29/24 Range/Units 02:44 02:44 WBC 6.6 (3.8-10.6) k/uL RBC 4.36 (3.80-5.40) m/uL Hgb 13.5 (11.4-16.0) gm/dL Hct 41.1 (34.0-46.0) % MCV 94.3 (80.0-100.0) fL MCH 30.9 (25.0-35.0) pg MCHC 32.8 (31.0-37.0) g/dL RDW 12.9 (11.5-15.5) % Plt Count 230 (150-450) k/uL MPV 8.3 Neutrophils % 63 % Lymphocytes % 25 % Monocytes % 5 % Eosinophils % 3 % Basophils % 1 % Neutrophils # 4.2 (1.3-7.7) k/uL Lymphocytes # 1.7 (1.0-4.8) k/uL Monocytes # 0.3 (0-1.0) k/uL Eosinophils # 0.2 (0-0.7) k/uL Basophils # 0.0 (0-0.2) k/uL Sodium 139 (137-145) mmol/L Potassium 3.8 (3.5-5.1) mmol/L Chloride 107 (98-107) mmol/L Carbon Dioxide 23 (22-30) mmol/L Anion Gap 9 mmol/L BUN 17 (7-17) mg/dL Creatinine 0.58 (0.52-1.04) mg/dL Est GFR (CKD-EPI)AfAm >90 (>60 ml/min/1.73 sqM) Est GFR (CKD-EPI)NonAf 89 (>60 ml/min/1.73 sqM) Glucose 116 H (74-99) mg/dL Calcium 9.0 (8.4-10.2) mg/dL Magnesium 2.0 (1.6-2.3) mg/dL Total Bilirubin 0.6 (0.2-1.3) mg/dL AST 30 (14-36) U/L ALT 20 (4-34) U/L Alkaline Phosphatase 149 H (38-126) U/L Total Protein 6.6 (6.3-8.2) g/dL Albumin 4.0 (3.5-5.0) g/dL TSH 0.046 L (0.465-4.680) mIU/L Free T4 0.90 (0.78-2.19) ng/dL Disposition Clinical Impression: Breakthrough seizure Disposition: HOME SELF-CARE Condition: Stable Instructions (If sedation given, give patient instructions): Seizure/Epilepsy Discharge Instructions & Follow-Up Is patient prescribed a controlled substance at d/c from ED?: No Referrals: Baljit Edmonds MD [Primary Care Provider] - 1-2 days
[2024-07-29] MEDS: levETIRAcetam IV 500 MG/5 ML VIAL IVP STA (02:45)
[2024-07-29] MEDS: SODIUM CHLORIDE 0.9% 500 ML 500 ML IV STA (02:45)
[2024-07-29 02:51] LABS: Basophils % (A) 1 %; Eosinophils # (A) 0.2 k/uL (0-0.7); Eosinophils % (A) 3 %; HCT 41.1 % (34.0-46.0); HGB 13.5 gm/dL (11.4-16.0); Lymphocytes # (A) 1.7 k/uL (1.0-4.8); Lymphocytes % (A) 25 %; MCH 30.9 pg (25.0-35.0); MCHC 32.8 g/dL (31.0-37.0); MCV 94.3 fL (80.0-100.0); Mean Platelet Volume 8.3; Monocytes # (A) 0.3 k/uL (0-1.0); Monocytes % (A) 5 %; Neutrophils # (A) 4.2 k/uL (1.3-7.7); Neutrophils % (A) 63 %; Platelet Count 230 k/uL (150-450); RBC 4.36 m/uL (3.80-5.40); RDW 12.9 % (11.5-15.5); WBC 6.6 k/uL (3.8-10.6)
[2024-07-29 03:14] LABS: ALT 20 U/L (4-34); African American GFR (CKD) >90 (>60 ml/min/1.73 sqM); Anion Gap 9 mmol/L; Blood Urea Nitrogen 17 mg/dL (7-17); Carbon Dioxide 23 mmol/L (22-30); Chloride 107 mmol/L (98-107); Glucose 116 mg/dL (74-99); Non-African American GFR(CKD) 89 (>60 ml/min/1.73 sqM); Sodium 139 mmol/L (137-145); Total Bilirubin 0.6 mg/dL (0.2-1.3); Total Protein 6.6 g/dL (6.3-8.2)
[2024-07-29 03:24] LABS: AST 30 U/L (14-36); Alkaline Phosphatase 149 U/L (38-126); Potassium 3.8 mmol/L (3.5-5.1)
[2024-07-29 03:55] VITALS: BP 152/80; PULSE 76
== END 2024-07-29 03:56 | disposition home or self-care (01) ==
LOC: EC 02:18
DX: G40.909 Epilepsy, unspecified, not intractable, without status epilepticus (principal); Z88.0 Allergy status to penicillin; Z91.048 Other nonmedicinal substance allergy status; Z87.891 Personal history of nicotine dependence
CPT/HCPCS: 36415; 93005; 84439; 80053; 84443; 83735; 85025; 99284; 96374; J1953

== ENCOUNTER 2024-11-30 10:55 | Emergency (ER) | payer MEDICARE ==
[2024-11-30 11:05] VITALS: RESP 18; TEMP 97.6
--- NOTE | 2024-11-30 11:51 | ED ---
Fall HPI - General Chief Complaint: Fall Stated Complaint: Fall head injury Time Seen by Provider: 11/30/24 11:07 Source: patient, RN notes reviewed Mode of arrival: ambulatory Limitations: no limitations - History of Present Illness Initial Comments: This is a 79-year-old female who presents to the emergency department for a fall. Patient tripped and fell on a rug in her home and hit the left side of her head. Denies any loss of consciousness. Not taking any blood thinners. She does continue to complain of a headache. Denies sustaining any additional injuries. MD Complaint: fall - Related Data Home Medications Medication Instructions Recorded Confirmed Furosemide [Lasix] 20 mg PO DAILY 04/29/23 06/04/24 Metoprolol Succinate (ER) [Toprol 50 mg PO DAILY 08/30/23 06/04/24 XL] Diphenoxylate HCl/Atropine 1 - 2 tab PO QID PRN 06/04/24 06/04/24 [Lomotil 2.5-0.025 mg Tablet] Levothyroxine Sodium [Synthroid] 25 mcg PO DAILY 06/04/24 06/04/24 levETIRAcetam [Keppra] 1,000 mg PO Q12HR 06/04/24 06/04/24 Previous Rx's Medication Instructions Recorded levETIRAcetam [Keppra] 250 mg PO Q12HR #60 tab 06/08/24 Allergies Allergy/AdvReac Type Severity Reaction Status Date / Time TESS Inhibitors Allergy Itching/Sei Verified 11/30/24 11:05 zures Penicillins Allergy fever,rash Verified 11/30/24 11:05 Review of Systems ROS Statement: Those systems with pertinent positive or pertinent negative responses have been documented in the HPI. ROS Other: All systems not noted in ROS Statement are negative. Past Medical History Past Medical History: Hypertension, Seizure Disorder, Skin Disorder, Thyroid Disorder Additional Past Medical History / Comment(s): ECZEMA, History of Any Multi-Drug Resistant Organisms: None Reported Past Surgical History: Bariatric Surgery, Section, Joint Replacement Additional Past Surgical History / Comment(s): LOOP MONITOR IMPLANT, removed part of the stomach "years ago", jn knee replacement, LEFT CATARACT Past Anesthesia/Blood Transfusion Reactions: Motion Sickness Past Psychological History: Anxiety Smoking Status: Former smoker Past Alcohol Use History: None Reported Past Drug Use History: None Reported - Past Family History Father Family Medical History: Myocardial Infarction (CT) Mother Family Medical History: Osteoarthritis (OA) General Exam Limitations: no limitations General appearance: alert, in no apparent distress Head exam: Present: atraumatic, normocephalic, normal inspection Eye exam: Present: normal appearance, PERRL, EOMI. Absent: scleral icterus, conjunctival injection, periorbital swelling Respiratory exam: Present: normal lung sounds bilaterally. Absent: respiratory distress, wheezes, rales, rhonchi, stridor Cardiovascular Exam: Present: regular rate, normal rhythm Neurological exam: Present: alert, oriented X3, CN II-XII intact Psychiatric exam: Present: normal affect, normal mood Skin exam: Present: warm, dry, intact, normal color. Absent: rash Course Vital Signs 11/30/24 11/30/24 11:02 12:40 Temperature 97.6 F Pulse Rate 67 75 Respiratory 18 18 Rate Blood Pressure 136/86 144/80 O2 Sat by Pulse 99 98 Oximetry Medical Decision Making - Medical Decision Making This is a 79-year-old female who presents to the emergency department for a head injury. Was pt. sent in by a medical professional or institution? @ -No Did you speak to anyone other than the patient for history? @ -No Did you review nursing and triage notes? @ -Yes, and I agree, it is accurate with regards to the patient's symptoms. Were old charts reviewed? @ -No Differential Diagnosis? @ -Differential Diagnosis Head Injury: Contusion, hematoma, intracranial hemorrhage, skull fracture, whiplash, concussion, this is not meant to be an all-inclusive list. EKG interpreted by me (3pts min.)? @ -Not obtained X-rays interpreted by me (1pt min.)? @ -Not obtained CT interpreted by me (1pt min.)? @ -Computed tomography scan of the brain and c-spine obtained. My interpretation identifies no evidence of an acute intracranial hemorrhage, skull fracture, or cervical spine fracture. U/S interpreted by me (1pt. min.)? @ -Not obtained What testing was considered but not performed? (CT, X-rays, U/S, labs)? Why? @ -None What meds were considered but not given? Why? @ -None Did you discuss the management of the patient with other professionals? @ -No Did you reconcile home meds? @ -No Was smoking cessation discussed for >3mins.? @ -No Was critical care preformed (if so, how long)? @ -No Were there social determinants of health that impacted care today? How? (Homelessness, low income, unemployed, alcoholism, drug addiction, transportation, low edu. Level, literacy, decrease access to med. care, alf, rehab)? @ -No Was there de-escalation of care discussed even if they declined? (Discuss DNR or withdrawal of care, Hospice)? @ -No What co-morbidities impacted this encounter? (DM, HTN, Smoking, COPD, CAD, Cancer, CVA, Hep., AIDS, mental health diagnosis, sleep apnea, morbid obesity)? @ -None Was patient admitted / discharged? @ -Discharged. CT scan of the brain and C-spine obtained revealing no acute process. Patient declined the need for any pain medication. Advised Tylenol as needed for any additional headaches and follow-up with her PCP. Patient discharged home in stable condition. Case discussed with ED attending Dr. Roy. Return precautions reviewed in depth, the patient is instructed to return to the emergency department with any new, worsening, or concerning symptoms. Patient verbalized understanding. Undiagnosed new problem with uncertain prognosis? @ -None Drug Therapy requiring intensive monitoring for toxicity (Heparin, Nitro, Insulin, Cardizem)? @ -None Were any procedures done? @ -None Diagnosis/symptom? @ -Fall, head injury Acute, or Chronic, or Acute on Chronic? @ -Acute Uncomplicated (without systemic symptoms) or Complicated (systemic symptoms)? @ -Uncomplicated Side effects of treatment? @ -None Exacerbation, Progression, or Severe Exacerbation] @ -Not applicable Poses a threat to life or bodily function? @ -No - Radiology Data Radiology results: report reviewed, image reviewed Disposition Clinical Impression: Fall, Head injury Disposition: HOME SELF-CARE Instructions (If sedation given, give patient instructions): Fall Prevention for Older Adults (ED) Additional Instructions: Return to the emergency department with any new, worsening, or concerning symptoms. Follow up with your primary care provider in 1-2 days. Is patient prescribed a controlled substance at d/c from ED?: No Referrals: Baljit Edmonds MD [Primary Care Provider] - 1-2 days Time of Disposition: 12:31
--- NOTE | 2024-11-30 11:58 | CT ---
EXAMINATION TYPE: CT brain jemmaine wo con DATE OF EXAM: 11/30/2024 11:43 AM COMPARISON: 08/29/2023 CLINICAL INDICATION: Female, 79 years old with history of Fall, head injury, Fall, head injury, no th inners, pain Technique: Examination of the head was done in axial plane without intravenous contrast. Coronal and sagittal reconstructions performed. CT of the cervical spine was obtained in axial plane without intravenous injection of contrast mater ial. Coronal and sagittal reformatted images were obtained from the axial views for evaluation of f ractures, spinal alignment and canal. CT DLP: 1407.2 mGycm, Automated exposure control for dose reduction was used. FINDINGS: Head: There is no evidence of acute intracranial hemorrhage, acute ischemic changes, mass, mass-effect, or extra-axial fluid collection. There is no effacement of cerebral sulci or basal subarachnoid cister ns. There is no hydrocephalus. There is no midline shift. Cotto-white matter distinction is preserv ed. Benign hyperostosis frontalis interna. Partially empty sella redemonstrated. Benign bilateral basal g anglionic calcifications. Atherosclerotic calcifications of the carotid siphons. Paranasal sinuses and mastoid air cells are well pneumatized. Orbits and globes are intact. Cervical spine: No craniocervical junction abnormality, predental space widening, or prevertebral soft tissue swellin g. Moderate to severe distention plate degenerative changes present throughout. Reversal of the normal c ervical lordosis upper cervical spine. Degenerative grade 1 anterolisthesis C3-C4 and C6/C7 as well a s T2-T3. Grade 1 retrolisthesis C4-C5. Findings remain unchanged. Moderate to severe hypertrophic arthropathy. Scattered mild to moderate facet arthropathy. Suspect ve ry mild spinal canal stenosis throughout. MRI could provide more accurate assessment. Variable [id number] bilateral neuroforaminal stenoses throughout. No acute fracture is identified. Sagittal and coronal reformatted images confirm above findings. COMBINED IMPRESSION: 1. No acute intracranial abnormality seen. 2. Moderate to advanced multilevel spondylotic change redemonstrated. Degenerative grade 1 spondyloli stheses C3-C4, C4-C5, C6 and C7, and T2-T3. No acute fracture seen. [facility], Workstation: [employer], 11/30/2024 11:56 AM
[2024-11-30 12:51] VITALS: BP 144/80; PULSE 75
== END 2024-11-30 12:51 | disposition home or self-care (01) ==
LOC: EC 10:55
DX: S09.90XA Unspecified injury of head, initial encounter (principal); Z87.891 Personal history of nicotine dependence; Z88.0 Allergy status to penicillin; Z88.8 Allergy status to other drugs, medicaments and biological substances; W01.0XXA Fall on same level from slipping, tripping and stumbling without subsequent striking against object, initial encounter
CPT/HCPCS: 70450; 72125; 99283

== ENCOUNTER 2024-12-09 17:18 | Emergency (ER) | payer MEDICARE ==
[2024-12-09 17:22] VITALS: TEMP 98.6
--- NOTE | 2024-12-09 17:54 | ED ---
Seizure HPI - General Source: patient Mode of arrival: wheelchair Limitations: no limitations <Vega Kohli - Last Filed: 12/09/24 17:56> <Cindy Fontanez - Last Filed: 12/09/24 23:00> - General Chief Complaint: Seizure Stated Complaint: Seizure Like activity/Sent by doctor Time Seen by Provider: 12/09/24 17:35 - History of Present Illness Initial Comments: Quick note: This is a 79-year-old female with history including seizure disorder, thyroid disorder and hypertension presenting from PCP with for seizures. Patient states she suffered a seizure both yesterday and today at 1400 states she has had a history of seizures since she was 4 years old. Patient endorses ongoing weakness but otherwise is cognitively aware of surroundings. Patient states she feels she may have another seizure soon. States she takes her Keppra as prescribed, with pharmacy providing her incomplete medication refills, causing periods of time where she does not have access to her seizure medication. Denies fever, chills, chest pain, dyspnea. (Vega Kohli) This is a 79-year-old female with a history of epilepsy presenting to the emergency department with referral from neurologist with concerns for breakthrough seizures. Patient states that she had a seizure yesterday evening and earlier today. Patient states that she is prescribed Keppra and zonisamide for seizures however the [facility] pharmacy that normally prescribes her Keppra was out and she has not taken this medication over the past 3 days. She denies chest pain, difficulty in breathing, visual disturbances. Endorses mild lightheadedness. (Cindy Fontanez) - Related Data Home Medications Medication Instructions Recorded Confirmed Furosemide [Lasix] 20 mg PO DAILY 04/29/23 06/04/24 Metoprolol Succinate (ER) [Toprol 50 mg PO DAILY 08/30/23 06/04/24 XL] Diphenoxylate HCl/Atropine 1 - 2 tab PO QID PRN 06/04/24 06/04/24 [Lomotil 2.5-0.025 mg Tablet] Levothyroxine Sodium [Synthroid] 25 mcg PO DAILY 06/04/24 06/04/24 levETIRAcetam [Keppra] 1,000 mg PO Q12HR 11/14/24 11/14/24 Previous Rx's Medication Instructions Recorded levETIRAcetam [Keppra] 250 mg PO Q12HR #60 tab 06/08/24 Allergies Allergy/AdvReac Type Severity Reaction Status Date / Time TESS Inhibitors Allergy Itching/Sei Verified 12/09/24 17:22 zures Penicillins Allergy fever,rash Verified 12/09/24 17:22 Review of Systems ROS Other: All systems not noted in ROS Statement are negative. <SeunVega - Last Filed: 12/09/24 17:56> ROS Other: All systems not noted in ROS Statement are negative. <Cindy Fontanez - Last Filed: 12/09/24 23:00> ROS Statement: Those systems with pertinent positive or pertinent negative responses have been documented in the HPI. Past Medical History Past Medical History: Hypertension, Seizure Disorder, Skin Disorder, Thyroid Disorder Additional Past Medical History / Comment(s): ECZEMA, History of Any Multi-Drug Resistant Organisms: None Reported Past Surgical History: Bariatric Surgery, Section, Joint Replacement Additional Past Surgical History / Comment(s): LOOP MONITOR IMPLANT, removed part of the stomach "years ago", jn knee replacement, LEFT CATARACT Past Anesthesia/Blood Transfusion Reactions: Motion Sickness Past Psychological History: Anxiety Smoking Status: Former smoker Past Alcohol Use History: None Reported Past Drug Use History: None Reported - Past Family History Father Family Medical History: Myocardial Infarction (NH) Mother Family Medical History: Osteoarthritis (OA) <Vega Kohli - Last Filed: 12/09/24 17:56> General Exam Limitations: no limitations <Vega Kohli - Last Filed: 12/09/24 17:56> General appearance: alert, in no apparent distress Eye exam: Present: normal appearance, PERRL, EOMI. Absent: scleral icterus, conjunctival injection, periorbital swelling Neck exam: Present: normal inspection. Absent: tenderness, meningismus, lymphadenopathy Respiratory exam: Present: normal lung sounds bilaterally. Absent: respiratory distress, wheezes, rales, rhonchi, stridor Cardiovascular Exam: Present: regular rate, normal rhythm, normal heart sounds. Absent: systolic murmur, diastolic murmur, rubs, gallop, clicks GI/Abdominal exam: Present: soft, normal bowel sounds. Absent: distended, tenderness, guarding, rebound, rigid Extremities exam: Present: normal inspection, full ROM, normal capillary refill. Absent: tenderness, pedal edema, joint swelling, calf tenderness Back exam: Present: normal inspection Neurological exam: Present: alert, oriented X3, CN II-XII intact <Cindy Fontanez - Last Filed: 12/09/24 23:00> - General Exam Comments Initial Comments: Visual Physical Exam Vital signs reviewed General: Well-appearing, nontoxic, no acute distress. Head: Normocephalic, atraumatic Eyes: PERRLA, EOMI ENT: Airway patent Chest: Nonlabored breathing Skin: No visual rash, normal skin tone Neuro: Alert and oriented 3 Musculoskeletal: No gross abnormalities (Vega Kohli) Course Vital Signs 12/09/24 12/09/24 12/09/24 17:19 18:52 19:12 Temperature 98.6 F Pulse Rate 92 77 80 Respiratory 16 16 19 Rate Blood Pressure 145/86 128/74 145/87 O2 Sat by Pulse 97 100 98 Oximetry 12/09/24 20:21 Temperature Pulse Rate 75 Respiratory 16 Rate Blood Pressure 145/82 O2 Sat by Pulse 98 Oximetry Medical Decision Making <Vega Kohli - Last Filed: 12/09/24 17:56> - Lab Data Result diagrams: 12/09/24 18:47 12/09/24 18:47 <Cindy Fontanez - Last Filed: 12/09/24 23:00> - Medical Decision Making I completed the quick note portion of this chart signed ALEX Dodd (Vega Kohli) Was pt. sent in by a medical professional or institution (LISA Rodriguez, DIRECTOR PACKAGING, urgent care, hospital, or fci...) When possible be specific @ -No Did you speak to anyone other than the patient for history (EMS, parent, family, police, friend...)? What history was obtained from this source @ -No Did you review nursing and triage notes (agree or disagree)? Why? @ -I reviewed and agree with nursing and triage notes Were old charts reviewed (outside hosp., previous admission, EMS record, old EKG, old radiological studies, urgent care reports/EKG's, fci records)? Report findings @ -No old charts were reviewed Differential Diagnosis (chest pain, altered mental status, abdominal pain women, abdominal pain men, vaginal bleeding, weakness, fever, dyspnea, syncope, headache, dizziness, GI bleed, back pain, seizure, CVA, palpatations, mental health, musculoskeletal)? @ -Differential Seizure: Recurrent seizure disorder, febrile seizure, alcohol withdrawal, stimulants, meningitis, encephalitis, intercranial hemorrhage, intracranial tumor, stroke, eclampsia, thyrotoxicosis, hypocalcemia, hyponatremia, hypernatremia, hypomagnesemia, psychogenic, this is not meant to be an all-inclusive list. EKG interpreted by me (3pts min.). @ -None X-rays interpreted by me (1pt min.). @ -None done CT interpreted by me (1pt min.). @ -None done U/S interpreted by me (1pt. min.). @ -None done What testing was considered but not performed or refused? (CT, X-rays, U/S, labs)? Why? @ -None What meds were considered but not given or refused? Why? @ -None Did you discuss the management of the patient with other professionals (professionals i.e. , PA, DIRECTOR PACKAGING, lab, RT, psych nurse, social security specialist, lawyer criminal, teacher, pharmaceutical officer, case assistant)? Give summary @ -No Was smoking cessation discussed for >3mins.? @ -No Was critical care preformed (if so, how long)? @ -No Were there social determinants of health that impacted care today? How? (H omelessness, low income, unemployed, alcoholism, drug addiction, transportation, low edu. Level, literacy, decrease access to med. care, long-term, rehab)? @ -No Was there de-escalation of care discussed even if they declined (Discuss DNR or withdrawal of care, Hospice)? DNR status @ -No What co-morbidities impacted this encounter? (DM, HTN, Smoking, COPD, CAD, Cancer, CVA, ARF, Chemo, Hep., AIDS, mental health diagnosis, sleep apnea, morbid obesity)? @ -None Was patient admitted / discharged? Hospital course, mention meds given and route, prescriptions, significant lab abnormalities, going to OR and other pertinent info. @ -Discharge. 79-year-old with an emergency department with breakthrough seizures while not medications. Patient is well-appearing and is not postictal on my evaluation. Initial vitals are stable. Patient is provided with loading dose of Keppra. Patient is mildly hypokalemic with a potassium of 3.2 is provided with oral supplementation. Recommend patient machine pecan picker prescribed medication tomorrow and follow-up with neurology. Return parameters discussed. Case discussed with Dr. Bradshaw Undiagnosed new problem with uncertain prognosis? @ -No Drug Therapy requiring intensive monitoring for toxicity (Heparin, Nitro, Insulin, Cardizem)? @ -No Were any procedures done? @ -No Diagnosis/symptom? @ -Breakthrough seizure Acute, or Chronic, or Acute on Chronic? @ -Acute Uncomplicated (without systemic symptoms) or Complicated (systemic symptoms)? @ -Uncomplicated Side effects of treatment? @ -No Exacerbation, Progression, or Severe Exacerbation? @ -No Poses a threat to life or bodily function? How? (Chest pain, USA, NH, pneumonia, PE, COPD, DKA, ARF, appy, cholecystitis, CVA, Diverticulitis, Homicidal, Suicidal, threat to staff... and all critical care pts) @ -No (Cindy Fontanez) - Lab Data Lab Results 12/09/24 12/09/24 12/09/24 Range/Units 18:47 18:47 18:47 WBC 5.17 (4.50-10.00) 10*3/uL RBC 4.50 (4.10-5.20) 10*6/uL Hgb 13.6 (12.0-15.0) g/dL Hct 41.2 (37.2-46.3) % MCV 91.6 (80.0-97.0) fL MCH 30.2 (27.0-32.0) pg MCHC 33.0 (32.0-37.0) g/dL Plt Count 268 (140-440) 10*3/uL MPV 10.3 (9.5-12.2) fL Immature Gran % (Auto) 0.2 % Neutrophils % 72.9 % Lymphocytes % 17.0 % Monocytes % 8.3 % Eosinophils % 0.8 % Basophils % 0.8 % Immature Gran # 0.01 (0.00-0.04) 10*3/uL Neutrophils # 3.77 (1.80-7.70) 10*3/uL Lymphocytes # 0.88 L (0.90-5.00) 10*3/uL Monocytes # 0.43 (0.20-1.00) 10*3/uL Eosinophils # 0.04 (0.04-0.35) 10*3/uL Basophils # 0.04 (0.00-0.10) 10*3/uL Sodium 138 (137-145) mmol/L Potassium 3.2 L (3.5-5.1) mmol/L Chloride 103 (98-107) mmol/L Carbon Dioxide 24 (22-30) mmol/L Anion Gap 11 mmol/L BUN 20 H (7-17) mg/dL Creatinine 0.62 (0.52-1.04) mg/dL Est GFR (CKD-EPI)AfAm >90 (>60 ml/min/1.73 sqM) Est GFR (CKD-EPI)NonAf 87 (>60 ml/min/1.73 sqM) Glucose 155 H (74-99) mg/dL Calcium 9.3 (8.4-10.2) mg/dL Magnesium 1.9 (1.6-2.3) mg/dL Total Bilirubin 0.5 (0.2-1.3) mg/dL AST 25 (14-36) U/L ALT 17 (4-34) U/L Alkaline Phosphatase 121 (38-126) U/L Creatine Kinase 38 (30-135) U/L Total Protein 6.4 (6.3-8.2) g/dL Albumin 3.8 (3.5-5.0) g/dL Disposition <Vega Kohli - Last Filed: 12/09/24 17:56> Is patient prescribed a controlled substance at d/c from ED?: No Time of Disposition: 20:16 <Cindy Fontanez - Last Filed: 12/09/24 23:00> Clinical Impression: Seizure grand mal Disposition: HOME SELF-CARE Condition: Stable Instructions (If sedation given, give patient instructions): Recurrent Seizures in Adults (ED) Additional Instructions: Please return to the Emergency Department if symptoms worsen or any other concerns. It is important that you machine pecan picker your Keppra and continue to take antiepileptic medications as prescribed. Follow-up with your neurologist in 1 to 3 days. Referrals: Balijt Edmonds MD [Primary Care Provider] - 1-2 days
[2024-12-09 18:52] LABS: Basophils # (A) 0.04 10*3/uL (0.00-0.10); Basophils % (A) 0.8 %; Eosinophils # (A) 0.04 10*3/uL (0.04-0.35); Eosinophils % (A) 0.8 %; HCT 41.2 % (37.2-46.3); HGB 13.6 g/dL (12.0-15.0); Lymphocytes # (A) 0.88 10*3/uL (0.90-5.00); MCH 30.2 pg (27.0-32.0); MCV 91.6 fL (80.0-97.0); Mean Platelet Volume 10.3 fL (9.5-12.2); Monocytes # (A) 0.43 10*3/uL (0.20-1.00); Monocytes % (A) 8.3 %; Neutrophils # (A) 3.77 10*3/uL (1.80-7.70); Neutrophils % (A) 72.9 %; Platelet Count 268 10*3/uL (140-440); WBC 5.17 10*3/uL (4.50-10.00)
[2024-12-09] MEDS: levETIRAcetam IV 500 MG/5 ML VIAL IVP STA (19:08)
[2024-12-09 19:10] LABS: Carbon Dioxide 24 mmol/L (22-30); Chloride 103 mmol/L (98-107); Glucose 155 mg/dL (74-99); Potassium 3.2 mmol/L (3.5-5.1); Sodium 138 mmol/L (137-145)
[2024-12-09 19:11] LABS: ALT 17 U/L (4-34); AST 25 U/L (14-36); African American GFR (CKD) >90 (>60 ml/min/1.73 sqM); Albumin 3.8 g/dL (3.5-5.0); Alkaline Phosphatase 121 U/L (38-126); Anion Gap 11 mmol/L; Blood Urea Nitrogen 20 mg/dL (7-17); Calcium 9.3 mg/dL (8.4-10.2); Non-African American GFR(CKD) 87 (>60 ml/min/1.73 sqM); Total Bilirubin 0.5 mg/dL (0.2-1.3); Total Protein 6.4 g/dL (6.3-8.2)
[2024-12-09] MEDS: POTASSIUM CHLORIDE ER 20 MEQ TAB.ER PO STA (19:38)
[2024-12-09 19:54] LABS: Magnesium 1.9 mg/dL (1.6-2.3)
[2024-12-09 20:22] VITALS: BP 145/82; PULSE 75; RESP 16
== END 2024-12-09 20:31 | disposition home or self-care (01) ==
LOC: EC 17:18
DX: R56.9 Unspecified convulsions (principal); Z87.891 Personal history of nicotine dependence; Z88.0 Allergy status to penicillin; Z88.8 Allergy status to other drugs, medicaments and biological substances
CPT/HCPCS: 36415; 80053; 80177; 80203; 82550; 83735; 85025; 99284; 96374; J1953